=== PATIENT | female | born 1945 | race Caucasian/White ===

== ENCOUNTER → 2017-08-12 07:46 | Outpatient (CLI) | payer MEDICARE, OTHER, SELFPAY ==
--- NOTE | 2017-08-12 10:16 | NEURO_ITS ---
NCS and/or EMG Patient Report Ordering Doctor: Gilberto Bass DATE OF SERVICE: 08/12/17 Is a bilateral lower extremity nerve conduction study and a left lower extremity EMG performed on this 72-year-old female with a history of diabetes with her most recent hemoglobin A1c of 9.8. She experiences symptoms worse on the left described as pain in her feet bilaterally as well as back pain and numbness. Bilateral lower extremity sensory and motor nerve conduction study is performed. The sural sensory responses are not obtainable on either side. The common peroneal distal latencies are mildly prolonged with mild to moderate reduction of amplitudes and mild decrease in conduction velocity. The bilateral tibial motor distal latencies are mildly increased with reduced amplitudes and conduction velocities. The tibial and common peroneal F-wave latencies are bilaterally prolonged to a mild extent and the tibial H reflex responses are reduced. Left lower extremity needle electromyography was performed. Muscles evaluated included the extensor digitorum brevis, abductor hallucis, medial gastrocnemius , anterior tibialis, vastus lateralis and vastus medialis muscles. Distal muscles demonstrated large motor units with absence of pathologic spontaneous activity. Motor unit potential recruitment pattern and amplitude improved with more proximal muscles consistent with a length dependent pattern. Impression abnormal electrophysiologic study consistent with length dependent peripheral neuropathy.
== END ==
PROVIDERS: Family Provider Family Medicine; PCP Family Medicine; Visit Provider Psychiatry & Neurology Neurology
DX: M79.661 Pain in right lower leg (principal); M79.662 Pain in left lower leg; M79.671 Pain in right foot; M79.672 Pain in left foot; E11.65 Type 2 diabetes mellitus with hyperglycemia
CPT/HCPCS: 95886; 95910

== ENCOUNTER 2020-05-30 14:27 | Emergency (ER) | payer MEDICARE, OTHER, SELFPAY ==
[2019-03-13 20:25] VITALS: BMI 36.8
[2020-05-30 14:28] VITALS: PULSE 91; RESP 18; TEMP 35.8; O2SAT 97; BMI 34.0
[2020-05-30 14:40] VITALS: BP 178/81
--- NOTE | 2020-05-30 14:56 | ED.VISSUMM ---
- ER Visit Summary Date of Service: 05/30/20 Chief Complaint: Back pain History of Present Illness: The patient is a 75 F who presents with back pain that has been getting worse over the past 2 weeks. Patient states the pain is been constant. Patient states the pain is sharp and shooting. Patient states the pain radiates across her lumbar spine. Patient states her pain is worse with movement. Patient denies any radiation of the pain to her lower extremities. Patient denies any paresthesias or weakness. Patient denies any abdominal pain. Patient denies any bowel or bladder changes. Patient denies any saddle anesthesia. Physical Examination: Vital signs are stable except for an elevated blood pressure of 183/82. Patient is afebrile. Patient is in no acute distress. Musculoskeletal exam reveals tenderness and spasm of the lumbar paraspinal muscles. There is some mild midline tenderness. There is no bony crepitance or step-off. There is no edema or ecchymosis. Range of motion was limited in all motions of the lumbar spine secondary to pain. Strength is 5/5 bilaterally in the lower extremities. Deep tendon reflexes are 2/4 bilaterally in the lower extremities. There are no sensory deficits noted. There is no calf tenderness or edema. Test Results: X-rays of the lumbar spine were obtained. There are 3 views. On my interpretation, there are some degenerative changes noted. There is no acute fracture. There is no spondylolisthesis or spondylolysis. Radiologist also interpreted the x-rays in degrees. Emergency Department Course and Treatment: Patient was given a dose of morphine here. Patient is feeling better on reevaluation. Patient was given a walker. Patient was given a prescription for a short course of [place]. Patient was instructed to use ice to the area. Patient was instructed to follow-up with her primary care physician in 5 to 7 days. Patient understood and was agreeable with the plan. All questions were answered. Disposition: Discharge home Impression: Acute low back pain This note was generated with [employer] dictation software. It may contain incorrect words, spelling, and punctuation that were not noted in review of the chart prior to signing ED Disposition - Plan for ED Patient: Disposition: Home or Assisted Living Diagnosis: Acute low back pain Instructions: ED Back Pain (Acute or Chronic) Prescriptions: Hydrocodone Bitart/Apap 5-325 [Amenia 5MG-325MG] 1 tab PO Q6H PRN PRN 3 Days #10 tab PRN Reason: Pain Prescription Printed Referrals: Carmelina Wesley PA [Primary Care Provider] - 3-5 Days
[2020-05-30] MEDS: Morphine 4 MG/ML Syringe IM (14:59)
--- NOTE | 2020-05-30 15:07 | RAD_ITS ---
STUDY: X-RAY - LUMBAR SPINE REASON FOR EXAM: Female, 75 years old. PAIN IN LOWER BACK INTO LEFT LEG FOR ABOUT 2 WEEKS, BUT HAS BEEN OFF AND ON FOR YEARS PER PATIENT. SHE ALSO STATES HER LEFT LEG WILL GIVE OUT ON HER. NO KNOWN INJURY. TECHNIQUE: 3 view(s) of the lumbar spine were obtained. COMPARISON: None FINDINGS: Normal lumbar lordosis. There is a mild levoscoliosis of the lumbar spine. There is a normal alignment of the vertebrae. There is multilevel endplate spondylosis of the lumbar vertebrae. There is multi-level degenerative disc disease with multi-level disc space narrowing. Facet joint osteoarthritis. There is atherosclerotic calcification of the abdominal aorta without a demonstrated aneurysm. Surgical clips are seen in the right upper quadrant most likely secondary to prior cholecystectomy. RAD/Lumbar Spine 2 or 3 Views IMPRESSION: Degenerative changes of the spine, as detailed above. Mild levoscoliosis. Electronically Signed: Renaldo Agudelo MD at 15:30 EST , Service support ,
[2020-05-30 16:35] VITALS: BP 168/74
== END 2020-05-30 16:46 | disposition home or self-care (01) ==
PROVIDERS: Emergency Provider Emergency Medicine; PCP Physician Assistant Medical
DX: M54.5 Low back pain (principal)
CPT/HCPCS: 72100; 96372; 99282

== ENCOUNTER → 2020-08-08 08:27 | Outpatient (CLI) | payer MEDICARE, OTHER, SELFPAY ==
[2020-08-02 12:55] VITALS: BMI 37.0
[2020-08-08 12:09] LABS: Absolute Lymphocyte Count 2.01 X10^3/uL (0.83-4.51); Absolute Neutrophil Count 2.3 X10^3/uL (2.0-7.7); Basophil# 0.02 X10^3/uL; Basophil% 0.4 % (0-1); Eosinophil# 0.13 X10^3/uL; Eosinophils% 2.7 % (0-5); Hematocrit 33.5 % (37-47); Hemoglobin 10.3 g/dL (12.0-15.0); Lymphocyte # 2.01 X10^3/ul (4.0); Lymphocyte % 41.4 % (19-41); Mean Corp Hgb Conc 30.7 g/dL (32-36); Mean Corpuscular Hgb 28.9 pg (27.0-32.0); Mean Corpuscular Volume 93.8 fL (81-99); Mean Platelet Vol. 10.3 fl (6.2-12.0); Monocyte# 0.38 X10^3/uL; Monocyte% 7.8 % (0-10); NRBC Flagged by Analyzer 0 % (0-5); Neutrophil # 2.29 X10^3/uL (2.7-7.7); Neutrophil % 47.3 % (47-70); Platelet Count 251 K/mm3 (150-450); RBC Distribution Width CV 13.3 % (11.6-14.6); RBC Distribution Width SD 45.7 fl (35.1-43.9); Red Blood Count 3.57 M/mm3 (4.2-5.4); White Blood Count 4.9 K/mm3 (4.4-11.0)
[2020-08-08 12:27] LABS: Vitamin D,25 Hydroxy 29.9 ng/mL
[2020-08-08 12:32] LABS: Hemoglobin A1c 8.7 % (3.8-5.6)
[2020-08-08 12:40] LABS: ALB/GLOB Ratio 1.1 RATIO (0.9-2.4); AST(SGOT) 16 U/L (15-37); Alanine Aminotransfer ALT/SGPT 27 U/L (13-56); Albumin, Serum 3.9 g/dL (3.2-5.0); Alkaline Phosphatase 83 U/L (45-117); Anion Gap 13 (5-15); BUN 41 mg/dL (7-18); Calcium,Total 9.4 mg/dL (8.5-10.1); Chloride 108 mmol/L (98-107); Cholesterol 180 mg/dL (200); Creatinine, Serum 1.28 mg/dL (0.55-1.02); EST Glomerular Filtration Rate 43 mL/min (>60); Est Glom Filt Rate - Afr Amer 52 mL/min (>60); Free T3 2.4 pg/mL (2.18-3.98); Globulin 3.6 g/dL (2.2-4.2); Glucose 184 mg/dL (74-106); High Density Lipoprotein 53 mg/dL; Potassium 4.9 mmol/L (3.5-5.1); Protein, Total 7.5 g/dL (6.4-8.2); Sodium Level 142 mmol/L (136-145); T4 Free Direct 1.45 ng/dL (0.76-1.46); Thyroid Stim Hormone (TSH) 0.71 uIU/mL (0.358-3.74); Triglycerides 224 mg/dL; Very Low Density Lipoprotein 45 mg/dL (5-40)
== END ==
PROVIDERS: PCP Internal Medicine; Visit Provider Internal Medicine
DX: E55.9 Vitamin D deficiency, unspecified (principal); G62.9 Polyneuropathy, unspecified; E03.9 Hypothyroidism, unspecified; E66.9 Obesity, unspecified; I10 Essential (primary) hypertension; E11.9 Type 2 diabetes mellitus without complications; E78.5 Hyperlipidemia, unspecified
CPT/HCPCS: 36415; 80053; 80061; 82306; 83036; 84439; 84443; 84481; 85025

== ENCOUNTER → 2020-08-10 12:54 | Outpatient (CLI) | payer MEDICARE, OTHER, SELFPAY ==
[2020-08-02 12:55] VITALS: BMI 37.0
--- NOTE | 2020-08-10 12:56 | ECHOD_ITS ---
Reason For Study: DYSPNEA Procedure This was a 2D Doppler, Color Flow transthoracic echocardiogram. The study was technically difficult. Due to body habitus and PT unable to lie down in left lateral decubitus position due to severe back pain. Exam performed in department. Left Ventricle Normal LV size. Left ventricular systolic function is normal. The estimated ejection fraction is 65 %. There is evidence of diastolic dysfunction. No regional wall motion abnormalities noted. Right Ventricle Normal RV size. Normal systolic function. Atria The left atrium is moderately enlarged. Normal right atrium. Small secundum atrial septal defect vs. patent foramen ovale. Mitral Valve There is moderate to severe mitral annular calcification. Extension of the mitral annular calcification onto the posterior mitral valve leaflets. Trivial mitral valve insufficiency. Tricuspid Valve Normal tricuspid valve. Trivial tricuspid valve insufficiency. Right ventricular systolic pressure estimated to be 33 mmHg. Aortic Valve Trisinus/trileaflet aortic valve. Mild focal aortic valve thickening. Pulmonic Valve The pulmonic valve is not well visualized. Great Vessels Normal sized aortic root. Pericardium/Pleural No pericardial effusion. MMode/2D Measurements & Calculations LVIDd: 4.9 cm IVSd: 1.1 cm Ao root diam: 3.0 cm LVIDs: 3.3 cm LVPWd: 1.3 cm RVDd: 3.2 cm FS: 32.6 % LAV(MOD-bp): 80.7 ml LA A4 area: 24.4 cm2 LA dimension(2D): 5.4 cm LAV(MOD-bp) Indexed: 40.9 ml/m2 LAV(MOD-sp2): 77.6 ml LAV(MOD-sp4): 79.8 ml Time Measurements MV dec time: 0.28 sec Doppler Measurements & Calculations MV E max yoni: 128.7 cm/sec Lat Peak E' Yoni: 5.5 cm/sec Med Peak E' Yoni: 6.3 cm/sec MV A max yoni: 175.1 cm/sec E/E' lat: 23.5 E/E' med: 20.6 MV E/A: 0.73 Ao V2 max: 160.8 cm/sec LV V1 max: 121.5 cm/sec PA V2 max: 94.0 cm/sec Ao max P.3 mmHg LV V1 max P.9 mmHg TR max yoni: 275.9 cm/sec TR max P.4 mmHg ECHO/Echo Complete Interpretation Summary The study was technically difficult. Left ventricular systolic function is normal. The estimated ejection fraction is 65 %. The left atrium is moderately enlarged. There is moderate to severe mitral annular calcification. Extension of the mitral annular calcification onto the posterior mitral valve l eaflets. Trivial mitral valve insufficiency. Trivial tricuspid valve insufficiency. Mild focal aortic valve thickening. Right ventricular systolic pressure estimated to be 33 mmHg. There is evidence of diastolic dysfunction. Ordering Physician: Regi Liu Referring Physician: Regi Liu Performed By: Radha Hutchison, PATIENCE, RVT
== END ==
PROVIDERS: PCP Internal Medicine; Referring Provider Internal Medicine; Visit Provider Internal Medicine
DX: R06.00 Dyspnea, unspecified (principal)
CPT/HCPCS: 93306

== ENCOUNTER 2021-05-22 15:26 | Outpatient (CLI) | payer MEDICARE, OTHER, SELFPAY ==
--- NOTE | 2021-05-22 15:30 | RAD_ITS ---
STUDY: X-RAY - RIGHT WRIST REASON FOR EXAM: Female, 76 years old. fall, right wrist pain TECHNIQUE: 4 view(s) of the wrist were obtained. COMPARISON: None. FINDINGS: Normal visualized distal radius and ulna. Normal radiocarpal articulation. Normal distal radioulnar articulation. There is a healed fracture deformity on the dorsal surface of the triquetrum. Small loose bodies are present in the volar aspect of the joint space related to degenerative disease. Mild cortical spurring is also present in the distal radial metaphysis where it articulates with the ulna. No visualized acute fractures. Normal carpal articulations. Normal carpometacarpal articulation of the thumb. Normal second through fifth carpometacarpal articulations. Normal visualized metacarpal bones. The soft tissue structures are unremarkable. RAD/Wrist min 3 Views IMPRESSION: 1. Healed fracture deformity of the dorsal surface of the triquetrum and degenerative changes Electronically Signed: Nolan Joshua MD at 16:26 EST , Service support ,
[2021-05-22 15:35] LABS: Bacteria 0 SEEN /hpf (None Seen); Mucous, Urine 0 SEEN /hpf (<or=2+); Red Blood Cells-Urine 0 SEEN /hpf (0-5); Squamous Epithelial Cells - UA 0 SEEN /hpf (5-10)
[2021-05-22 18:06] LABS: Absolute Lymphocyte Count 2.51 X10^3/uL (0.83-4.51); Basophil# 0.03 X10^3/uL; Basophil% 0.5 % (0-1); Eosinophil# 0.11 X10^3/uL; Eosinophils% 1.8 % (0-5); Hematocrit 31.7 % (37-47); Hemoglobin 9.9 g/dL (12.0-15.0); Lymphocyte # 2.51 X10^3/ul (0.83-4.51); Lymphocyte % 40.5 % (19-41); Mean Corp Hgb Conc 31.2 g/dL (32-36); Mean Platelet Vol. 10.7 fl (6.2-12.0); Monocyte% 8.1 % (0-10); NRBC Flagged by Analyzer 0 % (0-5); Neutrophil # 3.02 X10^3/uL (2.7-7.7); Neutrophil % 48.6 % (47-70); Platelet Count 259 K/mm3 (150-450); RBC Distribution Width CV 14.8 % (11.6-14.6); RBC Distribution Width SD 49.6 fl (35.1-43.9); Red Blood Count 3.41 M/mm3 (4.2-5.4); White Blood Count 6.2 K/mm3 (4.4-11.0)
[2021-05-22 18:08] LABS: Color, Urine Yellow (Yellow); Glucose, Dipstick Normal (Normal); Ketone-Dipstick 5 mg/dl (Negative); Leukocyte Esterase-Dipstick 25 /ul (Negative); Nitrite-Dipstick Negative (Negative); Occult Blood-Urine Negative /ul (Negative); Protein-Dipstick 100 mg/dl (Negative); Specific Gravity, Urine 1.025 (1.002-1.030); Urine Bilirubin Dipstick Negative (Negative); Urine Clarity Clear (Clear); Urine Urobilinogen Normal (Normal)
[2021-05-22 18:30] LABS: White Blood Cells 0-5 SEEN /hpf (0-5)
[2021-05-22 18:38] LABS: ALB/GLOB Ratio 0.9 RATIO (0.9-2.4); AST(SGOT) 17 U/L (15-37); Alanine Aminotransfer ALT/SGPT 32 U/L (13-56); Albumin, Serum 3.7 g/dL (3.2-5.0); Alkaline Phosphatase 103 U/L (45-117); Anion Gap 11 (5-15); BUN 40 mg/dL (7-18); BUN/Creat Ratio 22.6 RATIO (10-20); Calcium,Total 9.5 mg/dL (8.5-10.1); Chloride 104 mmol/L (98-107); Creatinine, Serum 1.77 mg/dL (0.55-1.02); EST Glomerular Filtration Rate 30 mL/min (>60); Est Glom Filt Rate - Afr Amer 36 mL/min (>60); Globulin 3.9 g/dL (2.2-4.2); Glucose 257 mg/dL (74-106); Potassium 5.1 mmol/L (3.5-5.1); Protein, Total 7.6 g/dL (6.4-8.2); Sodium Level 139 mmol/L (136-145)
== END 2021-05-22 23:59 | disposition short-term general hospital (02) ==
LOC: MTLAB 15:30
PROVIDERS: PCP Internal Medicine; Referring Provider Internal Medicine; Visit Provider Internal Medicine
DX: M25.531 Pain in right wrist (principal); E11.9 Type 2 diabetes mellitus without complications; I10 Essential (primary) hypertension; E66.9 Obesity, unspecified; E03.9 Hypothyroidism, unspecified; G62.9 Polyneuropathy, unspecified
CPT/HCPCS: 73110; 80053; 81001; 85025

== ENCOUNTER 2021-08-23 09:02 | Outpatient (CLI) | payer MEDICARE, OTHER, SELFPAY ==
[2021-08-23 12:40] LABS: Absolute Lymphocyte Count 2.04 X10^3/uL (0.83-4.51); Absolute Neutrophil Count 2.8 X10^3/uL (2.0-7.7); Basophil# 0.02 X10^3/uL; Basophil% 0.4 % (0-1); Eosinophils% 1.8 % (0-5); Hematocrit 34.1 % (37-47); Hemoglobin 10.8 g/dL (12.0-15.0); Lymphocyte # 2.04 X10^3/ul (0.83-4.51); Lymphocyte % 37.7 % (19-41); Mean Corp Hgb Conc 31.7 g/dL (32-36); Mean Corpuscular Volume 91.4 fL (81-99); Mean Platelet Vol. 10.8 fl (6.2-12.0); Monocyte# 0.41 X10^3/uL; Monocyte% 7.6 % (0-10); NRBC Flagged by Analyzer 0 % (0-5); Neutrophil # 2.81 X10^3/uL (2.7-7.7); Neutrophil % 51.9 % (47-70); Platelet Count 214 K/mm3 (150-450); RBC Distribution Width CV 14.7 % (11.6-14.6); RBC Distribution Width SD 49.1 fl (35.1-43.9); Red Blood Count 3.73 M/mm3 (4.2-5.4); White Blood Count 5.4 K/mm3 (4.4-11.0)
[2021-08-23 12:58] LABS: Vitamin D,25 Hydroxy 50.6 ng/mL
[2021-08-23 13:07] LABS: ALB/GLOB Ratio 0.9 RATIO (0.9-2.4); AST(SGOT) 19 U/L (15-37); Alanine Aminotransfer ALT/SGPT 31 U/L (13-56); Albumin, Serum 3.6 g/dL (3.2-5.0); Alkaline Phosphatase 93 U/L (45-117); Anion Gap 8 (5-15); BUN 30 mg/dL (7-18); BUN/Creat Ratio 25.4 RATIO (10-20); Calcium,Total 9.1 mg/dL (8.5-10.1); Chloride 107 mmol/L (98-107); Cholesterol 179 mg/dL (200); Creatinine, Serum 1.18 mg/dL (0.55-1.02); EST Glomerular Filtration Rate 47 mL/min (>60); Est Glom Filt Rate - Afr Amer 57 mL/min (>60); Free T3 2.7 pg/mL (2.18-3.98); Globulin 3.8 g/dL (2.2-4.2); Glucose 238 mg/dL (74-106); Hemoglobin A1c 10.4 % (3.8-5.6); High Density Lipoprotein 47 mg/dL; Potassium 4.8 mmol/L (3.5-5.1); Protein, Total 7.4 g/dL (6.4-8.2); Sodium Level 138 mmol/L (136-145); T4 Free Direct 1.48 ng/dL (0.76-1.46); Triglycerides 307 mg/dL; Very Low Density Lipoprotein 61 mg/dL (5-40)
== END 2021-08-23 23:59 | disposition home or self-care (01) ==
PROVIDERS: PCP Internal Medicine; Visit Provider Internal Medicine
DX: E55.9 Vitamin D deficiency, unspecified (principal); E11.9 Type 2 diabetes mellitus without complications; E03.9 Hypothyroidism, unspecified; E66.9 Obesity, unspecified; I10 Essential (primary) hypertension
CPT/HCPCS: 36415; 80053; 80061; 82306; 83036; 84439; 84443; 84481; 85025

== ENCOUNTER → 2022-08-01 | Outpatient (CLI) | payer MEDICARE, OTHER, SELFPAY ==
[2022-08-01 08:51] VITALS: BP 174/67; PULSE 85; RESP 20; TEMP 36.6; O2SAT 98; BMI 32.8
== END | disposition home or self-care (01) ==
PROVIDERS: PCP Internal Medicine; Visit Provider Internal Medicine Hematology & Oncology
DX: D50.9 Iron deficiency anemia, unspecified (principal); C50.411 Malignant neoplasm of upper-outer quadrant of right female breast
CPT/HCPCS: 36569

== ENCOUNTER → 2023-01-02 | Outpatient (CLI) | payer MEDICARE, OTHER, SELFPAY ==
[2023-01-02 11:09] VITALS: BP 161/48; PULSE 82; RESP 18; TEMP 36.9; O2SAT 96; BMI 32.8
== END | disposition home or self-care (01) ==
LOC: RAD 10:52
PROVIDERS: PCP Internal Medicine; Referring Provider Nurse Practitioner; Visit Provider Nurse Practitioner
DX: D50.8 Other iron deficiency anemias (principal); Z45.2 Encounter for adjustment and management of vascular access device
CPT/HCPCS: 36569

== ENCOUNTER 2023-02-13 12:11 | Emergency (ER) | payer MEDICARE, OTHER, SELFPAY ==
[2023-02-13 12:12] VITALS: BP 191/63; PULSE 85; RESP 18; TEMP 36.1; O2SAT 98; BMI 35.2
--- NOTE | 2023-02-13 14:21 | VDUE_ITS ---
Reason For Study: Left arm pain Left Proximal Left jugular vein is spontaneous, widely patent, phasic, with no intraluminal echogenicity noted. Left subclavian vein is spontaneous, widely patent, phasic, with no intraluminal echogenicity noted. Left Arm Left axillary vein is spontaneous, patent, phasic, competent, compressible and demonstrates augmentation. Left brachial vein is compressible. Left cephalic vein is compressible. Left basilic vein is compressible. Left Lower Arm Left radial vein is compressible. Left ulnar vein is compressible. Patient Safety Preliminary report given to Dr. Kramer. VL/Venous Duplex US, Unilateral Interpretation Summary No evidence for acute deep venous thrombosis[left] upper extremity with patent and compressible cephalic and basilic veins. Ordering Physician: Brianna Kramer Referring Physician: Regi Liu M.D. Performed By: Batool Sood RVT ???
--- NOTE | 2023-02-13 14:22 | EDS_ITS ---
HPI History of Present Illness Chief Complaint: Upper Extremity Injury Detail of Chief Complaint: Left arm pain Informant: patient Narrative Narrative: Patient presents to the emergency department complaint of pain in her left arm. Patient states that she had a PICC line placed and then was removed about a month ago to the left arm. They were using the arm for iron infusions. Patient states after removal she had discomfort to the arm and when she would sleep wrong on it it was painful and she has had some numbness to the posterior upper arm as well. Patient also intermittently notices some numbness in her left back. Also has noticed some discomfort intermittently in the left side of her neck. She denies any chest pain or shortness of breath out of the ordinary. Patient called the nurses line at [facility] and was advised to come to the ER to be evaluated. [facility] Medical History (Updated 02/13/23 @ 15:[address] 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 cataract, both eyes GERD with esophagitis Hyperlipidemia, mixed Hyperopia Hypertension, essential, benign Hypothyroidism (acquired) Iron deficiency anemia Iron malabsorption Lymphedema Malignant neoplasm of upper-outer quadrant of right female breast Obesity, Class II, BMI 35-39.9 Peripheral neuropathy Presbyopia Ptosis of left eyelid Regular astigmatism Rosacea Type 2 diabetes mellitus with both eyes affected by mild nonproliferative retinopathy without macular edema, with long-term current use of insulin Uncontrolled type 2 diabetes mellitus without complication, without long-term current use of insulin Home Medications biotin 2,500 mcg capsule 5,000 mcg PO DAILY 01/09/16 [History Last Taken Unknown] cholecalciferol (vitamin D3) 25 mcg (1,000 unit) tablet 2,000 unit PO DAILY 01/09/16 [History Last Taken Unknown] multivitamin 1 ea PO DAILY 01/09/16 [History Last Taken Unknown] blood-glucose meter (FreeStyle Lite Meter kit) #1 ea 03/11/19 [History Last Taken Unknown] esomeprazole magnesium 40 mg capsule,delayed release (Nexium) 40 mg PO DAILY 03/11/19 [History Last Taken Unknown] gabapentin 300 mg capsule 300 mg PO QHS 08/02/20 [History Last Taken Unknown] pen needle, diabetic 31 gauge x 5/16 (Lite Touch Insulin Pen [place]) #30 ea 08/06/20 [Rx Last Taken Unknown] flash glucose scanning reader (FreeStyle [place]um 14 Day [place]) #1 ea 08/20/20 [Rx Last Taken Unknown] flash glucose sensor (FreeStyle [place] 14 Day Sensor kit) #1 ea 08/20/20 [Rx Last Taken Unknown] blood sugar diagnostic (FreeStyle Lite Strips) #100 ea 10/08/21 [Rx Last Taken Unknown] lancets 28 gauge (FreeStyle Lancets) #100 ea 10/18/21 [Rx Last Taken Unknown] atorvastatin 10 mg tablet 10 mg PO QHS #90 tabs 07/28/22 [Rx Last Taken Unknown] levothyroxine 112 mcg tablet 112 mcg PO DAILY #90 tabs 07/28/22 [Rx Last Taken Unknown] valsartan 160 mg tablet 160 mg PO DAILY #90 tabs 07/28/22 [Rx Last Taken Unknown] semaglutide 0.25 mg or 0.5 mg (2 mg/3 mL) subcutaneous pen injector (Ozempic) 0.5 mg (0.736 mL) subcut QWEEK #3 mL 11/05/22 [Rx Last Taken Unknown] glipizide 5 mg tablet 5 mg PO BIDAC #180 tabs 02/04/23 [Rx Last Taken Unknown] hydrochlorothiazide 25 mg tablet 25 mg PO DAILY #90 tabs 02/04/23 [Rx Last Taken Unknown] metformin 1,000 mg tablet 1,000 mg PO BID #180 tabs 02/04/23 [Rx Last Taken Unknown] Allergy/AdvReac Type Severity Reaction Status Date / Time No Known Allergies Allergy Verified 02/13/23 12:14 Family History Aunt Breast cancer Sister Diabetes Surgical History History of cholecystectomy History of lumpectomy Social History Smoking Status: Former smoker quit date: 05/11/90 Tobacco: How many years used: 15 alcohol intake: never substance use type: does not use what type of physical activity do you participate in: walking and bicycling ROS ROS ED Review of Systems ROS Unobtainable: other Constitutional Constitutional ED: Reports lethargy; Denies chills, fever(s), sweats or weight loss Eyes Eyes: Denies blurry vision, change in vision or diplopia ENT ENT ED: Denies rhinorrhea or sore throat Cardiovascular Cardiovascular: Denies chest pain, orthopnea or racing heartbeat Respiratory/Chest Respiratory/Chest: Denies cough, dyspnea, dyspnea on exertion, orthopnea or sputum Gastrointestinal Gastrointestinal: Denies abdominal pain, diarrhea, nausea or vomiting Genitourinary Genitourinary ED: Denies dysuria, hematuria or urinary frequency Musculoskeletal Musculoskeletal: Reports other Details: Left arm pain ; Denies arthralgias, back pain, myalgias or neck pain Integumentary Denies abscess, Abrasions or rash Neurologic Neurologic: Reports paresthesias; Denies headache(s) or weakness Psychiatric Psychiatric: Denies anxiety, depression or suicidal thoughts Endocrine Endocrinology: Denies polydipsia, polyphagia or polyuria Hematologic/Lymphatic Hematologic/Lymphatic: Denies easy bleeding, easy bruising or lymphadenopathy Allergic/Immunologic Allergic/Immunologic ED: Denies mouth swelling, tongue swelling or urticaria EXAM Physical Exam Const Vital Signs: 02/13/23 12:12 Temperature 97 F L Temperature Source Temporal Pulse Rate 85 Respiratory Rate 18 Blood Pressure 191/63 H Blood Pressure Mean 105 Pulse Ox 98 Oxygen Delivery Method Room Air Positive well nourished and well developed General Appearance ED: well developed and NAD HEENT Reports TM's clear and moist mucous membranes normocephalic and atraumatic; Negative for trauma or tenderness Tympanic Membrane ED: Yes TM's clear Eyes PERRL and EOMs intact bilaterally General Eye ED: Negative for pale conjunctiva or scleral icterus Neck no lymphadenopathy, supple and no JVD General: Negative for tenderness Chest Wall inspection of chest normal and palpation of chest normal Chest: Negative for tenderness Resp normal respiratory effort and clear to auscultation bilaterally Effort and Inspection: Negative for respiratory distress or pain with movement Auscultation: Negative for rhonchi, wheezes or diminished lung sounds Cardio regular rate, regular rhythm, S1 normal heart sound, S2 normal heart sound and no murmurs Peripheral Pulses: pulses 2+ throughout GI normal to inspection, nondistended, normoactive bowel sounds, soft to palpation, non-tender, non-distended and no masses Back/Spine no CVA tenderness and no thoracic nor lumbar tenderness Extremity normal to inspection General Extremety ED: Negative for edema General Extremity: Negative for edema Neuro oriented x3, CN's II-XII intact bilaterally, no sensory deficits noted and gait normal Sensorium / Orientation: awake, alert, oriented to person, oriented to place and oriented to time Motor Exam: strength 5/5 throughout and strength abnormal Psych mental status grossly normal Skin no rashes or lesions noted and no wounds MDM MDM MDM Narrative Medical decision making narrative: Presents with discomfort in her left arm after PICC line was removed 1 month ago. She denies any chest pain or dyspnea. Concern was for possibility of DVT. Venous Doppler obtained was negative for DVT. She has intermittent paresthesias to her left back as well as intermittent paresthesias to her left arm and neck. In the differential again would be potential cervical radiculopathy. I do not feel any further imaging is indicated as she has had no trauma. Patient advised to follow-up with her primary care physician within next 5 to 7 days. Patient is comfortable taking ibuprofen or Tylenol for discomfort. She is advised that if her symptoms persist or worsen may need further imaging such as possibly MRI of her cervical spine to evaluate further. Discharge Plan Triage Chief Complaint: Upper Extremity Injury Other Complaint: Numb/Ting ED Provider: Brianna Kramer Dx/Rx/DC Orders Clinical Impression: Arm pain, Arm paresthesia, left Instructions: ED Pain, Acute, Uncertain Cause, ED Paraesthesias Prescriptions: No Action esomeprazole magnesium [Nexium] 40 mg capsule,delayed release(DR/EC) 40 mg PO DAILY (DME) blood-glucose meter [FreeStyle Lite Meter] Kit See Rx Instructions .ROUTE .MEDSUPPLY Qty: 1 Rx Instructions: As directed gabapentin 300 mg capsule 300 mg PO QHS multivitamin 1 EACH tablet 1 ea PO DAILY Patient Comments: supplement cholecalciferol (vitamin D3) 1,000 UNIT tablet 2,000 unit PO DAILY Patient Comments: supplement biotin 2,500 MCG capsule 5,000 mcg PO DAILY Patient Comments: for dry mouth (DME) pen needle, diabetic [Lite Touch Insulin Pen [place]] 31 gauge x 5/16 needle See Rx Instructions .ROUTE .MEDSUPPLY Qty: 30 5RF Rx Instructions: use with victoza qd (DME) FreeStyle [place] 14 Day [place] [facility] See Rx Instructions .ROUTE .MEDSUPPLY Qty: 1 0RF Rx Instructions: As directed (DME) FreeStyle [place] 14 Day Sensor Kit See Rx Instructions .ROUTE .MEDSUPPLY Qty: 1 0RF Rx Instructions: As directed (DME) FreeStyle Lite Strips Strip See Rx Instructions .ROUTE .MEDSUPPLY Qty: 100 3RF Rx Instructions: As directed (DME) lancets [FreeStyle Lancets] 28 gauge misc See Rx Instructions .ROUTE .MEDSUPPLY Qty: 100 3RF Rx Instructions: check glucose 2 x a day atorvastatin 10 mg tablet 10 mg PO QHS Qty: 90 3RF levothyroxine 112 mcg tablet 112 mcg PO DAILY Qty: 90 3RF valsartan 160 mg tablet 160 mg PO DAILY Qty: 90 3RF Ozempic 0.25 mg or 0.5 mg (2 mg/3 mL) pen injector 0.5 mg subcut QWEEK Qty: 3 3RF Rx Instructions: for 4 weeks glipizide 5 mg tablet 5 mg PO BIDAC Qty: 180 3RF metformin 1,000 mg tablet 1,000 mg PO BID Qty: 180 3RF hydrochlorothiazide 25 mg tablet 25 mg PO DAILY Qty: 90 3RF Primary Care Provider: Regi Liu Referrals: Regi Liu MD [Primary Care Provider] - 5-7 Days Disposition Disposition: Home, Self Care Discharge Date/Time: 02/13/23 15:18
--- NOTE | 2023-02-13 14:51 | CM.ED ---
Social Work SW performed chart review, LW and HCPOA documents not on file. SW met with patient and patient's and introduced self and role as [facility] SW. Patient agreeable to speak to SW with patient's present. SW inquired about completion of ADs. Patient reports LW and HCPOA documents are complete and name patient's , Hunter, as HCPOA. SW encouraged patient to provide a copy to [facility] to add to patient's chart; patient agreeable. Tiffani CHRISTIE, MONI
== END 2023-02-13 15:18 | disposition home or self-care (01) ==
PROVIDERS: Emergency Provider Emergency Medicine; PCP Internal Medicine; Visit Provider Emergency Medicine
DX: M79.602 Pain in left arm (principal); N18.30 Chronic kidney disease, stage 3 unspecified; R20.2 Paresthesia of skin; Z87.891 Personal history of nicotine dependence
CPT/HCPCS: 93971; 99283

== ENCOUNTER 2023-04-07 08:07 | Outpatient (CLI) | payer MEDICARE, OTHER, SELFPAY ==
[2023-04-07 08:41] VITALS: BP 173/60; PULSE 75; RESP 16; TEMP 36.3; O2SAT 100; BMI 32.8
[2023-04-07 09:26] VITALS: BP 156/51; PULSE 78; RESP 16; TEMP 36.5; O2SAT 99
[2023-04-07 10:21] VITALS: BP 151/54; PULSE 74; RESP 16; TEMP 36.8; O2SAT 99
[2023-04-07 11:37] VITALS: BP 173/64; PULSE 77; RESP 16; TEMP 36.8; O2SAT 99
[2023-04-07 12:37] VITALS: BP 168/65; PULSE 75; RESP 16; TEMP 36.6; O2SAT 99
[2023-04-07 13:16] VITALS: BP 172/58; PULSE 78; RESP 16; TEMP 36.6
== END 2023-04-07 08:08 | disposition home or self-care (01) ==
LOC: MEDOUTP 08:08
PROVIDERS: PCP Internal Medicine; Referring Provider Internal Medicine Hematology & Oncology; Visit Provider Internal Medicine Hematology & Oncology
DX: D50.9 Iron deficiency anemia, unspecified (principal)
CPT/HCPCS: 36430; 86850; 86900; 86901; 86920; 86922; P9016; A4216

== ENCOUNTER 2023-04-21 14:31 | Outpatient (CLI) | payer MEDICARE, OTHER, SELFPAY ==
[2023-04-21 14:41] VITALS: BP 169/46; PULSE 81; RESP 16; TEMP 36; O2SAT 99; BMI 32.8
[2023-04-21] MEDS: 0.9% NaCl IVPB Med Flush (250 mL) 15 ML IV (14:50)
[2023-04-21] MEDS: 0.9% NaCl PICC Flush IV ×2 (14:50→15:46)
[2023-04-21] MEDS: Iron Sucrose Complex 200 MG in 0.9% Normal Saline (100mL Bag) 100 ML 220 MG IV (14:51)
[2023-04-21 15:49] VITALS: BP 158/55; PULSE 91; RESP 16; TEMP 36.2; O2SAT 99
== END 2023-04-21 14:32 | disposition home or self-care (01) ==
LOC: MEDOUTP 14:31
PROVIDERS: PCP Internal Medicine; Referring Provider Internal Medicine Hematology & Oncology; Visit Provider Internal Medicine Hematology & Oncology
DX: D50.9 Iron deficiency anemia, unspecified (principal)
CPT/HCPCS: 96365; 36569; J1756; J7050; A4216

== ENCOUNTER → 2023-04-21 | Outpatient (CLI) | payer MEDICARE, OTHER, SELFPAY ==
[2023-04-21 10:13] VITALS: BP 222/63; PULSE 86; RESP 18; TEMP 36.5; O2SAT 100; BMI 32.9
--- NOTE | 2023-04-21 12:43 | PRO.PCM_ITS ---
Procedure Report Date of Procedure: 04/21/23 Assessment & Plan Assessment/Plan (1) Iron deficiency anemia: QUALIFIERS: Iron deficiency anemia type: unspecified iron deficiency Qualified Code(s): D50.9 - Iron deficiency anemia, unspecified Procedure Time Out Time Out Informed consent given: Yes Consent signed: Yes Time out checklist: patient, procedure, site marked/identified, positioning of patient, supplies available, allergies confirmed and team agrees on procedure Time out staff in room: Yes Time out verified: Yes Time out date: 04/21/23 Time out time: 10:31 PICC Line Consent Screening tool completed:: Yes Consent obtained:: Yes Consent given by (patient or responsible democrat):: patient Line successful (if no, document why in comments):: No Insertion Reason for Insertion: Alf Medication Date of Insertion: 04/21/23 Ok to use: Yes Type of PICC inserted: Dual Power PICC Patient Tolerated Procedure: Fair Threading Difficulties: Yes Comments Comment: Patient identity was verified with two patient identifiers. Informed consent was obtained and time-out was completed. Hands were sanitized. The patient was positioned supine with the arm at 90 degrees. The patient's upper arm vasculature was assessed using ultrasound, and the left cephalic vein was externally marked. An external measurement was obtained of 47 cm. External leads were applied to the patient's right upper chest and laterally and inferior of the umbilicus on the mid axillary line. Cap, mask, and prep gloves were donned. The underdrape was placed under the patient's arm. The site was prepped with chlorhexidine, and tourniquet was loosely applied. Prep gloves were discarded, and hands were sanitized. The sterile kit was opened with additional supplies dropped in. Sterile gown and gloves were donned, and the patient was draped. The sterile kit was assembled with all needle, introducer, connector, and catheter flushed with sterile normal saline. The marked site of insertion was anesthetized with 1% lidocaine. Patient tolerated well. The left cephalic vein was then accessed using ultrasound guidance and guidewire was inserted to safety klarissa. The tourniquet was released. The access needle was removed while securing the guidewire in place. The site was again anesthetized with 1% lidocaine, prior to insertion of introducer sheath and dilator. Patient tolerated well. The catheter was trimmed to a length of 47 cm. Using 3C guidance, the catheter was then inserted through the introducer sheath, slowly. There was resistance on insertion. Despite flushing and adjustments of patient positioning, including head turning and increased arm abduction, the catheter would not advance past the shoulder. This catheter and introducer were removed. Within the sterile field, I was able to access the left basilic vein using ultrasound guidance and a new 4.5 Uzbek micro introducer kit, again with providing 1% lidocaine as local anesthetic prior. The patient tolerated this well and guidewire was inserted to the safety klarissa. The access needle was then removed, while securing the guidewire in place. The site was again anesthetized with 1% lidocaine, prior to the insertion of the introducer sheath and dilator. Patient again tolerated this well. The catheter was attempted to be inserted at this site, but was again met with resistance at the shoulder. Maximal p-wave, without deflection, was obtained at an insertion length of [ ] cm, leaving [ ] cm external. The introducer sheath was retracted and peeled away, incrementally, while keeping the catheter secured. The stylet was removed. A flushed needleless connector was attached [ ]. Blood return was verified and [ ] was flushed with sterile normal saline in a pulsatile fashion. Total sterile flushes used for the insertion was [ ] 10 ml syringes. Finally, the insertion site was cleaned with chlorhexidine, and the catheter was secured using a StatLock. The site was covered with a Tegaderm CHG Dressing. Baseline arm circumference was obtained at the insertion site and measured [ ] cm. The patient was provided with homegoing instructions on PICC line care.
== END | disposition home or self-care (01) ==
LOC: RAD 10:00
PROVIDERS: PCP Internal Medicine; Referring Provider Internal Medicine Hematology & Oncology; Visit Provider Internal Medicine Hematology & Oncology
DX: D50.9 Iron deficiency anemia, unspecified (principal)
CPT/HCPCS: 36569

== ENCOUNTER 2023-04-24 09:09 | Outpatient (CLI) | payer MEDICARE, OTHER, SELFPAY ==
[2023-04-24] MEDS: Iron Sucrose Complex 200 MG in 0.9% Normal Saline (100mL Bag) 100 ML 220 MG IV (09:45)
[2023-04-24] MEDS: 0.9% NaCl IVPB Med Flush (250 mL) 15 ML IV (09:46)
[2023-04-24] MEDS: 0.9% NaCl PICC Flush IV ×2 (09:46→10:44)
[2023-04-24 09:51] VITALS: BP 119/96; PULSE 76; RESP 16; TEMP 36.8; O2SAT 100; BMI 32.8
[2023-04-24 10:45] VITALS: BP 149/54; PULSE 84; RESP 16; TEMP 36.6; O2SAT 100
== END 2023-04-24 09:10 | disposition home or self-care (01) ==
LOC: MEDOUTP 09:09
PROVIDERS: PCP Internal Medicine; Referring Provider Internal Medicine Hematology & Oncology; Visit Provider Internal Medicine Hematology & Oncology
DX: D50.9 Iron deficiency anemia, unspecified (principal)
CPT/HCPCS: 96365; J1756; J7050; A4216

== ENCOUNTER 2023-04-27 12:16 | Outpatient (CLI) | payer MEDICARE, OTHER, SELFPAY ==
[2023-04-27 12:39] VITALS: BP 151/59; PULSE 78; RESP 16; TEMP 36.6; O2SAT 98; BMI 32.8
[2023-04-27] MEDS: 0.9% NaCl IVPB Med Flush (250 mL) 15 ML IV (12:46)
[2023-04-27] MEDS: 0.9% NaCl Peripheral Flush Adult/Peds IV ×2 (12:46→13:38)
[2023-04-27] MEDS: Iron Sucrose Complex 200 MG in 0.9% Normal Saline (100mL Bag) 100 ML 220 MG IV (12:46)
[2023-04-27 13:40] VITALS: BP 150/57; PULSE 83; RESP 16; TEMP 36.9
== END 2023-04-27 12:17 | disposition home or self-care (01) ==
LOC: MEDOUTP 12:16
PROVIDERS: PCP Internal Medicine; Referring Provider Internal Medicine Hematology & Oncology; Visit Provider Internal Medicine Hematology & Oncology
DX: D50.9 Iron deficiency anemia, unspecified (principal)
CPT/HCPCS: 96365; J1756; J7050; A4216

== ENCOUNTER 2023-04-29 08:51 | Outpatient (CLI) | payer MEDICARE, OTHER, SELFPAY ==
[2023-04-29 09:01] VITALS: BP 135/50; PULSE 88; RESP 16; TEMP 36.4; O2SAT 97; BMI 31.8
[2023-04-29] MEDS: 0.9% NaCl IVPB Med Flush (250 mL) 15 ML IV (09:14)
[2023-04-29] MEDS: 0.9% NaCl Peripheral Flush Adult/Peds IV ×2 (09:14→10:06)
[2023-04-29] MEDS: Iron Sucrose Complex (Venofer) 200 MG in 0.9% NaCl 100 ML 220 MG IV (09:18)
[2023-04-29 10:10] VITALS: BP 156/45; PULSE 80; RESP 14; TEMP 36.4; O2SAT 96
== END 2023-04-29 08:52 | disposition home or self-care (01) ==
LOC: MEDOUTP 08:51
PROVIDERS: PCP Internal Medicine; Referring Provider Internal Medicine Hematology & Oncology; Visit Provider Internal Medicine Hematology & Oncology
DX: D50.9 Iron deficiency anemia, unspecified (principal)
CPT/HCPCS: 96365; J1756; J7050; A4216

== ENCOUNTER 2023-05-01 11:30 | Outpatient (CLI) | payer MEDICARE, OTHER, SELFPAY ==
[2023-05-01] MEDS: Iron Sucrose Complex 200 MG in 0.9% Normal Saline (100mL Bag) 100 ML 220 MG IV (12:15)
[2023-05-01] MEDS: 0.9% NaCl IVPB Med Flush (250 mL) 15 ML IV (12:15)
[2023-05-01] MEDS: 0.9% NaCl Peripheral Flush Adult/Peds IV (12:16)
[2023-05-01 12:26] VITALS: BP 132/53; PULSE 82; RESP 16; TEMP 36.3; O2SAT 100; BMI 32.4
== END 2023-05-01 11:31 | disposition home or self-care (01) ==
LOC: MEDOUTP 11:30
PROVIDERS: PCP Internal Medicine; Referring Provider Internal Medicine Hematology & Oncology; Visit Provider Internal Medicine Hematology & Oncology
DX: D50.9 Iron deficiency anemia, unspecified (principal)
CPT/HCPCS: 96365; J1756; J7050; A4216

== ENCOUNTER 2023-05-01 13:35 | Emergency (ER) | payer MEDICARE, OTHER, SELFPAY ==
[2023-05-01 13:36] VITALS: BP 136/45; PULSE 83; RESP 16; TEMP 36.4; O2SAT 97; BMI 32.4
--- NOTE | 2023-05-01 14:55 | VDUE_ITS ---
Reason For Study: LUE PAIN Left Proximal Left jugular vein is spontaneous, widely patent, phasic, with no intraluminal echogenicity noted. Left subclavian vein is spontaneous, widely patent, phasic, with no intraluminal echogenicity noted. Left Arm Left axillary vein is spontaneous, patent, phasic, competent, compressible and demonstrates augmentation. Left brachial vein is compressible. Left cephalic vein is compressible. Left basilic vein is compressible. Left Lower Arm Left radial vein is compressible. Left ulnar vein is compressible. Patient Safety Preliminary report to Dr. Marlyn Lion @ 3:40 pm. VL/Venous Duplex US, Unilateral Interpretation Summary Deep veins of the left upper extremity are patent and compressible segmentally. There is no evidence of deep vein thrombosis. The superficial veins of the left upper extremity, the basilic and cephalic veins, are patent and compressible. There is no evidence of left upper extremit y superficial thrombophlebitis involving the veins imaged. Ordering Physician: Jennifer Lion Referring Physician: Regi Liu Performed By: Radha Hutchison, PATIENCE, RVT ???
--- NOTE | 2023-05-01 14:55 | CT_ITS ---
STUDY: CT CHEST WITHOUT CONTRAST REASON FOR EXAM: Female, 78 years old. Left upper chest pain at midline site RADIATION DOSAGE (If Supplied By Facility): CTDIvol = ( 16.07 ) mGy, DLP = ( 594.19 ) mGycm TECHNIQUE: Transaxial imaging was performed without the administration of intravenous contrast material. Multiplanar coronal and sagittal images were reformatted. Individualized dose optimization techniques were used for this CT. COMPARISON: No relevant priors. FINDINGS: CHEST The lungs are normal. There is no demonstrated pleural abnormality. There are calcifications of the coronary arteries. Calcification of the mitral valve annulus. Normal mediastinum. Normal hilar regions. Normal unenhanced pulmonary arteries. There is atherosclerotic calcification of the aortic arch with tortuosity and elongation of the aortic arch and descending thoracic aorta. There are multi-level degenerative changes of the thoracic spine. Degenerative changes of the left sternal clavicular joint. Small hiatal hernia. CT/Chest without Contrast IMPRESSION: No acute abnormality is seen. Degenerative changes of the left sternoclavicular joint. Electronically Signed: Renaldo Agudelo MD at 15:26 EST ,
--- NOTE | 2023-05-01 14:56 | EX.ED.DYSGE1 ---
HPI History of Present Illness Chief Complaint: Other, Pain/Inj Detail of Chief Complaint: Left arm and left upper chest pain Narrative Narrative: Patient has a midline in her left arm for iron infusions that she receives 3 times a week. This particular line was placed on the of this month. She previously had a left upper extremity PICC line. Patient states that on Thursday when she got her iron infusion she got pain in the left upper chest when they were flushing the line. Today she had significant pain in the left upper chest with flushing as well as with infusion. After they slow the infusion rate down she states the pain did improve. She also has some pain along the backside of the left upper arm. 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-related cataract, both eyes GERD with esophagitis Hyperlipidemia, mixed Hyperopia Hypertension, essential, benign Hypothyroidism (acquired) Iron deficiency anemia Iron malabsorption Lymphedema Malignant neoplasm of upper-outer quadrant of right female breast Obesity, Class II, BMI 35-39.9 Peripheral neuropathy Presbyopia Ptosis of left eyelid Regular astigmatism Rosacea Type 2 diabetes mellitus with both eyes affected by mild nonproliferative retinopathy without macular edema, with long-term current use of insulin Uncontrolled type 2 diabetes mellitus without complication, without long-term current use of insulin Home Medications biotin 2,500 mcg capsule 5,000 mcg PO DAILY 01/09/16 [History Last Taken Unknown] cholecalciferol (vitamin D3) 25 mcg (1,000 unit) tablet 2,000 unit PO DAILY 01/09/16 [History Last Taken Unknown] multivitamin 1 ea PO DAILY 01/09/16 [History Last Taken Unknown] blood-glucose meter (FreeStyle Lite Meter kit) #1 ea 03/11/19 [History Last Taken Unknown] esomeprazole magnesium 40 mg capsule,delayed release (Nexium) 40 mg PO DAILY 03/11/19 [History Last Taken Unknown] gabapentin 300 mg capsule 300 mg PO QHS 08/02/20 [History Last Taken Unknown] pen needle, diabetic 31 gauge x 5/16 (Lite Touch Insulin Pen Combined Locks) #30 ea 08/06/20 [Rx Last Taken Unknown] flash glucose scanning reader (FreeStyle N[place]um 14 Day [place]) #1 ea 08/20/20 [Rx Last Taken Unknown] flash glucose sensor (FreeStyle N[place]um 14 Day Sensor kit) #1 ea 08/20/20 [Rx Last Taken Unknown] blood sugar diagnostic (FreeStyle Lite Strips) #100 ea 10/08/21 [Rx Last Taken Unknown] lancets 28 gauge (FreeStyle Lancets) #100 ea 10/18/21 [Rx Last Taken Unknown] atorvastatin 10 mg tablet 10 mg PO QHS #90 tabs 07/28/22 [Rx Last Taken Unknown] levothyroxine 112 mcg tablet 112 mcg PO DAILY #90 tabs 07/28/22 [Rx Last Taken Unknown] valsartan 160 mg tablet 160 mg PO DAILY #90 tabs 07/28/22 [Rx Last Taken Unknown] glipizide 5 mg tablet 5 mg PO BIDAC #180 tabs 02/04/23 [Rx Last Taken Unknown] hydrochlorothiazide 25 mg tablet 25 mg PO DAILY #90 tabs 02/04/23 [Rx Last Taken Unknown] metformin 1,000 mg tablet 1,000 mg PO BID #180 tabs 02/04/23 [Rx Last Taken Unknown] semaglutide 1 mg/dose (4 mg/3 mL) subcutaneous pen injector 1 mg (0.75 mL) subcut QWEEK #3 mL 02/16/23 [Rx Last Taken Unknown] vit C 226 mg-vit E 90 mg-copper 0.8 mg-zinc oxide-lutein 5 mg capsule (PreserVision Lutein) 1 cap PO BID 04/21/23 [History Last Taken Unknown] Allergy/AdvReac Type Severity Reaction Status Date / Time No Known Allergies Allergy Verified 04/27/23 12:35 Family History Aunt Breast cancer Sister Diabetes Surgical History History of cholecystectomy History of lumpectomy Social History Smoking Status: Former smoker quit date: 05/11/90 Tobacco: How many years used: 15 alcohol intake: never substance use type: does not use what type of physical activity do you participate in: walking and bicycling ROS ROS ED Constitutional Constitutional ED: Denies chills or fever(s) Eyes Eyes: Denies discharge from eye(s) ENT ENT ED: Denies discharge from eye(s), rhinorrhea or sore throat Cardiovascular Cardiovascular: Reports chest pain; Denies palpitations Respiratory/Chest Respiratory/Chest: Denies cough or dyspnea Gastrointestinal Gastrointestinal: Denies abdominal pain, nausea or vomiting Musculoskeletal Musculoskeletal: Reports extremity pain; Denies back pain Integumentary Denies Abrasions or rash Neurologic Neurologic: Denies headache(s) or weakness Psychiatric Psychiatric: Denies anxiety or depression Allergic/Immunologic Allergic/Immunologic ED: Denies lip swelling or urticaria EXAM Physical Exam Const Vital Signs: 05/01/23 13:36 Temperature 97.6 F L Temperature Source Temporal Pulse Rate 83 Respiratory Rate 16 Blood Pressure 136/45 H Blood Pressure Mean 75 Pulse Ox 97 Oxygen Delivery Method Room Air Positive well nourished and well developed General Appearance ED: well developed HEENT Reports moist mucous membranes Eyes EOMs intact bilaterally Chest Wall inspection of chest normal and palpation of chest normal Chest Narrative: No reproducible chest wall tenderness. No erythema. Resp normal respiratory effort and clear to auscultation bilaterally Cardio regular rate and regular rhythm GI non-tender Palpation: soft Extremity Extremity Narrative: Midline in place to left upper extremity. No surrounding erythema or significant edema. Strong distal pulses. Good range of motion. Neuro oriented x3 Psych Mood & Affect: anxious MDM MDM MDM Narrative Medical decision making narrative: Venous ultrasound of the left upper extremity will be obtained to rule out DVT. CT of the chest will be obtained to evaluate integrity of the midline as patient does have pain in the left upper chest with infusion. Radiography Diagnostic Testing: Clinical Impression(s) from Imaging Studies Chest CT 05/01/23 14:55 IMPRESSION: No acute abnormality is seen. Degenerative changes of the left sternoclavicular joint. Electronically Signed: Renaldo Agudelo MD at 15:26 EST , Treatment and Re-Evaluation :: CT scan of the chest is read as unremarkable. I am able to see the distal aspect of the midline in the left lateral upper chest/over the upper arm. This is near the site where she is experiencing pain. I do not see a fluid collection in this area. Venous ultrasound of the left upper extremity reveals no evidence of DVT. I did speak with Dr. Rodriguez, on-call Dr. Nathan. Patient will follow-up in the office next week. Discharge Plan Triage Chief Complaint: Other, Pain/Inj ED Provider: Jennifer Lion Dx/Rx/DC Orders Clinical Impression: Arm pain, left Instructions: ED Pain, Acute, Uncertain Cause Prescriptions: No Action esomeprazole magnesium [Nexium] 40 mg capsule,delayed release(DR/EC) 40 mg PO DAILY (DME) blood-glucose meter [FreeStyle Lite Meter] Kit See Rx Instructions .ROUTE .MEDSUPPLY Qty: 1 Rx Instructions: As directed gabapentin 300 mg capsule 300 mg PO QHS multivitamin 1 EACH tablet 1 ea PO DAILY Patient Comments: supplement cholecalciferol (vitamin D3) 1,000 UNIT tablet 2,000 unit PO DAILY Patient Comments: supplement biotin 2,500 MCG capsule 5,000 mcg PO DAILY Patient Comments: for dry mouth PreserVision Lutein 226-90-0.8-5 mg capsule 1 cap PO BID (DME) pen needle, diabetic [Lite Touch Insulin Pen Combined Locks] 31 gauge x 5/16 needle See Rx Instructions .ROUTE .MEDSUPPLY Qty: 30 5RF Rx Instructions: use with victoza qd (DME) FreeStyle Nahum 14 Day [place] Misc See Rx Instructions .ROUTE .MEDSUPPLY Qty: 1 0RF Rx Instructions: As directed (DME) FreeStyle Nahum 14 Day Sensor Kit See Rx Instructions .ROUTE .MEDSUPPLY Qty: 1 0RF Rx Instructions: As directed (DME) FreeStyle Lite Strips Strip See Rx Instructions .ROUTE .MEDSUPPLY Qty: 100 3RF Rx Instructions: As directed (DME) lancets [FreeStyle Lancets] 28 gauge misc See Rx Instructions .ROUTE .MEDSUPPLY Qty: 100 3RF Rx Instructions: check glucose 2 x a day atorvastatin 10 mg tablet 10 mg PO QHS Qty: 90 3RF levothyroxine 112 mcg tablet 112 mcg PO DAILY Qty: 90 3RF valsartan 160 mg tablet 160 mg PO DAILY Qty: 90 3RF glipizide 5 mg tablet 5 mg PO BIDAC Qty: 180 3RF metformin 1,000 mg tablet 1,000 mg PO BID Qty: 180 3RF hydrochlorothiazide 25 mg tablet 25 mg PO DAILY Qty: 90 3RF Ozempic 1 mg/dose (4 mg/3 mL) pen injector 1 mg subcut QWEEK Qty: 3 3RF Rx Instructions: for 4 weeks Primary Care Provider: Regi Liu Referrals: Regi Liu MD [Primary Care Provider] - Eric Nathan DO [Med Staff - Active Staff] - 5-7 Days Disposition Disposition: Home, Self Care
[2023-05-01 16:03] VITALS: BP 146/40; PULSE 88; RESP 16; TEMP 36.6
== END 2023-05-01 16:06 | disposition home or self-care (01) ==
PROVIDERS: Emergency Provider Emergency Medicine; PCP Internal Medicine; Visit Provider Emergency Medicine
DX: M79.602 Pain in left arm (principal); E11.22 Type 2 diabetes mellitus with diabetic chronic kidney disease; N18.30 Chronic kidney disease, stage 3 unspecified; R07.9 Chest pain, unspecified; Z87.891 Personal history of nicotine dependence
CPT/HCPCS: 71250; 93971; 99282

== ENCOUNTER 2023-05-05 14:57 | Outpatient (CLI) | payer MEDICARE, OTHER, SELFPAY | END 2023-05-05 14:58 | disposition home or self-care (01) | LOC: MEDOUTP 14:57 | PROVIDERS: PCP Internal Medicine; Referring Provider Internal Medicine Hematology & Oncology; Visit Provider Internal Medicine Hematology & Oncology | DX: D50.9 Iron deficiency anemia, unspecified (principal) ==

== ENCOUNTER 2023-05-25 14:15 | Emergency (ER) | payer MEDICARE, OTHER, SELFPAY ==
[2023-05-25 14:16] VITALS: BP 171/68; PULSE 88; RESP 18; TEMP 35.2; O2SAT 97; BMI 33.3
--- NOTE | 2023-05-25 15:59 | EX.ED.DYSGE1 ---
HPI History of Present Illness Chief Complaint: Abn Labs [facility] Medical History Acute maxillary sinusitis, unspecified Albuminuria Barretts esophagus CKD (chronic kidney disease) stage 3, GFR 30-59 ml/min Claudication Combined form of age-related cataract, both eyes GERD with esophagitis Hyperlipidemia, mixed Hyperopia Hypertension, essential, benign Hypothyroidism (acquired) Iron deficiency anemia Iron malabsorption Lymphedema Malignant neoplasm of upper-outer quadrant of right female breast Obesity, Class II, BMI 35-39.9 Peripheral neuropathy Presbyopia Ptosis of left eyelid Regular astigmatism Rosacea Type 2 diabetes mellitus with both eyes affected by mild nonproliferative retinopathy without macular edema, with long-term current use of insulin Uncontrolled type 2 diabetes mellitus without complication, without long-term current use of insulin Home Medications biotin 2,500 mcg capsule 5,000 mcg PO DAILY 01/09/16 [History Last Taken Unknown] cholecalciferol (vitamin D3) 25 mcg (1,000 unit) tablet 2,000 unit PO DAILY 01/09/16 [History Last Taken Unknown] multivitamin 1 ea PO DAILY 01/09/16 [History Last Taken Unknown] blood-glucose meter (FreeStyle Lite Meter kit) #1 ea 03/11/19 [History Last Taken Unknown] esomeprazole magnesium 40 mg capsule,delayed release (Nexium) 40 mg PO DAILY 03/11/19 [History Last Taken Unknown] gabapentin 300 mg capsule 300 mg PO QHS 08/02/20 [History Last Taken Unknown] pen needle, diabetic 31 gauge x 5/16 (Lite Touch Insulin Pen [place]) #30 ea 08/06/20 [Rx Last Taken Unknown] flash glucose scanning reader (FreeStyle [place] 14 Day [place]) #1 ea 08/20/20 [Rx Last Taken Unknown] flash glucose sensor (FreeStyle [place] 14 Day Sensor kit) #1 ea 08/20/20 [Rx Last Taken Unknown] blood sugar diagnostic (FreeStyle Lite Strips) #100 ea 10/08/21 [Rx Last Taken Unknown] lancets 28 gauge (FreeStyle Lancets) #100 ea 10/18/21 [Rx Last Taken Unknown] atorvastatin 10 mg tablet 10 mg PO QHS #90 tabs 07/28/22 [Rx Last Taken Unknown] levothyroxine 112 mcg tablet 112 mcg PO DAILY #90 tabs 07/28/22 [Rx Last Taken Unknown] valsartan 160 mg tablet 160 mg PO DAILY #90 tabs 07/28/22 [Rx Last Taken Unknown] semaglutide 1 mg/dose (4 mg/3 mL) subcutaneous pen injector 1 mg (0.75 mL) subcut QWEEK #3 mL 02/16/23 [Rx Last Taken Unknown] vit C 226 mg-vit E 90 mg-copper 0.8 mg-zinc oxide-lutein 5 mg capsule (PreserVision Lutein) 1 cap PO BID 04/21/23 [History Last Taken Unknown] glipizide 5 mg tablet 5 mg PO DAILY #180 tabs 05/25/23 [Rx Last Taken Unknown] hydrochlorothiazide 25 mg tablet 12.5 mg (1/2 x 25 mg) PO DAILY #90 tabs 05/25/23 [Rx Last Taken Unknown] metformin 1,000 mg tablet 500 mg (1/2 x 1,000 mg) PO BID #180 tabs 05/25/23 [Rx Last Taken Unknown] Allergy/AdvReac Type Severity Reaction Status Date / Time No Known Allergies Allergy Verified 05/25/23 09:06 Family History Aunt Breast cancer Sister Diabetes Surgical History History of cholecystectomy History of lumpectomy Social History Smoking Status: Former smoker quit date: 05/11/90 Tobacco: How many years used: 15 alcohol intake: never substance use type: does not use what type of physical activity do you participate in: walking and bicycling EXAM Physical Exam Const Vital Signs: 05/25/23 14:16 05/25/23 16:07 05/25/23 18:00 Temperature 95.3 F L Temperature Source Temporal Pulse Rate 88 84 Respiratory Rate 18 20 H Respiratory Effort Normal Respiratory Pattern Normal Blood Pressure 171/68 H 175/74 H Blood Pressure Mean 102 107 Pulse Ox 97 99 Oxygen Delivery Method Room Air Room Air 05/25/23 20:00 05/25/23 20:46 Temperature Temperature Source Pulse Rate 79 87 Respiratory Rate 18 16 Respiratory Effort Respiratory Pattern Blood Pressure 167/70 H 183/60 H Blood Pressure Mean 102 101 Pulse Ox 98 98 Oxygen Delivery Method Room Air MDM MDM MDM Narrative Medical decision making narrative: HISTORY OF PRESENT ILLNESS: 78-year-old female presents with concern for abnormal labs. She states she feels fine but received a call stating her kidney function was abnormal to to get into the emergency department immediately. She notes he is urinating normally. Denies any chest pain or shortness of breath. She does note she feels diffusely weak. No focal weakness. REVIEW OF SYSTEMS: Pertinent positives: None Pertinent negatives: Headache, chest pain, shortness of breath, abdominal pain, focal weakness PHYSICAL EXAM: Nursing triage notes reviewed, Vital signs reviewed Constitutional: please see mdm HENT: MMM Eyes: Pupils equal round and reactive to light, Extraocular muscles intact Neck: No stridor, no JVD, full neck ROM Lungs: Clear to auscultation, No wheezing or rales. No increased work of breathing, no conversational dyspnea, no accessory muscle use, no nasal flaring. No respiratory distress noted Heart: Regular rate and rhythm, No murmurs, No rubs and No gallops, 2+ distal pulses (radial, femoral, posterior tibial) in all extremities Abdomen: Soft, there is no tenderness, rigidity, rebound or guarding, no obvious peritoneal signs, no palpable pulsatile abdominal masses, no auscultated abdominal bruit : No CVAT Extremities: No edema Neuro: Alert and oriented x3, neuro exam at baseline, cranial nerves II through XII are intact. No pain with extraocular muscle movement. There is negative test of skew. 5 of 5 strength in upper and lower extremities in flexion extension. Intact sensation to light touch in upper and lower extremity dermatomes. No truncal or extremity ataxia. No dysdiadochokinesia. Normal gait. 2+ reflexes in upper and lower extremities. No meningeal signs. Negative Babinski. NIH of 0. Skin: No rash or lesions noted MEDICAL DECISION MAKING: Chief Complaint: Abnormal labs External records reviewed: Last creatinine from 08/23/2021 shows creatinine of 1.18, GFR 47 BUN of 30 Factors affecting care: Iron deficiency anemia, hypothyroidism, hypertension, type 2 diabetes Social determinants of health: none History obtained from others: Patient's Consults: none [facility] Narrative: [Patient was hemodynamically stable, afebrile, nontoxic-appearing. No focal neurologic deficits. I considered the following differential diagnosis: Abnormal labs, ALL IMAGES (IF OBTAINED) HAVE BEEN PERSONALLY REVIEWED AND INTERPRETED BY MYSELF. EKG with normal sinus rhythm, left axis deviation, normal intervals, no STEMI CBC without cytosis, baseline anemia, noted thrombocytopenia BMP with normal electrolytes, noted mild CLAUDIA Magnesium slightly low LFTs show no evidence of hepatobiliary pathology. TSH within the limits, free T3 and free T4 I have personally reviewed the patient's chest x-ray. Chest x-ray is unremarkable for pulmonary edema, pneumothorax, pneumonia or focal cardiopulmonary abnormality. The synthesis of the patient's history, physical exam, labs images suggest no acute life-threatening etiology. Patient did have a mild acute kidney injury however she was rehydrated fluids. He is not vomiting and only complaining of 1-2 episodes of diarrhea yesterday only. Suspect her CLAUDIA may be due to dehydration. I encouraged her to drink more p.o. fluids including body armor, Pedialyte or Gatorade. Patient agreed the plan she did receive 1 L normal saline here to start her rehydration process. She was told to follow with her primary care physician for outpatient lab reevaluation. Discussed risk and benefits of hospitalization including risk of iatrogenic infection versus risk of ongoing and worsening kidney function. Patient understood risk was amenable to trying oral hydration at home and repeat labs as an outpatient rather than being admitted for observation and repeat labs as an inpatient. The signs and reasonable plan given her normal vitals, well appearance, lack of symptomatology and mild CLAUDIA The patient and/or family, caregivers express understanding. The patient and/or family, caregivers agrees with the plan. Shared decision making: I will have a discussion with the patient and or visitors regarding risk/benefits of further testing or admission. They will be made aware of of the risk/benefits inherent in this decision they will be given the opportunity to voice understanding. Total critical care time today provided was at least 0 minutes. This excludes separately billable procedures. Critical care time (if documented) is secondary to the patient having high probability of clinically significant/life threatening deterioration in the patient's condition which required my urgent intervention. Impression: 1. CLAUDIA 2. Encounter for abnormal laboratory values 3. History of iron deficient anemia Dispo: Discharge Lab Data Labs: Laboratory Results - last 24 hr 05/25/23 05/25/23 05/25/23 17:35 17:35 18:10 WBC Cancelled 6.1 Corrected WBC Cancelled RBC Cancelled 3.48 L Hgb Cancelled 9.3 L Hct Cancelled 31.0 L MCV Cancelled 89.1 MCH Cancelled 26.7 L MCHC Cancelled 30.0 L RDW Std Deviation Cancelled 61.5 H RDW Coeff of Celia Cancelled 19.5 H Plt Count Cancelled 139 L MPV Cancelled 10.4 Immature Gran % (Auto) Cancelled 0.200 Neut % (Auto) Cancelled 47.9 Lymph % (Auto) Cancelled 39.2 Wood % (Auto) Cancelled 10.3 H Eos % (Auto) Cancelled 2.1 Baso % (Auto) Cancelled 0.3 Absolute Neuts (auto) Cancelled 2.9 Absolute Lymphs (auto) Cancelled 2.40 Total Counted Cancelled Neutrophils % (Manual) Cancelled Band Neutrophils % Cancelled Lymphocytes % (Manual) Cancelled Monocytes % (Manual) Cancelled Eosinophils % (Manual) Cancelled Basophils % (Manual) Cancelled Metamyelocytes % Cancelled Myelocytes % Cancelled Promyelocytes % Cancelled Blast Cells % Cancelled Plasma Cell % (Manual) Cancelled Other Cells % Cancelled Nucleated RBC % Cancelled 0 Nucleated RBCs/100 WBC Cancelled Differential Comment Cancelled Diff Path Review Cancelled Hypersegmented Neuts Cancelled Atypical Lymphocytes Cancelled Reactive Lymphocytes Cancelled Smudge Cells Cancelled Toxic Granulation Cancelled Toxic Vacuolation Cancelled Dohle Bodies Cancelled Maritza Rods Cancelled Platelet Estimate Cancelled Plt Morphology Comment Cancelled RBC Morphology Cancelled Cancelled Polychromasia Cancelled Hypochromasia Cancelled Poikilocytosis Cancelled Basophilic Stippling Cancelled Anisocytosis Cancelled Microcytosis Cancelled Macrocytosis Cancelled Spherocytes Cancelled Sickle Cells Cancelled Target Cells Cancelled Tear Drop Cells Cancelled Ovalocytes Cancelled Stomatocytes Cancelled [place] Bodies Cancelled Axel Cells Cancelled Bite Cells Cancelled Crenated Cell Cancelled Acanthocytes (Spur) Cancelled Rouleaux Cancelled Schistocytes Cancelled Sodium 142 Potassium 4.9 Chloride 113 H Carbon Dioxide 20.0 L Anion Gap 9 BUN 51 H Creatinine 1.66 H Estim Creat Clear Calc 27.97 Est GFR (MDRD) Af Amer 38 L Est GFR (MDRD) Non-Af 32 L BUN/Creatinine Ratio 30.7 H Glucose 147 H Calcium 9.2 Magnesium 1.5 L Total Bilirubin 0.20 AST 18 ALT 27 Alkaline Phosphatase 77 Total Protein 7.2 Albumin 3.7 Globulin 3.5 Albumin/Globulin Ratio 1.1 TSH 0.40 Free T4 1.37 Free T3 pg/dL 2.3 Radiography Diagnostic Testing: Clinical Impression(s) from Imaging Studies Chest X-Ray 05/25/23 16:17 IMPRESSION: No acute cardiopulmonary disease. Electronically Signed: Carolynn Moses MD at 16:53 EST , Discharge Plan Triage Chief Complaint: Abn Labs ED Provider: Waldo Sprague Dx/Rx/DC Orders Instructions: ED Renal Insufficiency Prescriptions: No Action esomeprazole magnesium [Nexium] 40 mg capsule,delayed release(DR/EC) 40 mg PO DAILY (DME) blood-glucose meter [FreeStyle Lite Meter] Kit See Rx Instructions .ROUTE .MEDSUPPLY Qty: 1 Rx Instructions: As directed gabapentin 300 mg capsule 300 mg PO QHS metformin 1,000 mg tablet 500 mg PO BID Qty: 180 3RF glipizide 5 mg tablet 5 mg PO DAILY Qty: 180 3RF hydrochlorothiazide 25 mg tablet 12.5 mg PO DAILY Qty: 90 3RF multivitamin 1 EACH tablet 1 ea PO DAILY Patient Comments: supplement cholecalciferol (vitamin D3) 1,000 UNIT tablet 2,000 unit PO DAILY Patient Comments: supplement biotin 2,500 MCG capsule 5,000 mcg PO DAILY Patient Comments: for dry mouth PreserVision Lutein 226-90-0.8-5 mg capsule 1 cap PO BID (DME) pen needle, diabetic [Lite Touch Insulin Pen [place]] 31 gauge x 5/16 needle See Rx Instructions .ROUTE .MEDSUPPLY Qty: 30 5RF Rx Instructions: use with victoza qd (DME) FreeStyle [place]um 14 Day [place] Misc See Rx Instructions .ROUTE .MEDSUPPLY Qty: 1 0RF Rx Instructions: As directed (DME) FreeStyle [place] 14 Day Sensor Kit See Rx Instructions .ROUTE .MEDSUPPLY Qty: 1 0RF Rx Instructions: As directed (DME) FreeStyle Lite Strips Strip See Rx Instructions .ROUTE .MEDSUPPLY Qty: 100 3RF Rx Instructions: As directed (DME) lancets [FreeStyle Lancets] 28 gauge misc See Rx Instructions .ROUTE .MEDSUPPLY Qty: 100 3RF Rx Instructions: check glucose 2 x a day atorvastatin 10 mg tablet 10 mg PO QHS Qty: 90 3RF levothyroxine 112 mcg tablet 112 mcg PO DAILY Qty: 90 3RF valsartan 160 mg tablet 160 mg PO DAILY Qty: 90 3RF Ozempic 1 mg/dose (4 mg/3 mL) pen injector 1 mg subcut QWEEK Qty: 3 3RF Rx Instructions: for 4 weeks Primary Care Provider: Regi Liu Referrals: Regi Liu MD [Primary Care Provider] - Activity Restrictions/Additional Instructions: Thank you for trusting us with your care today! Please increase your fluid intake by mouth. I recommend body armor, Pedialyte or Gatorade. Please increase your total fluid intake by approximately 25%. Please return to the emergency department if your symptoms change or worsen. Specifically develop vomiting or worsening diarrhea. Specifically notice decreased urination. Please follow with your primary care physician for further outpatient evaluation and management. Disposition Disposition: Home, Self Care Discharge Date/Time: 05/25/23 21:03 Capacity Legal [employer] Reflex Medical hold order details:: IF a medical hold is selected below, a suggested order for a MEDICAL HOLD will reflex upon signing the document. Next of kin: [place] law dictates a PRIORITY LIST for identifying legal decision-maker/legal next of kin in the following order (LNOK): 1st: The patient?s legal guardian, if any 2nd: The patient's spouse (if status is questionable, consult Risk Management) 3rd: The patient?s adult child(adela) (majority, if multiple children) 4th: The patient?s parents 5th: The patient?s adult siblings (majority, if multiple children siblings)
--- NOTE | 2023-05-25 16:17 | RAD_ITS ---
STUDY: X-RAY CHEST REASON FOR EXAM: Female, 78 years old. weakness TECHNIQUE: Single AP portable view of the chest. COMPARISON: None. FINDINGS: The lungs are clear and expanded. There is no demonstrated pleural abnormality. Normal size heart. Normal mediastinum and bruno. Normal visualized pulmonary arteries. There is atherosclerotic calcification of the aortic arch with tortuosity. There are diffuse degenerative changes of the visualized thoracic spine. There is degenerative osteoarthritis of the bilateral shoulders. There is no demonstrated abnormality of the visualized soft tissue structures of the upper abdomen. RAD/Chest 1 View (Portable) IMPRESSION: No acute cardiopulmonary disease. Electronically Signed: Carolynn Moses MD at 16:53 EST ,
--- NOTE | 2023-05-25 16:17 | EKG12_ITS ---
Test Reason : ABN LABS Blood Pressure : / mmHG Vent. Rate : 076 BPM Atrial Rate : 076 BPM P-R Int : 130 ms QRS Dur : 086 ms QT Int : 390 ms P-R-T Axes : 030 -64 075 degrees QTc Int : 438 ms Sinus rhythm with marked sinus arrhythmia Left axis deviation Abnormal ECG Confirmed by ALCIDES FLOYD, VANESSA ([id number]), associate editor AIDAN CAPELLAN ([id number]) on 05/27/2023 9:17:01 AM Referred By: Confirmed By:VANESSA MCGRATH MD
--- NOTE | 2023-05-25 16:20 | NURSING ---
NO OLD EKGS
[2023-05-25 18:00] VITALS: BP 175/74; PULSE 84; RESP 20; O2SAT 99
[2023-05-25 18:17] LABS: Absolute Neutrophil Count 2.9 X10^3/uL (2.0-7.7); Basophil# 0.02 X10^3/uL; Basophil% 0.3 % (0-1); Eosinophil# 0.13 X10^3/uL; Eosinophils% 2.1 % (0-5); Hemoglobin 9.3 g/dL (12.0-15.0); Lymphocyte % 39.2 % (19-41); Mean Corpuscular Hgb 26.7 pg (27.0-32.0); Mean Corpuscular Volume 89.1 fL (81-99); Mean Platelet Vol. 10.4 fl (6.2-12.0); Monocyte# 0.63 X10^3/uL; Monocyte% 10.3 % (0-10); NRBC Flagged by Analyzer 0 % (0-5); Neutrophil # 2.93 X10^3/uL (2.7-7.7); Neutrophil % 47.9 % (47-70); Platelet Count 139 K/mm3 (150-450); RBC Distribution Width CV 19.5 % (11.6-14.6); RBC Distribution Width SD 61.5 fl (35.1-43.9); Red Blood Count 3.48 M/mm3 (4.2-5.4); White Blood Count 6.1 K/mm3 (4.4-11.0)
[2023-05-25 18:30] LABS: ALB/GLOB Ratio 1.1 RATIO (0.9-2.4); AST(SGOT) 18 U/L (15-37); Alanine Aminotransfer ALT/SGPT 27 U/L (13-56); Albumin, Serum 3.7 g/dL (3.2-5.0); Alkaline Phosphatase 77 U/L (45-117); Anion Gap 9 (5-15); BUN 51 mg/dL (7-18); BUN/Creat Ratio 30.7 RATIO (10-20); Calcium,Total 9.2 mg/dL (8.5-10.1); Chloride 113 mmol/L (98-107); Creatinine, Serum 1.66 mg/dL (0.55-1.02); EST Glomerular Filtration Rate 32 mL/min (>60); Est Glom Filt Rate - Afr Amer 38 mL/min (>60); Estimated Creatinine Clearance 27.97 ml/min; Free T3 2.3 pg/mL (2.18-3.98); Globulin 3.5 g/dL (2.2-4.2); Glucose 147 mg/dL (74-106); Magnesium 1.5 mg/dL (1.6-2.6); Potassium 4.9 mmol/L (3.5-5.1); Protein, Total 7.2 g/dL (6.4-8.2); Sodium Level 142 mmol/L (136-145); T4 Free Direct 1.37 ng/dL (0.76-1.46)
[2023-05-25] MEDS: 0.9% Normal Saline (1000mL) 1,000 ML 999 ML IV (19:25)
[2023-05-25 20:00] VITALS: BP 167/70; PULSE 79; RESP 18; O2SAT 98
[2023-05-25 20:46] VITALS: BP 183/60; PULSE 87; RESP 16; O2SAT 98
== END 2023-05-25 21:03 | disposition home or self-care (01) ==
PROVIDERS: Emergency Provider Emergency Medicine; PCP Internal Medicine; Visit Provider Emergency Medicine
DX: N17.9 Acute kidney failure, unspecified (principal); E11.22 Type 2 diabetes mellitus with diabetic chronic kidney disease; N18.30 Chronic kidney disease, stage 3 unspecified; D50.9 Iron deficiency anemia, unspecified; Z87.891 Personal history of nicotine dependence
CPT/HCPCS: 71045; 80053; 83735; 84439; 84443; 84481; 85025; 93005; 99284; J7030; A4216

== ENCOUNTER 2023-08-11 13:00 | Outpatient (CLI) | payer MEDICARE, OTHER, SELFPAY | END 2023-08-11 23:59 | disposition home or self-care (01) | LOC: MEDOUTP 07-28 14:22 | PROVIDERS: PCP Internal Medicine; Referring Provider Internal Medicine Hematology & Oncology; Visit Provider Internal Medicine Hematology & Oncology | DX: D50.9 Iron deficiency anemia, unspecified (principal) | CPT/HCPCS: 86850; 86900; 86901; 86920; 86922 ==

== ENCOUNTER → 2023-08-26 | Outpatient (CLI) | payer MEDICARE, OTHER, SELFPAY ==
[2023-08-26 10:04] VITALS: BP 164/53; PULSE 74; RESP 16; O2SAT 96; BMI 31.6
[2023-08-26 11:52] VITALS: BP 167/89; PULSE 75; RESP 16; TEMP 36.6; O2SAT 95; BMI 33.5
[2023-08-26] MEDS: 0.9% NaCl IVPB Med Flush (250 mL) 15 ML IV (12:02)
[2023-08-26] MEDS: 0.9% NaCl Peripheral Flush Adult/Peds IV ×2 (12:02→13:21)
[2023-08-26] MEDS: Iron Sucrose Complex 200 MG in 0.9% Normal Saline (100mL Bag) 100 ML 220 MG IV (12:27)
--- NOTE | 2023-08-26 13:01 | PCM.OP.PRO ---
Procedure Report Date of Procedure: 08/26/23 Assessment & Plan Assessment/Plan (1) Iron deficiency anemia: QUALIFIERS: Iron deficiency anemia type: unspecified iron deficiency Qualified Code(s): D50.9 - Iron deficiency anemia, unspecified PLAN: Midline insertion in left basilic: Patient identity was verified with two patient identifiers. Hands were sanitized. The patient was positioned supine with left arm at 90 degrees. The patient's upper arm vasculature was assessed using ultrasound, and the left basilic vein was externally marked. An external measurement was obtained of 11 cm. Cap, mask, and prep gloves were donned. The underdrape was placed under the patient's arm. The site was prepped with chlorhexidine, and tourniquet was loosely applied. Prep gloves were discarded, and hands were sanitized. The sterile kit was opened with additional supplies dropped in. Sterile gown and gloves were donned, and the patient was draped. The sterile kit was assembled with all needle, introducer, connector, and catheter flushed with sterile normal saline. The marked site of insertion was anesthetized with 1% lidocaine. Patient tolerated well. The left basilic vein was then accessed using ultrasound guidance and guidewire was inserted to safety klarissa. The tourniquet was released. The access needle was removed while securing the guidewire in place. The site was again anesthetized with 1% lidocaine, prior to insertion of introducer sheath and dilator. Patient tolerated well. The catheter was trimmed to a length of 11 cm, and again flushed with sterile normal saline. The catheter was then inserted through the introducer sheath, slowly. There was no resistance on insertion. The introducer sheath was retracted and peeled away, incrementally, while keeping the catheter secured. The catheter was fully inserted leaving 0 cm external. Blood return was verified and flushed needless connector was attached. The midline was flushed with sterile normal saline in a pulsatile fashion and clamped. Total sterile flushes used for the insertion was to 10 ml syringes, one from the kit. Finally, the insertion site was cleaned with chlorhexidine, and the catheter was secured using a StatLock. The site was covered with a Tegaderm CHG Dressing. Baseline arm circumference was obtained at the insertion site and measured 41 cm. The patient is aware that the midline is ready for use. REF: [id number] LOT: [id number] Procedures Radiology Radiology US Procedures: Other Procedure See Report (OUTPT MIDLINE: [id number])
[2023-08-26 13:24] VITALS: BP 163/60; PULSE 75; RESP 16; TEMP 36.2
== END | disposition home or self-care (01) ==
LOC: RAD 09:11
PROVIDERS: PCP Internal Medicine; Referring Provider Internal Medicine Hematology & Oncology; Visit Provider Internal Medicine Hematology & Oncology
DX: N18.31 Chronic kidney disease, stage 3a (principal); D63.1 Anemia in chronic kidney disease; K90.9 Intestinal malabsorption, unspecified
CPT/HCPCS: 96365; J1756; J7050

== ENCOUNTER 2023-08-28 09:19 | Outpatient (CLI) | payer MEDICARE, OTHER, SELFPAY ==
[2023-08-28] MEDS: 0.9% NaCl Peripheral Flush Adult/Peds IV ×2 (09:29→10:54)
[2023-08-28] MEDS: 0.9% NaCl IVPB Med Flush (250 mL) 15 ML IV (09:33)
[2023-08-28 09:34] VITALS: BP 155/63; PULSE 78; RESP 16; TEMP 35.9; O2SAT 100; BMI 33.5
[2023-08-28] MEDS: Iron Sucrose Complex 200 MG in 0.9% Normal Saline (100mL Bag) 100 ML 220 MG IV (10:04)
[2023-08-28 10:59] VITALS: BP 178/61; PULSE 78; RESP 16; TEMP 36.1; O2SAT 97
== END 2023-08-28 09:20 | disposition home or self-care (01) ==
LOC: MEDOUTP 09:21
PROVIDERS: PCP Internal Medicine; Referring Provider Internal Medicine Hematology & Oncology; Visit Provider Internal Medicine Hematology & Oncology
DX: N18.31 Chronic kidney disease, stage 3a (principal); D63.1 Anemia in chronic kidney disease; K90.9 Intestinal malabsorption, unspecified
CPT/HCPCS: 96365; J1756; J7050; A4216

== ENCOUNTER 2023-08-31 07:45 | Outpatient (CLI) | payer MEDICARE, OTHER, SELFPAY ==
[2023-08-31] MEDS: 0.9% NaCl Peripheral Flush Adult/Peds IV ×2 (08:15→09:05)
[2023-08-31] MEDS: 0.9% NaCl IVPB Med Flush (250 mL) 15 ML IV (08:15)
[2023-08-31] MEDS: Iron Sucrose Complex 200 MG in 0.9% Normal Saline (100mL Bag) 100 ML 220 MG IV (08:17)
[2023-08-31 08:18] VITALS: BP 184/60; PULSE 74; RESP 16; TEMP 36.7
[2023-08-31 09:05] VITALS: BP 172/69; PULSE 76; RESP 16; TEMP 36.7; O2SAT 98
== END 2023-08-31 07:46 | disposition home or self-care (01) ==
LOC: MEDOUTP 07:46
PROVIDERS: PCP Internal Medicine; Referring Provider Internal Medicine Hematology & Oncology; Visit Provider Internal Medicine Hematology & Oncology
DX: N18.31 Chronic kidney disease, stage 3a (principal); D63.1 Anemia in chronic kidney disease; K90.9 Intestinal malabsorption, unspecified
CPT/HCPCS: 96365; J1756; J7050; A4216

== ENCOUNTER 2023-09-02 07:55 | Outpatient (CLI) | payer MEDICARE, OTHER, SELFPAY ==
[2023-09-02] MEDS: 0.9% NaCl IVPB Med Flush (250 mL) 15 ML IV (08:08)
[2023-09-02] MEDS: 0.9% NaCl Peripheral Flush Adult/Peds IV ×2 (08:08→09:30)
[2023-09-02 08:10] VITALS: BP 194/58; PULSE 78; RESP 20; TEMP 36.5; O2SAT 97
[2023-09-02] MEDS: Iron Sucrose Complex 200 MG in 0.9% Normal Saline (100mL Bag) 100 ML 220 MG IV (08:47)
[2023-09-02 09:33] VITALS: BP 184/59; PULSE 78; RESP 16; TEMP 36.4; O2SAT 98
== END 2023-09-02 07:56 | disposition home or self-care (01) ==
LOC: MEDOUTP 07:55
PROVIDERS: PCP Internal Medicine; Referring Provider Internal Medicine Hematology & Oncology; Visit Provider Internal Medicine Hematology & Oncology
DX: N18.31 Chronic kidney disease, stage 3a (principal); D63.1 Anemia in chronic kidney disease; K90.9 Intestinal malabsorption, unspecified
CPT/HCPCS: 96365; J1756; J7050; A4216

== ENCOUNTER 2023-09-04 07:50 | Outpatient (CLI) | payer MEDICARE, OTHER, SELFPAY ==
[2023-09-04 07:58] VITALS: BP 169/56; PULSE 86; RESP 18; TEMP 35.9; O2SAT 94
[2023-09-04] MEDS: 0.9% NaCl Peripheral Flush Adult/Peds IV (08:06)
[2023-09-04] MEDS: Iron Sucrose Complex 200 MG in 0.9% Normal Saline (100mL Bag) 100 ML 220 MG IV (08:25)
[2023-09-04 09:21] VITALS: BP 174/67; PULSE 79; RESP 16; TEMP 35.6; O2SAT 96
== END 2023-09-04 07:51 | disposition home or self-care (01) ==
LOC: MEDOUTP 07:50
PROVIDERS: PCP Internal Medicine; Referring Provider Internal Medicine Hematology & Oncology; Visit Provider Internal Medicine Hematology & Oncology
DX: N18.31 Chronic kidney disease, stage 3a (principal); D63.1 Anemia in chronic kidney disease; K90.9 Intestinal malabsorption, unspecified
CPT/HCPCS: 96365; J1756; J7050; A4216

== ENCOUNTER 2024-05-11 13:36 | Inpatient (IN) | payer MEDICARE, OTHER, SELFPAY ==
[2024-05-11] VITALS (17 sets, daily range): BP systolic 177–223; BP diastolic 56–94; PULSE 85–109; RESP 19–37; TEMP 36.1–37.1; O2SAT 95–100; BMI 36.7; BMI 34.6
--- NOTE | 2024-05-11 14:54 | RAD_ITS ---
EXAM: XR CHEST, 1 VIEW CLINICAL INDICATION: sob TECHNIQUE: Frontal view of the chest. COMPARISON: 05/25/2023 FINDINGS: LUNGS AND PLEURAL SPACES: There is blunting of the costophrenic angles likely due to small effusions. No pneumothorax. HEART: Unremarkable. Cardiac silhouette not enlarged. MEDIASTINUM: Central airways and mediastinal contour are unremarkable. BONES/JOINTS: Unremarkable. No acute fracture. SOFT TISSUES: Unremarkable. RAD/Chest 1 View (Portable) IMPRESSION: Small bilateral effusions. There is no focal consolidation. Electronically Signed: Quentin Medellin MD at 16:16 EST ,
--- NOTE | 2024-05-11 14:54 | EKG12_ITS ---
Test Reason : CP/SOB Blood Pressure : */* mmHG Vent. Rate : 92 BPM Atrial Rate : 97 BPM P-R Int : 126 ms QRS Dur : 88 ms QT Int : 368 ms P-R-T Axes : 37 8 39 degrees QTcB Int : 455 ms Normal sinus rhythm Low voltage QRS Borderline ECG Confirmed by VANESSA MCGRATH MD ([id number]), development editor MANNY CARTER ([id number]) on 05/13/2024 6:25:05 AM Referred By: Confirmed By: VANESSA MCGRATH MD
--- NOTE | 2024-05-11 14:55 | ED.VIS.DYS ---
HPI History of Present Illness Chief Complaint: Chest Pain Informant: patient and spouse/S.O. Narrative Narrative: 79-year-old female has been discharged from [facility] for about 1 week and has had gradually worsening dyspnea and orthopnea since along with bilateral lower leg edema. She states she was admitted a week before that with chest tightness and similar dyspnea with diagnosed with an acute NH, she had a heart cath and states the arteries were open and she did not need a stent, was put on aspirin, Plavix, carvedilol, discontinue her HCTZ and losartan, and discharged to follow-up. She saw the ED at [facility] 2 days ago and was told she had persistent CLAUDIA that was presumably caused by the dye from the heart cath according to [facility]'s discharge papers, and she was anemic with a hemoglobin down to 6 she received a blood transfusion and was discharged home she states she is getting worse. She has not been bleeding from anywhere, no melena. [facility] Medical History Acute maxillary sinusitis, unspecified Type 2 diabetes mellitus with both eyes affected by mild nonproliferative retinopathy without macular edema, with long-term current use of insulin Combined form of age-related cataract, both eyes Ptosis of left eyelid Hyperopia Regular astigmatism Presbyopia CKD (chronic kidney disease) stage 3, GFR 30-59 ml/min Peripheral neuropathy Obesity, Class II, BMI 35-39.9 Iron malabsorption Claudication Rosacea Iron deficiency anemia Lymphedema Malignant neoplasm of upper-outer quadrant of right female breast Albuminuria Hypertension, essential, benign Hypothyroidism (acquired) Hyperlipidemia, mixed Barretts esophagus GERD with esophagitis Uncontrolled type 2 diabetes mellitus without complication, without long-term current use of insulin Home Medications ?Medication ?Instructions ?Recorded ?Last Taken ?Type biotin 2,500 mcg capsule 5,000 mcg PO DAILY 01/09/16 Unknown History cholecalciferol (vitamin D3) 25 2,000 unit PO DAILY 01/09/16 Unknown History mcg (1,000 unit) tablet multivitamin 1 ea PO DAILY 01/09/16 Unknown History blood-glucose meter (FreeStyle #1 ea 03/11/19 Unknown History Lite Meter kit) esomeprazole magnesium 40 mg 40 mg PO DAILY 03/11/19 Unknown History capsule,delayed release (Nexium) pen needle, diabetic 31 gauge x #30 ea 08/06/20 Unknown Rx 5/16 (Lite Touch Insulin Pen Simms) flash glucose scanning reader #1 ea 08/20/20 Unknown Rx (FreeStyle [place] 14 Day [facility]) flash glucose sensor (FreeStyle #1 ea 08/20/20 Unknown Rx Nahum 14 Day Sensor kit) blood sugar diagnostic (FreeStyle #100 ea 10/08/21 Unknown Rx Lite Strips) lancets 28 gauge (FreeStyle #100 ea 10/18/21 Unknown Rx Lancets) vit C 226 mg-vit E 90 mg-copper 1 cap PO BID 04/21/23 Unknown History 0.8 mg-zinc oxide-lutein 5 mg capsule (PreserVision Lutein) Handicap Placard #1 ea 06/08/23 Unknown Rx atorvastatin 10 mg tablet 10 mg PO QHS #90 tabs 06/24/23 Unknown Rx glipizide 5 mg tablet 5 mg PO DAILY #180 tabs 06/24/23 Unknown Rx metformin 1,000 mg tablet 500 mg (1/2 x 1,000 mg) PO BID 06/24/23 Unknown Rx #180 tabs valsartan 160 mg tablet 160 mg PO DAILY #90 tabs 06/24/23 Unknown Rx levothyroxine 112 mcg tablet 112 mcg PO DAILY #90 tabs 07/27/23 Unknown Rx semaglutide 1 mg/dose (4 mg/3 mL) 1 mg subcut QWEEK 08/26/23 Unknown History subcutaneous pen injector hydrochlorothiazide 25 mg tablet 12.5 mg (1/2 x 25 mg) PO DAILY #90 11/30/23 Unknown Rx tabs carvedilol 3.125 mg tablet 3.125 mg PO BID 05/11/24 Unknown History clopidogrel 75 mg tablet 75 mg PO DAILY 05/11/24 Unknown History Allergy/AdvReac Type Severity Reaction Status Date / Time No Known Allergies Allergy Verified 05/11/24 13:39 Family History Aunt Breast cancer Sister Diabetes Surgical History History of cholecystectomy History of lumpectomy Social History Smoking Status: Former smoker quit date: 05/11/90 Tobacco: How many years used: 15 alcohol intake: never substance use type: does not use what type of physical activity do you participate in: walking and bicycling ROS ROS ED Constitutional Constitutional ED: Reports weakness; Denies chills or fever(s) Eyes Eyes: Denies change in vision or diplopia ENT ENT ED: Denies rhinorrhea or sore throat Cardiovascular Cardiovascular: Reports easily tiring during activity, leg edema and orthopnea; Denies chest pain, palpitations, radiating jaw, neck or arm pain or syncope Respiratory/Chest Respiratory/Chest: Reports dyspnea, dyspnea on exertion and orthopnea; Denies cough Gastrointestinal Gastrointestinal: Denies abdominal pain, diarrhea, nausea or vomiting Genitourinary Genitourinary ED: Denies dysuria or hematuria Musculoskeletal Musculoskeletal: Denies back pain or neck pain Integumentary Denies abscess or rash Neurologic Neurologic: Denies headache(s), paresthesias or weakness EXAM Physical Exam Const Vital Signs: 05/11/24 13:36 05/11/24 14:25 05/11/24 14:27 Temperature 97.4 F L 98.1 F Temperature Source Temporal Temporal Pulse Rate 85 98 Respiratory Rate 19 H 28 H Respiratory Effort Short of Breath Labored Respiratory Pattern Blood Pressure 212/94 H 223/94 H Blood Pressure Mean 133 137 Pulse Ox 95 97 Oxygen Delivery Method Room Air Nasal Cannula Oxygen Flow Rate (L/min) 2 05/11/24 14:53 05/11/24 15:00 05/11/24 15:07 Temperature Temperature Source Pulse Rate 93 89 96 Respiratory Rate 20 H 29 H 20 H Respiratory Effort Respiratory Pattern Normal Blood Pressure 207/84 H Blood Pressure Mean 120 Pulse Ox 98 98 Oxygen Delivery Method Oxygen Flow Rate (L/min) 05/11/24 15:07 05/11/24 15:15 05/11/24 15:20 Temperature Temperature Source Pulse Rate 95 Respiratory Rate 27 H Respiratory Effort Respiratory Pattern Blood Pressure 205/94 H Blood Pressure Mean 122 Pulse Ox 99 100 Oxygen Delivery Method Nasal Cannula Room Air Oxygen Flow Rate (L/min) 2 2 05/11/24 15:20 05/11/24 15:27 05/11/24 15:30 Temperature 98.4 F Temperature Source Temporal Pulse Rate 95 97 98 Respiratory Rate 28 H 25 H 32 H Respiratory Effort Respiratory Pattern Blood Pressure 205/94 H 212/70 H 212/70 H Blood Pressure Mean 131 117 109 Pulse Ox 100 100 99 Oxygen Delivery Method Nasal Cannula Oxygen Flow Rate (L/min) 2 05/11/24 15:45 05/11/24 16:00 05/11/24 16:04 Temperature 98.7 F Temperature Source Temporal Pulse Rate 97 101 H Respiratory Rate 25 H 35 H Respiratory Effort Respiratory Pattern Blood Pressure 208/67 H 207/62 H 207/92 H Blood Pressure Mean 106 97 130 Pulse Ox 100 99 Oxygen Delivery Method Nasal Cannula Oxygen Flow Rate (L/min) 05/11/24 16:15 05/11/24 16:30 Temperature Temperature Source Pulse Rate 104 H 105 H Respiratory Rate 36 H 36 H Respiratory Effort Respiratory Pattern Blood Pressure 189/56 H 197/57 H Blood Pressure Mean 87 94 Pulse Ox 99 96 Oxygen Delivery Method Oxygen Flow Rate (L/min) Positive well nourished and well developed General Appearance ED: well developed and NAD HEENT Reports moist mucous membranes normocephalic and atraumatic Eyes PERRL and EOMs intact bilaterally Neck full ROM and supple Neck Narrative: mild JVD Resp Resp Narrative: Tachypneic, mild distress while sitting upright. Able to speak in 5-10 word sentences. Bibasilar wheezes and mild rhonchi. Cardio regular rate, regular rhythm and no murmurs GI non-tender and non-distended Auscultation: normoactive bowel sounds Palpation: soft Back/Spine no CVA tenderness General Back: other FROM Extremity normal to inspection General Extremety ED: Yes edema; Negative for pulses abnormal or tenderness General Extremity: edema bilateral lower extremity Details: moderate (Pitting to the knees symmetrically bilaterally); Negative for pulses abnormal Neuro oriented x3, CN's II-XII intact bilaterally and no sensory deficits noted Sensorium / Orientation: awake and alert Motor Exam: strength 5/5 throughout Psych mental status grossly normal Skin no rashes or lesions noted and no wounds MDM MDM MDM Narrative Medical decision making narrative: I am concerned this patient is in acute congestive heart failure. She indicates that when she went and she had very high troponins which led to her heart cath, understandably. She has some ecchymosis and swelling in the right forearm, she indicates that she had some infiltration of the IV dye, that is doing very well, all compartments are soft and nondistended there is no evidence of compartment syndrome and she can move the right upper extremity very well. The discharge papers that she carries from [facility] indicate that she was also diagnosed with myopericarditis. They have a medication list there that includes aspirin and clopidogrel no anticoagulants. Our last echocardiogram was from 2020 she had no evidence of aortic stenosis. Her pressure is very high to 20s. Therefore am starting her with some hydralazine since her pulse is in the 80s, as well as Lasix, albuterol. At rest she is on a nasal cannula 2 L, 95-97%, she was not hypoxic on room air at rest in triage. The initial dose of hydralazine did not get her blood pressure out of the 200s, so I gave her more to get her down to the 185 range. She is breathing a little better. I think she needs to be admitted. I reached out to [facility] and got some old records on her namely the last cardiology progress note, she had a gated cardiac MRI, heart cath showing good vessels, and an echocardiogram which was fairly unremarkable with an ejection fraction 50-55% and unable to assess diastolic function. She did have mitral regurgitation but there was no aortic stenosis. Unknown if this is blood pressure mediated which is why I was trying to get her pressure down to a more reasonable level. Her troponin here of 182 is abnormal but not as high as she had in the hospital. Her creatinine had been as high as 5 when she was at [facility], it is down to 1.5 now which is obviously much better, nephrology had consulted and thought this was contrast-induced nephropathy. She had improved prior to discharge. Discussed with hospitalist here. I agree with PCU admission. History & Record Review Additional record(s) reviewed:: Prior inpatient record and Other (Discharge papers from [facility]) Lab Data Attestation: I reviewed the patient's lab results. Labs: Laboratory Results - last 24 hr 05/11/24 14:15 WBC 7.5 RBC 2.56 L Hgb 7.4 L Hct 24.1 L MCV 94.1 MCH 28.9 MCHC 30.7 L RDW Std Deviation 52.0 H RDW Coeff of Celia 17.0 H Plt Count 276 MPV 10.5 Immature Gran % (Auto) 1.900 H Neut % (Auto) 77.8 H Lymph % (Auto) 12.3 L Emmet % (Auto) 7.2 Eos % (Auto) 0.5 Baso % (Auto) 0.3 Absolute Neuts (auto) 5.8 Absolute Lymphs (auto) 0.92 Nucleated RBC % 0.9 Sodium 138 Potassium 4.6 Chloride 107 Carbon Dioxide 26.0 Anion Gap 5 BUN 25 H Creatinine 1.50 H Estim Creat Clear Calc 32.08 Est GFR (MDRD) Af Amer 43 L Est GFR (MDRD) Non-Af 35 L BUN/Creatinine Ratio 16.7 Glucose 277 H Calcium 9.1 Troponin I High Sens 182 H* B-Natriuretic Peptide 990.8 H Radiography Diagnostic Testing: Clinical Impression(s) from Imaging Studies Chest X-Ray 05/11/24 14:54 IMPRESSION: Small bilateral effusions. There is no focal consolidation. Electronically Signed: Quentin Medellin MD at 16:16 EST Reading Location ID and State: [address] [place] [address] Tel , Service support , Rhythm Strip Rhythm Strip: Sinus Rhythm Rate: 90 Ectopy: None EKG Initial EKG: Attestation: I personally reviewed and interpreted this EKG as follows: Interpretation: Sinus Rhythm and No Acute Injury Pattern Comments: Nonspecific ST-T wave abnormalities suspect due to artifact from dyspnea Management Discussion w/another healthcare provider: Hospitalist Discharge Plan Triage Chief Complaint: Chest Pain ED Provider: Chance Giang Dx/Rx/DC Orders Clinical Impression: Acute CHF, CKD (chronic kidney disease) stage 3, GFR 30-59 ml/min, Hypertensive urgency, Acute respiratory insufficiency Prescriptions: No Action esomeprazole magnesium [Nexium] 40 mg capsule,delayed release(DR/EC) 40 mg PO DAILY (DME) blood-glucose meter [FreeStyle Lite Meter] Kit See Rx Instructions .ROUTE .MEDSUPPLY Qty: 1 Rx Instructions: As directed multivitamin 1 EACH tablet 1 ea PO DAILY Patient Comments: supplement cholecalciferol (vitamin D3) 1,000 UNIT tablet 2,000 unit PO DAILY Patient Comments: supplement biotin 2,500 MCG capsule 5,000 mcg PO DAILY Patient Comments: for dry mouth PreserVision Lutein 226-90-0.8-5 mg capsule 1 cap PO BID clopidogrel 75 mg tablet 75 mg PO DAILY carvedilol 3.125 mg tablet 3.125 mg PO BID Ozempic 1 mg/dose (4 mg/3 mL) pen injector 1 mg subcut QWEEK (DME) pen needle, diabetic [Lite Touch Insulin Pen Simms] 31 gauge x 5/16 needle See Rx Instructions .ROUTE .MEDSUPPLY Qty: 30 5RF Rx Instructions: use with victoza qd (DME) FreeStyle Nahum 14 Day [facility] Misc See Rx Instructions .ROUTE .MEDSUPPLY Qty: 1 0RF Rx Instructions: As directed (DME) FreeStyle Nahum 14 Day Sensor Kit See Rx Instructions .ROUTE .MEDSUPPLY Qty: 1 0RF Rx Instructions: As directed (DME) FreeStyle Lite Strips Strip See Rx Instructions .ROUTE .MEDSUPPLY Qty: 100 3RF Rx Instructions: As directed (DME) lancets [FreeStyle Lancets] 28 gauge misc See Rx Instructions .ROUTE .MEDSUPPLY Qty: 100 3RF Rx Instructions: check glucose 2 x a day (DME) Handicap Placard See Rx Instructions .Route .MEDSUPPLY Qty: 1 0RF Rx Instructions: 5 year RX 06/08/23-06/08/28 DX.. R06.09 and G62.9 atorvastatin 10 mg tablet 10 mg PO QHS Qty: 90 3RF glipizide 5 mg tablet 5 mg PO DAILY Qty: 180 3RF metformin 1,000 mg tablet 500 mg PO BID Qty: 180 3RF valsartan 160 mg tablet 160 mg PO DAILY Qty: 90 3RF levothyroxine 112 mcg tablet 112 mcg PO DAILY Qty: 90 3RF hydrochlorothiazide 25 mg tablet 12.5 mg PO DAILY Qty: 90 3RF Primary Care Provider: Regi Liu Referrals: Regi Liu MD [Primary Care Provider] - Print Language: Icelandic Disposition Disposition: Acute Care Hospital [facility]
[2024-05-11] MEDS: hydrALAZINE 20 MG/ML Vial 10 MG IV (14:59)
[2024-05-11] MEDS: Furosemide 40 MG/4 ML Vial IV (15:00)
[2024-05-11] MEDS: Albuterol 2.5 MG/3 ML VIAL.NEB. INHALATION (15:06)
[2024-05-11 15:07] LABS: Absolute Lymphocyte Count 0.92 X10^3/uL (0.83-4.51); Absolute Neutrophil Count 5.8 X10^3/uL (2.0-7.7); Basophil# 0.02 X10^3/uL; Basophil% 0.3 % (0-1); Eosinophil# 0.04 X10^3/uL; Eosinophils% 0.5 % (0-5); Hematocrit 24.1 % (37-47); Hemoglobin 7.4 g/dL (12.0-15.0); Lymphocyte # 0.92 X10^3/ul (0.83-4.51); Lymphocyte % 12.3 % (19-41); Mean Corp Hgb Conc 30.7 g/dL (32-36); Mean Corpuscular Hgb 28.9 pg (27.0-32.0); Mean Corpuscular Volume 94.1 fL (81-99); Mean Platelet Vol. 10.5 fl (6.2-12.0); Monocyte# 0.54 X10^3/uL; Monocyte% 7.2 % (0-10); NRBC Flagged by Analyzer 0.9 % (0-5); Neutrophil # 5.83 X10^3/uL (2.7-7.7); Neutrophil % 77.8 % (47-70); Platelet Count 276 K/mm3 (150-450); Red Blood Count 2.56 M/mm3 (4.2-5.4); White Blood Count 7.5 K/mm3 (4.4-11.0)
[2024-05-11 15:28] LABS: BNP,B-Type NATRIURETIC PEPTIDE 990.8 pg/mL (0-100)
[2024-05-11 15:31] LABS: Anion Gap 5 (5-15); BUN 25 mg/dL (7-18); BUN/Creat Ratio 16.7 RATIO (10-20); Calcium,Total 9.1 mg/dL (8.5-10.1); Chloride 107 mmol/L (98-107); EST Glomerular Filtration Rate 35 mL/min (>60); Est Glom Filt Rate - Afr Amer 43 mL/min (>60); Estimated Creatinine Clearance 32.08 ml/min; Glucose 277 mg/dL (74-106); Potassium 4.6 mmol/L (3.5-5.1); Sodium Level 138 mmol/L (136-145); Troponin-I HS 182 pg/mL (3.0-54.0)
[2024-05-11] MEDS: hydrALAZINE 20 MG/ML Vial IV (15:53)
--- NOTE | 2024-05-11 18:18 | PCM.HP.STD ---
[facility] - General General Date of Service: 05/11/24 Chief Complaint: Shortness of breath [facility] Narrative ANDRIY WEST, is a 79 F who presents with shortness of breath. Patient was discharged on after having a non-STEMI. Patient was seen until juanito Santosh and then transferred over to [place] where they did a cardiac catheterization that showed nonobstructive coronary disease. Patient also underwent a cardiac MRI that showed akinesis of the apical inferolateral wall. Most consistent with ischemic etiology, atypical myocarditis being less likely. Mitral stenosis. Patient was then seen until pulmonary on May 10 where she was noted to be anemic with hemoglobin around 6 and was transfused packed red blood cells and then discharged home. The patient has just not been faring well at home and presented to the emergency room at [facility]. Chest x-ray showed bilateral effusions that were small. No consolidation. Troponins were down to 182. Disposes are much higher at the outside hospital. Additionally her blood pressure has been in the 200s and did receive 2 doses of hydralazine for total of 30 mg. Also received 40 mg of IV furosemide. Patient denies chest pain, cough, fever or chills. Also the patient was at [place], she had CLAUDIA due to contrast-induced nephropathy. [facility] Medical History Acute maxillary sinusitis, unspecified Type 2 diabetes mellitus with both eyes affected by mild nonproliferative retinopathy without macular edema, with long-term current use of insulin Combined form of age-related cataract, both eyes Ptosis of left eyelid Hyperopia Regular astigmatism Presbyopia CKD (chronic kidney disease) stage 3, GFR 30-59 ml/min Peripheral neuropathy Obesity, Class II, BMI 35-39.9 Iron malabsorption Claudication Rosacea Iron deficiency anemia Lymphedema Malignant neoplasm of upper-outer quadrant of right female breast Albuminuria Hypertension, essential, benign Hypothyroidism (acquired) Hyperlipidemia, mixed Barretts esophagus GERD with esophagitis Uncontrolled type 2 diabetes mellitus without complication, without long-term current use of insulin Home Medications ?Medication ?Instructions ?Recorded ?Last Taken ?Type biotin 2,500 mcg capsule 5,000 mcg PO DAILY 01/09/16 Unknown History cholecalciferol (vitamin D3) 25 2,000 unit PO DAILY 01/09/16 Unknown History mcg (1,000 unit) tablet multivitamin 1 ea PO DAILY 01/09/16 Unknown History blood-glucose meter (FreeStyle #1 ea 03/11/19 Unknown History Lite Meter kit) esomeprazole magnesium 40 mg 40 mg PO DAILY 03/11/19 Unknown History capsule,delayed release (Nexium) pen needle, diabetic 31 gauge x #30 ea 08/06/20 Unknown Rx 16 (Lite Touch Insulin Pen Boring) flash glucose scanning reader #1 ea 08/20/20 Unknown Rx (FreeStyle [place] 14 Day [place]) flash glucose sensor (FreeStyle #1 ea 08/20/20 Unknown Rx N[place]um 14 Day Sensor kit) blood sugar diagnostic (FreeStyle #100 ea 10/08/21 Unknown Rx Lite Strips) lancets 28 gauge (FreeStyle #100 ea 10/18/21 Unknown Rx Lancets) vit C 226 mg-vit E 90 mg-copper 1 cap PO BID 04/21/23 Unknown History 0.8 mg-zinc oxide-lutein 5 mg capsule (PreserVision Lutein) Handicap Placard #1 ea 06/08/23 Unknown Rx atorvastatin 10 mg tablet 10 mg PO QHS #90 tabs 06/24/23 Unknown Rx glipizide 5 mg tablet 5 mg PO DAILY #180 tabs 06/24/23 Unknown Rx metformin 1,000 mg tablet 500 mg (1/2 x 1,000 mg) PO BID 06/24/23 Unknown Rx #180 tabs valsartan 160 mg tablet 160 mg PO DAILY #90 tabs 06/24/23 Unknown Rx levothyroxine 112 mcg tablet 112 mcg PO DAILY #90 tabs 07/27/23 Unknown Rx semaglutide 1 mg/dose (4 mg/3 mL) 1 mg subcut QWEEK 08/26/23 Unknown History subcutaneous pen injector hydrochlorothiazide 25 mg tablet 12.5 mg (1/2 x 25 mg) PO DAILY #90 11/30/23 Unknown Rx tabs carvedilol 3.125 mg tablet 3.125 mg PO BID 05/11/24 Unknown History clopidogrel 75 mg tablet 75 mg PO DAILY 05/11/24 Unknown History Allergy/AdvReac Type Severity Reaction Status Date / Time No Known Allergies Allergy Verified 05/11/24 13:39 Family History Aunt Breast cancer Sister Diabetes Surgical History History of cholecystectomy History of lumpectomy Social History Smoking Status: Former smoker quit date: 05/11/90 Tobacco: How many years used: 15 alcohol intake: never substance use type: does not use what type of physical activity do you participate in: walking and bicycling [employer] Has a chronic history of anemia which has been worked up in the past without definitive etiology. Sees Dr. Nathan for her anemia. Gets periodic transfusions. Lower extremity edema. All review of systems were negative except as mentioned above in the history of present illness and the other review of systems. Vital Signs Vital Signs Vital Signs: 05/11/24 13:36 05/11/24 14:25 05/11/24 14:27 Temperature 36.3 C L 36.7 C Temperature Source Temporal Temporal Pulse Rate 85 98 Respiratory Rate 19 H 28 H Respiratory Effort Short of Breath Labored Respiratory Pattern Blood Pressure 212/94 H 223/94 H Blood Pressure Mean 133 137 Pulse Ox 95 97 Oxygen Delivery Method Room Air Nasal Cannula Oxygen Flow Rate (L/min) 2 05/11/24 14:53 05/11/24 15:00 05/11/24 15:07 Temperature Temperature Source Pulse Rate 93 89 96 Respiratory Rate 20 H 29 H 20 H Respiratory Effort Respiratory Pattern Normal Blood Pressure 207/84 H Blood Pressure Mean 120 Pulse Ox 98 98 Oxygen Delivery Method Oxygen Flow Rate (L/min) 05/11/24 15:07 05/11/24 15:15 05/11/24 15:20 Temperature Temperature Source Pulse Rate 95 Respiratory Rate 27 H Respiratory Effort Respiratory Pattern Blood Pressure 205/94 H Blood Pressure Mean 122 Pulse Ox 99 100 Oxygen Delivery Method Nasal Cannula Room Air Oxygen Flow Rate (L/min) 2 2 05/11/24 15:20 05/11/24 15:27 05/11/24 15:30 Temperature 36.9 C Temperature Source Temporal Pulse Rate 95 97 98 Respiratory Rate 28 H 25 H 32 H Respiratory Effort Respiratory Pattern Blood Pressure 205/94 H 212/70 H 212/70 H Blood Pressure Mean 131 117 109 Pulse Ox 100 100 99 Oxygen Delivery Method Nasal Cannula Oxygen Flow Rate (L/min) 2 05/11/24 15:45 05/11/24 16:00 05/11/24 16:04 Temperature 37.1 C Temperature Source Temporal Pulse Rate 97 101 H Respiratory Rate 25 H 35 H Respiratory Effort Respiratory Pattern Blood Pressure 208/67 H 207/62 H 207/92 H Blood Pressure Mean 106 97 130 Pulse Ox 100 99 Oxygen Delivery Method Nasal Cannula Oxygen Flow Rate (L/min) 05/11/24 16:15 05/11/24 16:30 05/11/24 17:03 Temperature 37.1 C Temperature Source Temporal Pulse Rate 104 H 105 H 109 H Respiratory Rate 36 H 36 H 37 H Respiratory Effort Respiratory Pattern Blood Pressure 189/56 H 197/57 H 199/64 H Blood Pressure Mean 87 94 109 Pulse Ox 99 96 99 Oxygen Delivery Method Nasal Cannula Oxygen Flow Rate (L/min) 2 05/11/24 18:00 Temperature 36.8 C Temperature Source Temporal Pulse Rate 102 H Respiratory Rate 28 H Respiratory Effort Respiratory Pattern Blood Pressure 209/63 H Blood Pressure Mean 111 Pulse Ox 99 Oxygen Delivery Method Nasal Cannula Oxygen Flow Rate (L/min) 2 Weight Weight: 94.1 kg Body Mass Index (BMI) 36.7 Physical Exam Const alert and no apparent distress Constitutional Narrative: Hard of hearing. Pleasant. Nontoxic. On nasal cannula but no respiratory distress. No conversational dyspnea. HEENT normocephalic and head/scalp atraumatic Neck no lymphadenopathy Neck Narrative: No thyromegaly. Unable to appreciate JVD given thickened neck tissue. Resp normal respiratory effort and no retractions Resp Narrative: Bibasilar crackles Cardio regular rate, regular rhythm, S1 normal heart sound and S2 normal heart sound GI normal to inspection, nondistended, normoactive bowel sounds, soft to palpation, non-tender and non-distended Extremity Extremity Narrative: Bilateral tight lower extremity edema. Ecchymosis noted in the right upper extremity but would not any appreciable hematoma. Neuro moves all extremities Sensorium / Orientation: awake and alert Psych affect normal Results Lab / Micro Data Attestation: I reviewed the patient's lab results. 05/11/24 14:15 05/11/24 14:15 Labs: Laboratory Results - last 24 hr 05/11/24 14:15: WBC 7.5, RBC 2.56 L, Hgb 7.4 L, Hct 24.1 L, MCV 94.1, MCH 28.9, MCHC 30.7 L, RDW Std Deviation 52.0 H, RDW Coeff of Celia 17.0 H, Plt Count 276, MPV 10.5, Immature Gran % (Auto) 1.900 H, Neut % (Auto) 77.8 H, Lymph % (Auto) 12.3 L, [place] % (Auto) 7.2, Eos % (Auto) 0.5, Baso % (Auto) 0.3, Absolute Neuts (auto) 5.8, Absolute Lymphs (auto) 0.92, Nucleated RBC % 0.9, Sodium 138, Potassium 4.6, Chloride 107, Carbon Dioxide 26.0, Anion Gap 5, BUN 25 H, Creatinine 1.50 H, Estim Creat Clear Calc 32.08, Est GFR (MDRD) Af Amer 43 L, Est GFR (MDRD) Non-Af 35 L, BUN/Creatinine Ratio 16.7, Glucose 277 H, Calcium 9.1, Troponin I High Sens 182 H*, B-Natriuretic Peptide 990.8 H Rhythm Strip Rhythm Strip: Sinus Rhythm Rate: 90 Ectopy: None EKG Initial EKG: Attestation: I personally reviewed and interpreted this EKG as follows: Prior EKG tracings: available for review EKG Rhythm Intrepretation: Sinus Rhythm Imaging Radiology Impression Chest X-Ray 05/11/24 14:54 IMPRESSION: Small bilateral effusions. There is no focal consolidation. Electronically Signed: Quentin Medellin MD at 16:16 EST , Assessment & Plan Assessment/Plan (1) Acute CHF: PLAN: Heart failure with preserved ejection fraction. Patient an echocardiogram over at [place] on May 01 that showed an EF of 50 to 55%. Wall motion normal with no regional wall motion abnormalities. Severely calcified mitral valve moderate to severe mitral stenosis. Cardiac MRI on May 02 showed akinesis of the apical inferolateral wall with transmural LGE Recheck echocardiogram save any additional changes have occurred in the interim. Continue diuresis with IV furosemide (2) Hypertensive urgency: PLAN: Unclear how much is contributing to her heart failure or if it is reactive to her dyspnea. Continue with her antihypertensives but will increase her carvedilol from 3.125-6.25 twice daily and valsartan 160 daily. As needed hydralazine If remains refractory, patient may need to be put on a nicardipine drip. (3) Anemia: PLAN: Has been a chronic problem and has been following up with Dr. Nathan as outpatient. This is more likely chronic process rather than acute issue. Patient does have some ecchymosis in her right upper extremity related with her heart catheterization but I do not think that would be enough to explain this acute anemia at this time. Was transfused at outside hospital May 10. Will request records from Dr. Nathan's office. Patient states that she has had no workup that is been negative. Currently hemoglobin is 7.4. Will hold off on any additional transfusion at this time but will continue to monitor. PLAN: Plan Recent non-STEMI: Patient on a cardiac catheterization that showed nonobstructive coronary artery disease. Patient's cardiac MRI on the was concerning for ischemic cardiomyopathy but is mention patient did not have any evidence of any obstructive coronary disease. Currently she is on Plavix. Will request records from [facility] to further characterize what was all done here in the hospital. We do have some of those records and the provider notes but not all those. I was unable to access [employer] as a servers were not working at this time. Chronic conditions Diabetes mellitus type 2: Continue with metformin and glipizide. Sliding scale insulin. Check an A1c. Resume semaglutide as outpatient. VTE prophylaxis with SCDs CODE STATUS: Addressed with the patient. Patient wishes to be full code. Charges/Coding Visit Charges Inpatient E&M: 29068 Init Hosp L3
--- NOTE | 2024-05-11 19:06 | ECHOCS_ITS ---
Reason For Study: CHF Procedure This was a 2D Doppler, Color Flow transthoracic echocardiogram. Technically difficult study, contrast injection was used. Patient unable to lay in left lateral position due to condition. Exam performed portable in patient room. Left Ventricle Normal LV size. Left ventricular systolic function is normal. The left ventricular ejection fraction is 55 %. No regional wall motion abnormalities noted. Right Ventricle Normal RV size. Normal systolic function. Atria Normal left atrium. Normal right atrium. Mitral Valve There is moderate mitral annular calcification. Tricuspid Valve Normal tricuspid valve. Aortic Valve Trisinus/trileaflet aortic valve. Great Vessels Normal aortic root. Pericardium/Pleural No pericardial effusion. Medication Diluted definity 2ml given slow IV push to enhance endocardial definition. MMode/2D Measurements & Calculations LVIDd: 4.5 cm IVSd: 1.1 cm LAV(MOD-sp4): 92.0 ml LVIDs: 3.4 cm LVPWd: 0.97 cm FS: 22.7 % LVAd ap4: 23.8 cm2 SV(MOD-sp4): 35.0 ml SV(sp4-el): 35.0 ml LVLd ap4: 6.2 cm SI(MOD-sp4): 18.3 ml/m2 EDV(MOD-sp4): 75.6 ml EDV(sp4-el): 77.3 ml LVAs ap4: 16.9 cm2 LVLs ap4: 5.8 cm ESV(MOD-sp4): 40.6 ml ESV(sp4-el): 42.3 ml EF(MOD-sp4): 46.3 % EF(sp4-el): 45.3 % LA A4 area: 27.4 cm2 Time Measurements MV dec time: 0.35 sec Doppler Measurements & Calculations MV E max yoni: 151.6 cm/sec Lat Peak E' Yoni: 5.4 cm/sec Med Peak E' Yoni: 6.1 cm/sec MV A max yoni: 154.5 cm/sec E/E' lat: 28.0 E/E' med: 24.8 MV E/A: 0.98 MV V2 max: 213.2 cm/sec MV P1/2t max yoni: 212.9 cm/sec Ao V2 max: 175.0 cm/sec MV max P.2 mmHg MV P1/2t: 121.0 msec Ao max P.3 mmHg MV V2 mean: 114.0 cm/sec Ao V2 mean: 99.4 cm/sec MV mean P.3 mmHg MV dec slope: 515.3 cm/sec2 Ao mean P.9 mmHg MV V2 VTI: 66.3 cm MVA(P1/2t): 1.8 cm2 Ao V2 VTI: 30.3 cm AV (velocity ratio): 0.97 LV V1 max: 141.0 cm/sec PA V2 max: 116.5 cm/sec LV V1 max P.0 mmHg LV V1 mean P.0 mmHg LV V1 mean: 107.0 cm/sec LV V1 VTI: 29.3 cm ECHO/Echo Complete W/ Contrast Interpretation Summary Normal LV size. Left ventricular systolic function is normal. The left ventricular ejection fraction is 55 %. Contrast injection was performed. Ordering Physician: Aly Carter Performed By: Reece Bhagat RCS
[2024-05-11] MEDS: Insulin Lispro 100 UNIT/ML INSULN.PEN SC (21:04)
[2024-05-12] VITALS (15 sets, daily range): BP systolic 146–171; BP diastolic 51–85; PULSE 67–97; RESP 16–28; TEMP 36.3–37.3; O2SAT 93–97; BMI 34.6
[2024-05-12] MEDS: Albuterol 2.5 MG/3 ML VIAL.NEB. INHALATION (00:49)
[2024-05-12] MEDS: Levothyroxine 112 MCG Tablet PO (06:30)
[2024-05-12] MEDS: Insulin Lispro 100 UNIT/ML INSULN.PEN SC ×4 (06:33→22:38)
[2024-05-12 06:55] LABS: Bedside Glucose 234 mg/dL (74-106)
[2024-05-12 07:58] LABS: Absolute Lymphocyte Count 0.77 X10^3/uL (0.83-4.51); Absolute Neutrophil Count 4.3 X10^3/uL (2.0-7.7); Basophil# 0.01 X10^3/uL; Basophil% 0.2 % (0-1); Hematocrit 19.4 % (37-47); Lymphocyte # 0.77 X10^3/ul (0.83-4.51); Lymphocyte % 13.1 % (19-41); Mean Corp Hgb Conc 30.9 g/dL (32-36); Mean Corpuscular Hgb 28.2 pg (27.0-32.0); Mean Corpuscular Volume 91.1 fL (81-99); Mean Platelet Vol. 10.5 fl (6.2-12.0); Monocyte# 0.67 X10^3/uL; Monocyte% 11.4 % (0-10); NRBC Flagged by Analyzer 0.9 % (0-5); Neutrophil # 4.32 X10^3/uL (2.7-7.7); Neutrophil % 73.6 % (47-70); Platelet Count 246 K/mm3 (150-450); RBC Distribution Width CV 16.9 % (11.6-14.6); RBC Distribution Width SD 51.8 fl (35.1-43.9); Red Blood Count 2.13 M/mm3 (4.2-5.4); White Blood Count 5.9 K/mm3 (4.4-11.0)
[2024-05-12 08:14] LABS: Anion Gap 8 (5-15); BUN 29 mg/dL (7-18); Calcium,Total 8.9 mg/dL (8.5-10.1); Chloride 103 mmol/L (98-107); Creatinine, Serum 1.45 mg/dL (0.55-1.02); EST Glomerular Filtration Rate 37 mL/min (>60); Est Glom Filt Rate - Afr Amer 45 mL/min (>60); Estimated Creatinine Clearance 32.15 ml/min; Glucose 250 mg/dL (74-106); Potassium 3.9 mmol/L (3.5-5.1); Sodium Level 137 mmol/L (136-145)
[2024-05-12 08:24] LABS: Differential Indicated SCAN CRITERIA MET
[2024-05-12] MEDS: metFORMIN HCl 500 MG Tablet PO ×2 (09:13→16:46)
[2024-05-12] MEDS: Clopidogrel Bisulfate 75 MG Tablet PO (09:13)
[2024-05-12] MEDS: Carvedilol 6.25 MG Tablet PO ×2 (09:13→16:42)
[2024-05-12] MEDS: Losartan Potassium 50 MG Tablet PO (09:14)
[2024-05-12] MEDS: glipiZIDE 5 MG Tablet PO (09:14)
[2024-05-12] MEDS: Pantoprazole Sodium 40 MG Tablet PO (09:14)
[2024-05-12 09:54] LABS: Ovalocyte 1+; Polychromasia 1+
[2024-05-12 09:56] LABS: Anisocytosis 1+
--- NOTE | 2024-05-12 11:46 | CASEMGMT ---
Addendum entered by Ada Garrido 05/12/24 12:08: Ceci from [facility] states that they cannot accept the pt as they are out of the service range. PLACEMENT ASSISTANT CM notified. Care Management to provide pt with a list of local in-network [facility] agencies. Original Note: FREYA RINCON Assessment Face to Face with patient for initial transition planning/care coordination assessment. FREYA RINCON introduced self and role at [facility], pt voices understanding. Pt is A&Ox4 and is resting comfortably in bed and is calm. Care providers, pharmacy, and demographics verified. Admitting dx: CHF LACE Strata: 2 PCP: Regi Liu Specialists: Venita (Onc), KARIME Preferred Pharmacy: [facility] Insurance: MCR A/B, AETNA Supplement Prescription Benefit: Yes LNOK: [place] () Living Arrangements: Pt lives with her in a 1.5 story home with 2 large steps to enter ADLs/IADLs: Pt states that her has to help me with everything, including getting up stairs and getting me dressed. Transportation: Pt DME: Functioning [employer] with sufficient supplies. FWW, BP Machine, Grab bars. Pt is currently requiring additional oxygen and may qualify for home oxygen use. A verbal list of local in-network DME companies were provided to the pt at this time. Pt prefers [facility].? HHC/SNF: Denies history or needs Pt?s goal: Home Plan: Anticipate home with HHC. Follow for oxygen needs. Therapy is pending. Pt states that her works a few days during the week and that she would like additional therapy and SN at home. Pt denies wanting to review a list of local in-network [facility] agencies and states that she prefers [facility]. Pt educated that HH most likely won't be able to start until early next week d/t staffing. Pt states that she prefers this anyway. TC to [facility] and referral made to Ceci for SN, PT, and OT. CM to follow. Report given to PLACEMENT ASSISTANT CM. Domo Garrido RN, CM
[2024-05-12] MEDS: Furosemide 40 MG/4 ML Vial IV ×2 (12:21→17:24)
--- NOTE | 2024-05-12 12:23 | PCM.OPRPT ---
Problems Associated Problem List Diagnoses (1) Anemia: (2) Poor venous access: Procedures Radiology Radiology Access Procedures: MIDL Operative Report (Standard) Operative Information Date of Procedure: 05/12/24 Pre-Operative Diagnosis: anemia Post-Operative Diagnosis: anemia Surgery/Procedure Performed: midline placement online user experience strategist: No Type of Anesthesia: Local Procedure Start Time: 11:35 Procedure Stop Time: 12:05 Select all DRAINS/GRAFTS/IMPLANTS that apply: None Estimated Blood Loss: minimal Specimen collected: Yes Description of specimen(s) removed: anemia studies and type and screen Description of surgery: Midline insertion in left basilic: Patient identity was verified with two patient identifiers. Hands were sanitized. The patient was positioned supine with left arm at 90 degrees. The patient's upper arm vasculature was assessed using ultrasound, and the left basilic vein was externally marked. An external measurement was obtained of 12 cm. Cap, mask, and prep gloves were donned. The underdrape was placed under the patient's arm. The site was prepped with chlorhexidine, and tourniquet was loosely applied. Prep gloves were discarded, and hands were sanitized. The sterile kit was opened with additional supplies dropped in. Sterile gown and gloves were donned, and the patient was draped. The sterile kit was assembled with all needle, introducer, connector, and catheter flushed with sterile normal saline. The marked site of insertion was anesthetized with 1% lidocaine. Patient tolerated well. The left basilic vein was then accessed using ultrasound guidance and guidewire was inserted to safety klarissa. The tourniquet was released. The access needle was removed while securing the guidewire in place. The site was again anesthetized with 1% lidocaine, prior to insertion of introducer sheath and dilator. Patient tolerated well. The catheter was trimmed to a length of 12 cm, and again flushed with sterile normal saline. The catheter was then inserted through the introducer sheath, slowly. There was no resistance on insertion. The introducer sheath was retracted and peeled away, incrementally, while keeping the catheter secured. The catheter was fully inserted leaving 0 cm external. Blood return was verified and flushed needless connector was attached. Laboratory studies were also collected as requested by the primary nurse. The midline was flushed with sterile normal saline in a pulsatile fashion and clamped. Total sterile flushes used for the insertion was to 10 ml syringes, one from the kit. Finally, the insertion site was cleaned with chlorhexidine, and the catheter was secured using a StatLock. The site was covered with a Tegaderm CHG Dressing. Baseline arm circumference was obtained at the insertion site and measured 43 cm. The primary nurse is aware that the midline is ready for use. REF: [id number] LOT: [id number] Surgical Findings: midline placement Complications Complications: No
--- NOTE | 2024-05-12 12:28 | CASEMGMT ---
Discharge Planning A list of?HH providers including quality and resource use data and consistent with the patient's preferred geographic region, medical needs, and insurance network was created in [employer] Guide.? This list was provided to the RN SERGEY. Nilsa Alexander, Discharge Planning Asst.
[2024-05-12 12:49] LABS: Bedside Glucose 197 mg/dL (74-106)
[2024-05-12 12:55] LABS: Ferritin 143 ng/mL (8-252); Iron 21 ug/dL (50-170); Iron Binding Capacity,Total 281 ug/dL (250-450); PERCENT IRON SATURATION 7.5 % (15.0-55.0)
--- NOTE | 2024-05-12 13:40 | CASEMGMT ---
FREYA RINCON received update that [facility] FREYA RINCON in to discuss HHC with patient and provided HHC list to patient. Patient reviewed list and prefers [facility]. Patient had no further questions or concerns. FREYA RINCON updated discharge financial planning analyst.
--- NOTE | 2024-05-12 14:01 | CASEMGMT ---
Addendum entered by Nilsa Alexander 05/12/24 14:40: [facility] declined d/t staffing shortage. Nilsa Alexander DC Planning Asst. Original Note: Discharge Planning HH referral sent to [facility]. Nilsa Alexander DC Planning Asst.
--- NOTE | 2024-05-12 14:35 | CHAPLAIN ---
Type of Pastoral Visit _x__ Initial Visit ___ Follow-up Visit ___ On-call Visit ___ General Patient Visit ___ Spiritual Assessment ___ Family Conference ___ Bereavement ___ Rapid Response ___ Code Blue ___ Other (describe below) Pastoral Care Referral From _x__ Patient _x__ Family ___ Nurse ___ Physician ___ Boiler Shop Supervisor ___ Counterintelligence Specialist ___ Other (describe below) Sacrament/Intervention _x__ Active listening ___ Anointing ___ Sabianist ___ Bereavement ___ Communion ___ Emily exploration ___ ___ Life review _x__ Prayer ___ Reconciliation ___ Sacrament of Sick _x__ Supportive presence ___ Wedding ___ Other (describe below) Pastoral Comments patient speaks of many things that are not good at the moment but how thankful she is of the great care she receives at this hospital; spouse is with her in the room and both express appreciation for the support; pt says that she just needs prayer right now because she is so tired and weak
--- NOTE | 2024-05-12 14:40 | CASEMGMT ---
Addendum entered by Nilsa Alexander 05/12/24 16:01: [facility] declined d/t staffing. Pt requested referrals be sent to all agencies servicing Janes Forrest RN CM updated. Nilsa Alexander DC Planning Asst. Original Note: Discharge Planning HH referral sent to [facility]. Nilsa Alexander DC Planning Asst.
--- NOTE | 2024-05-12 15:18 | PN_ITS ---
Subjective Subjective Patient seen and examined. She had no active complaints today. Her breathing was improving. She denied any fever or chills. Review of systems otherwise negative. Her hemoglobin today is down to 6. She informs me that she has had multiple transfusions for recurrent anemia. She did have an EGD a few months back but says she refused a colonoscopy at that point. She does not want to have a colonoscopy. She is however willing to see GI here. Review of systems otherwise negative. Objective Data Objective Data Vital Signs: Vital Signs Temp Pulse Resp BP Pulse Ox O2 Del Method O2 Flow Rate 99.0 F 76 16 165/51 H 93 Room Air 1 05/12/24 14:36 05/12/24 14:36 05/12/24 14:36 05/12/24 14:36 05/12/24 14:36 05/12/24 14:36 05/12/24 08:00 Oxygen Flow Rate (L/min) 1 Oxygen Delivery Method Room Air Weight: 195 lb 8.8 oz Body Mass Index (BMI) 34.6 Intake & Output: Intake and Output for Last 24 Hours 05/10/24 05/11/24 05/12/24 23:59 23:59 23:59 Intake Total 250 / 250 500 / 500 Output Total 1150 / 1150 553 / 553 Balance -900 / -900 -53 / -53 Lab / Micro Data 05/12/24 06:25 05/12/24 06:25 Labs: Laboratory Results - last 24 hr 05/11/24 14:15: Sodium 138, Potassium 4.6, Chloride 107, Carbon Dioxide 26.0, Anion Gap 5, BUN 25 H, Creatinine 1.50 H, Estim Creat Clear Calc 32.08, Est GFR (MDRD) Af Amer 43 L, Est GFR (MDRD) Non-Af 35 L, BUN/Creatinine Ratio 16.7, G lucose 277 H, Calcium 9.1, Troponin I High Sens 182 H*, B-Natriuretic Peptide 990.8 H 05/12/24 06:25: WBC 5.9, RBC 2.13 L, Hgb 6.0 L*, Hct 19.4 L, MCV 91.1, MCH 28.2, MCHC 30.9 L, RDW Std Deviation 51.8 H, RDW Coeff of Celia 16.9 H, Plt Count 246, MPV 10.5, Immature Gran % (Auto) 1.700 H, Neut % (Auto) 73.6 H, Lymph % (Auto) 13.1 L, [place] % (Auto) 11.4 H, Eos % (Auto) 0.0, Baso % (Auto) 0.2, Absolute Neuts (auto) 4.3, Absolute Lymphs (auto) 0.77 L, Nucleated RBC % 0.9, Diff Path Review May foll, Polychromasia 1+, Anisocytosis 1+, Ovalocytes 1+, Sodium 137, Potassium 3.9, Chloride 103, Carbon Dioxide 26.0, Anion Gap 8, BUN 29 H, C reatinine 1.45 H, Estim Creat Clear Calc 32.15, Est GFR (MDRD) Af Amer 45 L, Est GFR (MDRD) Non-Af 37 L, BUN/Creatinine Ratio 20.0, Glucose 250 H, Calcium 8.9, TSH 1.250 05/12/24 06:32: POC Glucose 234 H 05/12/24 12:00: Iron 21 L, TIBC 281, Iron Saturation 7.5 L, Ferritin 143, Blood Type A POSITIVE, Antibody Screen NEGATIVE, Crossmatch See Detail 05/12/24 12:18: POC Glucose 197 H Micro: Microbiology 05/12/24 10:44 Stool Stool Occult Blood (JUAN R) - Final Occult Blood Positive Radiography Diagnostic Testing: Radiology Impression Chest X-Ray 05/11/24 14:54 IMPRESSION: Small bilateral effusions. There is no focal consolidation. Electronically Signed: Quentin Medellin MD at 16:16 EST , Echocardiogram 05/11/24 19:06 Interpretation Summary Normal LV size. Left ventricular systolic function is normal. The left ventricular ejection fraction is 55 %. Contrast injection was performed. Ordering Physician: Aly Carter Performed By: Reece Bhagat RCS Rhythm Strip Rhythm Strip: Sinus Rhythm Rate: 90 Ectopy: None Physical Exam Const alert, oriented x3, no apparent distress and well nourished General Appearance: cooperative and well developed HEENT normocephalic, head/scalp atraumatic, moist oral mucous membranes and oropharynx normal Eyes PERRL and EOMs intact bilaterally Neck no lymphadenopathy and supple Lymph Lymphatic: no lymphadenopathy noted and no lymphedema noted Resp normal respiratory effort, normal air movement and clear to auscultation bilaterally Resp Narrative: on room air. Cardio regular rate, regular rhythm, S1 normal heart sound, S2 normal heart sound and no murmurs GI normal to inspection, nondistended, normoactive bowel sounds, soft to palpation, non-tender and non-distended Extremity General Extremity: no tenderness to palpation of joints or extremities Skin General Skin Exam: no breakdown Neuro CN's II-XII intact bilaterally, no focal motor deficits and no sensory deficits noted Motor Exam: strength 5/5 throughout and general weakness Psych thought process normal and cooperative Appearance: appropriate Assessment & Plan Assessment/Plan (1) Acute respiratory insufficiency: (2) Acute CHF: (3) Iron deficiency anemia: QUALIFIERS: Iron deficiency anemia type: unspecified iron deficiency Qualified Code(s): D50.9 - Iron deficiency anemia, unspecified PLAN: Plan #Acute exacerbation of HFpEF * Currently being diuresed with IV Lasix. Has known EF of 50 to 55% with evidence of moderate to severe mitral stenosis. Cardiac MRI on May 02 showed akinesis of the apical inferolateral wall * Repeat 2D echo pending. He diuresed with IV Lasix. * Monitor intake and output. #Acute on chronic iron deficiency anemia * Hemoglobin today is 6. It was 7.6 yesterday. Patient says she does have a history of anemia requiring transfusions. She follows with Dr. Cosme. She had an EGD a few months back with Dr. Granados at [facility]. She says she declined colonoscopy at that time and is still not interested in a colonoscopy but is interested in any other modalities for investigation such as capsule endoscopy. * Will therefore consult gastroenterology. * Transfused with 2 units of packed red blood cells today. On IV pantoprazole #Hypertensive urgency: * Resolved. * Carvedilol increased from 3.125 twice daily to 6.25 twice daily. * Also on losartan * IV hydralazine as needed. * #CAD * Patient had a recent non-STEMI and cardiac cath showed nonobstructive CAD * Currently on Plavix. Resume Plavix once hemoglobin is stable. * #Type 2 diabetes mellitus: * On metformin and glipizide. Insulin sliding scale. * Accu-Cheks ACHS. * Also on semaglutide and this was held on admission and to resume on outpatient basis. DVT prophylaxis: SCDs. Charges/Coding Visit Charges Inpatient E&M: 79875 Subs Hosp L2
--- NOTE | 2024-05-12 16:03 | CASEMGMT ---
Addendum entered by Nilsa Alexander 05/12/24 16:20: [facility] declined. Nilsa Alexander DC Planning Asst. Original Note: Discharge Planning referral sent to [facility]. Nilsa Alexander DC Planning Asst.
--- NOTE | 2024-05-12 16:09 | CASEMGMT ---
Addendum entered by Nilsa Alexander 05/19/24 15:39: [facility] updated that pt will be going to a snf. Nilsa Alexander DC Planning Asst. Addendum entered by Nilsa Alexander 05/12/24 16:21: [facility] has accepted. FREYA RINCON updated. Nilsa Alexander DC Planning Asst. Original Note: Discharge Planning HH referral sent to [facility]. Nilsa Alexander DC Planning Asst.
[2024-05-12 17:16] LABS: Bedside Glucose 172 mg/dL (74-106)
--- NOTE | 2024-05-12 17:49 | EX.PCM.CON.G ---
HPI Consult Data Date of Consult: 05/12/24 HPI Narrative Reason for Consultation: Anemia HPI Narrative: ANDRIY WEST, is a who presented with shortness of breath. Patient was discharged on after having a non-STEMI. She was transferred over to [facility] where they did a cardiac catheterization that showed nonobstructive coronary disease. Patient also underwent a cardiac MRI that showed akinesis of the apical inferolateral wall. Most consistent with ischemic etiology, atypical myocarditis being less likely. Patient was then seen until pulmonary on May 10 where she was noted to be anemic with hemoglobin around 6 and was transfused packed red blood cells and then discharged home. She was discharged from [facility] for about 1 week and has had gradually worsening dyspnea and orthopnea since along with bilateral lower leg edema. She states she was admitted a week before that with chest tightness and similar dyspnea with diagnosed with an acute MN, she had a heart cath and states the arteries were open and she did not need a stent, was put on aspirin, Plavix, carvedilol, discontinue her HCTZ and losartan, and discharged to follow-up She saw the ED at [facility] 3 days ago and was told she had persistent CLAUDIA that was presumably caused by the dye from the heart cath according to [facility]'s discharge papers, and she was anemic with a hemoglobin down to 6 she received a blood transfusion and was discharged home she states she is getting worse. Currently she is being transfused 2 units of hyper blood cells. I was consulted due to worsening anemia. 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, with long-term current use of insulin Combined form of age-related cataract, both eyes Ptosis of left eyelid Hyperopia Regular astigmatism Presbyopia CKD (chronic kidney disease) stage 3, GFR 30-59 ml/min Peripheral neuropathy Obesity, Class II, BMI 35-39.9 Iron malabsorption Claudication Rosacea Iron deficiency anemia Lymphedema Malignant neoplasm of upper-outer quadrant of right female breast Albuminuria Hypertension, essential, benign Hypothyroidism (acquired) Hyperlipidemia, mixed Barretts esophagus GERD with esophagitis Uncontrolled type 2 diabetes mellitus without complication, without long-term current use of insulin Home Medications ?Medication ?Instructions ?Recorded ?Last Taken ?Type biotin 2,500 mcg capsule 5,000 mcg PO DAILY 01/09/16 Unknown History cholecalciferol (vitamin D3) 25 2,000 unit PO DAILY 01/09/16 Unknown History mcg (1,000 unit) tablet multivitamin 1 ea PO DAILY 01/09/16 Unknown History blood-glucose meter (FreeStyle #1 ea 03/11/19 Unknown History Lite Meter kit) esomeprazole magnesium 40 mg 40 mg PO DAILY 03/11/19 Unknown History capsule,delayed release (Nexium) pen needle, diabetic 31 gauge x #30 ea 08/06/20 Unknown Rx 09/23 (Lite Touch Insulin Pen [place]) flash glucose scanning reader #1 ea 08/20/20 Unknown Rx (FreeStyle [place] 14 Day [place]) flash glucose sensor (FreeStyle #1 ea 08/20/20 Unknown Rx [place]um 14 Day Sensor kit) blood sugar diagnostic (FreeStyle #100 ea 10/08/21 Unknown Rx Lite Strips) lancets 28 gauge (FreeStyle #100 ea 10/18/21 Unknown Rx Lancets) vit C 226 mg-vit E 90 mg-copper 1 cap PO BID 04/21/23 Unknown History 0.8 mg-zinc oxide-lutein 5 mg capsule (PreserVision Lutein) Handicap Placard #1 ea 06/08/23 Unknown Rx atorvastatin 10 mg tablet 10 mg PO QHS #90 tabs 06/24/23 Unknown Rx glipizide 5 mg tablet 5 mg PO DAILY #180 tabs 06/24/23 Unknown Rx metformin 1,000 mg tablet 500 mg (1/2 x 1,000 mg) PO BID 06/24/23 Unknown Rx #180 tabs valsartan 160 mg tablet 160 mg PO DAILY #90 tabs 06/24/23 Unknown Rx levothyroxine 112 mcg tablet 112 mcg PO DAILY #90 tabs 07/27/23 Unknown Rx semaglutide 1 mg/dose (4 mg/3 mL) 1 mg subcut QWEEK 08/26/23 Unknown History subcutaneous pen injector hydrochlorothiazide 25 mg tablet 12.5 mg (1/2 x 25 mg) PO DAILY #90 11/30/23 Unknown Rx tabs carvedilol 3.125 mg tablet 3.125 mg PO BID 05/11/24 Unknown History clopidogrel 75 mg tablet 75 mg PO DAILY 05/11/24 Unknown History Allergy/AdvReac Type Severity Reaction Status Date / Time No Known Allergies Allergy Verified 05/11/24 13:39 Family History Aunt Breast cancer Sister Diabetes Surgical History History of cholecystectomy History of lumpectomy Social History Smoking Status: Former smoker quit date: 05/11/90 Tobacco: How many years used: 15 alcohol intake: never substance use type: does not use what type of physical activity do you participate in: walking and bicycling [employer] Has a chronic history of anemia which has been worked up in the past without definitive etiology. Sees Dr. Nathan for her anemia. Gets periodic transfusions. Lower extremity edema. All review of systems were negative except as mentioned above in the history of present illness and the other review of systems. Physical Exam Const alert, oriented x3, no apparent distress and well nourished General Appearance: cooperative and well developed HEENT normocephalic, head/scalp atraumatic, moist oral mucous membranes and oropharynx normal Eyes PERRL and EOMs intact bilaterally Neck no lymphadenopathy and supple Lymph Lymphatic: no lymphadenopathy noted and no lymphedema noted Resp normal respiratory effort, normal air movement and clear to auscultation bilaterally Resp Narrative: on room air. Cardio regular rate, regular rhythm, S1 normal heart sound, S2 normal heart sound and no murmurs GI normal to inspection, nondistended, normoactive bowel sounds, soft to palpation, non-tender and non-distended Extremity General Extremity: no tenderness to palpation of joints or extremities Skin General Skin Exam: no breakdown Neuro CN's II-XII intact bilaterally, no focal motor deficits and no sensory deficits noted Motor Exam: strength 5/5 throughout and general weakness Psych thought process normal and cooperative Appearance: appropriate Lab / Micro Data 05/12/24 06:25 05/12/24 06:25 Labs: Laboratory Results - last 24 hr 05/12/24 06:25: WBC 5.9, RBC 2.13 L, Hgb 6.0 L*, Hct 19.4 L, MCV 91.1, MCH 28.2, MCHC 30.9 L, RDW Std Deviation 51.8 H, RDW Coeff of Celia 16.9 H, Plt Count 246, MPV 10.5, Immature Gran % (Auto) 1.700 H, Neut % (Auto) 73.6 H, Lymph % (Auto) 13.1 L, [place] % (Auto) 11.4 H, Eos % (Auto) 0.0, Baso % (Auto) 0.2, Absolute Neuts (auto) 4.3, Absolute Lymphs (auto) 0.77 L, Nucleated RBC % 0.9, Diff Path Review May foll, Polychromasia 1+, Anisocytosis 1+, Ovalocytes 1+, Sodium 137, Potassium 3.9, Chloride 103, Carbon Dioxide 26.0, Anion Gap 8, BUN 29 H, Creatinine 1.45 H, Estim Creat Clear Calc 32.15, Est GFR (MDRD) Af Amer 45 L, Est GFR (MDRD) Non-Af 37 L, BUN/Creatinine Ratio 20.0, Glucose 250 H, Calcium 8.9, TSH 1.250 05/12/24 06:32: POC Glucose 234 H 05/12/24 12:00: Iron 21 L, TIBC 281, Iron Saturation 7.5 L, Ferritin 143, Blood Type A POSITIVE, Antibody Screen NEGATIVE, Crossmatch See Detail 05/12/24 12:18: POC Glucose 197 H 05/12/24 16:40: POC Glucose 172 H Micro: Microbiology 05/12/24 10:44 Stool Stool Occult Blood (JUAN R) - Final Occult Blood Positive Rhythm Strip Rhythm Strip: Sinus Rhythm Rate: 90 Ectopy: None Imaging Radiology Impression Echocardiogram 05/11/24 19:06 Interpretation Summary Normal LV size. Left ventricular systolic function is normal. The left ventricular ejection fraction is 55 %. Contrast injection was performed. Ordering Physician: Aly Carter Performed By: Reece Bhagat RCS Assessment & Plan Assessment/Plan (1) Acute CHF: PLAN: 79-year-old with multiple medical problems including recent non-ST segment elevation MN, uncontrolled high blood pressure, acute on chronic kidney disease after contrast dye from her recent cardiac cath received diagnosis of heart failure with preserved ejection fraction. Patient an echocardiogram over at [facility] on May 01 that showed an EF of 50 to 55%. Wall motion normal with no regional wall motion abnormalities. Severely calcified mitral valve moderate to severe mitral stenosis. Cardiac MRI on May 02 showed akinesis of the apical inferolateral wall with transmural LGE (2) Hypertensive urgency: (3) Anemia: PLAN: Differential diagnosis for her worsening anemia is acute on chronic blood loss anemia secondary to recent ministration of aspirin and Plavix. She does have increased BUN/creatinine ratio possibly secondary to upper GI bleed. Also different diagnosis is small bowel bleed secondary to angiodysplasia and less likely malignancy. Also differential diagnosis will be gastric antral vascular ectasia, Kody's erosions. She should undergo upper and lower endoscopy to evaluate upper lower GI tract. She was explained alternatives, risk and benefits include not withstanding bleeding, infection, sepsis, perforation, need for charge and . She will have an ASA of 3. Charges/Coding Visit Charges Inpatient E&M: 31140 Init Hosp L3
[2024-05-12] MEDS: Metoclopramide 10 MG/2 ML Vial 5 MG IV ×2 (18:30→22:44)
--- NOTE | 2024-05-12 20:25 | PCM.HOSP.N ---
Hospitalist Note Called secondary to patient developing diarrhea. She had 4 bowel movements and had a low-grade temperature elevation from baseline at 99.2. C. difficile and enteric panel sent.
[2024-05-12] MEDS: Atorvastatin Calcium 10 MG Tablet PO (22:38)
[2024-05-12 23:53] LABS: Bedside Glucose 171 mg/dL (74-106)
[2024-05-13] VITALS (14 sets, daily range): BP systolic 97–172; BP diastolic 42–63; PULSE 63–79; RESP 16–28; TEMP 36.6–37; O2SAT 90–99; BMI 34.0
[2024-05-13] MEDS: Metoclopramide 10 MG/2 ML Vial 5 MG IV ×2 (06:29→18:16)
[2024-05-13] MEDS: Albuterol 2.5 MG/3 ML VIAL.NEB. INHALATION (06:57)
[2024-05-13 07:10] LABS: Bedside Glucose 149 mg/dL (74-106)
[2024-05-13 07:13] LABS: Anion Gap 8 (5-15); BUN 31 mg/dL (7-18); Calcium,Total 8.7 mg/dL (8.5-10.1); Chloride 102 mmol/L (98-107); Creatinine, Serum 1.55 mg/dL (0.55-1.02); EST Glomerular Filtration Rate 34 mL/min (>60); Est Glom Filt Rate - Afr Amer 41 mL/min (>60); Estimated Creatinine Clearance 29.77 ml/min; Glucose 154 mg/dL (74-106); Potassium 3.5 mmol/L (3.5-5.1); Sodium Level 137 mmol/L (136-145)
[2024-05-13 07:24] LABS: Absolute Lymphocyte Count 0.91 X10^3/uL (0.83-4.51); Absolute Neutrophil Count 2.9 X10^3/uL (2.0-7.7); Basophil# 0.01 X10^3/uL; Basophil% 0.2 % (0-1); Hematocrit 28.3 % (37-47); Hemoglobin 9.3 g/dL (12.0-15.0); Lymphocyte # 0.91 X10^3/ul (0.83-4.51); Lymphocyte % 20.6 % (19-41); Mean Corp Hgb Conc 32.9 g/dL (32-36); Mean Corpuscular Hgb 29.7 pg (27.0-32.0); Mean Corpuscular Volume 90.4 fL (81-99); Mean Platelet Vol. 10.3 fl (6.2-12.0); Monocyte# 0.61 X10^3/uL; Monocyte% 13.8 % (0-10); NRBC Flagged by Analyzer 0.5 % (0-5); Neutrophil # 2.85 X10^3/uL (2.7-7.7); Neutrophil % 64.5 % (47-70); Platelet Count 206 K/mm3 (150-450); RBC Distribution Width CV 15.2 % (11.6-14.6); RBC Distribution Width SD 48.4 fl (35.1-43.9); Red Blood Count 3.13 M/mm3 (4.2-5.4); White Blood Count 4.4 K/mm3 (4.4-11.0)
[2024-05-13 08:39] LABS: Hemoglobin A1c 7.6 % (3.8-5.6)
[2024-05-13] MEDS: Carvedilol 6.25 MG Tablet PO ×2 (09:25→18:16)
[2024-05-13] MEDS: Losartan Potassium 50 MG Tablet PO (09:26)
[2024-05-13] MEDS: Furosemide 40 MG/4 ML Vial IV ×2 (09:26→18:16)
--- NOTE | 2024-05-13 10:52 | PRE.ANES_ITS ---
ASA Classification* ASA Classification ASA Classification: 3 Assessment & Plan Anesthesia* Anesthesia Assessment Anesthesia Assessment: Discussed sedation and/or anesthesia options, risks, benefits, and alternatives with patient/parents/legal guardian/POA. Questions invited. The patient/parents/legal guardian/POA seems to understand and agrees to proceed with anesthesia plan. Reviewed the physical assessment, medical history, allergy history and patient home medications list prior to surgery/procedure/anesthetic and documented any changes. Performed airway and anesthesia risk assessments. Anesthesia Type Anesthesia Type: MAC History Source History Obtained from:: Patient and Chart Anesthesia Focused Assessment* Temperature: 98.3 F Pulse Rate: 76 Blood Pressure: 158/59 Respiratory Rate: 24 Pulse Ox: 92 Oxygen Delivery Method: Room Air Oxygen Flow Rate (L/min): 1 Airway Assessment Mouth opens: >3 cm Mallampati Score: IV Teeth Condition: Intact Neck Range of motion (ROM): Limited ROM (Somewhat decreased extension) Focused Labs Anesthesia Preop lab: CBC WBC 4.4 K/mm3 (4.4-11.0) 05/13/24 06:50 RBC 3.13 M/mm3 (4.2-5.4) L 05/13/24 06:50 Hgb 9.3 g/dL (12.0-15.0) L 05/13/24 06:50 Hct 28.3 % (37-47) L 05/13/24 06:50 Plt Count 206 K/mm3 (150-450) 05/13/24 06:50 CHEMISTRY Potassium 3.5 mmol/L (3.5-5.1) 05/13/24 06:50 Sodium 137 mmol/L (136-145) 05/13/24 06:50 Magnesium 1.5 mg/dL (1.6-2.6) L 05/25/23 17:35 BUN 31 mg/dL (7-18) H 05/13/24 06:50 Creatinine 1.55 mg/dL (0.55-1.02) H 05/13/24 06:50 Glucose 154 mg/dL (74-106) H 05/13/24 06:50 POC Glucose 149 mg/dL (74-106) H 05/13/24 06:25 TSH 1.250 uIU/mL (0.358-3.740) 05/12/24 06:25 COAG Pre-Assessment Diagnosis/Proposed Procedure Planned Operative Procedure(s): Esophagogastroduodenoscopy Anesthesia History Anesthesia History - medical authorization specialist: Anesthesia History - medical authorization specialist Hx Hospitalization No 10/13/22 13:33 Any Problems With Anesthesia No 05/13/24 03:00 Cholinesterase deficiency No 05/13/24 03:00 You/Your Family Experience No 05/13/24 03:00 fever (hyperthermia) with Relationship Recent Exposure to Contagious No 05/13/24 03:00 Disease Does patient have nerve No 05/13/24 03:00 stimulator Patient instructed to have device shut off --Does patient have Pacemaker or ICD? When Was Last Pacemaker Check QUESTION #4 FULL TEXT: You/Your Family Experience fever (hyperthermia) with Anesthesia Last Oral Intake Last Oral intake: Last Oral Intake NPO since Meds taken in AM with sips of water? Meds patient instructed to take am of surgery Any additional information?: Yes NPO since: 00:00 Meds taken in AM with sips of water?: Yes PONV PONV - medical authorization specialist: PONV - medical authorization specialist Female HX of Motion Sickness HX of N/V After Surgery Non-Smoker Duration of Surgery greater than 60 minutes Number of Risk Factors PONV Score Height & Weight Height & Weight: Anesthesia: Height & Weight Height 5 ft 3 in 05/12/24 13:18 Weight: 87 kg 05/13/24 03:47 Body Mass Index (BMI) 34.0 05/13/24 03:47 Respiratory Assessment Respiratory Assessment - medical authorization specialist: Respiratory Tract Infection Hx - medical authorization specialist Hx Respiratory Tract Infection No: DOES HAVE OCC DRY COUGH 05/13/24 03:00 STOP Sleep Apnea STOP Sleep Apnea - medical authorization specialist: STOP Sleep Apnea - medical authorization specialist Hx Hypertension Yes: ON DIOVAN 05/12/24 17:15 Hx Sleep Apnea No 05/11/24 19:09 CPAP No 05/11/24 19:09 BIPAP Do you snore loudly (louder No 05/11/24 19:09 than talking or can be heard Do you often feel tired/ Yes 05/11/24 19:09 fatigued/ sleepy during daytime? Has anyone observed you stop No 05/11/24 19:09 breathing during sleep? STOP Results Positive 05/11/24 19:09 QUESTION #5 FULL TEXT : Do you snore loudly (louder than talking or can be heard through closed doors)? Tobacco Use History Tobacco Use History - medical authorization specialist: Tobacco Use History - medical authorization specialist Tobacco Use Smoking Status Former smoker 05/11/24 19:09 Hx Tobacco Use No 05/11/24 19:09 Years Smoking Packs Smoked per Day Smoking Cessation Date was No - quit smoking greater 05/11/24 19:09 within the last 15 years than 15 years ago Hx Smoking Cessation Date Hx Smoking Cessation Counseling Hematologic Medial History Hematologic Hx - medical authorization specialist: Hematologic Medical Hx - bartacker Hx of Blood Transfusion Yes 05/11/24 19:09 Hx of Transfusion in last 3 Yes 05/11/24 19:09 Months Date of Last Transfusion (if 05/08/24 05/11/24 19:09 within last 3 months) Ever experience any problems No 05/11/24 19:09 with transfusion(s)? Specify any problems Hx of Preganancy in last 3 Yes 05/11/24 19:09 Months Nurse Filling Out Transfusion [email or web address] 05/11/24 19:09 & Questions: Date: 05/11/24 05/11/24 19:09 Time: 19:14 05/11/24 19:09 Patient unable to answer at this time (ie. confused, unrespo /Reproduction History /Reproductive History - medical authorization specialist: /Reproductive Hx- medical authorization specialist Hx Now No 05/13/24 03:00 Gestational Age (in weeks): EDC: Hx Hx Para Hx Section SAB Active Medications Active Medications: Current Medications Generic Name Dose Route Start Last Admin Trade Name Freq PRN Reason Stop Dose Admin Acetaminophen 650 mg 05/11/24 19:06 Acetaminophen 325 Mg Tablet PO Q6H PRN PRN Pain 1-10 Or Fever>100.7 Albuterol Sulfate 2.5 mg 05/11/24 23:56 05/13/24 06:57 Albuterol 2.5 Mg/3 Ml Vial.Neb. INHALATION 2.5 mg Q4H PRN PRN Administration DYSPNEA/WHEEZING/SOB Atorvastatin Calcium 10 mg 05/11/24 22:00 05/12/24 22:38 Atorvastatin Calcium 10 Mg Tablet PO 10 mg QHS NINA Administration Carvedilol 6.25 mg 05/12/24 08:00 05/13/24 09:25 Carvedilol 6.25 Mg Tablet PO 6.25 mg BIDCM [facility] Administration Protocol Clopidogrel Bisulfate 75 mg 05/12/24 10:00 05/13/24 10:09 Clopidogrel Bisulfate 75 Mg Tablet PO Not Given DAILY [facility] Furosemide 40 mg 05/12/24 10:00 05/13/24 09:26 Furosemide 40 Mg/4 Ml Vial IV 40 mg BID@1000,1800 NINA Administration Glipizide 5 mg 05/12/24 08:00 05/13/24 09:26 [facility] 5 Mg [facility] Glucagon 1 mg 05/11/24 19:06 Glucagon 1 Mg/Ml Syringe IM X1 PRN HYPOGLYCEMIA Protocol Hydralazine HCl 10 mg 05/11/24 19:06 Hydralazine 20 Mg/Ml Vial IV Q4H PRN PRN SBP GREATER THAN 180 Protocol Dextrose 250 mls @ 0 mls/hr 05/11/24 19:06 Dextrose 10%-Water IV .Q0M PRN HYPOGLYCEMIA Protocol As Directed Sodium Chloride 100 mls @ 15 mls/hr 05/12/24 23:13 IV .Q6H40M PRN Saline Flush Sodium Chloride 100 mls @ 15 mls/hr 05/12/24 23:13 IV .Q6H40M PRN Additional IVPB Infusion Insulin Human Lispro 0 unit 05/11/24 22:00 05/13/24 10:46 Insulin Lispro 100 Unit/Ml Insuln.Pen SC Not Given ACHS [facility] Protocol Levothyroxine Sodium 112 mcg 05/12/24 06:00 05/13/24 06:29 Levothyroxine 112 Mcg Tablet PO Not Given 0600 [facility] Losartan Potassium 50 mg 05/12/24 10:00 05/13/24 09:26 Losartan Potassium 50 Mg Tablet PO 50 mg DAILY [facility] Administration Protocol Metformin HCl 500 mg 05/12/24 08:00 05/13/24 09:26 Metformin Hcl 500 Mg Tablet PO [facility] Metoclopramide HCl 5 mg 05/12/24 18:00 05/13/24 06:29 Metoclopramide 10 Mg/2 Ml Vial IV 5 mg Q6 NINA Administration Ondansetron HCl 4 mg 05/11/24 19:06 Ondansetron 4 Mg/2 Ml Vial IV Q8H PRN PRN NAUSEA/VOMITING Pantoprazole Sodium 40 mg 05/12/24 10:00 05/13/24 10:09 Pantoprazole Sodium 40 Mg Tablet PO Not Given DAILY NINA Sodium Chloride 10 - 40 ml 05/12/24 23:13 0.9% Saline Lock 10 Ml Syringe IV UD PRN SALINE FLUSH PFSH Medical History Acute maxillary sinusitis, unspecified Type 2 diabetes mellitus with both eyes affected by mild nonproliferative retinopathy without macular edema, with long-term current use of insulin Combined form of age-related cataract, both eyes Ptosis of left eyelid Hyperopia Regular astigmatism Presbyopia CKD (chronic kidney disease) stage 3, GFR 30-59 ml/min Peripheral neuropathy Obesity, Class II, BMI 35-39.9 Iron malabsorption Claudication Rosacea Iron deficiency anemia Lymphedema Malignant neoplasm of upper-outer quadrant of right female breast Albuminuria Hypertension, essential, benign Hypothyroidism (acquired) Hyperlipidemia, mixed Barretts esophagus GERD with esophagitis Uncontrolled type 2 diabetes mellitus without complication, without long-term current use of insulin Home Medications ?Medication ?Instructions ?Recorded ?Last Taken ?Type biotin 2,500 mcg capsule 5,000 mcg PO DAILY 01/09/16 Unknown History cholecalciferol (vitamin D3) 25 2,000 unit PO DAILY 01/09/16 Unknown History mcg (1,000 unit) tablet multivitamin 1 ea PO DAILY 01/09/16 Unknown History blood-glucose meter (FreeStyle #1 ea 03/11/19 Unknown History Lite Meter kit) esomeprazole magnesium 40 mg 40 mg PO DAILY 03/11/19 Unknown History capsule,delayed release (Nexium) pen needle, diabetic 31 gauge x #30 ea 08/06/20 Unknown Rx 09/23 (Lite Touch Insulin Pen [place]) flash glucose scanning reader #1 ea 08/20/20 Unknown Rx (FreeStyle [place] 14 Day [place]) flash glucose sensor (FreeStyle #1 ea 08/20/20 Unknown Rx [place] 14 Day Sensor kit) blood sugar diagnostic (FreeStyle #100 ea 10/08/21 Unknown Rx Lite Strips) lancets 28 gauge (FreeStyle #100 ea 10/18/21 Unknown Rx Lancets) vit C 226 mg-vit E 90 mg-copper 1 cap PO BID 04/21/23 Unknown History 0.8 mg-zinc oxide-lutein 5 mg capsule (PreserVision Lutein) Handicap Placard #1 ea 06/08/23 Unknown Rx atorvastatin 10 mg tablet 10 mg PO QHS #90 tabs 06/24/23 Unknown Rx glipizide 5 mg tablet 5 mg PO DAILY #180 tabs 06/24/23 Unknown Rx metformin 1,000 mg tablet 500 mg (1/2 x 1,000 mg) PO BID 06/24/23 Unknown Rx #180 tabs valsartan 160 mg tablet 160 mg PO DAILY #90 tabs 06/24/23 Unknown Rx levothyroxine 112 mcg tablet 112 mcg PO DAILY #90 tabs 07/27/23 Unknown Rx semaglutide 1 mg/dose (4 mg/3 mL) 1 mg subcut QWEEK 08/26/23 Unknown History subcutaneous pen injector hydrochlorothiazide 25 mg tablet 12.5 mg (1/2 x 25 mg) PO DAILY #90 11/30/23 Unknown Rx tabs carvedilol 3.125 mg tablet 3.125 mg PO BID 05/11/24 Unknown History clopidogrel 75 mg tablet 75 mg PO DAILY 05/11/24 Unknown History Allergy/AdvReac Type Severity Reaction Status Date / Time No Known Allergies Allergy Verified 05/11/24 13:39 Family History Aunt Breast cancer Sister Diabetes Surgical History History of cholecystectomy History of lumpectomy Social History Smoking Status: Former smoker quit date: 05/11/90 Tobacco: How many years used: 15 alcohol intake: never substance use type: does not use what type of physical activity do you participate in: walking and bicycling Review of Systems (Anesthesia) ROS Narrative System reviewed and no additional complaints, except as documented.
--- NOTE | 2024-05-13 10:57 | PN_ITS ---
Subjective Subjective Patient seen and examined. She was a bit more lethargic today. She had no active complaints today. Review of systems is otherwise negative. She is for EGD today by GI. She has remained hemodynamically stable. Objective Data Objective Data Vital Signs: Vital Signs Temp Pulse Resp BP Pulse Ox O2 Del Method O2 Flow Rate 98.3 F 76 24 H 158/59 H 92 Room Air 1 05/13/24 10:55 05/13/24 10:55 05/13/24 10:55 05/13/24 10:55 05/13/24 10:55 05/13/24 09:21 05/13/24 10:55 Oxygen Flow Rate (L/min) 1 Oxygen Delivery Method Room Air Weight: 191 lb 12.835 oz Body Mass Index (BMI) 34.0 Intake & Output: Intake and Output for Last 24 Hours 05/11/24 05/12/24 05/13/24 23:59 23:59 23:59 Intake Total 250 / 250 1500 / 1650 150 / 150 Output Total 1150 / 1150 553 / 1253 700 / 700 Balance -900 / -900 947 / 397 -550 / -550 Lab / Micro Data 05/13/24 06:50 05/13/24 06:50 Labs: Laboratory Results - last 24 hr 05/12/24 12:00: Iron 21 L, TIBC 281, Iron Saturation 7.5 L, Ferritin 143, Blood Type A POSITIVE, Antibody Screen NEGATIVE, Crossmatch See Detail 05/12/24 12:18: POC Glucose 197 H 05/12/24 16:40: POC Glucose 172 H 05/12/24 22:37: POC Glucose 171 H 05/13/24 06:25: POC Glucose 149 H 05/13/24 06:50: WBC 4.4, RBC 3.13 L, Hgb 9.3 L, Hct 28.3 L, MCV 90.4, MCH 29.7, MCHC 32.9 D, RDW Std Deviation 48.4 H, RDW Coeff of Celia 15.2 H, Plt Count 206, MPV 10.3, Immature Gran % (Auto) 0.900, Neut % (Auto) 64.5, Lymph % (Auto) 20.6, Shannon % (Auto) 13.8 H, Eos % (Auto) 0.0, Baso % (Auto) 0.2, Absolute Neuts (auto) 2.9, Absolute Lymphs (auto) 0.91, Nucleated RBC % 0.5, Sodium 137, Potassium 3.5, Chloride 102, Carbon Dioxide 27.0, Anion Gap 8, BUN 31 H, Creatinine 1.55 H , Estim Creat Clear Calc 29.77, Est GFR (MDRD) Af Amer 41 L, Est GFR (MDRD) Non- Af 34 L, BUN/Creatinine Ratio 20.0, Glucose 154 H, Hemoglobin A1c 7.6 H, Calcium 8.7 Micro: Microbiology 05/12/24 10:44 Stool Stool Occult Blood (JUAN R) - Final Occult Blood Positive Radiography Diagnostic Testing: Radiology Impression Echocardiogram 05/11/24 19:06 Interpretation Summary Normal LV size. Left ventricular systolic function is normal. The left ventricular ejection fraction is 55 %. Contrast injection was performed. Ordering Physician: Aly Carter Performed By: Reece Bhagat RCS Rhythm Strip Rhythm Strip: Sinus Rhythm Rate: 90 Ectopy: None Physical Exam Const alert, oriented x3, no apparent distress and well nourished General Appearance: cooperative and well developed HEENT normocephalic, head/scalp atraumatic, moist oral mucous membranes and oropharynx normal Eyes PERRL and EOMs intact bilaterally Neck no lymphadenopathy and supple Lymph Lymphatic: no lymphadenopathy noted and no lymphedema noted Resp normal respiratory effort, normal air movement, no retractions and clear to auscultation bilaterally Resp Narrative: on room air. Cardio regular rate, regular rhythm, S1 normal heart sound, S2 normal heart sound and no murmurs GI normal to inspection, nondistended, normoactive bowel sounds, soft to palpation, non-tender and non-distended Extremity General Extremity: no tenderness to palpation of joints or extremities Skin General Skin Exam: no breakdown Neuro CN's II-XII intact bilaterally, moves all extremities, no focal motor deficits and no sensory deficits noted Sensorium / Orientation: awake and alert Motor Exam: strength 5/5 throughout and general weakness Psych thought process normal, cooperative and affect normal Appearance: appropriate Assessment & Plan Assessment/Plan (1) Acute respiratory insufficiency: (2) Acute CHF: (3) Iron deficiency anemia: QUALIFIERS: Iron deficiency anemia type: unspecified iron deficiency Qualified Code(s): D50.9 - Iron deficiency anemia, unspecified PLAN: Plan #Acute exacerbation of HFpEF * Currently being diuresed with IV Lasix. Has known EF of 50 to 55% with evidence of moderate to severe mitral stenosis. Cardiac MRI on May 02 showed akinesis of the apical inferolateral wall * Repeat 2D echo done here on 05/11/2024 showed normal left ventricular size and systolic function with EF of 55% and no regional wall motion abnormalities noted * Monitor intake and output. #Acute on chronic iron deficiency anemia * Patient says she does have a history of anemia requiring transfusions. She follows with Dr. Nathan. She had an EGD a few months back with Dr. Granados at [facility]. She says she declined colonoscopy at that time and is still not interested in a colonoscopy but is interested in any other modalities for investigation such as capsule endoscopy. * Gastroenterology consulted. On IV pantoprazole. * for EGD today * s/p transfusion of 2 units of PRBC. Hb today is 9.6 * Will therefore consult gastroenterology. * Transfused with 2 units of packed red blood cells today. On IV pantoprazole #Hypertensive urgency: * Resolved. * Carvedilol increased from 3.125 twice daily to 6.25 twice daily. * Also on losartan * IV hydralazine as needed. * #CAD * Patient had a recent non-STEMI and cardiac cath showed nonobstructive CAD * Currently on Plavix. Resume Plavix once hemoglobin is stable. * #Type 2 diabetes mellitus: * On metformin and glipizide. Insulin sliding scale. * Accu-Cheks ACHS. * Also on semaglutide and this was held on admission and to resume on outpatient basis. DVT prophylaxis: SCDs. Charges/Coding Visit Charges Inpatient E&M: 79499 Subs Hosp L2
--- NOTE | 2024-05-13 12:19 | OP.EGD_ITS ---
Patient Name: Yamile Wells Procedure Date: 05/13/2024 10:59 AM Date of : 1945 Age: 79 Procedure: Upper GI endoscopy Indications: Iron deficiency anemia Providers: Roosevelt Drake DO Medicines: Monitored Anesthesia Care Patient Profile: This is an 79 year old female. Refer to note in patient chart for documentation of history and physical. Patient has symptoms. Complications: No immediate complications. Procedure: Pre-Anesthesia Assessment: - Prior to the procedure, a History and Physical was performed, and patient medications and allergies were reviewed. The patient is competent. The risks and benefits of the procedure and the sedation options and risks were discussed with the patient. All questions were answered and informed consent was obtained. Patient identification and proposed procedure were verified [Verifying Personnel] [Verification]. [Mental Status Exam]. [Airway Exam]. [Respiratory Exam]. [CV Exam]. The patient [Abx Prophylaxis Requirement] prophylactic antibiotics [High Risk History Reason] and [High Risk Procedure Reason]. [Anticoagulant Agents] [Days Prior to Procedure]. [ASA Grade]. After reviewing the risks and benefits, the patient was deemed in satisfactory condition to undergo the procedure. [Anesthesia Plan]. Immediately prior to administration of medications, the patient was re-assessed for adequacy to receive sedatives. The heart rate, respiratory rate, oxygen saturations, blood pressure, adequacy of pulmonary ventilation, and response to care were monitored throughout the procedure. The physical status of the patient was re-assessed after the procedure. After obtaining informed consent, the endoscope was passed under direct vision. Throughout the procedure, the patient's blood pressure, pulse, and oxygen saturations were monitored continuously. The Colonoscope was introduced through the mouth, and advanced to the jejunum. Small bowel enteroscopy was deemed necessary. The gastroscope was introduced through the mouth, and advanced to the jejunum. Small bowel enteroscopy was deemed necessary. The upper GI endoscopy was accomplished without difficulty. The patient tolerated the procedure well. Scope In: 11:58:23 AM Scope Out: 12:11:25 PM Total Procedure Duration Time 0 hours 13 minutes 2 seconds Findings: LA Grade B (one or more mucosal breaks greater than 5 mm, not extending between the tops of two mucosal folds) esophagitis with no bleeding was found 37 to 39 cm from the incisors. A medium-sized hiatal hernia was present. Multiple 9 mm sessile polyps with no bleeding and no stigmata of recent bleeding were found in the gastric fundus and in the gastric body. One non-bleeding linear gastric ulcer with no stigmata of bleeding was found on the lesser curvature of the stomach. The lesion was 5 mm in largest dimension. Coagulation for bleeding prevention using heater probe was successful. Estimated blood loss was minimal. Two 5 mm angiodysplastic lesions with bleeding were found in the fourth portion of the duodenum. Coagulation for hemostasis using heater probe was successful. Impression: - LA Grade B erosive esophagitis with no bleeding. - Medium-sized hiatal hernia. - Multiple gastric polyps. - Non-bleeding gastric ulcer with no stigmata of bleeding. Treated with a heater probe. - Two bleeding angiodysplastic lesions in the duodenum. Treated with a heater probe. - No specimens collected. Recommendation: - Return patient to [facility] for [facility] care. - Clear liquid diet. - Continue present medications. Procedure Code(s): --- Professional --- 04919, Small intestinal endoscopy, enteroscopy beyond second portion of duodenum, not including ileum; with control of bleeding (eg, injection, bipolar cautery, unipolar cautery, laser, heater probe, stapler, plasma paste up worker) CPT copyright 202 [employer]. All rights reserved. The codes documented in this report are preliminary and upon battery container finishing hand review may be revised to meet current compliance requirements. Roosevelt Drake DO 05/13/2024 12:18:55 PM This report has been signed electronically. Number of Addenda: 0 Note Initiated On: 05/13/2024 10:59 AM
--- NOTE | 2024-05-13 12:25 | PCM.POST.ANE ---
Anesthesia: Postop Eval I Current Vital Signs Temperature: 97.8 F Pulse Rate: 64 Blood Pressure: 102/42 Respiratory Rate: 16 Pulse Ox: 95 Oxygen Delivery Method: Room Air Assessment Airway patent: Yes Spontaneous unlabored respirations: Yes Mental status: Asleep nausea: No Vomiting: No Anesthesia Complication: No Fluid Hydration Crystalloid volume administer (ml): 60 Total IV fluid infused: 60 Progress Note Anesthesia document: Postop Eval 1 completed: Yes
[2024-05-13 13:14] LABS: Pathologist Review Reviewed
[2024-05-13 17:01] LABS: Bedside Glucose 179 mg/dL (74-106)
[2024-05-13] MEDS: metFORMIN HCl 500 MG Tablet PO (18:17)
[2024-05-13] MEDS: Atorvastatin Calcium 10 MG Tablet PO (21:01)
[2024-05-13] MEDS: Insulin Lispro 100 UNIT/ML INSULN.PEN SC (21:01)
[2024-05-13] MEDS: 0.9% Saline Lock 10 ML Syringe IV (21:01)
[2024-05-13 21:14] LABS: Bedside Glucose 289 mg/dL (74-106)
[2024-05-14] VITALS (10 sets, daily range): BP systolic 130–155; BP diastolic 46–62; PULSE 69–88; RESP 18–24; TEMP 37.1–38.9; O2SAT 94–96; BMI 34.2
[2024-05-14] MEDS: 0.9% Saline Lock 10 ML Syringe IV ×5 (00:10→20:03)
[2024-05-14] MEDS: Metoclopramide 10 MG/2 ML Vial 5 MG IV ×4 (00:10→17:27)
[2024-05-14] MEDS: Levothyroxine 112 MCG Tablet PO (06:10)
[2024-05-14 06:40] LABS: Bedside Glucose 140 mg/dL (74-106)
[2024-05-14 07:02] LABS: Absolute Lymphocyte Count 1.32 X10^3/uL (0.83-4.51); Absolute Neutrophil Count 5.1 X10^3/uL (2.0-7.7); Basophil# 0.01 X10^3/uL; Basophil% 0.1 % (0-1); Hematocrit 31.7 % (37-47); Hemoglobin 10.2 g/dL (12.0-15.0); Lymphocyte # 1.32 X10^3/ul (0.83-4.51); Lymphocyte % 18.3 % (19-41); Mean Corp Hgb Conc 32.2 g/dL (32-36); Mean Corpuscular Hgb 29.1 pg (27.0-32.0); Mean Corpuscular Volume 90.3 fL (81-99); Mean Platelet Vol. 10.6 fl (6.2-12.0); Monocyte# 0.74 X10^3/uL; Monocyte% 10.3 % (0-10); NRBC Flagged by Analyzer 0 % (0-5); Neutrophil % 70.7 % (47-70); Platelet Count 199 K/mm3 (150-450); RBC Distribution Width CV 15.4 % (11.6-14.6); RBC Distribution Width SD 49.8 fl (35.1-43.9); Red Blood Count 3.51 M/mm3 (4.2-5.4); White Blood Count 7.2 K/mm3 (4.4-11.0)
[2024-05-14 07:28] LABS: Anion Gap 10 (5-15); BUN 42 mg/dL (7-18); BUN/Creat Ratio 21.1 RATIO (10-20); Calcium,Total 8.5 mg/dL (8.5-10.1); Chloride 98 mmol/L (98-107); Creatinine, Serum 1.99 mg/dL (0.55-1.02); EST Glomerular Filtration Rate 26 mL/min (>60); Est Glom Filt Rate - Afr Amer 31 mL/min (>60); Glucose 141 mg/dL (74-106); Potassium 3.8 mmol/L (3.5-5.1); Sodium Level 135 mmol/L (136-145)
[2024-05-14 08:17] LABS: Magnesium 1.6 mg/dL (1.6-2.6)
[2024-05-14] MEDS: Losartan Potassium 50 MG Tablet PO (09:03)
[2024-05-14] MEDS: metFORMIN HCl 500 MG Tablet PO ×2 (09:03→17:27)
[2024-05-14] MEDS: Carvedilol 6.25 MG Tablet PO ×2 (09:03→17:26)
[2024-05-14] MEDS: Furosemide 40 MG/4 ML Vial IV (09:03)
[2024-05-14] MEDS: Pantoprazole Sodium 40 MG Tablet PO (09:04)
[2024-05-14] MEDS: Clopidogrel Bisulfate 75 MG Tablet PO (09:04)
[2024-05-14] MEDS: glipiZIDE 5 MG Tablet PO (09:04)
--- NOTE | 2024-05-14 10:09 | CASEMGMT ---
SW informed FREYA RINCON Pt wanting to know if she is accepted for HHC. FREYA RINCON noted acceptance in [facility] with [facility]. FREYA RINCON into pt room, Pt sitting in chair in no distress. Informed Pt [facility] accepted for HHC services and will call Pt when DC'd to schedule her SOC. Pt grateful and thanked FREYA RINCON. Denies further questions at this time.
--- NOTE | 2024-05-14 10:48 | PCM.POSTANE2 ---
Anesthesia Postop Eval I Sum Postop Eval Completion status Anesthesia document: Postop Eval 1 completed: Yes Anesthesia Postop Eval I Summary Anesthesia Postop Eval I Summary: Anesthesia Postop Eval I: Assessment Summary Airway patent Yes 05/13/24 12:26 [email or web address] Spontaneous unlabored Yes 05/13/24 12:26 [email or web address] respirations Mental status Asleep 05/13/24 12:26 [email or web address] nausea No 05/13/24 12:26 [email or web address] Vomiting No 05/13/24 12:26 [email or web address] Anesthesia Postop Eval I: Fluid Summary Crystalloid volume administer 60 05/13/24 12:26 [email or web address] (ml) Colloids volume administered ( ml) Blood Product volume administered (ml) Total IV fluid infused 60 05/13/24 12:26 [email or web address] Anesthesia Postop Eval I: Summary Notes Anesthesia Complication No 05/13/24 12:26 [email or web address] Anesthesia Complication Comment: Post-operative progress note Anesthesia: Postop Eval II Evaluation Mental status: Awake and Calm Pain Level: 0 nausea: No Vomiting: No Complications Anesthesia Complication: No
[2024-05-14] MEDS: Insulin Lispro 100 UNIT/ML INSULN.PEN SC ×3 (11:11→22:17)
[2024-05-14 12:20] LABS: Bedside Glucose 200 mg/dL (74-106)
--- NOTE | 2024-05-14 15:02 | PN_ITS ---
Subjective Subjective Patient seen and examined. I had been hoping to discharge her today but patient looks very frail and weak. He mucosal also very dry. She had no active complaints and denied any shortness of breath though she is on 2 L of oxygen. Review of symptoms otherwise negative. Objective Data Objective Data Vital Signs: Vital Signs Temp Pulse Resp BP Pulse Ox O2 Del Method O2 Flow Rate 99.5 F H 72 24 H 143/59 H 96 Nasal Cannula 2 05/14/24 09:01 05/14/24 09:01 05/14/24 09:01 05/14/24 09:01 05/14/24 09:01 05/14/24 14:00 05/14/24 14:00 Oxygen Flow Rate (L/min) 2 Oxygen Delivery Method Nasal Cannula Weight: 193 lb 9.054 oz Body Mass Index (BMI) 34.2 Intake & Output: Intake and Output for Last 24 Hours 05/12/24 05/13/24 05/14/24 23:59 23:59 23:59 Intake Total 1500 / 1650 550 / 550 490 / 490 Output Total 553 / 1253 1100 / 1100 300 / 300 Balance 947 / 397 -550 / -550 190 / 190 Lab / Micro Data 05/14/24 05:48 05/14/24 05:48 Labs: Laboratory Results - last 24 hr 05/13/24 16:21: POC Glucose 179 H 05/13/24 20:54: POC Glucose 289 H 05/14/24 05:48: WBC 7.2, RBC 3.51 L, Hgb 10.2 L, Hct 31.7 L, MCV 90.3, MCH 29.1, MCHC 32.2, RDW Std Deviation 49.8 H, RDW Coeff of Celia 15.4 H, Plt Count 199, MPV 10.6, Immature Gran % (Auto) 0.600, Neut % (Auto) 70.7 H, Lymph % (Auto) 18.3 L, [place] % (Auto) 10.3 H, Eos % (Auto) 0.0, Baso % (Auto) 0.1, Absolute Neuts (auto) 5.1, Absolute Lymphs (auto) 1.32, Nucleated RBC % 0, Sodium 135 L, Potassium 3.8, Chloride 98, Carbon Dioxide 27.0, Anion Gap 10, BUN 42 H, Creatinine 1.99 H , Estim Creat Clear Calc 23.30, Est GFR (MDRD) Af Amer 31 L, Est GFR (MDRD) Non- Af 26 L, BUN/Creatinine Ratio 21.1 H, Glucose 141 H, Calcium 8.5 05/14/24 06:20: POC Glucose 140 H 05/14/24 06:26: Magnesium 1.6 05/14/24 11:09: POC Glucose 200 H Micro: Microbiology 05/14/24 02:14 Stool Enteric Bacteriology - Final 05/14/24 02:14 Stool Clostridioides difficile (PCR) - Final 05/12/24 10:44 Stool Stool Occult Blood (JUAN R) - Final Occult Blood Positive Rhythm Strip Rhythm Strip: Sinus Rhythm Rate: 90 Ectopy: None Physical Exam Const alert, oriented x3, no apparent distress and well nourished Constitutional Narrative: Hard of hearing. Pleasant. Nontoxic. On nasal cannula but no respiratory distress. No conversational dyspnea. General Appearance: cooperative and well developed HEENT normocephalic, head/scalp atraumatic, moist oral mucous membranes and oropharynx normal Eyes PERRL and EOMs intact bilaterally Neck no lymphadenopathy and supple Lymph Lymphatic: no lymphadenopathy noted and no lymphedema noted Resp Resp Narrative: mildly diminished breath sounds bibasally, no wheezes or crackles. On 2L of oxygen by nasal canula Cardio regular rate, regular rhythm, S1 normal heart sound, S2 normal heart sound and no murmurs GI normal to inspection, nondistended, normoactive bowel sounds, soft to palpation, non-tender and non-distended Extremity Extremity Narrative: Bilateral tight lower extremity edema. Ecchymosis noted in the right upper extremity but would not any appreciable hematoma. General Extremity: no tenderness to palpation of joints or extremities Skin General Skin Exam: no breakdown Neuro CN's II-XII intact bilaterally, moves all extremities, no focal motor deficits and no sensory deficits noted Sensorium / Orientation: awake and alert Motor Exam: strength 5/5 throughout and general weakness Psych thought process normal, cooperative and affect normal Appearance: appropriate Assessment & Plan Assessment/Plan (1) Acute respiratory insufficiency: (2) Acute CHF: (3) Iron deficiency anemia: QUALIFIERS: Iron deficiency anemia type: unspecified iron deficiency Qualified Code(s): D50.9 - Iron deficiency anemia, unspecified PLAN: Plan #Acute exacerbation of HFpEF * Currently being diuresed with IV Lasix. Has known EF of 50 to 55% with evidence of moderate to severe mitral stenosis. Cardiac MRI on May 02 showed akinesis of the apical inferolateral wall * Repeat 2D echo done here on 05/11/2024 showed normal left ventricular size and systolic function with EF of 55% and no regional wall motion abnormalities noted * Monitor intake and output. #Debility and weakness * Patient was very weak and frail today and is on 2 L of oxygen. Oral mucosa looks very dry too. * Will hydrate with IV fluids and trend * PT/OT on board. Fall precautions * #Acute on chronic iron deficiency anemia * Patient says she does have a history of anemia requiring transfusions. She follows with Dr. Nathan. She had an EGD a few months back with Dr. Grnaados at [facility]. She says she declined colonoscopy at that time and is still not interested in a colonoscopy but is interested in any other modalities for investigation such as capsule endoscopy. * Gastroenterology consulted. On IV pantoprazole. * She had EGD which showed grade B erosive esophagitis with no bleeding and medium size hiatal hernia as well as multiple gastric polyps and nonbleeding gastric ulcer with no stigmata of bleeding. 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 * Hb today is 10.2. She has been transfused 2 units of blood during this admission * Continue IV pantoprazole #Hypertensive urgency: * Resolved. * Carvedilol increased from 3.125 twice daily to 6.25 twice daily. * Also on losartan * IV hydralazine as needed. * #CAD * Patient had a recent non-STEMI and cardiac cath showed nonobstructive CAD * Currently on Plavix. Resume Plavix once hemoglobin is stable. * Resume Plavix today * #Type 2 diabetes mellitus: * On metformin and glipizide. Insulin sliding scale. * Accu-Cheks ACHS. * Also on semaglutide and this was held on admission and to resume on outpatient basis. #CKD stage III, * baseline creatinine is around 1.18. * Creatinine is up to 1.55 today. * Was 1.66 on admission. * Hydrate gently with IV fluids for today and trend. * DVT prophylaxis: SCDs. Charges/Coding Visit Charges Inpatient E&M: 40794 Subs Hosp L2
[2024-05-14] MEDS: 0.9% Normal Saline (1000mL) 1,000 ML 75 ML IV (15:55)
[2024-05-14 16:53] LABS: Bedside Glucose 168 mg/dL (74-106)
[2024-05-14] MEDS: Albuterol 2.5 MG/3 ML VIAL.NEB. INHALATION ×2 (19:02→22:24)
--- NOTE | 2024-05-14 19:53 | RAD_ITS ---
EXAM: XR CHEST, 1 VIEW CLINICAL INDICATION: increased rhonchi and wheezing TECHNIQUE: Frontal view of the chest. COMPARISON: May 11, 2024. FINDINGS: LUNGS AND PLEURAL SPACES: Low lung volumes. Mild hazy left retrocardiac opacity appears similar and there is new mild medial right base as well as retrocardiac opacity. Similar slight blunting of the left lateral costophrenic angle and presumed small effusion. The right lateral costophrenic angle appears slightly sharper. The perihilar pulmonary vessels appear smaller and better defined. No pneumothorax. HEART: Stable heart size considering patient rotation. MEDIASTINUM: Central airways and mediastinal contour are unremarkable. BONES/JOINTS: Unremarkable. No acute fracture. SOFT TISSUES: Unremarkable. RAD/Chest 1 View (Portable) IMPRESSION: Improved perihilar vessels. Similar mild hazy medial left retrocardiac opacity, and small new or increased medial right basilar opacity. Slight persistent left effusion. Electronically Signed: Elizabeth Deutsch MD at 2:07 EST ,
[2024-05-14] MEDS: Ondansetron 4 MG/2 ML Vial IV (20:03)
[2024-05-14 21:04] LABS: BNP,B-Type NATRIURETIC PEPTIDE 510.5 pg/mL (0-100)
[2024-05-14] MEDS: Atorvastatin Calcium 10 MG Tablet PO (22:17)
[2024-05-14] MEDS: Acetaminophen 325 MG Tablet 650 MG PO (22:29)
--- NOTE | 2024-05-14 23:26 | PCM.HOSP.N ---
Hospitalist Note Called earlier in the evening because the patient coughed up several very vague yellow-green sputum specimens after breathing treatment and patient was still rhonchorous and wheezy following. Stat chest x-ray and BNP was ordered. BNP is down from admission and chest x-ray looks pretty good. She then spiked a fever of 102.1 axillary. She was given Tylenol. Added COVID PCR and respiratory viral panel stat as well as sputum culture. Patient does have a monocytosis. No significant leukocytosis so we will hold off on empiric antibiotics at this point.
[2024-05-15] VITALS (14 sets, daily range): BP systolic 112–159; BP diastolic 34–56; PULSE 66–72; RESP 18–20; TEMP 36.5–38.7; O2SAT 94–98; BMI 34.7
[2024-05-15 00:45] LABS: Bedside Glucose 152 mg/dL (74-106)
[2024-05-15] MEDS: OSELTAMIVIR PHOSPHATE 6 MG/ML BOTTLE 30 MG PO ×2 (06:02→21:37)
[2024-05-15] MEDS: Levothyroxine 112 MCG Tablet PO (06:02)
[2024-05-15] MEDS: Metoclopramide 10 MG/2 ML Vial 5 MG IV ×5 (06:02→23:13)
[2024-05-15 06:39] LABS: Absolute Lymphocyte Count 1.01 X10^3/uL (0.83-4.51); Absolute Neutrophil Count 4.2 X10^3/uL (2.0-7.7); Basophil# 0.01 X10^3/uL; Basophil% 0.2 % (0-1); Hematocrit 34.9 % (37-47); Hemoglobin 11.2 g/dL (12.0-15.0); Lymphocyte # 1.01 X10^3/ul (0.83-4.51); Lymphocyte % 17.8 % (19-41); Mean Corp Hgb Conc 32.1 g/dL (32-36); Mean Corpuscular Hgb 29.3 pg (27.0-32.0); Mean Corpuscular Volume 91.4 fL (81-99); Mean Platelet Vol. 9.6 fl (6.2-12.0); Monocyte# 0.37 X10^3/uL; Monocyte% 6.5 % (0-10); NRBC Flagged by Analyzer 0 % (0-5); Neutrophil # 4.24 X10^3/uL (2.7-7.7); Platelet Count 111 K/mm3 (150-450); RBC Distribution Width CV 14.9 % (11.6-14.6); RBC Distribution Width SD 49.6 fl (35.1-43.9); Red Blood Count 3.82 M/mm3 (4.2-5.4); White Blood Count 5.7 K/mm3 (4.4-11.0)
[2024-05-15] MEDS: Albuterol 2.5 MG/3 ML VIAL.NEB. INHALATION ×2 (06:45→20:17)
[2024-05-15 07:31] LABS: Anion Gap 8 (5-15); BUN 53 mg/dL (7-18); BUN/Creat Ratio 21.9 RATIO (10-20); Calcium,Total 7.6 mg/dL (8.5-10.1); Chloride 101 mmol/L (98-107); Creatinine, Serum 2.42 mg/dL (0.55-1.02); EST Glomerular Filtration Rate 20 mL/min (>60); Est Glom Filt Rate - Afr Amer 25 mL/min (>60); Estimated Creatinine Clearance 19.31 ml/min; Glucose 119 mg/dL (74-106); Potassium 3.3 mmol/L (3.5-5.1); Sodium Level 136 mmol/L (136-145)
[2024-05-15] MEDS: Potassium Chloride Oral Tablet 20 MEQ 40 MEQ PO (09:36)
[2024-05-15] MEDS: Losartan Potassium 50 MG Tablet PO (09:37)
[2024-05-15] MEDS: Clopidogrel Bisulfate 75 MG Tablet PO (09:37)
[2024-05-15] MEDS: Carvedilol 6.25 MG Tablet PO ×2 (09:37→17:35)
[2024-05-15] MEDS: glipiZIDE 5 MG Tablet PO (09:37)
[2024-05-15] MEDS: metFORMIN HCl 500 MG Tablet PO (09:37)
[2024-05-15] MEDS: Pantoprazole Sodium 40 MG Tablet PO (09:38)
[2024-05-15] MEDS: 0.9% Saline Lock 10 ML Syringe IV ×4 (11:25→23:13)
--- NOTE | 2024-05-15 11:26 | PN_ITS ---
Subjective Subjective Patient seen and examined. Still remains weak and lethargic. She just mumbles in response to questions. She has remained hemodynamically stable and is on 2 L of oxygen by nasal cannula. She did spike a fever overnight and tested positive for flu. She was started on Tamiflu. Objective Data Objective Data Vital Signs: Vital Signs Temp Pulse Resp BP Pulse Ox O2 Del Method O2 Flow Rate 98.8 F 67 20 H 159/56 H 96 Nasal Cannula 2 05/15/24 09:36 05/15/24 09:36 05/15/24 09:36 05/15/24 09:36 05/15/24 09:36 05/15/24 09:36 05/15/24 09:36 Oxygen Flow Rate (L/min) 2 Oxygen Delivery Method Nasal Cannula Weight: 196 lb 6.91 oz Body Mass Index (BMI) 34.7 Intake & Output: Intake and Output for Last 24 Hours 05/13/24 05/14/24 05/15/24 23:59 23:59 23:59 Intake Total 550 / 550 730 / 730 1120 / 1120 Output Total 1100 / 1100 300 / 300 Balance -550 / -550 430 / 430 1120 / 1120 Lab / Micro Data 05/15/24 06:00 05/15/24 06:00 Labs: Laboratory Results - last 24 hr 05/14/24 11:09: POC Glucose 200 H 05/14/24 16:35: POC Glucose 168 H 05/14/24 20:30: B-Natriuretic Peptide 510.5 H 05/14/24 22:14: POC Glucose 152 H 05/15/24 06:00: WBC 5.7, RBC 3.82 L, Hgb 11.2 L, Hct 34.9 L, MCV 91.4, MCH 29.3, MCHC 32.1, RDW Std Deviation 49.6 H, RDW Coeff of Celia 14.9 H, Plt Count 111 L, MPV 9.6, Immature Gran % (Auto) 0.500, Neut % (Auto) 75.0 H, Lymph % (Auto) 17.8 L, [place] % (Auto) 6.5, Eos % (Auto) 0.0, Baso % (Auto) 0.2, Absolute Neuts (auto) 4.2, Absolute Lymphs (auto) 1.01, Nucleated RBC % 0, Sodium 136, Potassium 3.3 L , Chloride 101, Carbon Dioxide 27.0, Anion Gap 8, BUN 53 H, Creatinine 2.42 H, Estim Creat Clear Calc 19.31, Est GFR (MDRD) Af Amer 25 L, Est GFR (MDRD) Non-Af 20 L, BUN/Creatinine Ratio 21.9 H, Glucose 119 H, Calcium 7.6 L Micro: Microbiology 05/14/24 22:30 Mucosa - Nasopharyngeal Coronavirus COVID-19 PCR - Final 05/14/24 22:30 Mucosa - Nasopharyngeal Respiratory Panel (PCR) - Final Influenza A (Subtype H1) 05/14/24 02:14 Stool Enteric Bacteriology - Final 05/14/24 02:14 Stool Clostridioides difficile (PCR) - Final 05/12/24 10:44 Stool Stool Occult Blood (JUAN R) - Final Occult Blood Positive Radiography Diagnostic Testing: Radiology Impression Chest X-Ray 05/14/24 19:53 IMPRESSION: Improved perihilar vessels. Similar mild hazy medial left retrocardiac opacity, and small new or increased medial right basilar opacity. Slight persistent left effusion. Electronically Signed: Elizabeth Deutsch MD at 2:07 EST Reading Location ID and State: [facility] Tel , Service support , Rhythm Strip Rhythm Strip: Sinus Rhythm Rate: 90 Ectopy: None Physical Exam Const alert, oriented x3, no apparent distress and well nourished Constitutional Narrative: patient lethargic, frail. confused. General Appearance: cooperative and well developed HEENT normocephalic, head/scalp atraumatic, moist oral mucous membranes and oropharynx normal Eyes PERRL and EOMs intact bilaterally Neck no lymphadenopathy and supple Neck Narrative: No thyromegaly. Lymph Lymphatic: no lymphadenopathy noted and no lymphedema noted Resp normal respiratory effort, normal air movement, no retractions and clear to auscultation bilaterally Resp Narrative: mildly diminished breath sounds bibasally, no wheezes or crackles. On 2L of oxygen by nasal canula Cardio regular rate, regular rhythm, S1 normal heart sound, S2 normal heart sound and no murmurs GI normal to inspection, nondistended, normoactive bowel sounds, soft to palpation, non-tender and non-distended Extremity Extremity Narrative: lower extremity edema has improved. General Extremity: no tenderness to palpation of joints or extremities Skin General Skin Exam: no breakdown Neuro CN's II-XII intact bilaterally, moves all extremities, no focal motor deficits and no sensory deficits noted Neuro Narrative: lethargic, frail Motor Exam: general weakness Psych Psych Narrative: lethargic, weak Mood & Affect: flat affect Assessment & Plan Assessment/Plan (1) Acute respiratory insufficiency: (2) Acute CHF: (3) Iron deficiency anemia: QUALIFIERS: Iron deficiency anemia type: unspecified iron deficiency Qualified Code(s): D50.9 - Iron deficiency anemia, unspecified PLAN: Plan #Acute exacerbation of HFpEF * Currently being diuresed with IV Lasix. Has known EF of 50 to 55% with evidence of moderate to severe mitral stenosis. Cardiac MRI on May 02 showed akinesis of the apical inferolateral wall * Repeat 2D echo done here on 05/11/2024 showed normal left ventricular size and systolic function with EF of 55% and no regional wall motion abnormalities noted * DC Lasix as it looks like patient may have been over diuresed with a positive trend in her creatinine. #Debility and weakness * Patient was very weak and frail today and is on 2 L of oxygen. Oral mucosa looks very dry too. * Will hydrate with IV fluids and trend * PT/OT on board. Fall precautions * she spiked a fever overnight and flu test done was positive * she is now on tamiflu * #Hypoxia due to influenza infection * As above. She spiked a fever overnight and tested positive for flu. On Tamiflu. * # Hypokalemia: Potassium is 3.3. Will replace and trend. #Acute on chronic iron deficiency anemia * Patient says she does have a history of anemia requiring transfusions. She follows with Dr. Nathan. She had an EGD a few months back with Dr. Granados at [facility]. She says she declined colonoscopy at that time and is still not interested in a colonoscopy but is interested in any other modalities for investigation such as capsule endoscopy. * Gastroenterology consulted. On IV pantoprazole. * She had EGD which showed grade B erosive esophagitis with no bleeding and medium size hiatal hernia as well as multiple gastric polyps and nonbleeding gastric ulcer with no stigmata of bleeding. 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 * Hb today is 11.2. She has been transfused 2 units of blood during this admission * Continue IV pantoprazole #Hypertensive urgency: * Resolved. * on carvedilol 6.25mg bid and losartan * IV hydralazine as needed. * #CAD * Patient had a recent non-STEMI and cardiac cath showed nonobstructive CAD * Currently on Plavix.plavis resumed * #Type 2 diabetes mellitus: * On metformin and glipizide. Insulin sliding scale. * Accu-Cheks ACHS. * Also on semaglutide and this was held on admission and to resume on outpatient basis. #CKD stage III, * baseline creatinine is around 1.18. * Creatinine has trended up further to 2.42 today. Will DC Lasix for now * being very gently hydrated with IVF. * DVT prophylaxis: SCDs. Charges/Coding Visit Charges Inpatient E&M: 15687 [facility] Hosp L3
[2024-05-15 11:46] LABS: Bedside Glucose 124 mg/dL (74-106)
[2024-05-15 15:24] LABS: Bedside Glucose 110 mg/dL (74-106)
[2024-05-15 16:54] LABS: Bedside Glucose 150 mg/dL (74-106)
[2024-05-15] MEDS: Acetaminophen 325 MG Tablet 650 MG PO (19:41)
[2024-05-15] MEDS: Atorvastatin Calcium 10 MG Tablet PO (19:42)
[2024-05-15 22:31] LABS: Bedside Glucose 77 mg/dL (74-106)
[2024-05-16] VITALS (12 sets, daily range): BP systolic 108–166; BP diastolic 36–54; PULSE 64–73; RESP 14–20; TEMP 36.8–38; O2SAT 96–98; BMI 35.5
[2024-05-16] MEDS: Acetaminophen 325 MG Tablet 650 MG PO ×2 (01:45→15:18)
[2024-05-16] MEDS: Levothyroxine 112 MCG Tablet PO (06:30)
[2024-05-16] MEDS: Metoclopramide 10 MG/2 ML Vial 5 MG IV ×3 (06:31→17:23)
[2024-05-16 06:48] LABS: Absolute Lymphocyte Count 1.67 X10^3/uL (0.83-4.51); Absolute Neutrophil Count 4.7 X10^3/uL (2.0-7.7); Hematocrit 27.4 % (37-47); Hemoglobin 8.7 g/dL (12.0-15.0); Lymphocyte # 1.67 X10^3/ul (0.83-4.51); Lymphocyte % 24.2 % (19-41); Mean Corp Hgb Conc 31.8 g/dL (32-36); Mean Corpuscular Hgb 29.2 pg (27.0-32.0); Mean Corpuscular Volume 91.9 fL (81-99); Mean Platelet Vol. 10.5 fl (6.2-12.0); Monocyte# 0.48 X10^3/uL; NRBC Flagged by Analyzer 0 % (0-5); Neutrophil % 68.2 % (47-70); Platelet Count 128 K/mm3 (150-450); RBC Distribution Width CV 14.8 % (11.6-14.6); RBC Distribution Width SD 49.8 fl (35.1-43.9); Red Blood Count 2.98 M/mm3 (4.2-5.4); White Blood Count 6.9 K/mm3 (4.4-11.0)
[2024-05-16] MEDS: Albuterol 2.5 MG/3 ML VIAL.NEB. INHALATION ×3 (07:06→20:11)
[2024-05-16 07:08] LABS: Anion Gap 6 (5-15); BUN 60 mg/dL (7-18); BUN/Creat Ratio 24.3 RATIO (10-20); Calcium,Total 7.8 mg/dL (8.5-10.1); Chloride 104 mmol/L (98-107); Creatinine, Serum 2.47 mg/dL (0.55-1.02); EST Glomerular Filtration Rate 20 mL/min (>60); Est Glom Filt Rate - Afr Amer 24 mL/min (>60); Estimated Creatinine Clearance 19.13 ml/min; Glucose 90 mg/dL (74-106); Potassium 3.6 mmol/L (3.5-5.1); Sodium Level 136 mmol/L (136-145)
[2024-05-16 07:39] LABS: Bedside Glucose 81 mg/dL (74-106)
--- NOTE | 2024-05-16 08:07 | US_ITS ---
HISTORY: CLAUDIA on CKD. TECHNIQUE: Winkler scale and color doppler images were obtained of the kidneys. 54 images. COMPARISON: None. FINDINGS: RIGHT KIDNEY: 10.7 cm in length. Cortical thickness 1.2 cm. Echogenicity unremarkable. No hydronephrosis. 1.4 cm simple cyst in the upper pole. LEFT KIDNEY: 11.1 cm in length. Cortical thickness 1 cm. Echogenicity unremarkable. No hydronephrosis. No gross renal mass demonstrated. URINARY BLADDER: Unremarkable at 168 cc with a wall thickness of 5 mm. US/Kidney and Bladder IMPRESSION: Unremarkable examination of the kidneys. Electronically Signed: Devora Odell MD at 9:35 EST ,
[2024-05-16] MEDS: Carvedilol 6.25 MG Tablet PO ×2 (09:46→17:23)
[2024-05-16] MEDS: Pantoprazole Sodium 40 MG Tablet PO (09:47)
[2024-05-16] MEDS: Clopidogrel Bisulfate 75 MG Tablet PO (09:47)
[2024-05-16] MEDS: glipiZIDE 5 MG Tablet PO (09:47)
[2024-05-16] MEDS: 0.9% Saline Lock 10 ML Syringe IV ×4 (11:12→23:22)
[2024-05-16 11:57] LABS: Bedside Glucose 146 mg/dL (74-106)
--- NOTE | 2024-05-16 13:15 | PN_ITS ---
Subjective Subjective Patient seen and examined. She was more alert today. She had no active complaints today. Review of system is otherwise negative. She is on 1L of oxygen. Objective Data Objective Data Vital Signs: Vital Signs Temp Pulse Resp BP Pulse Ox O2 Del Method O2 Flow Rate 98.2 F 72 16 151/45 H 96 Nasal Cannula 1 05/16/24 09:44 05/16/24 12:28 05/16/24 12:28 05/16/24 09:44 05/16/24 09:44 05/16/24 09:44 05/16/24 10:11 Oxygen Flow Rate (L/min) 1 Oxygen Delivery Method Nasal Cannula Weight: 200 lb 9.93 oz Body Mass Index (BMI) 35.5 Intake & Output: Intake and Output for Last 24 Hours 05/14/24 05/15/24 05/16/24 23:59 23:59 23:59 Intake Total 730 / 730 1360 / 1600 360 / 360 Output Total 300 / 300 200 / 200 250 / 250 Balance 430 / 430 1160 / 1400 110 / 110 Lab / Micro Data 05/16/24 06:15 05/16/24 06:15 Labs: Laboratory Results - last 24 hr 05/15/24 06:10: POC Glucose 110 H 05/15/24 16:36: POC Glucose 150 H 05/15/24 21:36: POC Glucose 77 05/16/24 06:15: WBC 6.9, RBC 2.98 L, Hgb 8.7 L, Hct 27.4 L, MCV 91.9, MCH 29.2, MCHC 31.8 L, RDW Std Deviation 49.8 H, RDW Coeff of Celia 14.8 H, Plt Count 128 L, MPV 10.5, Immature Gran % (Auto) 0.600, Neut % (Auto) 68.2, Lymph % (Auto) 24.2, [place] % (Auto) 7.0, Eos % (Auto) 0.0, Baso % (Auto) 0.0, Absolute Neuts (auto) 4.7, Absolute Lymphs (auto) 1.67, Nucleated RBC % 0, Sodium 136, Potassium 3.6, Chloride 104, Carbon Dioxide 27.0, Anion Gap 6, BUN 60 H, Creatinine 2.47 H, Estim Creat Clear Calc 19.13, Est GFR (MDRD) Af Amer 24 L, Est GFR (MDRD) Non-Af 20 L, BUN/Creatinine Ratio 24.3 H, Glucose 90, Calcium 7.8 L 05/16/24 06:23: POC Glucose 81 05/16/24 10:00: Urine Creatinine 214.00 05/16/24 11:10: POC Glucose 146 H Micro: Microbiology 05/14/24 22:00 Sputum, Expectorated/Coughed Gram Stain - Final 05/14/24 22:00 Sputum, Expectorated/Coughed Respiratory Culture - Preliminary Appears to be normal respiratory mike. Further studies to follow. 05/14/24 22:30 Mucosa - Nasopharyngeal Coronavirus COVID-19 PCR - Final 05/14/24 22:30 Mucosa - Nasopharyngeal Respiratory Panel (PCR) - Final Influenza A (Subtype H1) 05/14/24 02:14 Stool Enteric Bacteriology - Final 05/14/24 02:14 Stool Clostridioides difficile (PCR) - Final 05/12/24 10:44 Stool Stool Occult Blood (JUAN R) - Final Occult Blood Positive Radiography Diagnostic Testing: Radiology Impression Renal Ultrasound 05/16/24 08:07 IMPRESSION: Unremarkable examination of the kidneys. Electronically Signed: Devora Odell MD at 9:35 EST Reading Location ID and State: [facility] / [place] Tel , Service support , Rhythm Strip Rhythm Strip: Sinus Rhythm Rate: 90 Ectopy: None Physical Exam Const alert, oriented x3 and no apparent distress Constitutional Narrative: patient more alert and communicative today General Appearance: cooperative HEENT normocephalic, head/scalp atraumatic, moist oral mucous membranes and oropharynx normal Eyes PERRL and EOMs intact bilaterally Neck no lymphadenopathy and supple Neck Narrative: No thyromegaly. Lymph Lymphatic: no lymphadenopathy noted and no lymphedema noted Resp normal respiratory effort, normal air movement, no retractions and clear to auscultation bilaterally Resp Narrative: mildly diminished breath sounds bibasally, no wheezes or crackles. On 1 L of oxygen by nasal canula Cardio regular rate, regular rhythm, S1 normal heart sound, S2 normal heart sound and no murmurs GI normal to inspection, nondistended, normoactive bowel sounds, soft to palpation, non-tender and non-distended Extremity Extremity Narrative: lower extremity edema has improved. General Extremity: no tenderness to palpation of joints or extremities Skin General Skin Exam: no breakdown Neuro CN's II-XII intact bilaterally, moves all extremities, no focal motor deficits and no sensory deficits noted Neuro Narrative: frail Sensorium / Orientation: awake and alert Motor Exam: strength 5/5 throughout and general weakness Psych thought process normal, cooperative and affect normal Psych Narrative: lethargic, weak Appearance: appropriate Assessment & Plan Assessment/Plan (1) Acute respiratory insufficiency: (2) Acute CHF: (3) Iron deficiency anemia: QUALIFIERS: Iron deficiency anemia type: unspecified iron deficiency Qualified Code(s): D50.9 - Iron deficiency anemia, unspecified PLAN: Plan #Acute exacerbation of HFpEF * Currently being diuresed with IV Lasix. Has known EF of 50 to 55% with evidence of moderate to severe mitral stenosis. Cardiac MRI on May 02 showed akinesis of the apical inferolateral wall * Repeat 2D echo done here on 05/11/2024 showed normal left ventricular size and systolic function with EF of 55% and no regional wall motion abnormalities noted * DC Lasix as it looks like patient may have been over diuresed with a positive trend in her creatinine. #Debility and weakness * patient feels better today. On 1L of oxygen. * Patient was very weak and frail today and is on 2 L of oxygen. Oral mucosa looks very dry too. * Will hydrate with IV fluids and trend * PT/OT on board. Fall precautions * * #Hypoxia due to influenza infection * As above. She spiked a fever and tested positive for flu. On Tamiflu. * now on 1L of oxygen. * # Hypokalemia: resolved. #Acute on chronic iron deficiency anemia * Patient says she does have a history of anemia requiring transfusions. She follows with Dr. Nathan. She had an EGD a few months back with Dr. Granados at [facility]. She says she declined colonoscopy at that time and is still not interested in a colonoscopy but is interested in any other modalities for investigation such as capsule endoscopy. * Gastroenterology on board. * She had EGD which showed grade B erosive esophagitis with no bleeding and medium size hiatal hernia as well as multiple gastric polyps and nonbleeding gastric ulcer with no stigmata of bleeding. 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 * Hb today is 11.2. She has been transfused 2 units of blood during this admission * switch to PO pantoprazole. #Hypertensive urgency: * Resolved. * on carvedilol 6.25mg bid and losartan * IV hydralazine as needed. * Losartan held due to creatinine trending upwards. * #CAD * Patient had a recent non-STEMI and cardiac cath showed nonobstructive CAD * Currently on Plavix * #Type 2 diabetes mellitus: * On metformin and glipizide. Insulin sliding scale. * Accu-Cheks ACHS. * Also on semaglutide and this was held on admission and to resume on outpatient basis. * Metformin on hold due to upward trending creatinine #CKD stage III, * baseline creatinine is around 1.18. * Creatinine is 2.47 today. Was 2.42 yesterday. * being very gently hydrated with IVF. * DVT prophylaxis: SCDs. Charges/Coding Visit Charges Inpatient E&M: 00821 Subs Hosp L2
[2024-05-16] MEDS: hydrALAZINE 20 MG/ML Vial 10 MG IV (15:19)
[2024-05-16 15:20] LABS: Urea Nitrogen, Urine 561 mg/dL (NO RANGE EST.)
[2024-05-16 17:13] LABS: Bedside Glucose 114 mg/dL (74-106)
[2024-05-16] MEDS: OSELTAMIVIR PHOSPHATE 6 MG/ML BOTTLE 30 MG PO (23:02)
[2024-05-16] MEDS: Atorvastatin Calcium 10 MG Tablet PO ×2 (23:02→23:03)
[2024-05-16 23:57] LABS: Bedside Glucose 72 mg/dL (74-106)
[2024-05-17] MEDS: Metoclopramide 10 MG/2 ML Vial 5 MG IV ×4 (01:34→18:03)
[2024-05-17 03:00] VITALS: BP 159/48; PULSE 72; RESP 20; TEMP 36.6; O2SAT 99
[2024-05-17 04:22] VITALS: BMI 35.5
[2024-05-17] MEDS: Levothyroxine 112 MCG Tablet PO (05:51)
[2024-05-17] MEDS: 0.9% Saline Lock 10 ML Syringe IV ×4 (05:57→20:02)
[2024-05-17] MEDS: Insulin Lispro 100 UNIT/ML INSULN.PEN SC ×4 (05:59→20:18)
[2024-05-17 06:17] LABS: Absolute Lymphocyte Count 1.34 X10^3/uL (0.83-4.51); Absolute Neutrophil Count 4.5 X10^3/uL (2.0-7.7); Basophil# 0.01 X10^3/uL; Basophil% 0.2 % (0-1); Eosinophil# 0.01 X10^3/uL; Eosinophils% 0.2 % (0-5); Hemoglobin 8.3 g/dL (12.0-15.0); Lymphocyte # 1.34 X10^3/ul (0.83-4.51); Lymphocyte % 21.1 % (19-41); Mean Corp Hgb Conc 31.9 g/dL (32-36); Mean Corpuscular Hgb 29.1 pg (27.0-32.0); Mean Corpuscular Volume 91.2 fL (81-99); Mean Platelet Vol. 10.3 fl (6.2-12.0); Monocyte# 0.43 X10^3/uL; Monocyte% 6.8 % (0-10); NRBC Flagged by Analyzer 0 % (0-5); Neutrophil # 4.52 X10^3/uL (2.7-7.7); Neutrophil % 71.1 % (47-70); Platelet Count 145 K/mm3 (150-450); RBC Distribution Width CV 14.6 % (11.6-14.6); RBC Distribution Width SD 48.4 fl (35.1-43.9); Red Blood Count 2.85 M/mm3 (4.2-5.4); White Blood Count 6.4 K/mm3 (4.4-11.0)
[2024-05-17 06:31] LABS: Anion Gap 7 (5-15); BUN 56 mg/dL (7-18); BUN/Creat Ratio 30.1 RATIO (10-20); Calcium,Total 8.3 mg/dL (8.5-10.1); Chloride 102 mmol/L (98-107); Creatinine, Serum 1.86 mg/dL (0.55-1.02); EST Glomerular Filtration Rate 28 mL/min (>60); Est Glom Filt Rate - Afr Amer 33 mL/min (>60); Glucose 171 mg/dL (74-106); Potassium 3.9 mmol/L (3.5-5.1); Sodium Level 135 mmol/L (136-145)
[2024-05-17 06:47] LABS: Bedside Glucose 162 mg/dL (74-106)
[2024-05-17 07:07] VITALS: PULSE 61; RESP 17; O2SAT 97
[2024-05-17] MEDS: Albuterol 2.5 MG/3 ML VIAL.NEB. INHALATION ×3 (07:07→20:10)
[2024-05-17 09:42] VITALS: BP 153/45; PULSE 78; RESP 18; TEMP 36.4; O2SAT 93
[2024-05-17] MEDS: glipiZIDE 5 MG Tablet PO (09:44)
[2024-05-17] MEDS: Carvedilol 6.25 MG Tablet PO ×2 (09:44→16:45)
[2024-05-17] MEDS: Pantoprazole Sodium 40 MG Tablet PO (09:44)
[2024-05-17] MEDS: Clopidogrel Bisulfate 75 MG Tablet PO (09:44)
[2024-05-17 12:26] LABS: Bedside Glucose 173 mg/dL (74-106)
[2024-05-17 12:52] VITALS: PULSE 60; RESP 17
--- NOTE | 2024-05-17 13:34 | PN_ITS ---
Subjective Subjective Patient seen and examined. She feels better today though she still says she feels quite tired. Review of systems otherwise negative. She has remained hemodynamically stable. She is amenable to short term placement for rehab. Review of systems is otherwise negative. SHe is on room air. Objective Data Objective Data Vital Signs: Vital Signs Temp Pulse Resp BP Pulse Ox O2 Del Method O2 Flow Rate 97.6 F L 60 17 153/45 H 93 Room Air 2 05/17/24 09:42 05/17/24 12:52 05/17/24 12:52 05/17/24 09:42 05/17/24 09:42 05/17/24 09:42 05/17/24 04:27 Oxygen Flow Rate (L/min) 2 Oxygen Delivery Method Room Air Weight: 200 lb 9.93 oz Body Mass Index (BMI) 35.5 Intake & Output: Intake and Output for Last 24 Hours 05/15/24 05/16/24 05/17/24 23:59 23:59 23:59 Intake Total 1360 / 1600 360 / 540 840 / 840 Output Total 200 / 200 650 / 1050 1200 / 1200 Balance 1160 / 1400 -290 / -510 -360 / -360 Lab / Micro Data 05/17/24 06:00 05/17/24 06:00 Labs: Laboratory Results - last 24 hr 05/16/24 10:00: Urine Urea Nitrogen 561 05/16/24 16:34: POC Glucose 114 H 05/16/24 23:09: POC Glucose 72 L 05/17/24 05:57: POC Glucose 162 H 05/17/24 06:00: WBC 6.4, RBC 2.85 L, Hgb 8.3 L, Hct 26.0 L, MCV 91.2, MCH 29.1, MCHC 31.9 L, RDW Std Deviation 48.4 H, RDW Coeff of Celia 14.6, Plt Count 145 L, MPV 10.3, Immature Gran % (Auto) 0.600, Neut % (Auto) 71.1 H, Lymph % (Auto) 21.1, Leon % (Auto) 6.8, Eos % (Auto) 0.2, Baso % (Auto) 0.2, Absolute Neuts (auto) 4.5, Absolute Lymphs (auto) 1.34, Nucleated RBC % 0, Sodium 135 L, Potassium 3.9, Chloride 102, Carbon Dioxide 26.0, Anion Gap 7, BUN 56 H, C reatinine 1.86 H, Estim Creat Clear Calc 25.40, Est GFR (MDRD) Af Amer 33 L, Est GFR (MDRD) Non-Af 28 L, BUN/Creatinine Ratio 30.1 H, Glucose 171 H, Calcium 8.3 L 05/17/24 11:35: POC Glucose 173 H Micro: Microbiology 05/14/24 22:00 Sputum, Expectorated/Coughed Gram Stain - Final 05/14/24 22:00 Sputum, Expectorated/Coughed Respiratory Culture - Final 05/14/24 22:30 Mucosa - Nasopharyngeal Coronavirus COVID-19 PCR - Final 05/14/24 22:30 Mucosa - Nasopharyngeal Respiratory Panel (PCR) - Final Influenza A (Subtype H1) 05/14/24 02:14 Stool Enteric Bacteriology - Final 05/14/24 02:14 Stool Clostridioides difficile (PCR) - Final 05/12/24 10:44 Stool Stool Occult Blood (JUAN R) - Final Occult Blood Positive Rhythm Strip Rhythm Strip: Sinus Rhythm Rate: 90 Ectopy: None Physical Exam Const alert and oriented x3 Constitutional Narrative: communicative General Appearance: cooperative and well developed HEENT normocephalic, head/scalp atraumatic and oropharynx normal Mouth: dry mucous membranes Eyes PERRL and EOMs intact bilaterally Neck no lymphadenopathy and supple Lymph Lymphatic: no lymphadenopathy noted and no lymphedema noted Resp normal respiratory effort, normal air movement, no retractions and clear to auscultation bilaterally Resp Narrative: mildly diminished breath sounds bibasally, no wheezes or crackles.on room air. Cardio regular rate, regular rhythm, S1 normal heart sound, S2 normal heart sound and no murmurs GI normal to inspection, nondistended, normoactive bowel sounds, soft to palpation, non-tender and non-distended Extremity Extremity Narrative: lower extremity edema has improved. General Extremity: no tenderness to palpation of joints or extremities Skin General Skin Exam: no breakdown Neuro CN's II-XII intact bilaterally, moves all extremities, no focal motor deficits and no sensory deficits noted Neuro Narrative: frail Sensorium / Orientation: awake and alert Motor Exam: strength 5/5 throughout and general weakness Psych thought process normal, cooperative and affect normal Appearance: appropriate Mood & Affect: flat affect Assessment & Plan Assessment/Plan (1) Acute respiratory insufficiency: (2) Acute CHF: (3) Iron deficiency anemia: QUALIFIERS: Iron deficiency anemia type: unspecified iron deficiency Qualified Code(s): D50.9 - Iron deficiency anemia, unspecified PLAN: Plan #Acute exacerbation of HFpEF * Currently being diuresed with IV Lasix. Has known EF of 50 to 55% with evidence of moderate to severe mitral stenosis. Cardiac MRI on May 02 showed akinesis of the apical inferolateral wall * Repeat 2D echo done here on 05/11/2024 showed normal left ventricular size and systolic function with EF of 55% and no regional wall motion abnormalities noted * DC Lasix as it looks like patient may have been over diuresed with a positive trend in her creatinine. #Debility and weakness * patient feels better today. On 1L of oxygen. * Patient was very weak and frail today and is on 2 L of oxygen. Oral mucosa looks very dry too. * Will hydrate with IV fluids and trend * PT/OT on board. Fall precautions * * #Hypoxia due to influenza infection * As above. She spiked a fever and tested positive for flu. On Tamiflu. * now on 1L of oxygen. * # Hypokalemia: resolved. #Acute on chronic iron deficiency anemia * Patient says she does have a history of anemia requiring transfusions. She follows with Dr. Nathan. She had an EGD a few months back with Dr. Granados at [facility]. She says she declined colonoscopy at that time and is still not interested in a colonoscopy but is interested in any other modalities for investigation such as capsule endoscopy. * Gastroenterology on board. * She had EGD which showed grade B erosive esophagitis with no bleeding and medium size hiatal hernia as well as multiple gastric polyps and nonbleeding gastric ulcer with no stigmata of bleeding. 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 * Hb today is 11.2. She has been transfused 2 units of blood during this admission * switch to PO pantoprazole. #Hypertensive urgency: * Resolved. * on carvedilol 6.25mg bid and losartan * IV hydralazine as needed. * Losartan held due to creatinine trending upwards. * #CAD * Patient had a recent non-STEMI and cardiac cath showed nonobstructive CAD * Currently on Plavix * #Type 2 diabetes mellitus: * On metformin and glipizide. Insulin sliding scale. * Accu-Cheks ACHS. * Also on semaglutide and this was held on admission and to resume on outpatient basis. * Metformin on hold due to upward trending creatinine #CKD stage III, * baseline creatinine is around 1.18. * Creatinine is 2.47 today. Was 2.42 yesterday. * being very gently hydrated with IVF. * DVT prophylaxis: SCDs.
[2024-05-17 15:57] VITALS: BP 143/64; PULSE 69; RESP 16; TEMP 36; O2SAT 95
--- NOTE | 2024-05-17 16:03 | CASEMGMT ---
Therapy notified SW that patient and her feel patient is too weak to return home. SW met with patient and her . Introduced self and role at [facility]. SW provided patient with a list of long-term facility providers including quality and resource use data and consistent with patient?s preferred geographic region, medical needs, and insurance network were provided from the [employer]. Patient said she wants to stay here and go to TCU. SW let patient know SW can make a referral and let her know tomorrow. SW made a referral to TCU. Itzel will review tomorrow. Plan: SNF pending accepting facility. Patient does not require a pre-cert. Macie Fontaine INTERFACE ANALYSTEve MONTENEGRO
--- NOTE | 2024-05-17 17:05 | PN.GI_ITS ---
Subjective Subjective Patient has not had any more signs of bleeding and her hemoglobin seems to be stable. Objective Data Objective Data Vital Signs: Vital Signs Temp Pulse Resp BP Pulse Ox O2 Del Method O2 Flow Rate 96.8 F L 69 16 143/64 H 95 Room Air 2 05/17/24 15:57 05/17/24 15:57 05/17/24 15:57 05/17/24 15:57 05/17/24 15:57 05/17/24 15:57 05/17/24 04:27 Oxygen Flow Rate (L/min) 2 Oxygen Delivery Method Room Air Weight: 200 lb 9.93 oz Body Mass Index (BMI) 35.5 Intake & Output: Intake and Output for Last 24 Hours 05/15/24 05/16/24 05/17/24 23:59 23:59 23:59 Intake Total 1360 / 1600 360 / 540 840 / 840 Output Total 200 / 200 650 / 1050 1200 / 1200 Balance 1160 / 1400 -290 / -510 -360 / -360 Lab / Micro Data 05/17/24 06:00 05/17/24 06:00 Labs: Laboratory Results - last 24 hr 05/16/24 16:34: POC Glucose 114 H 05/16/24 23:09: POC Glucose 72 L 05/17/24 05:57: POC Glucose 162 H 05/17/24 06:00: WBC 6.4, RBC 2.85 L, Hgb 8.3 L, Hct 26.0 L, MCV 91.2, MCH 29.1, MCHC 31.9 L, RDW Std Deviation 48.4 H, RDW Coeff of Celia 14.6, Plt Count 145 L, MPV 10.3, Immature Gran % (Auto) 0.600, Neut % (Auto) 71.1 H, Lymph % (Auto) 21.1, [place] % (Auto) 6.8, Eos % (Auto) 0.2, Baso % (Auto) 0.2, Absolute Neuts (auto) 4.5, Absolute Lymphs (auto) 1.34, Nucleated RBC % 0, Sodium 135 L, Potassium 3.9, Chloride 102, Carbon Dioxide 26.0, Anion Gap 7, BUN 56 H, C reatinine 1.86 H, Estim Creat Clear Calc 25.40, Est GFR (MDRD) Af Amer 33 L, Est GFR (MDRD) Non-Af 28 L, BUN/Creatinine Ratio 30.1 H, Glucose 171 H, Calcium 8.3 L 05/17/24 11:35: POC Glucose 173 H Micro: Microbiology 05/14/24 22:00 Sputum, Expectorated/Coughed Gram Stain - Final 05/14/24 22:00 Sputum, Expectorated/Coughed Respiratory Culture - Final 05/14/24 22:30 Mucosa - Nasopharyngeal Coronavirus COVID-19 PCR - Final 05/14/24 22:30 Mucosa - Nasopharyngeal Respiratory Panel (PCR) - Final Influenza A (Subtype H1) 05/14/24 02:14 Stool Enteric Bacteriology - Final 05/14/24 02:14 Stool Clostridioides difficile (PCR) - Final 05/12/24 10:44 Stool Stool Occult Blood (JUAN R) - Final Occult Blood Positive Rhythm Strip Rhythm Strip: Sinus Rhythm Rate: 90 Ectopy: None Physical Exam Const alert and oriented x3 Constitutional Narrative: communicative General Appearance: cooperative and well developed HEENT normocephalic, head/scalp atraumatic and oropharynx normal Mouth: dry mucous membranes Eyes PERRL and EOMs intact bilaterally Neck no lymphadenopathy and supple Lymph Lymphatic: no lymphadenopathy noted and no lymphedema noted Resp normal respiratory effort, normal air movement, no retractions and clear to auscultation bilaterally Resp Narrative: mildly diminished breath sounds bibasally, no wheezes or crackles.on room air. Cardio regular rate, regular rhythm, S1 normal heart sound, S2 normal heart sound and no murmurs GI normal to inspection, nondistended, normoactive bowel sounds, soft to palpation, non-tender and non-distended Extremity Extremity Narrative: lower extremity edema has improved. General Extremity: no tenderness to palpation of joints or extremities Skin General Skin Exam: no breakdown Neuro CN's II-XII intact bilaterally, moves all extremities, no focal motor deficits and no sensory deficits noted Neuro Narrative: frail Sensorium / Orientation: awake and alert Motor Exam: strength 5/5 throughout and general weakness Psych thought process normal, cooperative and affect normal Appearance: appropriate Mood & Affect: flat affect Assessment & Plan Assessment/Plan (1) Acute respiratory insufficiency: (2) Acute CHF: (3) Iron deficiency anemia: QUALIFIERS: Iron deficiency anemia type: unspecified iron deficiency Qualified Code(s): D50.9 - Iron deficiency anemia, unspecified PLAN: Plan Acute on chronic iron deficiency anemia secondary to GI blood loss * Patient says she does have a history of anemia requiring transfusions. She follows with Dr. Nathan. She had an EGD a few months back with Dr. Granados at [facility]. She says she declined colonoscopy at that time and is still not interested in a colonoscopy but is interested in any other modalities for investigation such as capsule endoscopy. She underwent upper endoscopy : * She had EGD which showed grade B erosive esophagitis with no bleeding and medium size hiatal hernia as well as multiple gastric polyps and nonbleeding gastric ulcer with no stigmata of bleeding. 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 * Hb today is down to 8.3. She has been transfused 2 units of blood during this admission * switch to PO pantoprazole. * If she continues to drop then she will need colonoscopy. Patient is currently refusing colonoscopy at this time.
[2024-05-17 17:23] LABS: Bedside Glucose 197 mg/dL (74-106)
[2024-05-17] MEDS: guaiFENesin 1,200 MG Tablet 1200 MG PO (20:00)
[2024-05-17] MEDS: OSELTAMIVIR PHOSPHATE 6 MG/ML BOTTLE 30 MG PO (20:00)
[2024-05-17 20:10] VITALS: PULSE 79; RESP 20
[2024-05-17 21:37] LABS: Bedside Glucose 284 mg/dL (74-106)
[2024-05-18] VITALS (8 sets, daily range): BP systolic 151–178; BP diastolic 49–87; PULSE 68–76; RESP 18–20; TEMP 36.4–37.7; O2SAT 92–97; BMI 35.7
[2024-05-18] MEDS: Metoclopramide 10 MG/2 ML Vial 5 MG IV ×5 (00:39→23:16)
[2024-05-18] MEDS: 0.9% Saline Lock 10 ML Syringe IV ×4 (00:39→16:27)
[2024-05-18] MEDS: Levothyroxine 112 MCG Tablet PO (05:59)
[2024-05-18 06:20] LABS: Absolute Lymphocyte Count 1.32 X10^3/uL (0.83-4.51); Absolute Neutrophil Count 4.9 X10^3/uL (2.0-7.7); Eosinophil# 0.03 X10^3/uL; Eosinophils% 0.4 % (0-5); Hematocrit 26.4 % (37-47); Hemoglobin 8.4 g/dL (12.0-15.0); Lymphocyte # 1.32 X10^3/ul (0.83-4.51); Lymphocyte % 19.7 % (19-41); Mean Corp Hgb Conc 31.8 g/dL (32-36); Mean Corpuscular Hgb 28.8 pg (27.0-32.0); Mean Corpuscular Volume 90.4 fL (81-99); Mean Platelet Vol. 10.4 fl (6.2-12.0); Monocyte# 0.47 X10^3/uL; NRBC Flagged by Analyzer 0 % (0-5); Neutrophil # 4.86 X10^3/uL (2.7-7.7); Neutrophil % 72.5 % (47-70); Platelet Count 164 K/mm3 (150-450); RBC Distribution Width CV 14.1 % (11.6-14.6); RBC Distribution Width SD 45.9 fl (35.1-43.9); Red Blood Count 2.92 M/mm3 (4.2-5.4); White Blood Count 6.7 K/mm3 (4.4-11.0)
[2024-05-18 06:36] LABS: Anion Gap 4 (5-15); BUN 48 mg/dL (7-18); Calcium,Total 8.5 mg/dL (8.5-10.1); Chloride 103 mmol/L (98-107); EST Glomerular Filtration Rate 33 mL/min (>60); Est Glom Filt Rate - Afr Amer 40 mL/min (>60); Estimated Creatinine Clearance 29.62 ml/min; Glucose 163 mg/dL (74-106); Potassium 3.8 mmol/L (3.5-5.1); Sodium Level 135 mmol/L (136-145)
[2024-05-18 06:49] LABS: Bedside Glucose 144 mg/dL (74-106)
[2024-05-18] MEDS: Albuterol 2.5 MG/3 ML VIAL.NEB. INHALATION (06:54)
--- NOTE | 2024-05-18 09:36 | CASEMGMT ---
[facility] TCU can take patient as long as patient understands she cannot get her Semiglutide medication that she gets weekly. SW met with patient. She was on speaker phone with her . SW introduced self again. SW let patient know [facility]CU can take her, but she will not be able to get her Semiglutide injections while on TCU. Patient asked if she could bring in her own medication. SW told her she could not as this is not allowed when a patient has straight Medicare. SW told patient SW could check with other facilities. Patient immediately said, No, I want to stay here. SW let patient know they will have a bed for her tomorrow. Plan: d/c to [facility] TCU under skilled level of care . Macie MONTENEGRO
[2024-05-18] MEDS: Carvedilol 6.25 MG Tablet PO ×2 (10:20→16:27)
[2024-05-18] MEDS: Clopidogrel Bisulfate 75 MG Tablet PO (10:20)
[2024-05-18] MEDS: glipiZIDE 5 MG Tablet PO (10:20)
[2024-05-18] MEDS: Pantoprazole Sodium 40 MG Tablet PO (10:20)
[2024-05-18] MEDS: Insulin Lispro 100 UNIT/ML INSULN.PEN SC ×2 (11:18→16:31)
[2024-05-18 12:06] LABS: Bedside Glucose 165 mg/dL (74-106)
--- NOTE | 2024-05-18 12:06 | PN_ITS ---
Subjective Subjective Patient seen and examined. She felt much better today though she still felt weak and tired. Review of systems is otherwise negative. Objective Data Objective Data Vital Signs: Vital Signs Temp Pulse Resp BP Pulse Ox O2 Del Method O2 Flow Rate 98.1 F 71 18 162/52 H 92 Room Air 1 05/18/24 11:25 05/18/24 11:25 05/18/24 11:05/18/24 11:25 05/18/24 11:05/18/24 11:05/18/24 10:09 Oxygen Flow Rate (L/min) 1 Oxygen Delivery Method Room Air Weight: 201 lb 11.567 oz Body Mass Index (BMI) 35.7 Intake & Output: Intake and Output for Last 24 Hours 05/16/24 05/17/24 05/18/24 23:59 23:59 23:59 Intake Total 360 / 540 840 / 1060 540 / 540 Output Total 650 / 1050 1200 / 1500 550 / 550 Balance -290 / -510 -360 / -440 -10 / -10 Lab / Micro Data 05/18/24 06:00 05/18/24 06:00 Labs: Laboratory Results - last 24 hr 05/17/24 11:35: POC Glucose 173 H 05/17/24 16:44: POC Glucose 197 H 05/17/24 20:11: POC Glucose 284 H 05/18/24 06:00: WBC 6.7, RBC 2.92 L, Hgb 8.4 L, Hct 26.4 L, MCV 90.4, MCH 28.8, MCHC 31.8 L, RDW Std Deviation 45.9 H, RDW Coeff of Celia 14.1, Plt Count 164, MPV 10.4, Immature Gran % (Auto) 0.400, Neut % (Auto) 72.5 H, Lymph % (Auto) 19.7, [place] % (Auto) 7.0, Eos % (Auto) 0.4, Baso % (Auto) 0.0, Absolute Neuts (auto) 4.9, Absolute Lymphs (auto) 1.32, Nucleated RBC % 0, Sodium 135 L, Potassium 3.8, Chloride 103, Carbon Dioxide 28.0, Anion Gap 4 L, BUN 48 H, Creatinine 1.60 H, Estim Creat Clear Calc 29.62, Est GFR (MDRD) Af Amer 40 L, Est GFR (MDRD) Non-Af 33 L, BUN/Creatinine Ratio 30.0 H, Glucose 163 H, Calcium 8.5 05/18/24 06:02: POC Glucose 144 H 05/18/24 11:16: POC Glucose 165 H Micro: Microbiology 05/14/24 22:00 Sputum, Expectorated/Coughed Gram Stain - Final 05/14/24 22:00 Sputum, Expectorated/Coughed Respiratory Culture - Final 05/14/24 22:30 Mucosa - Nasopharyngeal Coronavirus COVID-19 PCR - Final 05/14/24 22:30 Mucosa - Nasopharyngeal Respiratory Panel (PCR) - Final Influenza A (Subtype H1) 05/14/24 02:14 Stool Enteric Bacteriology - Final 05/14/24 02:14 Stool Clostridioides difficile (PCR) - Final 05/12/24 10:44 Stool Stool Occult Blood (JUAN R) - Final Occult Blood Positive Rhythm Strip Rhythm Strip: Sinus Rhythm Rate: 90 Ectopy: None Physical Exam Const alert, oriented x3 and no apparent distress Constitutional Narrative: communicative General Appearance: cooperative HEENT normocephalic, head/scalp atraumatic, moist oral mucous membranes and oropharynx normal Eyes PERRL and EOMs intact bilaterally Neck no lymphadenopathy and supple Neck Narrative: No thyromegaly. Lymph Lymphatic: no lymphadenopathy noted and no lymphedema noted Resp normal respiratory effort Resp Narrative: mildly diminished breath sounds bibasally, no wheezes or crackles.on room air. Cardio regular rate, regular rhythm, S1 normal heart sound, S2 normal heart sound and no murmurs GI normal to inspection, nondistended, normoactive bowel sounds, soft to palpation, non-tender and non-distended Extremity normal capillary refill and no clubbing, cyanosis or edema General Extremity: no tenderness to palpation of joints or extremities Skin General Skin Exam: no breakdown Neuro CN's II-XII intact bilaterally, moves all extremities, no focal motor deficits and no sensory deficits noted Neuro Narrative: frail Sensorium / Orientation: awake and alert Motor Exam: strength 5/5 throughout and general weakness Psych thought process normal and cooperative Psych Narrative: weak Appearance: appropriate Mood & Affect: flat affect Assessment & Plan Assessment/Plan (1) Acute respiratory insufficiency: (2) Acute CHF: (3) Iron deficiency anemia: QUALIFIERS: Iron deficiency anemia type: unspecified iron deficiency Qualified Code(s): D50.9 - Iron deficiency anemia, unspecified PLAN: Plan #Acute exacerbation of HFpEF * Has known EF of 50 to 55% with evidence of moderate to severe mitral stenosis. Cardiac MRI on May 02 showed akinesis of the apical inferolateral wall * Repeat 2D echo done here on 05/11/2024 showed normal left ventricular size and systolic function with EF of 55% and no regional wall motion abnormalities noted * now off IV lasix due to concerns about over diuresis. * #Debility and weakness * patient feels better today. On room air now. * PT/OT on board. Fall precautions * Amenable to placement. * #Hypoxia due to influenza infection * As above. She spiked a fever and tested positive for flu. On Tamiflu. * on room air. * # Hypokalemia: resolved. #Acute on chronic iron deficiency anemia * Patient says she does have a history of anemia requiring transfusions. She follows with Dr. Nathan. She had an EGD a few months back with Dr. Granados at [facility]. She says she declined colonoscopy at that time and is still not interested in a colonoscopy but is interested in any other modalities for investigation such as capsule endoscopy. * Gastroenterology on board. * She had EGD which showed grade B erosive esophagitis with no bleeding and medium size hiatal hernia as well as multiple gastric polyps and nonbleeding gastric ulcer with no stigmata of bleeding. 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 * Hb is now 8.4. * She has been transfused 2 units of blood during this admission * switch to PO pantoprazole. #Hypertension * Resolved. * on carvedilol 6.25mg bid and losartan * IV hydralazine as needed. * Losartan held due to creatinine trending upwards. * #CAD * Patient had a recent non-STEMI and cardiac cath showed nonobstructive CAD * Currently on Plavix * #Type 2 diabetes mellitus: * On metformin and glipizide. Insulin sliding scale. * Accu-Cheks ACHS. * Also on semaglutide and this was held on admission and to resume on outpatient basis. * Metformin on hold due to upward trending creatinine #CLAUDIA on CKD stage III, * baseline creatinine is around 1.18. * Cr has trended down to 1.6 today. Was 1.86 yesterday. * Continue to monitor. * DVT prophylaxis: SCDs. Disposition:awaiting placement. Charges/Coding Visit Charges Inpatient E&M: 95109 Subs Hosp L2
--- NOTE | 2024-05-18 17:25 | EX.PCM.PN.GI ---
Subjective Subjective Patient says that she is still weak. Appetite is poor. She is currently getting treatment for congestive heart failure. She is in in good spirits. Objective Data Objective Data Vital Signs: Vital Signs Temp Pulse Resp BP Pulse Ox O2 Del Method O2 Flow Rate 97.5 F L 76 18 178/57 H 95 Room Air 1 05/18/24 16:35 05/18/24 16:35 05/18/24 16:35 05/18/24 16:35 05/18/24 16:35 05/18/24 16:35 05/18/24 10:09 Oxygen Flow Rate (L/min) 1 Oxygen Delivery Method Room Air Weight: 201 lb 11.567 oz Body Mass Index (BMI) 35.7 Intake & Output: Intake and Output for Last 24 Hours 05/16/24 05/17/24 05/18/24 23:59 23:59 23:59 Intake Total 360 / 540 840 / 1060 780 / 780 Output Total 650 / 1050 1200 / 1500 550 / 550 Balance -290 / -510 -360 / -440 230 / 230 Lab / Micro Data 05/18/24 06:00 05/18/24 06:00 Labs: Laboratory Results - last 24 hr 05/17/24 20:11: POC Glucose 284 H 05/18/24 06:00: WBC 6.7, RBC 2.92 L, Hgb 8.4 L, Hct 26.4 L, MCV 90.4, MCH 28.8, MCHC 31.8 L, RDW Std Deviation 45.9 H, RDW Coeff of Celia 14.1, Plt Count 164, MPV 10.4, Immature Gran % (Auto) 0.400, Neut % (Auto) 72.5 H, Lymph % (Auto) 19.7, [place] % (Auto) 7.0, Eos % (Auto) 0.4, Baso % (Auto) 0.0, Absolute Neuts (auto) 4.9, Absolute Lymphs (auto) 1.32, Nucleated RBC % 0, Sodium 135 L, Potassium 3.8, Chloride 103, Carbon Dioxide 28.0, Anion Gap 4 L, BUN 48 H, Creatinine 1.60 H, Estim Creat Clear Calc 29.62, Est GFR (MDRD) Af Amer 40 L, Est GFR (MDRD) Non-Af 33 L, BUN/Creatinine Ratio 30.0 H, Glucose 163 H, Calcium 8.5 05/18/24 06:02: POC Glucose 144 H 05/18/24 11:16: POC Glucose 165 H Micro: Microbiology 05/14/24 22:00 Sputum, Expectorated/Coughed Gram Stain - Final 05/14/24 22:00 Sputum, Expectorated/Coughed Respiratory Culture - Final 05/14/24 22:30 Mucosa - Nasopharyngeal Coronavirus COVID-19 PCR - Final 05/14/24 22:30 Mucosa - Nasopharyngeal Respiratory Panel (PCR) - Final Influenza A (Subtype H1) 05/14/24 02:14 Stool Enteric Bacteriology - Final 05/14/24 02:14 Stool Clostridioides difficile (PCR) - Final 05/12/24 10:44 Stool Stool Occult Blood (JUAN R) - Final Occult Blood Positive Rhythm Strip Rhythm Strip: Sinus Rhythm Rate: 90 Ectopy: None Physical Exam Const alert, oriented x3 and no apparent distress Constitutional Narrative: communicative General Appearance: cooperative HEENT normocephalic, head/scalp atraumatic, moist oral mucous membranes and oropharynx normal Eyes PERRL and EOMs intact bilaterally Neck no lymphadenopathy and supple Neck Narrative: No thyromegaly. Lymph Lymphatic: no lymphadenopathy noted and no lymphedema noted Resp normal respiratory effort Resp Narrative: mildly diminished breath sounds bibasally, no wheezes or crackles.on room air. Cardio regular rate, regular rhythm, S1 normal heart sound, S2 normal heart sound and no murmurs GI normal to inspection, nondistended, normoactive bowel sounds, soft to palpation, non-tender and non-distended Extremity normal capillary refill and no clubbing, cyanosis or edema General Extremity: no tenderness to palpation of joints or extremities Skin General Skin Exam: no breakdown Neuro CN's II-XII intact bilaterally, moves all extremities, no focal motor deficits and no sensory deficits noted Neuro Narrative: frail Sensorium / Orientation: awake and alert Motor Exam: strength 5/5 throughout and general weakness Psych thought process normal and cooperative Psych Narrative: weak Appearance: appropriate Mood & Affect: flat affect Assessment & Plan Assessment/Plan (1) Acute respiratory insufficiency: (2) Acute CHF: (3) Iron deficiency anemia: QUALIFIERS: Iron deficiency anemia type: unspecified iron deficiency Qualified Code(s): D50.9 - Iron deficiency anemia, unspecified PLAN: Plan Acute on chronic iron deficiency anemia secondary to GI blood loss Patient says she does have a history of anemia requiring transfusions. She follows with Dr. Nathan. She had an EGD a few months back with Dr. Granados at [facility]. She says she declined colonoscopy at that time and is still not interested in a colonoscopy but is interested in any other modalities for investigation such as capsule endoscopy. She underwent upper endoscopy : She had EGD which showed grade B erosive esophagitis with no bleeding and medium size hiatal hernia as well as multiple gastric polyps and nonbleeding gastric ulcer with no stigmata of bleeding. 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 Hb today is down to 8.3. She has been transfused 2 units of blood during this admission switch to PO pantoprazole. If she continues to drop then she will need colonoscopy. Patient is currently refusing colonoscopy at this time. I had another talk with the patient and the patient's . She is still refusing colonoscopy. She is amenable to a capsule endoscopy. However I told her that she would still have to take a prep for the capsule endoscopy so we can see everything in her small bowel during the study. Her hemoglobin trended down from 11.4-9 0.2-8.3 and is currently at 8.4. Continue to monitor hemoglobin. Charges/Coding Visit Charges Inpatient E&M: 08038 [facility] Hosp L3
[2024-05-18 17:29] LABS: Bedside Glucose 153 mg/dL (74-106)
[2024-05-18] MEDS: MELATONIN 3 MG TABLET PO (23:13)
[2024-05-18] MEDS: Acetaminophen 325 MG Tablet 650 MG PO (23:13)
[2024-05-18] MEDS: OSELTAMIVIR PHOSPHATE 6 MG/ML BOTTLE 30 MG PO (23:14)
[2024-05-18] MEDS: guaiFENesin 1,200 MG Tablet 1200 MG PO (23:14)
[2024-05-18] MEDS: Atorvastatin Calcium 10 MG Tablet PO (23:14)
[2024-05-19 00:09] LABS: Bedside Glucose 108 mg/dL (74-106)
[2024-05-19 02:50] VITALS: BMI 34.0
[2024-05-19 03:15] VITALS: BP 156/49; PULSE 74; RESP 18; TEMP 36.7; O2SAT 94
[2024-05-19] MEDS: guaiFENesin 10 ML UDC (200MG/10ML) PO ×2 (04:00→09:08)
[2024-05-19] MEDS: Metoclopramide 10 MG/2 ML Vial 5 MG IV ×2 (06:34→11:15)
[2024-05-19] MEDS: Levothyroxine 112 MCG Tablet PO (06:35)
[2024-05-19 07:02] VITALS: PULSE 77; RESP 20; O2SAT 95
[2024-05-19] MEDS: Albuterol 2.5 MG/3 ML VIAL.NEB. INHALATION (07:02)
[2024-05-19 07:25] LABS: Absolute Lymphocyte Count 1.12 X10^3/uL (0.83-4.51); Absolute Neutrophil Count 4.9 X10^3/uL (2.0-7.7); Basophil# 0.02 X10^3/uL; Basophil% 0.3 % (0-1); Eosinophil# 0.04 X10^3/uL; Eosinophils% 0.6 % (0-5); Hematocrit 27.5 % (37-47); Hemoglobin 8.7 g/dL (12.0-15.0); Lymphocyte # 1.12 X10^3/ul (0.83-4.51); Mean Corp Hgb Conc 31.6 g/dL (32-36); Mean Corpuscular Hgb 28.6 pg (27.0-32.0); Mean Corpuscular Volume 90.5 fL (81-99); Mean Platelet Vol. 10.4 fl (6.2-12.0); Monocyte# 0.48 X10^3/uL; Monocyte% 7.3 % (0-10); NRBC Flagged by Analyzer 0 % (0-5); Neutrophil % 74.2 % (47-70); Platelet Count 191 K/mm3 (150-450); RBC Distribution Width CV 14.3 % (11.6-14.6); RBC Distribution Width SD 46.5 fl (35.1-43.9); Red Blood Count 3.04 M/mm3 (4.2-5.4); White Blood Count 6.6 K/mm3 (4.4-11.0)
[2024-05-19 07:26] LABS: Bedside Glucose 122 mg/dL (74-106)
[2024-05-19 07:52] LABS: Anion Gap 7 (5-15); BUN 34 mg/dL (7-18); Calcium,Total 8.8 mg/dL (8.5-10.1); Chloride 106 mmol/L (98-107); Creatinine, Serum 1.31 mg/dL (0.55-1.02); EST Glomerular Filtration Rate 41 mL/min (>60); Est Glom Filt Rate - Afr Amer 50 mL/min (>60); Estimated Creatinine Clearance 35.24 ml/min; Glucose 141 mg/dL (74-106); Sodium Level 137 mmol/L (136-145)
[2024-05-19] MEDS: Clopidogrel Bisulfate 75 MG Tablet PO (09:08)
[2024-05-19] MEDS: Pantoprazole Sodium 40 MG Tablet PO (09:08)
[2024-05-19] MEDS: glipiZIDE 5 MG Tablet PO (09:08)
[2024-05-19] MEDS: Carvedilol 6.25 MG Tablet PO (09:08)
[2024-05-19 09:10] VITALS: BP 174/55; PULSE 77; RESP 18; TEMP 36.2; O2SAT 94
[2024-05-19] MEDS: 0.9% Saline Lock 10 ML Syringe IV ×2 (11:15→14:07)
[2024-05-19] MEDS: Insulin Lispro 100 UNIT/ML INSULN.PEN SC (11:15)
[2024-05-19 11:39] LABS: Bedside Glucose 159 mg/dL (74-106)
--- NOTE | 2024-05-19 13:34 | PCM.TXEXTCAR ---
Diet Diet Order/Speech Therapy: 05/18/24 13:41 Diet: Cardiac: Calorie-Controlled Fluid restriction:: 1500 mL How many daily calories?: 1800 calorie Routine Orders/Code Status Routine Lab Work: CBC (IN ONE WEEK), BMP (IN ONE WEEK) and - (Fingerstick blood sugars AC nightly, coverage with Humalog subcu per sliding scale: 200-250: 5 units, 251-300: 8 units, 301-350: 12 units) Code Status: Full Code DC O2, CPAP, BIPAP needs Home O2 Discharge instructions: No Therapies Weight Bearing: Full weight bearing Physical Therapy: Eval and Treat Occupational Therapy: Eval and Treat Problem/Diagnosis (1) Acute respiratory insufficiency: Status: Acute Code(s): R06.89 - Other abnormalities of breathing (2) Acute CHF: Status: Acute Code(s): I50.9 - Heart failure, unspecified (3) Iron deficiency anemia: Status: Acute Code(s): D50.9 - Iron deficiency anemia, unspecified (4) Anemia: Status: Acute Code(s): D64.9 - Anemia, unspecified (5) CKD (chronic kidney disease) stage 3, GFR 30-59 ml/min: Status: Chronic Code(s): N18.3 - Chronic kidney disease, stage 3 (moderate) (6) Erosive esophagitis: Status: Acute Code(s): K22.10 - Ulcer of esophagus without bleeding (7) Gastric ulcer: Status: Acute Code(s): K25.9 - Gastric ulcer, unspecified as acute or chronic, without hemorrhage or perforation (8) Angiodysplasia of duodenum: Status: Acute Code(s): K31.819 - Angiodysplasia of stomach and duodenum without bleeding Allergies/Procedures Done in Hospital Allergies No Known Allergies Allergy (Verified 05/11/24 13:39) Procedures: 2-D Echocardiogram, Blood transfusion and EGD Type of Care/Length of Stay Estimated LOS: Convalescent Care Less Than 30 days Type of Care Needed: Skilled Rehab Potential: Good Prognosis: Good Additional Orders/Day of Discharge H&P will serve as current which was dated: 05/11/24 Day of Discharge: 05/19/24 Dietary and Speech Recommendations Dietitian Recommendations/Changes: RD will adjust diet to 1800CCD/cardiac with 1500mL fluid restriction per MD to manage medical conditions. Reviewed and approved by Fang Llanes RDN, LD. Discharge Plan Admission Admit Date/Time: 05/11/24 17:59 Primary Reason for Your Visit: Acute diastolic congestive heart failure, hypertensive urgency, anemia Attending Provider: Roldan Young Primary Care Provider: Regi Liu Consulting Providers: Aly Carter; Savanna Brush Discharge Orders/Prescriptions Prescriptions: New acetaminophen 325 mg Tablet 650 mg PO Q6H PRN PRN (Reason: Pain 1-10 Or Fever>100.7) Qty: 0 0RF losartan 50 mg Tablet 50 mg PO DAILY Qty: 0 0RF carvedilol 6.25 mg Tablet 6.25 mg PO BIDCM Qty: 0 0RF furosemide [Lasix] 40 mg tablet 40 mg PO DAILY Qty: 1 0RF potassium chloride 10 mEq tablet extended release 20 meq PO DAILY Qty: 1 0RF Continued esomeprazole magnesium [Nexium] 40 mg capsule,delayed release(DR/EC) 40 mg PO DAILY (DME) blood-glucose meter [FreeStyle Lite Meter] Kit See Rx Instructions .ROUTE .MEDSUPPLY Qty: 1 Rx Instructions: As directed multivitamin 1 EACH tablet 1 ea PO DAILY Patient Comments: supplement cholecalciferol (vitamin D3) 1,000 UNIT tablet 2,000 unit PO DAILY Patient Comments: supplement PreserVision Lutein 226-90-0.8-5 mg capsule 1 cap PO BID clopidogrel 75 mg tablet 75 mg PO DAILY (DME) pen needle, diabetic [Lite Touch Insulin Pen [place]] 31 gauge x 5/16 needle See Rx Instructions .ROUTE .MEDSUPPLY Qty: 30 5RF Rx Instructions: use with victoza qd (DME) FreeStyle [place] 14 Day [place] Misc See Rx Instructions .ROUTE .MEDSUPPLY Qty: 1 0RF Rx Instructions: As directed (DME) FreeStyle [place] 14 Day Sensor Kit See Rx Instructions .ROUTE .MEDSUPPLY Qty: 1 0RF Rx Instructions: As directed (DME) FreeStyle Lite Strips Strip See Rx Instructions .ROUTE .MEDSUPPLY Qty: 100 3RF Rx Instructions: As directed (DME) lancets [FreeStyle Lancets] 28 gauge misc See Rx Instructions .ROUTE .MEDSUPPLY Qty: 100 3RF Rx Instructions: check glucose 2 x a day (DME) Handicap Placard See Rx Instructions .Route .MEDSUPPLY Qty: 1 0RF Rx Instructions: 5 year RX 06/08/23-06/08/28 DX.. R06.09 and G62.9 atorvastatin 10 mg tablet 10 mg PO QHS Qty: 90 3RF glipizide 5 mg tablet 5 mg PO DAILY Qty: 180 3RF metformin 1,000 mg tablet 500 mg PO BID Qty: 180 3RF levothyroxine 112 mcg tablet 112 mcg PO DAILY Qty: 90 3RF Discontinued biotin 2,500 MCG capsule 5,000 mcg PO DAILY Patient Comments: for dry mouth carvedilol 3.125 mg tablet 3.125 mg PO BID Ozempic 1 mg/dose (4 mg/3 mL) pen injector 1 mg subcut QWEEK No Action valsartan 160 mg tablet 160 mg PO DAILY Qty: 90 3RF Referrals / Follow Up: Regi Liu MD [Primary Care Provider] - Disposition Disposition (needs filled in before D/C Order can be placed): [facility] (3) Iron deficiency anemia Qualifiers: Iron deficiency anemia type: unspecified iron deficiency Qualified Code(s): D50.9 - Iron deficiency anemia, unspecified
--- NOTE | 2024-05-19 13:53 | DS.PCM_ITS ---
Providers Date of Admission: 05/11/24 Date of Discharge: 05/19/24 Primary Care Physician: Dr. Regi Liu MD Consultations 05/12/24 14:28 Consult: Gastroenterology Routine Consulting Provider: [facility] Reason for Consult: acute on chronic anemia EMERGENT Consult: No MD Notified: Yes Date Notified: 05/12/24 Time Notified: 14:29 Method of Notification: Text Reason For Visit: CHF Diagnosis Discharge Diagnosis (1) Acute respiratory insufficiency: Status: Acute Code(s): R06.89 - Other abnormalities of breathing (2) Acute CHF: Status: Acute Code(s): I50.9 - Heart failure, unspecified (3) Iron deficiency anemia: Status: Acute Code(s): D50.9 - Iron deficiency anemia, unspecified Qualifiers: Iron deficiency anemia type: unspecified iron deficiency Qualified Code(s): D50.9 - Iron deficiency anemia, unspecified (4) Anemia: Status: Acute Code(s): D64.9 - Anemia, unspecified (5) CKD (chronic kidney disease) stage 3, GFR 30-59 ml/min: Status: Chronic Code(s): N18.3 - Chronic kidney disease, stage 3 (moderate) (6) Erosive esophagitis: Status: Acute Code(s): K22.10 - Ulcer of esophagus without bleeding (7) Gastric ulcer: Status: Acute Code(s): K25.9 - Gastric ulcer, unspecified as acute or chronic, without hemorrhage or perforation (8) Angiodysplasia of duodenum: Status: Acute Code(s): K31.819 - Angiodysplasia of stomach and duodenum without bleeding Plan 1. Acute diastolic congestive heart failure #2 blood loss anemia secondary to angiodysplastic lesions of the duodenum #3 nonbleeding gastric ulcer #4 erosive esophagitis nonbleeding #5 type 2 diabetes #6 chronic kidney disease stage IIIb #7 atherosclerotic heart disease #8 hypoxia secondary to #1 #9 hypothyroidism #10 essential hypertension #11 hyperlipidemia Medications at Discharge Home Medications cholecalciferol (vitamin D3) 25 mcg (1,000 unit) tablet 2,000 unit PO DAILY supplement 01/09/16 multivitamin 1 ea PO DAILY supplement 01/09/16 blood-glucose meter (FreeStyle Lite Meter kit) #1 ea 03/11/19 esomeprazole magnesium 40 mg capsule,delayed release (Nexium) 40 mg PO DAILY GERD 03/11/19 pen needle, diabetic 31 gauge x 5/16 (Lite Touch Insulin Pen [place]) #30 ea 08/06/20 flash glucose scanning reader (FreeStyle [place] 14 Day [place]) #1 ea 08/20/20 flash glucose sensor (FreeStyle [place] 14 Day Sensor kit) #1 ea 08/20/20 blood sugar diagnostic (FreeStyle Lite Strips) #100 ea 10/08/21 lancets 28 gauge (FreeStyle Lancets) #100 ea 10/18/21 vit C 226 mg-vit E 90 mg-copper 0.8 mg-zinc oxide-lutein 5 mg capsule (PreserVision Lutein) 1 cap PO BID supplement 04/21/23 Handicap Placard #1 ea 06/08/23 atorvastatin 10 mg tablet 10 mg PO QHS cholesterol #90 tabs 06/24/23 glipizide 5 mg tablet 5 mg PO DAILY Diabetes #180 tabs 06/24/23 metformin 1,000 mg tablet 500 mg (1/2 x 1,000 mg) PO BID Diabetes #180 tabs 06/24/23 valsartan 160 mg tablet 160 mg PO DAILY BP #90 tabs 06/24/23 levothyroxine 112 mcg tablet 112 mcg PO DAILY Thyroid #90 tabs 07/27/23 clopidogrel 75 mg tablet 75 mg PO DAILY blood thinner 05/11/24 acetaminophen 325 mg tablet 650 mg (2 x 325 mg) PO Q6H PRN PRN Pain 1-10 Or Fever>100.7 #0 tabs 05/19/24 carvedilol 6.25 mg tablet 6.25 mg PO BIDCM Heart #0 tabs 05/19/24 furosemide 40 mg tablet (Lasix) 40 mg PO DAILY Water pill #1 TAB 05/19/24 losartan 50 mg tablet 50 mg PO DAILY BP #0 tabs 05/19/24 potassium chloride 10 mEq tablet,extended release 20 meq (2 x 10 mEq) PO DAILY supplement #1 TAB 05/19/24 Hospital Course Operations None Procedures Blood transfusion and EGD Summary of Care Provided Minutes Spent on Discharge: 31 Hospital Course: This 79-year-old white female presented to the emergency room at [facility] with a chief complaint of shortness of breath. Patient had been discharged from [facility] in [facility] on 05/04/2024 after having a non-STEMI and undergoing a cardiac catheterization that showed nonobstructive coronary disease. Patient also underwent a cardiac MRI that showed akinesis of the apical inferior lateral wall. Patient was discharged home and subsequently was seen in the emergency room at [facility] May 10, 2024 and was noted to be anemic with a hemoglobin of 6 and was transfused and discharged home. Patient had not been feeling well and came to the emergency room here for evaluation, workup included a chest x-ray which showed bilateral effusions that were small, hemoglobin was 7.4, troponin was 182 and her blood pressure was elevated. Patient received 2 doses of hydralazine and IV Lasix, she was felt to be in congestive heart failure was admitted to PCU and placed on IV Lasix. Echocardiogram was obtained which showed a normal ejection fraction of 55% without any significant valvular heart disease. Patient's subsequent hemoglobin the next day was 6, she was transfused 2 units of packed red blood cells and a midline catheter was placed and she was seen in consultation by gastroenterology. 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 These areas were coagulated. Patient was seen by PT and OT, it was recommended the patient consider admission to a skilled facility for inpatient rehab services and patient agreed. On 05/19/2024, patient was seen and examined: On examination she appeared in good health and spirits, she does not appear to be in any distress. Vital signs as documented. Skin warm and dry and without overt rashes. Neck without JVD, thyroid appears normal, trachea is midline, neck is supple. Lungs clear, normal air movement was noted. Heart exam notable for regular rhythm, normal sounds and absence of murmurs, rubs or gallops. Abdomen unremarkable and without evidence of organomegaly, masses, or abdominal aortic enlargement, bowel sounds are present in all 4 quadrants, no abdominal tenderness was noted. Extremities nonedematous, no cyanosis was noted, no clubbing was noted. Neuro: Cranial nerves II through XII are grossly intact, no focal motor deficits were noted, sensation to light touch and pinprick is intact, motor exam 5/5 throughout. Psych: Patient is alert and oriented x3, she does not appear anxious or depressed, she does not appear agitated. Patient was discharged to TCU for inpatient skilled services on 05/19/2024 in stable condition Weight / BMI Weight Weight: 87.1 kg Body Mass Index (BMI) 34.0 ABG / Lab / Microbiology Data 05/19/24 07:10 05/19/24 07:10 Laboratory: Laboratory Results - last 24 hr 05/18/24 16:26: POC Glucose 153 H 05/18/24 23:26: POC Glucose 108 H 05/19/24 06:51: POC Glucose 122 H 05/19/24 07:10: WBC 6.6, RBC 3.04 L, Hgb 8.7 L, Hct 27.5 L, MCV 90.5, MCH 28.6, MCHC 31.6 L, RDW Std Deviation 46.5 H, RDW Coeff of Celia 14.3, Plt Count 191, MPV 10.4, Immature Gran % (Auto) 0.600, Neut % (Auto) 74.2 H, Lymph % (Auto) 17.0 L, [place] % (Auto) 7.3, Eos % (Auto) 0.6, Baso % (Auto) 0.3, Absolute Neuts (auto) 4.9, Absolute Lymphs (auto) 1.12, Nucleated RBC % 0, Sodium 137, Potassium 4.0, Chloride 106, Carbon Dioxide 25.0, Anion Gap 7, BUN 34 H, Creatinine 1.31 H, Estim Creat Clear Calc 35.24, Est GFR (MDRD) Af Amer 50 L, Est GFR (MDRD) Non-Af 41 L, BUN/Creatinine Ratio 26.0 H, Glucose 141 H, Calcium 8.8 05/19/24 11:12: POC Glucose 159 H Microbiology: Microbiology 05/14/24 22:00 Sputum, Expectorated/Coughed Gram Stain - Final 05/14/24 22:00 Sputum, Expectorated/Coughed Respiratory Culture - Final 05/14/24 22:30 Mucosa - Nasopharyngeal Coronavirus COVID-19 PCR - Final 05/14/24 22:30 Mucosa - Nasopharyngeal Respiratory Panel (PCR) - Final Influenza A (Subtype H1) 05/14/24 02:14 Stool Enteric Bacteriology - Final 05/14/24 02:14 Stool Clostridioides difficile (PCR) - Final 05/12/24 10:44 Stool Stool Occult Blood (JUAN R) - Final Occult Blood Positive D/C Instructions DC O2, CPAP, BIPAP Needs Home O2 Discharge instructions: No Meaningful Use Info Meaningful Use Meaningful Use Diagnoses (Choose all that apply): None applicable Ischemic Stroke Statin Dosing Therapy Reference: STATIN DOSE THERAPY REFERENCE: * Patients > 75 years receive moderate or high dose statin therapy. * Patients 75 years or YOUNGER should receive HIGH intensity statin dose unless contraindicated. You will be required to document reason for non-treatment if statin daily dose does not meet guidelines. HIGH DOSE STATIN THERAPY DAILY Atorvastatin > than or = to 40 mg Rosuvastatin > than or = to 20 mg Amlodipine + Atorvastatin > than or = to 2.5/40 mg Ezetimibe + Simvastatin 10/80 mg Simvastatin 80mg Discharge Plan Admission Admit Date/Time: 05/11/24 17:59 Primary Reason for Your Visit: Acute diastolic congestive heart failure, hypertensive urgency, anemia Attending Provider: Roldan Young Primary Care Provider: Regi Liu Consulting Providers: Aly Carter; Savanna Brush Discharge Orders/Prescriptions Prescriptions: New acetaminophen 325 mg Tablet 650 mg PO Q6H PRN PRN (Reason: Pain 1-10 Or Fever>100.7) Qty: 0 0RF losartan 50 mg Tablet 50 mg PO DAILY Qty: 0 0RF carvedilol 6.25 mg Tablet 6.25 mg PO BIDCM Qty: 0 0RF furosemide [Lasix] 40 mg tablet 40 mg PO DAILY Qty: 1 0RF potassium chloride 10 mEq tablet extended release 20 meq PO DAILY Qty: 1 0RF Continued esomeprazole magnesium [Nexium] 40 mg capsule,delayed release(DR/EC) 40 mg PO DAILY (DME) blood-glucose meter [FreeStyle Lite Meter] Kit See Rx Instructions .ROUTE .MEDSUPPLY Qty: 1 Rx Instructions: As directed multivitamin 1 EACH tablet 1 ea PO DAILY Patient Comments: supplement cholecalciferol (vitamin D3) 1,000 UNIT tablet 2,000 unit PO DAILY Patient Comments: supplement PreserVision Lutein 226-90-0.8-5 mg capsule 1 cap PO BID clopidogrel 75 mg tablet 75 mg PO DAILY (DME) pen needle, diabetic [Lite Touch Insulin Pen [place]] 31 gauge x 5/16 needle See Rx Instructions .ROUTE .MEDSUPPLY Qty: 30 5RF Rx Instructions: use with victoza qd (DME) FreeStyle [place] 14 Day [place] Misc See Rx Instructions .ROUTE .MEDSUPPLY Qty: 1 0RF Rx Instructions: As directed (DME) FreeStyle [place] 14 Day Sensor Kit See Rx Instructions .ROUTE .MEDSUPPLY Qty: 1 0RF Rx Instructions: As directed (DME) FreeStyle Lite Strips Strip See Rx Instructions .ROUTE .MEDSUPPLY Qty: 100 3RF Rx Instructions: As directed (DME) lancets [FreeStyle Lancets] 28 gauge misc See Rx Instructions .ROUTE .MEDSUPPLY Qty: 100 3RF Rx Instructions: check glucose 2 x a day (DME) Handicap Placard See Rx Instructions .Route .MEDSUPPLY Qty: 1 0RF Rx Instructions: 5 year RX 06/08/23-06/08/28 DX.. R06.09 and G62.9 atorvastatin 10 mg tablet 10 mg PO QHS Qty: 90 3RF glipizide 5 mg tablet 5 mg PO DAILY Qty: 180 3RF metformin 1,000 mg tablet 500 mg PO BID Qty: 180 3RF levothyroxine 112 mcg tablet 112 mcg PO DAILY Qty: 90 3RF Discontinued biotin 2,500 MCG capsule 5,000 mcg PO DAILY Patient Comments: for dry mouth carvedilol 3.125 mg tablet 3.125 mg PO BID Ozempic 1 mg/dose (4 mg/3 mL) pen injector 1 mg subcut QWEEK No Action valsartan 160 mg tablet 160 mg PO DAILY Qty: 90 3RF Referrals / Follow Up: Regi Liu MD [Primary Care Provider] - Disposition Disposition (needs filled in before D/C Order can be placed): Long Term Facility Charges/Coding Visit Charges Inpatient E&M: 58043 Disch Hosp >30min
[2024-05-19 14:08] VITALS: BP 189/65; PULSE 78
[2024-05-19] MEDS: hydrALAZINE 20 MG/ML Vial 10 MG IV (14:08)
[2024-05-19 14:14] VITALS: BP 174/55; PULSE 77; RESP 18; TEMP 36.2; O2SAT 94
--- NOTE | 2024-05-19 14:27 | CASEMGMT ---
Patient is ready for discharge to [facility]. Plan: d/c to [facility] under skilled level of care. Macie MONTENEGRO
--- NOTE | 2024-05-19 14:29 | NURSING ---
Report called to nurse Fisher for pt to be d/c to TCU. Waiting on room to be cleaned.
== END 2024-05-19 16:26 | disposition skilled nursing facility (03) | DRG 291 ==
LOC: ED 18:16 → PCU 18:23
PROVIDERS: Anesthesiology; Internal Medicine; Internal Medicine Gastroenterology; Student in an Organized Health Care Education/Training Program; Emergency Provider Emergency Medicine; PCP Internal Medicine; Visit Provider Internal Medicine
PROC: 0DJ08ZZ Inspection of Upper Intestinal Tract, Via Natural or Artificial Opening Endoscopic (ICD-10-PCS; CPT 43235; principal; 2024-05-13 11:10)
DX: I13.0 Hypertensive heart and chronic kidney disease with heart failure and stage 1 through stage 4 chronic kidney disease, or unspecified chronic kidney disease (principal); I50.31 Acute diastolic (congestive) heart failure; K31.811 Angiodysplasia of stomach and duodenum with bleeding; D62 Acute posthemorrhagic anemia; K22.10 Ulcer of esophagus without bleeding; E11.22 Type 2 diabetes mellitus with diabetic chronic kidney disease; E03.9 Hypothyroidism, unspecified; I16.0 Hypertensive urgency; D50.9 Iron deficiency anemia, unspecified; Z79.01 Long term (current) use of anticoagulants; N18.32 Chronic kidney disease, stage 3b; K25.9 Gastric ulcer, unspecified as acute or chronic, without hemorrhage or perforation; E11.42 Type 2 diabetes mellitus with diabetic polyneuropathy; I25.10 Atherosclerotic heart disease of native coronary artery without angina pectoris; K21.00 Gastro-esophageal reflux disease with esophagitis, without bleeding; E11.51 Type 2 diabetes mellitus with diabetic peripheral angiopathy without gangrene; K44.9 Diaphragmatic hernia without obstruction or gangrene; E87.6 Hypokalemia; K31.7 Polyp of stomach and duodenum; I25.2 Old myocardial infarction; J10.1 Influenza due to other identified influenza virus with other respiratory manifestations; E78.2 Mixed hyperlipidemia; Z87.891 Personal history of nicotine dependence; Z79.84 Long term (current) use of oral hypoglycemic drugs; Z79.899 Other long term (current) drug therapy
CPT/HCPCS: 36415; 71045; 76770; 80048; 82274; 82570; 82728; 82962; 83036; 83540; 83550; 83735; 83880; 84443; 84484; 84540; 85025; 86850; 86900; 86901; 86920; 86922; 87070; 87205; 87493; 87506; 87633; 87635; 93005; 93306; 94640; 97110; 97116; 97162; 97166; 97530; 97535; 97803; 99284; P9016; Q9957; A4216; C8929; J1940; J2405

== ENCOUNTER 2024-05-19 16:32 | Inpatient (IN) | payer MEDICARE, OTHER, SELFPAY ==
[2024-05-19 16:48] VITALS: BMI 32.2
[2024-05-19 16:52] VITALS: BP 161/72; PULSE 87; RESP 22; TEMP 37.1; O2SAT 95
[2024-05-19] MEDS: Acetaminophen 325 MG Tablet 650 MG PO (18:20)
[2024-05-19] MEDS: Carvedilol 6.25 MG Tablet PO (18:21)
--- NOTE | 2024-05-19 19:47 | HP.PCM_ITS ---
HPI - General General Date of Admission: 05/19/24 Date of Service: 05/19/24 Chief Complaint: Here for rehabilitation. HPI Narrative 05/11/2024 ANDRIY WEST, is a 79 Female who presents to [facility] ED with chest pain. Discharged from [facility] 1 week ago with dyspnea, orthopnea, bilateral lower extremity edema. Diagnosed with acute FL, heart cath negative, no stents needed. Aspirin, Plavix, Carvedilol. Stopped Losartan, HCTZ. Acute kidney injury 2/2 heart cath eye, creatinine as high as 5 at [place]. Hemoglobin 6, transfused, sent home. [facility] diagnosed her with myopericardiitis. Blood pressure 200 systolic, Hydralazine, Lasix, Albuterol given. Troponin 182, but trending down. Creatinine 1.5. Concern with congestive heart failure. 05/11/[address] [facility]. Lasix IV for HFpEF. Coreg 6.25mg bid, Valsartan 160mg daily, Hydralazine as needed for high blood pressure. Hemoglobin 7.4, Monitor. 05/12/2024 Echo Normal LV size. Left ventricular systolic function normal. LVEF 55%. 05/12/2024 Left upper extremity midline placed for poor venous access. 05/12/2024 Breathing better, Hemoglobin 6. Lasix IV for acute HFpEF. Transfuse 2 units PRBC, Pantoprazole IV, Dr. Drake for Hemoglobin 6, refuses colonoscopy. Hypertensive urgency resolved. 05/13/2024 Lethargic. Hemoglobin 9.6. 05/13/2024 Dr. Drake EGD LA grade B erosive esophagitis. Medium hiatal hernia. Non-bleeding gastric ulcer treated with heater probe. Duodenal angiodysplasia x 2 treated with heater probe. 05/14/2024 Frail, weak. Short of breath, on oxygen 2 liters per nasal cannula. Lasix IV for acute HFpEF, too dry, give IV fluids.. PT/OT for debility. Hemoglobin 10.2, refuses colonoscopy. 05/15/2024 D/C Lasix, too dry, Creatinine up to 2.42. +influenza A, treat with Tamiflu. Replace potassium 3.3. Hemoglobin 11.2. 05/16/2024 Oxygen 1 liter per nasal cannula. IV fluids for dehydration/acute kidney injury. 05/17/2024 Feeling better, but tired, on room air. PT/OT for debility. Tamiflu for influenza A. 05/18/2024 Feels much better, but weak, tired. PT/OT SNF. Switch Pantoprazole IV to PO. 05/19/2024 Admit to TCU with debility, here for rehabilitation, strengthening, prior to discharge home with . [facility] Medical History Acute maxillary sinusitis, unspecified Type 2 diabetes mellitus with both eyes affected by mild nonproliferative retinopathy without macular edema, with long-term current use of insulin Combined form of age-related cataract, both eyes Ptosis of left eyelid Hyperopia Regular astigmatism Presbyopia CKD (chronic kidney disease) stage 3, GFR 30-59 ml/min Peripheral neuropathy Obesity, Class II, BMI 35-39.9 Iron malabsorption Claudication Rosacea Iron deficiency anemia Lymphedema Malignant neoplasm of upper-outer quadrant of right female breast Albuminuria Hypertension, essential, benign Hypothyroidism (acquired) Hyperlipidemia, mixed Barretts esophagus GERD with esophagitis Uncontrolled type 2 diabetes mellitus without complication, without long-term current use of insulin Home Medications ?Medication ?Instructions ?Recorded ?Last Taken ?Type cholecalciferol (vitamin D3) 25 2,000 unit PO DAILY supplement 01/09/16 Unknown History mcg (1,000 unit) tablet multivitamin 1 ea PO DAILY supplement 01/09/16 Unknown History blood-glucose meter (FreeStyle #1 ea 03/11/19 Unknown History Lite Meter kit) esomeprazole magnesium 40 mg 40 mg PO DAILY GERD 03/11/19 05/19/24 09:10 History capsule,delayed release (Nexium) pen needle, diabetic 31 gauge x #30 ea 08/06/20 Unknown Rx 09/23 (Lite Touch Insulin Pen [place]) flash glucose scanning reader #1 ea 08/20/20 Unknown Rx (FreeStyle [place] 14 Day [place]) flash glucose sensor (FreeStyle #1 ea 08/20/20 Unknown Rx [place]um 14 Day Sensor kit) blood sugar diagnostic (FreeStyle #100 ea 10/08/21 Unknown Rx Lite Strips) lancets 28 gauge (FreeStyle #100 ea 10/18/21 Unknown Rx Lancets) vit C 226 mg-vit E 90 mg-copper 1 cap PO BID supplement 04/21/23 Unknown History 0.8 mg-zinc oxide-lutein 5 mg capsule (PreserVision Lutein) Handicap Placard #1 ea 06/08/23 Unknown Rx atorvastatin 10 mg tablet 10 mg PO QHS cholesterol #90 tabs 06/24/23 05/18/24 23:15 Rx glipizide 5 mg tablet 5 mg PO DAILY Diabetes #180 tabs 06/24/23 05/19/24 09:10 Rx metformin 1,000 mg tablet 500 mg (1/2 x 1,000 mg) PO BID 06/24/23 05/15/24 Rx Diabetes #180 tabs valsartan 160 mg tablet 160 mg PO DAILY BP #90 tabs 06/24/23 Unknown Rx levothyroxine 112 mcg tablet 112 mcg PO DAILY Thyroid #90 tabs 07/27/23 05/19/24 06:35 Rx clopidogrel 75 mg tablet 75 mg PO DAILY blood thinner 05/11/24 05/19/24 09:10 History acetaminophen 325 mg tablet 650 mg (2 x 325 mg) PO Q6H PRN PRN 05/19/24 05/18/24 23:15 Rx Pain 1-10 Or Fever>100.7 #0 tabs carvedilol 6.25 mg tablet 6.25 mg PO BIDCM Heart #0 tabs 05/19/24 05/19/24 09:10 Rx furosemide 40 mg tablet (Lasix) 40 mg PO DAILY Water pill #1 TAB 05/19/24 Unknown Rx losartan 50 mg tablet 50 mg PO DAILY BP #0 tabs 05/19/24 05/15/24 09:10 Rx potassium chloride 10 mEq 20 meq (2 x 10 mEq) PO DAILY 05/19/24 Unknown Rx tablet,extended release supplement #1 TAB Allergy/AdvReac Type Severity Reaction Status Date / Time No Known Allergies Allergy Verified 05/11/24 13:39 Family History Aunt Breast cancer Sister Diabetes Surgical History History of cholecystectomy History of lumpectomy Social History (Updated 05/19/24 @ 19:[address] Christian Perez MD) household members: spouse Smoking Status: Former smoker quit date: 05/11/90 Tobacco: How many years used: 15 alcohol intake: never substance use type: does not use what type of physical activity do you participate in: walking and bicycling ROS Constitutional Constitutional: Reports fatigue and weakness; Denies chills, fever(s) or weight gain ENT HEENT: Denies headache(s), nasal congestion or nasal discharge Cardiovascular Cardiovascular: Denies chest pain or palpitations Respiratory/Chest Respiratory/Chest: Denies cough, excessive phlegm production or shortness of breath with exertion Gastrointestinal Gastrointestinal: Denies abdominal pain, nausea or vomiting Genitourinary Genitourinary: Denies dysuria Musculoskeletal Musculoskeletal: Denies joint pain or joint swelling Integumentary Integumentary: Denies rash or wounds Neurologic Neurologic: Denies focal weakness, numbness or tingling Psychiatric Psychiatric: Denies anxiety, auditory hallucinations, depression, homicidal ideation or suicidal ideation Vital Signs Vital Signs Vital Signs: 05/19/24 16:52 05/19/24 18:07 Temperature 98.8 F Temperature Source Temporal Pulse Rate 87 Pulse Rhythm Regular Pulse Strength Normal (2+) Respiratory Rate 22 H Respiratory Effort Short of Breath Respiratory Depth Normal Respiratory Pattern Normal Blood Pressure 161/72 H Blood Pressure Mean 101 Blood Pressure Source Monitor Blood Pressure Position Semi-Fowlers Blood Pressure Location Left Arm Pulse Ox 95 Oxygen Delivery Method Room Air Room Air Weight Weight: 82.554 kg Body Mass Index (BMI) 32.2 Physical Exam Const alert General Appearance: cooperative HEENT normocephalic Eyes PERRL and EOMs intact bilaterally Neck supple, no JVD and no carotid bruits Resp normal respiratory effort, normal air movement and clear to auscultation bilaterally Cardio regular rate and regular rhythm GI normal to inspection, nondistended, normoactive bowel sounds, non-tender and non-distended Extremity normal capillary refill General Extremity: Negative for edema Skin no rashes or lesions noted General Skin Exam: no breakdown Psych affect normal Appearance: appropriate Assessment & Plan Assessment/Plan (1) Debility: (2) Acute respiratory failure with hypoxia: (3) Acute heart failure with preserved ejection fraction (HFpEF): (4) Hypertensive urgency: (5) Acute blood loss anemia: (6) Upper gastrointestinal bleeding: (7) Esophagitis: (8) Gastric ulcer: (9) Angiodysplasia of duodenum: (10) Influenza A: (11) Acute kidney injury: (12) GERD (gastroesophageal reflux disease): (13) Diabetes mellitus: (14) Hyperlipidemia: (15) Hypothyroidism: PLAN: Plan 79 year old female with below past medical history hospitalized for acute respiratory failure with hypoxia 2/2 acute HFpEF, complicated by acute blood loss anemia, upper gastrointestinal bleeding 2/2 esophagitis, gastric ulcer, duodenal angiodysplasia; influenza A, acute kidney injury, admitted to TCU with debility, here for rehabilitation, strengthening, prior to discharge home with . * Debility - PT/OT. * Pain - Tylenol 1000mg q6 prn pain (1-10). * Bowel - senna/colace 1 tablet bid, Magnesium citrate 300mL daily prn. * Adult immunization - Administer pneumonia vaccine, covid vaccine, flu vaccine as appropriate. * DVT prophylaxis - Lovenox 30mg sc daily. * Hyperlipidemia - Atorvastatin 10mg qhs. * Chronic HFpEF - Coreg 6.25mg bidcm, Losartan 100mg daily, Furosemide 40mg daily. * Vitamin D deficiency - D3 50mcg daily. * Coronary artery disease - Coreg 6.25mg bidcm, Losartan 100mg daily, Plavix 75mg daily. * Diabetes Mellitus II - Metformin 500mg bidcm, Glipizide 5mg daily. * Hypothyroidism - Levothyroxine 112mcg daily. * Insomnia - Melatonin 3mg qhs. * Macular degeneration - Healthy Eyes 1 cap bid. * Nutrition - MVI 1 tablet daily. * Esophagitis/gastric ulcer/duodenal angiodysplasia - Pantoprazole 40mg daily. * Hypokalemia - KCL 20meq daily.
[2024-05-19] MEDS: Atorvastatin Calcium 10 MG Tablet PO (20:31)
[2024-05-19] MEDS: Multivitamin (Healthy Eyes) Capsule 1 CAP PO (20:31)
[2024-05-19] MEDS: MELATONIN 3 MG TABLET PO (20:31)
[2024-05-19] MEDS: Senna/Docusate Sodium 1 Tablet PO (20:31)
[2024-05-19 21:47] LABS: Bedside Glucose 219 mg/dL (74-106)
[2024-05-20] MEDS: Acetaminophen 500 MG Tablet 1000 MG PO (00:22)
[2024-05-20] MEDS: Enoxaparin 40 MG/0.4 ML Syringe SC (05:59)
[2024-05-20] MEDS: Levothyroxine 112 MCG Tablet PO (06:00)
[2024-05-20 06:09] VITALS: PULSE 71; O2SAT 99
[2024-05-20 06:21] LABS: Bedside Glucose 167 mg/dL (74-106)
--- NOTE | 2024-05-20 07:15 | NURSING ---
Pt. reports anxiety and difficulty sleeping, states I don't know why I get so anxious sometimes, but sometimes it's really hard for me to get my anxiety to come down. Pt. requesting med for anxiety and stronger med for sleep. Written communication left for Dr. Perez
[2024-05-20] MEDS: glipiZIDE 5 MG Tablet PO (08:24)
[2024-05-20] MEDS: Pantoprazole Sodium 40 MG Tablet PO (08:24)
[2024-05-20] MEDS: Furosemide 40 MG Tablet PO (08:24)
[2024-05-20] MEDS: metFORMIN HCl 500 MG Tablet PO ×2 (08:24→16:41)
[2024-05-20] MEDS: Cholecalciferol (VIT D3) 25 MCG TABLET (1,000 UNITS) 50 MCG PO (08:24)
[2024-05-20] MEDS: Multivitamin (Healthy Eyes) Capsule 1 CAP PO ×2 (08:24→21:21)
[2024-05-20] MEDS: LORazepam 0.5 MG Tablet PO (08:24)
[2024-05-20] MEDS: Losartan Potassium 100 MG Tablet PO (08:24)
[2024-05-20] MEDS: Clopidogrel Bisulfate 75 MG Tablet PO (08:24)
[2024-05-20] MEDS: Multivitamins,Therapeutic Tablet 1 TABLET PO (08:24)
[2024-05-20] MEDS: Carvedilol 6.25 MG Tablet PO (08:25)
[2024-05-20] MEDS: Senna/Docusate Sodium 1 Tablet PO (08:25)
[2024-05-20] MEDS: Potassium Chloride Oral Tablet 20 MEQ PO (08:27)
[2024-05-20 08:31] VITALS: BP 170/64; PULSE 82
[2024-05-20 09:09] LABS: Absolute Neutrophil Count 5.2 X10^3/uL (2.0-7.7); Basophil# 0.03 X10^3/uL; Basophil% 0.4 % (0-1); Eosinophil# 0.04 X10^3/uL; Eosinophils% 0.6 % (0-5); Hematocrit 28.3 % (37-47); Lymphocyte % 14.2 % (19-41); Mean Corp Hgb Conc 31.8 g/dL (32-36); Mean Corpuscular Hgb 28.8 pg (27.0-32.0); Mean Corpuscular Volume 90.4 fL (81-99); Mean Platelet Vol. 10.1 fl (6.2-12.0); Monocyte# 0.63 X10^3/uL; Monocyte% 8.9 % (0-10); NRBC Flagged by Analyzer 0 % (0-5); Neutrophil # 5.19 X10^3/uL (2.7-7.7); Neutrophil % 73.6 % (47-70); Platelet Count 245 K/mm3 (150-450); RBC Distribution Width CV 14.4 % (11.6-14.6); RBC Distribution Width SD 46.1 fl (35.1-43.9); Red Blood Count 3.13 M/mm3 (4.2-5.4); White Blood Count 7.1 K/mm3 (4.4-11.0)
[2024-05-20 09:20] LABS: Anion Gap 10 (5-15); BUN 31 mg/dL (7-18); BUN/Creat Ratio 19.6 RATIO (10-20); Chloride 104 mmol/L (98-107); Creatinine, Serum 1.58 mg/dL (0.55-1.02); EST Glomerular Filtration Rate 33 mL/min (>60); Est Glom Filt Rate - Afr Amer 40 mL/min (>60); Estimated Creatinine Clearance 28.42 ml/min; Glucose 287 mg/dL (74-106); Potassium 4.3 mmol/L (3.5-5.1); Sodium Level 136 mmol/L (136-145)
[2024-05-20] MEDS: Tuberculin,Purif.prot.deriv. 50 TU/ML Vial 0.1 ML ID (10:32)
[2024-05-20] MEDS: Menthol/Lanolin/Calamine/Znox 113 GM Tube 1 APPLIC TOPICAL ×2 (10:33→21:23)
[2024-05-20] MEDS: Nystatin Powder 15gm Bottle 1 APPLIC TOPICAL ×2 (10:40→21:23)
--- NOTE | 2024-05-20 11:16 | NURSING ---
Cardiopulmonary Supervisor Note; Activity Asset: Complete
--- NOTE | 2024-05-20 13:50 | RAD_ITS ---
INDICATION: Nausea and Diarrhea EXAMINATION/TECHNIQUE: X-RAY - XR Abdomen 2 frontal views COMPARISON: No relevant prior comparison study available FINDINGS: BOWEL GAS PATTERN: Non-obstructive. No bowel or stomach distention. FREE AIR: Not assessed on a single supine view. CALCIFICATIONS: No abnormal calcifications observed. LOWER CHEST: No acute pathology. BONES AND SOFT TISSUES: There are degenerative changes of the lumbar spine. There are surgical clips within the right upper quadrant consistent with prior cholecystectomy. RAD/Abdomen Single View IMPRESSION: Nonspecific bowel gas pattern. Electronically Signed: Kalyani Berman MD at 15:19 EST ,
--- NOTE | 2024-05-20 15:39 | PCM.PN.DRR ---
Documented by User: Farida Domínguez 05/20/24 15:56 TCU RX Drug Regimen Review Subjective/Objective Subjective/Objective Subjective: TCU Admission. 79 YOF presented to the ER with chest pain. Hospitalized for acute respiratory failure with hypoxia 2/2 acute HFpEF, complicated by acute blood loss anemia, upper gastrointestinal bleeding 2/2 esophagitis, gastric ulcer, duodenal angiodysplasia; influenza A, acute kidney injury. Admitted to TCU with debility for strengthening and rehabilitation. Objective: Allergies No Known Allergies Allergy (Verified 05/11/24 13:39) Current Medications Generic Name Dose Route Start Last Admin Trade Name Freq PRN Reason Stop Dose Admin Acetaminophen 1,000 mg 05/19/24 20:13 05/20/24 00:22 Acetaminophen 500 Mg Tablet PO 1,000 mg Q6H PRN PRN Administration Pain Score 1-10 Atorvastatin Calcium 10 mg 05/19/24 22:00 05/19/24 20:31 Atorvastatin Calcium 10 Mg Tablet PO 10 mg QHS NINA Administration Calamine/Phenol 1 applic 05/20/24 10:00 05/20/24 10:33 Menthol/Lanolin/Calamine/Znox 113 Gm Tube TOPICAL 1 applic BID NINA Administration Protocol Carvedilol 6.25 mg 05/19/24 17:54 05/20/24 08:25 Carvedilol 6.25 Mg Tablet PO 6.25 mg BIDCM NINA Administration Protocol Cholecalciferol 50 mcg 05/20/24 10:00 05/20/24 08:24 Cholecalciferol (Vit D3) 25 Mcg Tablet (1,000 Units) PO 50 mcg DAILY NINA Administration Clopidogrel Bisulfate 75 mg 05/20/24 10:00 05/20/24 08:24 Clopidogrel Bisulfate 75 Mg Tablet PO 75 mg DAILY NINA Administration Doxepin HCl 10 mg 05/20/24 22:00 Doxepin Hydrochloride 10 Mg Capsule PO QHS NINA Enoxaparin Sodium 30 mg 05/21/24 06:00 Enoxaparin 30 Mg/0.3 Ml Syringe SC DAILY@0600 NINA Furosemide 40 mg 05/20/24 10:00 05/20/24 08:24 Furosemide 40 Mg Tablet PO 40 mg DAILY NINA Administration Protocol Glipizide 5 mg 05/20/24 08:00 05/20/24 08:24 Glipizide 5 Mg Tablet PO 5 mg DAILYCM NINA Administration Levothyroxine Sodium 112 mcg 05/20/24 06:00 05/20/24 06:00 Levothyroxine 112 Mcg Tablet PO 112 mcg DAILY@0600 [facility] Administration Lorazepam 0.25 mg 05/20/24 14:00 Lorazepam 0.5 Mg Tablet PO Q4H PRN PRN ANXIETY/RESTLESSNESS/SLEEP Losartan Potassium 100 mg 05/20/24 10:00 05/20/24 08:24 Losartan Potassium 100 Mg Tablet PO 100 mg DAILY [facility] Administration Protocol Magnesium Citrate 300 ml 05/19/24 20:12 Magnesium Citrate 300 Ml PO DAILY PRN Constipation Metformin HCl 500 mg 05/20/24 08:00 05/20/24 08:24 Metformin Hcl 500 Mg Tablet PO 500 mg BIDCM [facility] Administration Multivitamins 1 tablet 05/20/24 08:00 05/20/24 08:24 Multivitamins,Therapeutic Tablet [facility] Administration Multivitamins/Minerals 1 cap 05/19/24 22:00 05/20/24 08:24 Multivitamin (Healthy Eyes) Capsule PO 1 cap BID [facility] Administration Nutritional Formula (Lactose Free) 120 ml 05/20/24 17:45 Glucerna Shake 120 Ml Liquid PO TIDCM [facility] Nystatin 1 applic 05/20/24 10:00 05/20/24 10:40 Nystatin Powder 15gm Bottle TOPICAL 1 applic BID [facility] Administration Protocol Pantoprazole Sodium 40 mg 05/20/24 10:00 05/20/24 08:24 Pantoprazole Sodium 40 Mg Tablet PO 40 mg DAILY [facility] Administration Potassium Chloride 20 meq 05/20/24 08:00 05/20/24 08:27 Potassium Chloride Oral Tablet 20 Meq [facility] Administration Senna/Docusate Sodium 1 tablet 05/19/24 22:00 05/20/24 08:25 Senna/Docusate Sodium 1 Tablet PO 1 tablet BID [facility] Administration Tuberculin PPD 0.1 ml 05/27/24 10:00 Tuberculin,Purif.Prot.Deriv. 50 Tu/Ml Vial ID 05/27/24 10:01 X1 ONE Problem List Hyperlipidemia (Acute) GERD (gastroesophageal reflux disease) (Acute) Acute kidney injury (Acute) Influenza A (Acute) Esophagitis (Acute) Upper gastrointestinal bleeding (Acute) Acute blood loss anemia (Acute) Acute heart failure with preserved ejection fraction (HFpEF) (Acute) Acute respiratory failure with hypoxia (Acute) Debility (Acute) Angiodysplasia of duodenum (Acute) Gastric ulcer (Acute) Hypertensive urgency (Acute) Hypothyroidism (Chronic) Diabetes mellitus (Chronic) Vital Signs Temp Pulse Resp BP Pulse Ox O2 Del Method 98.8 F 82 22 H 170/64 H 99 Room Air 05/19/24 16:52 05/20/24 08:31 05/19/24 16:52 05/20/24 08:31 05/20/24 06:09 05/20/24 06:09 Oxygen Delivery Method Room Air Weight: 82.554 kg Body Mass Index (BMI) 32.2 Sodium 136 mmol/L (136-145) 05/20/24 08:49 Potassium 4.3 mmol/L (3.5-5.1) 05/20/24 08:49 Chloride 104 mmol/L (98-107) 05/20/24 08:49 Carbon Dioxide 22.0 mmol/L (21.0-32.0) 05/20/24 08:49 Anion Gap 10 (5-15) 05/20/24 08:49 BUN 31 mg/dL (7-18) H 05/20/24 08:49 Creatinine 1.58 mg/dL (0.55-1.02) H 05/20/24 08:49 Est GFR (MDRD) Af Amer 40 mL/min (>60) L 05/20/24 08:49 Est GFR (MDRD) Non-Af 33 mL/min (>60) L 05/20/24 08:49 BUN/Creatinine Ratio 19.6 RATIO (10-20) 05/20/24 08:49 Glucose 287 mg/dL (74-106) H 05/20/24 08:49 Assessment/Plan: 1. Pain: acetaminophen 1000mg PO Q6H PRN pain 1-10. Resident has had 1 dose for generalized pain (pain score of 3). Please continue to monitor for increased pain and PRN usage. 2. Bowel: senna/docusate 1T PO BID and magnesium citrate 300mL PO daily PRN constipation. Please continue to monitor for constipation and PRN usage (no doses given). Last documented bowel movement was 05/18. 3. DVT prophylaxis: enoxaparin 30mg SC daily. Please continue to monitor for S/S of bleeding/DVT, hemoglobin (last 9g/dL), platelets (last 245,000) and renal function (CrCl 28.4 mL/min). 4. Esophagitis/gastric ulcer/duodenal angiodysplasia: pantoprazole 40mg PO daily. Please continue to monitor for bleeding and diarrhea (Katerine). 5. Chronic HFpFH/CAD: carvedilol 6.25mg PO BIDCM, losartan 100mg PO daily, furosemide 40mg PO daily, clopidogrel 75mg PO daily. Please continue to monitor BP (last 170/64), HR (last 82), renal function, potassium (last 4.3mmol/L), swelling, S/S of bleeding and hemoglobin. 6. Hyperlipidemia: atorvastatin 10mg PO QHS. Please consider ordering a lipid panel (last was in 2021) if clinically appropriate. Thanks. Please continue to monitor LFTs (last 05/25/23) and muscle pain. 7. Hypothyroidism: levothyroxine 112mcg PO daily. Please continue to monitor TSH (last 05/12/24 WNL) and S/S of hypo/hyperthyroidism. 8. Diabetes mellitus II: metformin 500mg PO BIDCM and glipizide 5mg PO daily. Please continue to monitor GFR (last 33mL/min), glucose (last 287mg/dL), diarrhea, S/S of hypoglycemia. 9. Hypokalemia: potassium chloride 20mEq PO daily. Please continue to monitor potassium. 10. Vitamin D deficiency: cholecalciferol 50mcg PO daily. Please consider ordering a vitamin D level as the last level is from 2021. Thanks. 11. Macular degeneration/nutrition: healthy eyes 1 capsule PO BID and multivitamin 1T PO daily. Please continue to monitor. Assessment/Plan for indications treated with psychotropic medications: 1. Anxiety/restlessness/sleep: doxepin 10mg PO QHS and lorazepam 0.5mg PO Q4H PRN anxiety/restlessness/sleep (failed melatonin). Resident has not had doses of either medication yet, GDR not appropriate. Please continue to monitor for PRN usage and insomnia. Medical chart and medication regimen reviewed. The following medication irregularities or issues were identified: 1. Atorvastatin 10mg PO QHS. Please consider ordering a lipid panel (last was in 2021) if clinically appropriate. Thanks. 2. Cholecalciferol 50mcg PO daily. Please consider ordering a vitamin D level as the last level is from 2021. Thanks. Date Date of Note: 05/20/24 Documented by User: Dr. Christian Perez MD 05/20/24 16:11 TCU RX Drug Regimen Review Provider Comments Provider responsibility Provider Comments to Recommendations by Pharmacy Agree
[2024-05-20 16:00] VITALS: BP 170/70; PULSE 76; RESP 20; TEMP 36.8; O2SAT 94
--- NOTE | 2024-05-20 16:12 | CASEMGMT ---
Social Work SW met with pt to complete initial assessment. Introduced self and role of SW. Pt contacts were verified. Pt confirmed code status as full code. Pt states she has completed advance directives and SW requested they be brought in for scanning into the medical record. SW educated to Medicare benefit and copay coverage. SW Encouraged to contact secondary insurance to ensure copay coverage. Pt's goal is to return home with spouse. Pt does state that her spouse works [employer] from 8-4 and pt will be home alone. Pt is inquiring about private duty aids to assist while is at work. SW will provide list of private duty aids. SW will continue to follow. AMADOR Berumen
--- NOTE | 2024-05-20 16:13 | CHAPLAIN ---
Type of Pastoral Visit _x__ Initial Visit ___ Follow-up Visit ___ On-call Visit ___ General Patient Visit ___ Spiritual Assessment ___ Family Conference ___ Bereavement ___ Rapid Response ___ Code Blue ___ Other (describe below) Pastoral Care Referral From _x__ Patient ___ Family ___ Nurse ___ Physician ___ Science Writer ___ Dairy Store Manager ___ Other (describe below) Sacrament/Intervention _x__ Active listening ___ Anointing ___ Sabianist ___ Bereavement ___ Communion ___ Emily exploration ___ ___ Life review _x__ Prayer ___ Reconciliation ___ Sacrament of Sick ___ Supportive presence ___ Wedding ___ Other (describe below) Pastoral Comments patient was seen a week ago in the PCU and has now been transferred to TCU; pt states that she has made improvements but is still so weak; pt declares that she is doing pretty well overall, is handling her situation fine, and has no concerns except for improving; pt states that a prayer would be appreciated and that she is grateful for the visits and prayers by this dam tender; spouse is with her in the room and he agrees with her statements and acknowledges the support given by this dam tender and all the staff
[2024-05-20 16:36] VITALS: BP 170/70; PULSE 76
[2024-05-20] MEDS: hydrALAZINE 25 MG Tablet PO ×2 (16:36→21:26)
[2024-05-20] MEDS: Glucerna Shake 120 ML LIQUID PO (16:36)
[2024-05-20] MEDS: Carvedilol 12.5 MG Tablet PO (16:36)
[2024-05-20 20:00] VITALS: PULSE 78; RESP 18; O2SAT 98
[2024-05-20] MEDS: Atorvastatin Calcium 10 MG Tablet PO (21:21)
[2024-05-20] MEDS: Doxepin Hydrochloride 10 MG Capsule PO (21:21)
[2024-05-20 21:26] VITALS: BP 172/66; PULSE 71
[2024-05-20 21:53] LABS: Bedside Glucose 176 mg/dL (74-106)
[2024-05-21] VITALS (7 sets, daily range): BP systolic 150–176; BP diastolic 58–74; PULSE 71–85; RESP 16–18; TEMP 36.6; O2SAT 95; BMI 32.1
--- NOTE | 2024-05-21 01:25 | NURSING ---
ALL CARE PROVIDED IN ROOM DUE TO DROPLET PRECAUTIONS/ISOLATION
[2024-05-21] MEDS: Levothyroxine 112 MCG Tablet PO (06:00)
[2024-05-21] MEDS: Enoxaparin 30 MG/0.3 ML Syringe SC (06:00)
[2024-05-21] MEDS: hydrALAZINE 25 MG Tablet PO ×3 (06:01→21:29)
[2024-05-21 06:17] LABS: Bedside Glucose 120 mg/dL (74-106)
--- NOTE | 2024-05-21 07:23 | NURSING ---
Addendum entered by Lisa Ruiz 05/21/24 16:01: chest xray negative. pt & updated. Addendum entered by Lisa Ruiz 05/21/24 13:18: dr perez updated, new order for chest xray & PRN robitussin per pt request for cough Original Note: Crackles auscultated bilat lower posterior lobes, Written communication left for Dr. Perez
[2024-05-21 07:53] LABS: Cholesterol 138 mg/dL (200); High Density Lipoprotein 48 mg/dL; Triglycerides 170 mg/dL; Very Low Density Lipoprotein 34 mg/dL (5-40)
[2024-05-21] MEDS: Glucerna Shake 120 ML LIQUID PO (09:32)
[2024-05-21] MEDS: Carvedilol 12.5 MG Tablet PO ×2 (09:36→16:48)
[2024-05-21] MEDS: Losartan Potassium 100 MG Tablet PO (09:36)
[2024-05-21] MEDS: Multivitamins,Therapeutic Tablet 1 TABLET PO (09:36)
[2024-05-21] MEDS: Clopidogrel Bisulfate 75 MG Tablet PO (09:36)
[2024-05-21] MEDS: glipiZIDE 5 MG Tablet PO (09:36)
[2024-05-21] MEDS: Multivitamin (Healthy Eyes) Capsule 1 CAP PO ×2 (09:36→21:29)
[2024-05-21] MEDS: Furosemide 40 MG Tablet PO (09:36)
[2024-05-21] MEDS: Pantoprazole Sodium 40 MG Tablet PO (09:36)
[2024-05-21] MEDS: Potassium Chloride Oral Tablet 20 MEQ PO (09:36)
[2024-05-21] MEDS: Cholecalciferol (VIT D3) 25 MCG TABLET (1,000 UNITS) 50 MCG PO (09:36)
[2024-05-21] MEDS: metFORMIN HCl 500 MG Tablet PO ×2 (09:36→16:48)
[2024-05-21] MEDS: Menthol/Lanolin/Calamine/Znox 113 GM Tube 1 APPLIC TOPICAL (09:39)
[2024-05-21] MEDS: Nystatin Powder 15gm Bottle 1 APPLIC TOPICAL (09:40)
--- NOTE | 2024-05-21 10:02 | NURSING ---
estela sung'bryon per pt request, pt states don't give that to me, it caused me diarrhea lastnight
--- NOTE | 2024-05-21 13:15 | RAD_ITS ---
STUDY: X-RAY CHEST REASON FOR EXAM: Female, 79 years old. Cough and crackles. TECHNIQUE: Frontal and lateral views of the chest. COMPARISON: May 14, 2024 FINDINGS: The lungs are clear and expanded. There is no demonstrated pleural abnormality. Normal size heart. Normal mediastinum and bruno. Normal visualized pulmonary arteries. Normal visualized aortic arch and descending thoracic aorta. Normal visualized thoracic spine. Normal visualized ribs, clavicles, and shoulders. No abnormality of the visualized soft tissue structures of the upper abdomen. RAD/Chest PA and Lateral IMPRESSION: No interval change and no acute or active cardiopulmonary disease. Electronically Signed: Killian Lopez MD at 15:17 EST ,
[2024-05-21] MEDS: guaiFENesin Dm 10 ML UDC PO (14:51)
[2024-05-21 21:09] LABS: Bedside Glucose 158 mg/dL (74-106)
--- NOTE | 2024-05-21 21:14 | NURSING ---
Hearing aids placed on nascar racer.
[2024-05-21] MEDS: LORazepam 0.5 MG Tablet 0.25 MG PO (21:28)
[2024-05-21] MEDS: Doxepin Hydrochloride 10 MG Capsule PO (21:29)
[2024-05-21] MEDS: Atorvastatin Calcium 10 MG Tablet PO (21:29)
[2024-05-22 05:55] VITALS: BMI 31.8
[2024-05-22 06:23] LABS: Bedside Glucose 141 mg/dL (74-106)
[2024-05-22 06:34] VITALS: BP 152/61; PULSE 76
[2024-05-22] MEDS: hydrALAZINE 25 MG Tablet PO ×3 (06:34→19:52)
[2024-05-22] MEDS: Levothyroxine 112 MCG Tablet PO (06:34)
[2024-05-22] MEDS: Enoxaparin 30 MG/0.3 ML Syringe SC (06:34)
[2024-05-22] MEDS: guaiFENesin Dm 10 ML UDC PO ×3 (07:56→20:03)
[2024-05-22 07:58] VITALS: BP 166/60; PULSE 77; RESP 20; TEMP 36.5; O2SAT 93
[2024-05-22] MEDS: Losartan Potassium 100 MG Tablet PO (08:00)
[2024-05-22] MEDS: Furosemide 40 MG Tablet PO (08:00)
[2024-05-22] MEDS: Pantoprazole Sodium 40 MG Tablet PO (08:00)
[2024-05-22] MEDS: glipiZIDE 5 MG Tablet PO (08:00)
[2024-05-22] MEDS: metFORMIN HCl 500 MG Tablet PO ×2 (08:00→17:44)
[2024-05-22] MEDS: Cholecalciferol (VIT D3) 25 MCG TABLET (1,000 UNITS) 50 MCG PO (08:00)
[2024-05-22] MEDS: Multivitamins,Therapeutic Tablet 1 TABLET PO (08:00)
[2024-05-22] MEDS: Multivitamin (Healthy Eyes) Capsule 1 CAP PO ×2 (08:00→19:53)
[2024-05-22] MEDS: Carvedilol 12.5 MG Tablet PO ×2 (08:00→17:45)
[2024-05-22] MEDS: Potassium Chloride Oral Tablet 20 MEQ PO (08:00)
[2024-05-22] MEDS: Clopidogrel Bisulfate 75 MG Tablet PO (08:00)
[2024-05-22] MEDS: Menthol/Lanolin/Calamine/Znox 113 GM Tube 1 APPLIC TOPICAL ×2 (08:02→19:51)
[2024-05-22] MEDS: Nystatin Powder 15gm Bottle 1 APPLIC TOPICAL ×2 (08:03→19:55)
--- NOTE | 2024-05-22 08:28 | NURSING ---
robitussin given per pt request, with moist productive cough. assisted pt to chair, encouraging pt to sit up as much as possible and ambulate to BR to get lungs working good. Incentive spirometer given, teach back done. pt needs much encouragement to get up and move. pt asked how long do I need to sit up Encouraged pt to sit up as long as she can a couple times a day. call light in reach.
[2024-05-22 13:36] VITALS: BP 158/65; PULSE 75
[2024-05-22] MEDS: Acetaminophen 500 MG Tablet 1000 MG PO (17:47)
[2024-05-22] MEDS: LORazepam 0.5 MG Tablet 0.25 MG PO (19:33)
[2024-05-22 19:34] VITALS: PULSE 70; RESP 20; O2SAT 94
[2024-05-22 19:44] VITALS: BP 135/49; PULSE 67; RESP 20; O2SAT 94
[2024-05-22 19:52] VITALS: BP 135/49; PULSE 67
[2024-05-22] MEDS: Atorvastatin Calcium 10 MG Tablet PO (19:55)
[2024-05-22] MEDS: Doxepin Hydrochloride 10 MG Capsule PO (19:56)
[2024-05-22 21:39] LABS: Bedside Glucose 176 mg/dL (74-106)
[2024-05-23] MEDS: Acetaminophen 500 MG Tablet 1000 MG PO (01:00)
--- NOTE | 2024-05-23 04:04 | NURSING ---
Pt assisted to bathroom. Pt had loose stool. When she stood up she c/o of feeling dizzy and like she was going to pass out. 2 assist and w/c back to bed. VS assessed see documented. No fever. BP stable. Pt placed in Special Contact Isolation and note left for Dr Perez.
[2024-05-23 04:11] VITALS: BP 132/52; PULSE 72; RESP 18; TEMP 36.2; O2SAT 95
[2024-05-23] MEDS: Enoxaparin 30 MG/0.3 ML Syringe SC (05:40)
[2024-05-23] MEDS: Levothyroxine 112 MCG Tablet PO (05:40)
[2024-05-23 05:41] VITALS: BP 135/52; PULSE 72; BMI 31.6
[2024-05-23] MEDS: hydrALAZINE 25 MG Tablet PO ×3 (05:41→20:18)
[2024-05-23 06:14] LABS: Bedside Glucose 139 mg/dL (74-106)
[2024-05-23 10:06] VITALS: BP 154/66; RESP 20; TEMP 36.5; O2SAT 96
[2024-05-23] MEDS: LORazepam 0.5 MG Tablet 0.25 MG PO ×2 (10:17→17:29)
[2024-05-23] MEDS: Carvedilol 12.5 MG Tablet PO ×2 (10:17→17:28)
[2024-05-23] MEDS: guaiFENesin Dm 10 ML UDC PO ×2 (10:17→17:29)
[2024-05-23] MEDS: Losartan Potassium 100 MG Tablet PO (10:18)
[2024-05-23] MEDS: glipiZIDE 5 MG Tablet PO (10:18)
[2024-05-23] MEDS: Menthol/Lanolin/Calamine/Znox 113 GM Tube 1 APPLIC TOPICAL ×2 (10:18→20:30)
[2024-05-23] MEDS: Potassium Chloride Oral Tablet 20 MEQ PO (10:18)
[2024-05-23] MEDS: metFORMIN HCl 500 MG Tablet PO ×2 (10:18→17:28)
[2024-05-23] MEDS: Multivitamins,Therapeutic Tablet 1 TABLET PO (10:18)
[2024-05-23] MEDS: Furosemide 40 MG Tablet PO (10:19)
[2024-05-23] MEDS: Nystatin Powder 15gm Bottle 1 APPLIC TOPICAL ×2 (10:19→20:21)
[2024-05-23] MEDS: Multivitamin (Healthy Eyes) Capsule 1 CAP PO ×2 (10:19→20:19)
[2024-05-23] MEDS: Clopidogrel Bisulfate 75 MG Tablet PO (10:19)
[2024-05-23] MEDS: Cholecalciferol (VIT D3) 25 MCG TABLET (1,000 UNITS) 50 MCG PO (10:19)
[2024-05-23] MEDS: Pantoprazole Sodium 40 MG Tablet PO (10:19)
--- NOTE | 2024-05-23 11:32 | NURSING ---
Offered covid vaccine, VIS provided. Resident refuses at this time.
--- NOTE | 2024-05-23 12:03 | NURSING ---
Order for fluid bolus. When resident updated she became upset, requesting not having to have an IV unless totally necessary. Says she's a very hard stick. Updated Dr. pastrana, order to DC bolus and encourage oral fluid intake.
[2024-05-23 14:46] VITALS: BP 163/67; PULSE 80
[2024-05-23 15:56] LABS: Vitamin D,25 Hydroxy 44.9 ng/mL
[2024-05-23 20:18] VITALS: BP 162/57; PULSE 78
[2024-05-23] MEDS: Atorvastatin Calcium 10 MG Tablet PO (20:19)
[2024-05-23] MEDS: Doxepin Hydrochloride 10 MG Capsule PO (20:19)
[2024-05-23 21:29] LABS: Bedside Glucose 173 mg/dL (74-106)
[2024-05-24] VITALS (7 sets, daily range): BP systolic 126–155; BP diastolic 45–63; PULSE 77–84; RESP 17; TEMP 37; O2SAT 93–95; BMI 31.2; BMI 31.1
[2024-05-24] MEDS: LORazepam 0.5 MG Tablet 0.25 MG PO ×2 (02:49→20:42)
[2024-05-24] MEDS: Levothyroxine 112 MCG Tablet PO (05:51)
[2024-05-24] MEDS: hydrALAZINE 25 MG Tablet PO ×3 (05:51→20:44)
[2024-05-24] MEDS: Enoxaparin 30 MG/0.3 ML Syringe SC (05:52)
[2024-05-24 06:13] LABS: Bedside Glucose 153 mg/dL (74-106)
[2024-05-24] MEDS: Losartan Potassium 100 MG Tablet PO (08:49)
[2024-05-24] MEDS: glipiZIDE 5 MG Tablet PO (08:50)
[2024-05-24] MEDS: Potassium Chloride Oral Tablet 20 MEQ PO (08:51)
[2024-05-24] MEDS: Cholecalciferol (VIT D3) 25 MCG TABLET (1,000 UNITS) 50 MCG PO (08:51)
[2024-05-24] MEDS: Furosemide 40 MG Tablet PO (08:51)
[2024-05-24] MEDS: metFORMIN HCl 500 MG Tablet PO ×2 (08:51→17:37)
[2024-05-24] MEDS: Multivitamin (Healthy Eyes) Capsule 1 CAP PO ×2 (08:51→20:47)
[2024-05-24] MEDS: Clopidogrel Bisulfate 75 MG Tablet PO (08:51)
[2024-05-24] MEDS: Pantoprazole Sodium 40 MG Tablet PO (08:51)
[2024-05-24] MEDS: Multivitamins,Therapeutic Tablet 1 TABLET PO (08:51)
[2024-05-24] MEDS: Carvedilol 25 MG Tablet PO ×2 (08:51→17:36)
[2024-05-24] MEDS: Menthol/Lanolin/Calamine/Znox 113 GM Tube 1 APPLIC TOPICAL ×2 (09:02→20:57)
[2024-05-24] MEDS: Nystatin Powder 15gm Bottle 1 APPLIC TOPICAL ×2 (09:02→20:53)
[2024-05-24] MEDS: Citalopram 10 MG Tablet PO (18:13)
[2024-05-24] MEDS: guaiFENesin Dm 10 ML UDC PO (20:42)
[2024-05-24] MEDS: Doxepin Hydrochloride 10 MG Capsule PO (20:43)
[2024-05-24] MEDS: Atorvastatin Calcium 10 MG Tablet PO (20:47)
[2024-05-25 06:26] LABS: Bedside Glucose 144 mg/dL (74-106)
[2024-05-25 06:48] VITALS: BP 132/51; PULSE 80
[2024-05-25] MEDS: Levothyroxine 112 MCG Tablet PO (06:48)
[2024-05-25] MEDS: Enoxaparin 30 MG/0.3 ML Syringe SC (06:48)
[2024-05-25] MEDS: hydrALAZINE 25 MG Tablet PO ×3 (06:48→20:11)
[2024-05-25] MEDS: Carvedilol 25 MG Tablet PO ×2 (08:05→17:26)
[2024-05-25] MEDS: Clopidogrel Bisulfate 75 MG Tablet PO (08:05)
[2024-05-25] MEDS: Losartan Potassium 100 MG Tablet PO (08:05)
[2024-05-25] MEDS: metFORMIN HCl 500 MG Tablet PO ×2 (08:05→17:27)
[2024-05-25] MEDS: glipiZIDE 5 MG Tablet PO (08:05)
[2024-05-25] MEDS: Citalopram 10 MG Tablet PO (08:05)
[2024-05-25] MEDS: Potassium Chloride Oral Tablet 20 MEQ PO (08:06)
[2024-05-25] MEDS: Pantoprazole Sodium 40 MG Tablet PO (08:06)
[2024-05-25] MEDS: Menthol/Lanolin/Calamine/Znox 113 GM Tube 1 APPLIC TOPICAL ×2 (08:06→20:19)
[2024-05-25] MEDS: Multivitamins,Therapeutic Tablet 1 TABLET PO (08:06)
[2024-05-25] MEDS: Multivitamin (Healthy Eyes) Capsule 1 CAP PO ×2 (08:06→20:12)
[2024-05-25] MEDS: Cholecalciferol (VIT D3) 25 MCG TABLET (1,000 UNITS) 50 MCG PO (08:06)
[2024-05-25] MEDS: Furosemide 40 MG Tablet PO (08:06)
[2024-05-25] MEDS: Nystatin Powder 15gm Bottle 1 APPLIC TOPICAL ×2 (08:07→20:18)
--- NOTE | 2024-05-25 08:15 | NURSING ---
Pt educated on importance of eating proper nutrition pt had a few bites of breakfast this AM and refused to eat anymore.
[2024-05-25] MEDS: guaiFENesin Dm 10 ML UDC PO ×2 (08:27→20:12)
[2024-05-25 08:30] VITALS: BMI 31.4
[2024-05-25] MEDS: Diphenoxylate/Atrop 1 Tablet PO (10:41)
--- NOTE | 2024-05-25 13:45 | CASEMGMT ---
Plan of Care meeting held today with pt and pt's spouse present. Therapy/biopharmaceutical rep/activities provided updates on pt progress with therapy. SW educated pt to Medicare benefit and provided written communication on insurance process and copay coverage during stay. Pt lives at home with her spouse. Spouse does work 3 days a week and pt is home alone and will need to be able to care for herself. Pt is interested in hiring help at home. SW provided pt with list of private duty home care agencies. Therapy is recommending home health care at time of discharge. No dc date set at this time. Will continue with treatment plan and SYLWIA will follow for dc planning. AMADOR Olivera
[2024-05-25 14:33] VITALS: BP 113/53; PULSE 69
[2024-05-25 14:41] VITALS: BP 113/53; PULSE 69; RESP 20; TEMP 36.8; O2SAT 95
[2024-05-25 17:30] VITALS: BP 120/56; PULSE 69
[2024-05-25] MEDS: Doxepin Hydrochloride 10 MG Capsule PO (20:10)
[2024-05-25] MEDS: Atorvastatin Calcium 10 MG Tablet PO (20:10)
[2024-05-25 20:11] VITALS: BP 114/40; PULSE 72
[2024-05-25] MEDS: LORazepam 0.5 MG Tablet 0.25 MG PO (20:12)
[2024-05-26 01:42] LABS: Bedside Glucose 152 mg/dL (74-106)
[2024-05-26] MEDS: guaiFENesin Dm 10 ML UDC PO (03:07)
[2024-05-26] MEDS: LORazepam 0.5 MG Tablet 0.25 MG PO ×2 (03:07→16:27)
[2024-05-26 04:49] VITALS: BMI 31.6
[2024-05-26] MEDS: Enoxaparin 30 MG/0.3 ML Syringe SC (05:34)
[2024-05-26] MEDS: Levothyroxine 112 MCG Tablet PO (05:34)
[2024-05-26 05:37] VITALS: BP 117/45; PULSE 75
[2024-05-26] MEDS: hydrALAZINE 25 MG Tablet PO ×2 (05:37→14:25)
[2024-05-26 06:23] LABS: Bedside Glucose 148 mg/dL (74-106)
[2024-05-26 08:59] VITALS: BP 123/51; PULSE 74; RESP 20; TEMP 37.1; O2SAT 94
[2024-05-26] MEDS: Multivitamins,Therapeutic Tablet 1 TABLET PO (09:02)
[2024-05-26] MEDS: glipiZIDE 5 MG Tablet PO (09:02)
[2024-05-26] MEDS: Cholecalciferol (VIT D3) 25 MCG TABLET (1,000 UNITS) 50 MCG PO (09:02)
[2024-05-26] MEDS: Pantoprazole Sodium 40 MG Tablet PO (09:02)
[2024-05-26] MEDS: Carvedilol 25 MG Tablet PO ×2 (09:02→17:48)
[2024-05-26] MEDS: Nystatin Powder 15gm Bottle 1 APPLIC TOPICAL ×2 (09:03→20:14)
[2024-05-26] MEDS: Citalopram 10 MG Tablet PO (09:03)
[2024-05-26] MEDS: Potassium Chloride Oral Tablet 20 MEQ PO (09:03)
[2024-05-26] MEDS: Furosemide 40 MG Tablet PO (09:03)
[2024-05-26] MEDS: Losartan Potassium 100 MG Tablet PO (09:03)
[2024-05-26] MEDS: Clopidogrel Bisulfate 75 MG Tablet PO (09:03)
[2024-05-26] MEDS: Multivitamin (Healthy Eyes) Capsule 1 CAP PO ×2 (09:03→20:17)
[2024-05-26] MEDS: metFORMIN HCl 500 MG Tablet PO ×2 (09:03→17:48)
[2024-05-26] MEDS: Menthol/Lanolin/Calamine/Znox 113 GM Tube 1 APPLIC TOPICAL ×2 (09:04→20:15)
--- NOTE | 2024-05-26 09:19 | CASEMGMT ---
BIMS () and PHQ9 (9) interviews completed on this date for MDS assessment. SW spoke with pt regarding score of 9 on PHQ9 indicating mild depression. Pt stating she did not feel depressed prior to illness and hospital admission, but that need for SNF and fact that she is not home is causing negative feelings. Pt stating she misses her home, her and her dog. Pt states that although her visits daily, she misses him when they are not together and it is affecting her mood. Pt also stating that she just can't eat and that feeling ill has also had a negative impact on her mood. SW provided emotional support and discussed need to work with therapy and set goals to return home. Pt is realistic that she is not functioning well enough to return home at this time but is motivated to improve. SW encouraged pt to come out of her room and encouraged activities and change of environment. Pt was started on anti depressant on 05/24. SW to continue to follow for support and discharge planning. AMADOR Berumen
[2024-05-26 10:00] VITALS: PULSE 67; RESP 20; O2SAT 93
[2024-05-26 12:24] LABS: Bedside Glucose 219 mg/dL (74-106)
[2024-05-26 14:25] VITALS: BP 122/48; PULSE 70
[2024-05-26] MEDS: Diphenoxylate/Atrop 1 Tablet PO (16:27)
[2024-05-26 16:51] LABS: Bedside Glucose 224 mg/dL (74-106)
[2024-05-26] MEDS: Doxepin Hydrochloride 10 MG Capsule PO (20:18)
[2024-05-26] MEDS: Atorvastatin Calcium 10 MG Tablet PO (20:18)
--- NOTE | 2024-05-26 20:20 | NURSING ---
Dr. Perez notified of hypotension via secure backline (see vitals), per Dr. Perez hold HS dose of hydralazine x1
[2024-05-26 20:21] VITALS: BP 113/40; PULSE 67
[2024-05-26 21:28] LABS: Bedside Glucose 155 mg/dL (74-106)
[2024-05-27] VITALS (13 sets, daily range): BP systolic 112–145; BP diastolic 39–58; PULSE 63–72; RESP 16–69; TEMP 35.8–36.9; O2SAT 92–96; BMI 31.4; BMI 30.9
[2024-05-27] MEDS: Levothyroxine 112 MCG Tablet PO (05:32)
[2024-05-27] MEDS: Enoxaparin 30 MG/0.3 ML Syringe SC (05:32)
[2024-05-27] MEDS: hydrALAZINE 10 MG Tablet PO ×3 (05:32→20:09)
[2024-05-27] MEDS: Acetaminophen 500 MG Tablet 1000 MG PO (05:32)
[2024-05-27 06:19] LABS: Bedside Glucose 128 mg/dL (74-106)
[2024-05-27 06:31] LABS: Absolute Lymphocyte Count 1.04 X10^3/uL (0.83-4.51); Absolute Neutrophil Count 9.2 X10^3/uL (2.0-7.7); Basophil# 0.01 X10^3/uL; Basophil% 0.1 % (0-1); Eosinophil# 0.06 X10^3/uL; Eosinophils% 0.5 % (0-5); Hematocrit 24.1 % (37-47); Hemoglobin 7.6 g/dL (12.0-15.0); Lymphocyte # 1.04 X10^3/ul (0.83-4.51); Lymphocyte % 9.3 % (19-41); Mean Corp Hgb Conc 31.5 g/dL (32-36); Mean Corpuscular Hgb 28.7 pg (27.0-32.0); Mean Corpuscular Volume 90.9 fL (81-99); Mean Platelet Vol. 10.1 fl (6.2-12.0); Monocyte# 0.76 X10^3/uL; Monocyte% 6.8 % (0-10); NRBC Flagged by Analyzer 0 % (0-5); Neutrophil # 9.17 X10^3/uL (2.7-7.7); Neutrophil % 82.4 % (47-70); Platelet Count 261 K/mm3 (150-450); RBC Distribution Width CV 14.4 % (11.6-14.6); RBC Distribution Width SD 47.3 fl (35.1-43.9); Red Blood Count 2.65 M/mm3 (4.2-5.4); White Blood Count 11.1 K/mm3 (4.4-11.0)
[2024-05-27 06:55] LABS: Anion Gap 10 (5-15); BUN 71 mg/dL (7-18); BUN/Creat Ratio 12.9 RATIO (10-20); Calcium,Total 8.8 mg/dL (8.5-10.1); Chloride 106 mmol/L (98-107); Creatinine, Serum 5.52 mg/dL (0.55-1.02); EST Glomerular Filtration Rate 8 mL/min (>60); Est Glom Filt Rate - Afr Amer 10 mL/min (>60); Estimated Creatinine Clearance 8.03 ml/min; Glucose 147 mg/dL (74-106); Potassium 5.1 mmol/L (3.5-5.1); Sodium Level 134 mmol/L (136-145)
--- NOTE | 2024-05-27 07:28 | NURSING ---
Poor appetite, poor motivation. Written communication left for Dr. Perez
--- NOTE | 2024-05-27 07:44 | US_ITS ---
INDICATION: Acute kidney injury EXAMINATION: Ultrasound US Kidney(s) complete (eg, kidneys and bladder) TECHNIQUE: Winkler scale and color doppler images were obtained of the kidneys. COMPARISON: FINDINGS: RIGHT KIDNEY: 10.3 x 5.7 x 4.8 cm. The cortex is 11 mm. Slightly increased echogenicity of the cortex. There is no hydronephrosis. No shadowing calculus or perinephric collection is demonstrated. Upper pole 1.8 cm cyst. LEFT KIDNEY: 10.6 x 4.6 x 6.5 cm. The cortex is 15 mm. Slightly echogenic cortex. There is no hydronephrosis. No shadowing calculus, focal lesion or perinephric collection is demonstrated. URINARY BLADDER: No acute abnormality. US/Kidney and Bladder IMPRESSION: Right renal cyst. Echogenic cortex of the kidneys may be due to medical renal disease. Electronically Signed: Chad Freitas DO at 16:53 EST ,
[2024-05-27 08:08] LABS: Iron 24 ug/dL (50-170); Iron Binding Capacity,Total 191 ug/dL (250-450); PERCENT IRON SATURATION 12.6 % (15.0-55.0)
--- NOTE | 2024-05-27 08:54 | CON.PCM.RE_ITS ---
Assessment & Plan Assessment/Plan (1) Acute kidney injury: (2) Chronic kidney disease, stage 3b: (3) Essential hypertension: (4) Anemia: (5) Heart failure with preserved ejection fraction: PLAN: Plan Assessment/Plan: The patient is a 79-year-old female with past history of CKD stage G3b, type 2 diabetes mellitus, hypertension, monoclonal gammopathy, iron deficiency anemia, hypothyroidism, peripheral neuropathy, and hyperlipidemia. The patient was recently admitted to [facility] between 05/11/2024 until 05/19/2024 with acute hypoxic respiratory failure attributed to decompensated heart failure with preserved ejection fraction. The patient was also treated for acute blood loss anemia which is due to angiodysplastic lesion of the duodenum, erosive esophagitis and nonbleeding gastric ulcer. Nephrology is asked to the patient because of CLAUDIA on CKD. Acute kidney injury on chronic kidney disease stage G3b. Baseline serum creatinine has been around 1.60 mg/dL. Serum creatinine has increased to 5.52 mg/dL today on 05/27/2024. There has been no prolonged hypotension. The patient also has a history of questionable monoclonal gammopathy. She has never had a kidney biopsy. There is no hypercalcemia, but she is anemic. Will check urinalysis, urine indices, and renal ultrasound. I will also check urine protein to creatinine ratio. If there is significant proteinuria, we will check SPEP, immunofixation and kappa/lambda light chains. Agree with stopping losartan, furosemide, and metformin for now. I would also recommend stopping potassium chloride as well. Keep MAP above 65 mmHg. Further recommendation will depend on the findings of preliminary studies which have been ordered. Hypertension. I agree with stopping losartan due to CLAUDIA. Will monitor BP off of losartan. The patient has not been hypotensive. Anemia. Hemoglobin is 7.6 g/dL today on 05/27/2024. The patient has history of monoclonal gammopathy on review of record. She shows not to undergo bone marrow biopsy in the past. Given history of monoclonal gammopathy, I am checking urine protein to creatinine ratio. If there is significant urine protein, we will send serologies for paraprotein disease. Heart failure with with preserved ejection fraction. Patient has been on furosemide which is currently on hold because of CLAUDIA. Interestingly, her weight has not changed significantly in the past 5 days. ARB is also on hold as discussed above. Aside from some lower extremity edema, patient does not appear to be overtly volume overloaded. Will monitor volume status off of diuretic. HPI Consult Data Date of Consult: 05/27/24 HPI Narrative HPI Narrative: The patient is a 79-year-old female with past history of CKD stage G3b, type 2 diabetes mellitus, hypertension, monoclonal gammopathy, iron deficiency anemia, hypothyroidism, peripheral neuropathy, and hyperlipidemia. The patient was recently admitted to [facility] between 05/11/2024 until 05/19/2024 with acute hypoxic respiratory failure attributed to decompensated heart failure with preserved ejection fraction. The patient was also treated for acute blood loss anemia which is due to angiodysplastic lesion of the duodenum, erosive esophagitis and nonbleeding gastric ulcer. Nephrology is asked to the patient because of CLAUDIA on CKD. Baseline serum creatinine has been around 1.60 mg/dL. Serum creatinine from today on 05/27/2024 is markedly elevated at 5.52 mg/dL. The patient denies current chest pain or pressure. She denies dyspnea. Patient still has some edema of the lower extremities but severity of edema has markedly improved in the past couple of weeks. The patient denies nausea or vomiting, but she has poor appetite. Patient has also had chronic diarrhea. There is no lower urinary tract symptoms. Patient had been on losartan and furosemide for treatment of heart failure. These medications have been stopped. She has not been taking any NSAIDs. [facility] Medical History Acute maxillary sinusitis, unspecified Type 2 diabetes mellitus with both eyes affected by mild nonproliferative retinopathy without macular edema, with long-term current use of insulin Combined form of age-related cataract, both eyes Ptosis of left eyelid Hyperopia Regular astigmatism Presbyopia CKD (chronic kidney disease) stage 3, GFR 30-59 ml/min Peripheral neuropathy Obesity, Class II, BMI 35-39.9 Iron malabsorption Claudication Rosacea Iron deficiency anemia Lymphedema Malignant neoplasm of upper-outer quadrant of right female breast Albuminuria Hypertension, essential, benign Hypothyroidism (acquired) Hyperlipidemia, mixed Barretts esophagus GERD with esophagitis Uncontrolled type 2 diabetes mellitus without complication, without long-term current use of insulin Home Medications ?Medication ?Instructions ?Recorded ?Last Taken ?Type cholecalciferol (vitamin D3) 25 2,000 unit PO DAILY supplement 01/09/16 Unknown History mcg (1,000 unit) tablet multivitamin 1 ea PO DAILY supplement 01/09/16 Unknown History blood-glucose meter (FreeStyle #1 ea 03/11/19 Unknown History Lite Meter kit) esomeprazole magnesium 40 mg 40 mg PO DAILY GERD 03/11/19 05/19/24 09:10 History capsule,delayed release (Nexium) pen needle, diabetic 31 gauge x #30 ea 08/06/20 Unknown Rx 09/23 (Lite Touch Insulin Pen [place]) flash glucose scanning reader #1 ea 08/20/20 Unknown Rx (FreeStyle [place] 14 Day [place]) flash glucose sensor (FreeStyle #1 ea 08/20/20 Unknown Rx [place] 14 Day Sensor kit) blood sugar diagnostic (FreeStyle #100 ea 10/08/21 Unknown Rx Lite Strips) lancets 28 gauge (FreeStyle #100 ea 10/18/21 Unknown Rx Lancets) vit C 226 mg-vit E 90 mg-copper 1 cap PO BID supplement 04/21/23 Unknown History 0.8 mg-zinc oxide-lutein 5 mg capsule (PreserVision Lutein) Handicap Placard #1 ea 06/08/23 Unknown Rx atorvastatin 10 mg tablet 10 mg PO QHS cholesterol #90 tabs 06/24/23 05/18/24 23:15 Rx glipizide 5 mg tablet 5 mg PO DAILY Diabetes #180 tabs 06/24/23 05/19/24 09:10 Rx metformin 1,000 mg tablet 500 mg (1/2 x 1,000 mg) PO BID 06/24/23 05/15/24 Rx Diabetes #180 tabs valsartan 160 mg tablet 160 mg PO DAILY BP #90 tabs 06/24/23 Unknown Rx levothyroxine 112 mcg tablet 112 mcg PO DAILY Thyroid #90 tabs 07/27/23 05/19/24 06:35 Rx clopidogrel 75 mg tablet 75 mg PO DAILY blood thinner 05/11/24 05/19/24 09:10 History acetaminophen 325 mg tablet 650 mg (2 x 325 mg) PO Q6H PRN PRN 05/19/24 05/18/24 23:15 Rx Pain 1-10 Or Fever>100.7 #0 tabs carvedilol 6.25 mg tablet 6.25 mg PO BIDCM Heart #0 tabs 05/19/24 05/19/24 09:10 Rx furosemide 40 mg tablet (Lasix) 40 mg PO DAILY Water pill #1 TAB 05/19/24 Unknown Rx losartan 50 mg tablet 50 mg PO DAILY BP #0 tabs 05/19/24 05/15/24 09:10 Rx potassium chloride 10 mEq 20 meq (2 x 10 mEq) PO DAILY 05/19/24 Unknown Rx tablet,extended release supplement #1 TAB Allergy/AdvReac Type Severity Reaction Status Date / Time No Known Allergies Allergy Verified 05/11/24 13:39 Family History Aunt Breast cancer Sister Diabetes Surgical History History of cholecystectomy History of lumpectomy Social History (Updated 05/19/24 @ 19:[address] Christian Perez MD) household members: spouse Smoking Status: Former smoker quit date: 05/11/90 Tobacco: How many years used: 15 alcohol intake: never substance use type: does not use what type of physical activity do you participate in: walking and bicycling ROS ROS Narrative As per HPI otherwise noncontributory. Physical Exam Narrative General: Alert and oriented x3, NAD. HEENT: Normocephalic, atraumatic. Mucous membrane moist without erythema. PERRLA, EOMI. Hearing is intact. Neck: Supple, no JVD. Trachea is midline. No thyromegaly or lymphadenopathy. Cardiovascular: Normal S1, S2. No rubs, murmurs, or gallops. Respiratory: Lungs are clear to auscultation bilaterally. No wheezing, rhonchi, or rales. Abdomen: Normal bowel sounds, soft, nontender, no guarding or rebound, no organomegaly. Extremities: There is 2+ edema of the lower extremities bilaterally. There is no clubbing or cyanosis. Musculoskeletal: Full passive range of motion, no joint swelling. Psychiatric: Flat affect. Skin: Warm and dry, no rash. Neurologic: Cranial nerve II to XII are grossly intact. No focal neurologic deficits. Medical Records Data Medical Nutrition Assessment Dietitian: Malnutrition Criteria Met Start: 05/25/24 14:55 Freq: Status: Active Protocol: Document 05/25/24 14:55 SLA (Rec: 05/25/24 14:55 SLA [email or web address]) Nutrition Malnutrition Evidence of Malnutrition Exists Yes Malnutrition (severe): Acute Illness/Injury Evidenced By Suboptimal Energy Intake ( Severe),Weight Loss (Severe) Intake Problem Inadequate Oral Intake Status Inactive Problem Clinical Problem Acute Disease or Injury Related Malnutrition Etiology related to issues w/ nausea, diarrhea and not wanting to eat Signs/Symptoms as evidenced by 3.5% unintended wt loss and po intake meeting <75% of est nutritional needs x 5 days Status Active Problem Altered Nutrient-Related Laboratory Values Etiology related to diabetes Signs/Symptoms as evidenced by gluc 144 Status Active Problem Recommendation Dietitian Recommendations/Changes Will liberalize diet to CHO Control, No Added Salt w/ fluid restriction per MD - rec liberalize or d/c fluid restriction when medically able Will provide 4 oz ensure clear tid w/ meals for increased nutrition if consumed Rec appetite stimulant if po intake fails once nausea and diarrhea improved. May need to consider more aggressive nutrition support if po intake fails/wt loss continues to help prevent further decline in res nutritional status if in accordance w/ res/family wishes. Lab / Micro Data 05/27/24 06:12 05/27/24 06:12 Labs: Laboratory Results - last 24 hr 05/26/24 11:44: POC Glucose 219 H 05/26/24 16:26: POC Glucose 224 H 05/26/24 21:05: POC Glucose 155 H 05/27/24 05:46: POC Glucose 128 H 05/27/24 06:12: WBC 11.1 H, RBC 2.65 L, Hgb 7.6 L, Hct 24.1 L, MCV 90.9, MCH 28.7, MCHC 31.5 L, RDW Std Deviation 47.3 H, RDW Coeff of Celia 14.4, Plt Count 261, MPV 10.1, Immature Gran % (Auto) 0.900, Neut % (Auto) 82.4 H, Lymph % (Auto) 9.3 L, Grand % (Auto) 6.8, Eos % (Auto) 0.5, Baso % (Auto) 0.1, Absolute Neuts (auto) 9.2 H, Absolute Lymphs (auto) 1.04, Nucleated RBC % 0, Sodium 134 L , Potassium 5.1, Chloride 106, Carbon Dioxide 18.0 L, Anion Gap 10, BUN 71 H, C reatinine 5.52 H, Estim Creat Clear Calc 8.03, Est GFR (MDRD) Af Amer 10 L, Est GFR (MDRD) Non-Af 8 L, BUN/Creatinine Ratio 12.9, Glucose 147 H, Calcium 8.8, I yoandy 24 L, TIBC 191 L, Iron Saturation 12.6 L 05/27/24 08:13: Crossmatch See Detail
--- NOTE | 2024-05-27 09:06 | NURSING ---
Refrigeration Engineer Note; MDS for 05/26/2024 Complete
[2024-05-27] MEDS: Carvedilol 25 MG Tablet PO ×2 (09:41→16:44)
[2024-05-27] MEDS: Pantoprazole Sodium 40 MG Tablet PO (09:42)
[2024-05-27] MEDS: Clopidogrel Bisulfate 75 MG Tablet PO (09:42)
[2024-05-27] MEDS: Potassium Chloride Oral Tablet 20 MEQ PO (09:42)
[2024-05-27] MEDS: Citalopram 10 MG Tablet PO (09:42)
[2024-05-27] MEDS: Multivitamins,Therapeutic Tablet 1 TABLET PO (09:42)
[2024-05-27] MEDS: Multivitamin (Healthy Eyes) Capsule 1 CAP PO (09:42)
[2024-05-27] MEDS: Cholecalciferol (VIT D3) 25 MCG TABLET (1,000 UNITS) 50 MCG PO (09:43)
[2024-05-27] MEDS: Nystatin Powder 15gm Bottle 1 APPLIC TOPICAL ×2 (09:53→20:10)
[2024-05-27] MEDS: Menthol/Lanolin/Calamine/Znox 113 GM Tube 1 APPLIC TOPICAL ×2 (09:53→20:10)
--- NOTE | 2024-05-27 10:34 | NURSING ---
Transferred resident down to infusion center at [address] Walls to TCU a few minutes after she left, updated him that she was getting transfusion. also notified of transfusion and new orders.
[2024-05-27] MEDS: Furosemide 20 MG/2 ML VIAL IV (14:54)
[2024-05-27] MEDS: 0.9% Normal Saline (1000mL) 1,000 ML 60 ML IV (15:38)
[2024-05-27 15:52] LABS: Color, Urine Yellow (Yellow); Glucose, Dipstick Normal (Normal); Ketone-Dipstick Negative (Negative); Leukocyte Esterase-Dipstick 500 /ul (Negative); Nitrite-Dipstick Negative (Negative); Occult Blood-Urine 10 /ul (Negative); Protein-Dipstick 100 mg/dl (Negative); Urine Bilirubin Dipstick Negative (Negative); Urine Clarity Sl. Cloudy (Clear); Urine Urobilinogen Normal (Normal)
[2024-05-27 16:01] LABS: Urine Sodium 46 mmol/L (Not Establ.)
[2024-05-27 16:15] LABS: Protein, Urine (Random) 373.7 mg/dL (<11.9)
[2024-05-27 16:37] LABS: Bacteria 1+ /hpf (None Seen); Fine Granular Cast- Urine 0-5 SEEN /lpf (0-5); Mucous, Urine 1+ /hpf (<or=2+); Red Blood Cells-Urine 0-5 SEEN /hpf (0-5); Squamous Epithelial Cells - UA 0-5 SEEN /hpf (5-10); Transitional Epithelial - Ur 0-5 SEEN /hpf (0-5); White Blood Cells 25-50 SEEN /hpf (0-5); White Cell Cast 0-5 SEEN /lpf (None Seen)
[2024-05-27] MEDS: Tuberculin,Purif.prot.deriv. 50 TU/ML Vial 0.1 ML ID (16:42)
[2024-05-27 16:53] LABS: Bedside Glucose 190 mg/dL (74-106)
[2024-05-27] MEDS: LORazepam 0.5 MG Tablet 0.25 MG PO (20:08)
[2024-05-27] MEDS: Doxepin Hydrochloride 10 MG Capsule PO (20:10)
[2024-05-27] MEDS: Atorvastatin Calcium 10 MG Tablet PO (20:10)
[2024-05-27] MEDS: guaiFENesin Dm 10 ML UDC PO (20:10)
[2024-05-28] VITALS (7 sets, daily range): BP systolic 151–173; BP diastolic 43–70; PULSE 75–79; RESP 20; TEMP 36.8; O2SAT 93; BMI 31.2
[2024-05-28] MEDS: hydrALAZINE 10 MG Tablet PO ×3 (04:48→20:47)
[2024-05-28] MEDS: Levothyroxine 112 MCG Tablet PO (04:48)
[2024-05-28] MEDS: guaiFENesin Dm 10 ML UDC PO ×2 (04:48→20:46)
[2024-05-28 05:50] LABS: Anion Gap 9 (5-15); BUN 66 mg/dL (7-18); BUN/Creat Ratio 17.1 RATIO (10-20); Calcium,Total 8.7 mg/dL (8.5-10.1); Chloride 110 mmol/L (98-107); Creatinine, Serum 3.85 mg/dL (0.55-1.02); EST Glomerular Filtration Rate 12 mL/min (>60); Est Glom Filt Rate - Afr Amer 14 mL/min (>60); Estimated Creatinine Clearance 11.48 ml/min; Glucose 159 mg/dL (74-106); Potassium 5.3 mmol/L (3.5-5.1); Sodium Level 135 mmol/L (136-145)
[2024-05-28 06:15] LABS: Bedside Glucose 166 mg/dL (74-106)
[2024-05-28] MEDS: Pantoprazole Sodium 40 MG Tablet PO (08:20)
[2024-05-28] MEDS: Citalopram 10 MG Tablet PO (08:21)
[2024-05-28] MEDS: Carvedilol 25 MG Tablet PO ×2 (08:21→16:43)
[2024-05-28] MEDS: Multivitamin (Healthy Eyes) Capsule 1 CAP PO ×2 (08:21→20:48)
[2024-05-28] MEDS: glipiZIDE 5 MG Tablet PO (08:21)
[2024-05-28] MEDS: Multivitamins,Therapeutic Tablet 1 TABLET PO (08:21)
[2024-05-28] MEDS: Clopidogrel Bisulfate 75 MG Tablet PO (08:22)
[2024-05-28] MEDS: Cholecalciferol (VIT D3) 25 MCG TABLET (1,000 UNITS) 50 MCG PO (08:23)
[2024-05-28] MEDS: 0.9% Normal Saline (1000mL) 1,000 ML 60 ML IV (08:36)
[2024-05-28] MEDS: Menthol/Lanolin/Calamine/Znox 113 GM Tube 1 APPLIC TOPICAL ×2 (08:38→20:49)
[2024-05-28] MEDS: Nystatin Powder 15gm Bottle 1 APPLIC TOPICAL ×2 (08:39→20:49)
--- NOTE | 2024-05-28 08:50 | PCM.PN.REN ---
Subjective Subjective Following for CLAUDIA on CKD. The patient denies chest pain or pressure. There is no nausea or vomiting. Bowel movement is loose, but the patient received Kayexalate earlier today. Appetite remains poor. Objective Data Objective Data Vital Signs: Vital Signs Temp Pulse Resp BP Pulse Ox O2 Del Method 98.4 F 75 20 H 151/43 H 94 Room Air 05/27/24 16:00 05/28/24 04:48 05/28/24 05:01 05/28/24 04:47 05/27/24 16:00 05/28/24 05:01 Oxygen Delivery Method Room Air Weight: 80 kg Body Mass Index (BMI) 31.2 Intake & Output: Intake and Output for Last 24 Hours 05/26/24 05/27/24 05/28/24 23:59 23:59 23:59 Intake Total 812 / 812 1340 / 1340 1000 / 1000 Balance 812 / 812 1340 / 1340 1000 / 1000 Medical Nutrition Assessment Dietitian: Malnutrition Criteria Met Start: 05/25/24 14:55 Freq: Status: Active Protocol: Document 05/25/24 14:55 SLA (Rec: 05/25/24 14:55 SLA [email or web address]) Nutrition Malnutrition Evidence of Malnutrition Exists Yes Malnutrition (severe): Acute Illness/Injury Evidenced By Suboptimal Energy Intake ( Severe),Weight Loss (Severe) Intake Problem Inadequate Oral Intake Status Inactive Problem Clinical Problem Acute Disease or Injury Related Malnutrition Etiology related to issues w/ nausea, diarrhea and not wanting to eat Signs/Symptoms as evidenced by 3.5% unintended wt loss and po intake meeting <75% of est nutritional needs x 5 days Status Active Problem Altered Nutrient-Related Laboratory Values Etiology related to diabetes Signs/Symptoms as evidenced by gluc 144 Status Active Problem Recommendation Dietitian Recommendations/Changes Will liberalize diet to CHO Control, No Added Salt w/ fluid restriction per MD - rec liberalize or d/c fluid restriction when medically able Will provide 4 oz ensure clear tid w/ meals for increased nutrition if consumed Rec appetite stimulant if po intake fails once nausea and diarrhea improved. May need to consider more aggressive nutrition support if po intake fails/wt loss continues to help prevent further decline in res nutritional status if in accordance w/ res/family wishes. Lab / Micro Data 05/27/24 06:12 05/28/24 04:18 Labs: Laboratory Results - last 24 hr 05/27/24 08:13: Blood Type A POSITIVE, Antibody Screen NEGATIVE, Crossmatch See Detail 05/27/24 15:30: Urine Color Yellow, Urine Clarity Sl. Cloudy, Urine pH 5.0, Ur Specific [place] 1.020, Urine Protein 100 H, Urine Glucose (UA) Normal, Urine Ketones Negative, Urine Occult Blood 10 H, Urine Nitrite Negative, Urine Bilirubin Negative, Urine Urobilinogen Normal, Ur Leukocyte Esterase 500 H, Urine RBC 0-5 SEEN, Urine WBC 25-50 SEEN, Ur Squamous Epith Cells 0-5 SEEN, Ur Transition Epith Cell 0-5 SEEN, Urine Bacteria 1+, Fine Granular Casts 0-5 SEEN, WBC Casts 0-5 SEEN, Urine Mucus 1+, U Random Total Protein 373.7 H, Ur Random Sodium 46, Urine Creatinine 178.00 05/27/24 16:28: POC Glucose 190 H 05/28/24 04:18: Sodium 135 L, Potassium 5.3 H, Chloride 110 H, Carbon Dioxide 17.0 L, Anion Gap 9, BUN 66 H, Creatinine 3.85 H, Estim Creat Clear Calc 11.48, Est GFR (MDRD) Af Amer 14 L, Est GFR (MDRD) Non-Af 12 L, BUN/Creatinine Ratio 17.1, Glucose 159 H, Calcium 8.7 05/28/24 05:49: POC Glucose 166 H Micro: Microbiology 05/23/24 10:35 Stool Enteric Bacteriology - Final 05/23/24 09:31 Mucosa - Nasopharyngeal Respiratory Panel (PCR) - Final 05/23/24 08:20 Nasal Secretion SARS-CoV-2 Antigen (Rapid) - Final Radiography Diagnostic Testing: Radiology Impression Renal Ultrasound 05/27/24 07:44 IMPRESSION: Right renal cyst. Echogenic cortex of the kidneys may be due to medical renal disease. Electronically Signed: hCad Freitas DO at 16:53 EST Reading Location ID and State: [facility] / [place] Tel [phone], Service support , Physical Exam Narrative General: Alert and oriented x3, NAD. HEENT: Normocephalic, atraumatic. Mucous membrane moist without erythema. PERRLA, EOMI. Hearing is intact. Neck: Supple, no JVD. Trachea is midline. No thyromegaly or lymphadenopathy. Cardiovascular: Normal S1, S2. No rubs, murmurs, or gallops. Respiratory: Lungs are clear to auscultation bilaterally. No wheezing, rhonchi, or rales. Abdomen: Normal bowel sounds, soft, nontender, no guarding or rebound, no organomegaly. Extremities: There is 1+ edema of the lower extremities bilaterally. There is no clubbing or cyanosis. Assessment & Plan Assessment/Plan (1) Acute kidney injury: (2) Chronic kidney disease, stage 3b: (3) Essential hypertension: (4) Anemia: (5) Heart failure with preserved ejection fraction: PLAN: Plan Assessment/Plan: The patient is a 79-year-old female with past history of CKD stage G3b, type 2 diabetes mellitus, hypertension, monoclonal gammopathy, iron deficiency anemia, hypothyroidism, peripheral neuropathy, and hyperlipidemia. The patient was recently admitted to [facility] between 05/11/2024 until 05/19/2024 with acute hypoxic respiratory failure attributed to decompensated heart failure with preserved ejection fraction. The patient was also treated for acute blood loss anemia which is due to angiodysplastic lesion of the duodenum, erosive esophagitis and nonbleeding gastric ulcer. Nephrology is asked to the patient because of CLAUDIA on CKD. Acute kidney injury on chronic kidney disease stage G3b. Baseline serum creatinine has been around 1.60 mg/dL. Serum creatinine has increased to 5.52 mg/dL on 05/27/2024. There has been no prolonged hypotension. The patient also has a history of questionable monoclonal gammopathy. She has never had a bone marrow or kidney biopsy. There is no hypercalcemia, but she is anemic. Renal ultrasound from 05/27/2024 is negative for obstruction. Urinalysis from 05/27/2024 showed high specific gravity with 3+ protein on dipstick. Urine protein to creatinine ratio is 2.1 g/g. Fractional secretion of sodium was less than 1%. Renal function has improved with volume expansion. Patient received blood transfusion on 05/27/2024. She is finishing up her second liter of IV saline. Serum creatinine is down to 3.85 mg/dL today. I suspect the most likely explanation for CLAUDIA is volume depletion perhaps from prior diuresis. However, since there is significant proteinuria, we will check SPEP, immunofixation and kappa/lambda light chains to make sure were not missing CLAUDIA from paraprotein disease. Agree with holding losartan, furosemide, potassium chloride, and metformin for now. Keep MAP above 65 mmHg. There is no need for kidney replacement therapy. Will continue to monitor renal function, volume status, electrolytes, and acid-base status. Hypertension. I agree with stopping losartan due to CLAUDIA. Will monitor BP off of losartan. The patient has not been hypotensive. Anemia. Hemoglobin was 7.6 g/dL on 05/27/2024. Patient was transfused with PRBC on 05/27/2024. The patient has history of monoclonal gammopathy on review of record. She shows not to undergo bone marrow biopsy in the past. Given history of monoclonal gammopathy along with significant proteinuria on UPCR, I will check serologies for paraprotein disease. Heart failure with with preserved ejection fraction. Patient has been on furosemide which is currently on hold because of CLAUDIA. Interestingly, her weight has not changed significantly in the past 5 days. ARB is also on hold as discussed above. Aside from some lower extremity edema, patient does not appear to be overtly volume overloaded. Will monitor volume status off of diuretic.
[2024-05-28] MEDS: Sodium Polystyrene Sulfonate 15 GM/60 ML UDC PO (11:40)
[2024-05-28 15:26] LABS: Hematocrit 32.5 % (37-47); Hemoglobin 10.4 g/dL (12.0-15.0)
[2024-05-28 16:34] LABS: Bedside Glucose 157 mg/dL (74-106)
[2024-05-28] MEDS: LORazepam 0.5 MG Tablet 0.25 MG PO (20:46)
[2024-05-28] MEDS: Atorvastatin Calcium 10 MG Tablet PO (20:48)
[2024-05-28] MEDS: Doxepin Hydrochloride 10 MG Capsule PO (20:48)
[2024-05-29] VITALS (9 sets, daily range): BP systolic 151–182; BP diastolic 45–72; PULSE 72–93; RESP 20–24; TEMP 36.8; O2SAT 92–93; BMI 31.2
[2024-05-29] MEDS: 0.9% Saline Lock 10 ML Syringe IV ×2 (01:13→10:00)
[2024-05-29] MEDS: guaiFENesin Dm 10 ML UDC PO ×2 (03:58→21:24)
[2024-05-29 05:16] LABS: Anion Gap 8 (5-15); BUN 47 mg/dL (7-18); BUN/Creat Ratio 22.1 RATIO (10-20); Calcium,Total 9.3 mg/dL (8.5-10.1); Chloride 113 mmol/L (98-107); Creatinine, Serum 2.13 mg/dL (0.55-1.02); EST Glomerular Filtration Rate 24 mL/min (>60); Est Glom Filt Rate - Afr Amer 29 mL/min (>60); Estimated Creatinine Clearance 20.75 ml/min; Glucose 185 mg/dL (74-106); Potassium 4.2 mmol/L (3.5-5.1); Sodium Level 138 mmol/L (136-145)
[2024-05-29] MEDS: Levothyroxine 112 MCG Tablet PO (05:20)
[2024-05-29] MEDS: hydrALAZINE 10 MG Tablet PO (05:20)
[2024-05-29 06:26] LABS: Bedside Glucose 164 mg/dL (74-106)
[2024-05-29] MEDS: Multivitamins,Therapeutic Tablet 1 TABLET PO (09:31)
[2024-05-29] MEDS: Carvedilol 25 MG Tablet PO ×2 (09:31→17:13)
[2024-05-29] MEDS: glipiZIDE 5 MG Tablet PO (09:31)
[2024-05-29] MEDS: Nystatin Powder 15gm Bottle 1 APPLIC TOPICAL ×2 (09:31→21:23)
[2024-05-29] MEDS: Pantoprazole Sodium 40 MG Tablet PO (09:31)
[2024-05-29] MEDS: Citalopram 10 MG Tablet PO (09:31)
[2024-05-29] MEDS: Clopidogrel Bisulfate 75 MG Tablet PO (09:31)
[2024-05-29] MEDS: Cholecalciferol (VIT D3) 25 MCG TABLET (1,000 UNITS) 50 MCG PO (09:31)
[2024-05-29] MEDS: Menthol/Lanolin/Calamine/Znox 113 GM Tube 1 APPLIC TOPICAL ×2 (09:38→21:23)
[2024-05-29] MEDS: amLODIPine 5 MG Tablet PO (10:36)
[2024-05-29] MEDS: hydrALAZINE 25 MG Tablet PO ×2 (13:11→21:22)
--- NOTE | 2024-05-29 16:27 | NURSING ---
Pt still having decreased appetite encouraged pt to eat pt takes a few bites and states I'm full I cannot eat anymore. Pt intake has been <25% for meals. Pt has been having dark loose stools this shift and also has moist cough. Dr. Perez updated N.O. received for Covid, Swab resp. Panel,Chest X-ray, Occult Stool, and KUB. Orders read back.
--- NOTE | 2024-05-29 16:30 | RAD_ITS ---
EXAM: XR ABDOMEN, 1 VIEW CLINICAL INDICATION: Diarrhea and Nausea TECHNIQUE: Frontal supine view of the abdomen/pelvis. COMPARISON: No relevant prior studies available. FINDINGS: LOWER THORAX: No acute pathology. GASTROINTESTINAL TRACT: Unremarkable. Non-obstructive. No bowel or stomach distention. ORGANS: There are surgical clips from a cholecystectomy. No organomegaly. No abnormal calcifications. BONES/JOINTS: There are degenerative changes in the lower lumbar spine with disc space narrowing. SOFT TISSUES: No acute pathology. RAD/Abdomen Single View IMPRESSION: No acute findings. Electronically Signed: Quentin Medellin MD at 17:27 EST ,
--- NOTE | 2024-05-29 16:30 | RAD_ITS ---
EXAM: XR CHEST, 2 VIEWS CLINICAL INDICATION: Moist Cough TECHNIQUE: Frontal and lateral views of the chest. COMPARISON: 1125 FINDINGS: LUNGS AND PLEURAL SPACES: Unremarkable. No consolidation or edema. No pneumothorax. No effusion. HEART: Unremarkable. Cardiac silhouette not enlarged. MEDIASTINUM: Central airways and mediastinal contour are unremarkable. BONES/JOINTS: Unremarkable. No acute fracture. SOFT TISSUES: Unremarkable. RAD/Chest PA and Lateral IMPRESSION: No radiographic evidence of acute cardiopulmonary disease. Electronically Signed: Quentin Medellin MD at 17:20 [facility] ,
[2024-05-29 16:58] LABS: Bedside Glucose 223 mg/dL (74-106)
[2024-05-29] MEDS: Atorvastatin Calcium 10 MG Tablet PO (21:22)
[2024-05-29] MEDS: Multivitamin (Healthy Eyes) Capsule 1 CAP PO (21:22)
[2024-05-29] MEDS: Doxepin Hydrochloride 10 MG Capsule PO (21:23)
[2024-05-29] MEDS: LORazepam 0.5 MG Tablet 0.25 MG PO (21:24)
[2024-05-30 05:11] VITALS: BMI 31.2
[2024-05-30 05:22] VITALS: BP 157/58; PULSE 79
[2024-05-30] MEDS: hydrALAZINE 25 MG Tablet PO ×3 (05:22→20:37)
[2024-05-30] MEDS: guaiFENesin Dm 10 ML UDC PO (05:23)
[2024-05-30] MEDS: Levothyroxine 112 MCG Tablet PO (05:23)
[2024-05-30] MEDS: 0.9% Saline Lock 10 ML Syringe IV (05:27)
[2024-05-30 05:59] LABS: Anion Gap 7 (5-15); BUN 43 mg/dL (7-18); BUN/Creat Ratio 27.4 RATIO (10-20); Chloride 113 mmol/L (98-107); Creatinine, Serum 1.57 mg/dL (0.55-1.02); EST Glomerular Filtration Rate 34 mL/min (>60); Est Glom Filt Rate - Afr Amer 41 mL/min (>60); Estimated Creatinine Clearance 28.15 ml/min; Glucose 214 mg/dL (74-106); Potassium 4.1 mmol/L (3.5-5.1); Sodium Level 139 mmol/L (136-145)
[2024-05-30 06:36] LABS: Bedside Glucose 203 mg/dL (74-106)
[2024-05-30] MEDS: Acetaminophen 500 MG Tablet 1000 MG PO (09:05)
[2024-05-30 10:10] VITALS: BP 170/66; PULSE 69; RESP 16; TEMP 37.2; O2SAT 94
[2024-05-30] MEDS: Carvedilol 25 MG Tablet PO ×2 (10:22→17:17)
[2024-05-30] MEDS: Clopidogrel Bisulfate 75 MG Tablet PO (10:22)
[2024-05-30] MEDS: Cholecalciferol (VIT D3) 25 MCG TABLET (1,000 UNITS) 50 MCG PO (10:22)
[2024-05-30] MEDS: Multivitamins,Therapeutic Tablet 1 TABLET PO (10:23)
[2024-05-30] MEDS: Multivitamin (Healthy Eyes) Capsule 1 CAP PO (10:23)
[2024-05-30] MEDS: Nystatin Powder 15gm Bottle 1 APPLIC TOPICAL ×2 (10:23→20:39)
[2024-05-30] MEDS: Pantoprazole Sodium 40 MG Tablet PO (10:23)
[2024-05-30] MEDS: amLODIPine 5 MG Tablet PO (10:23)
[2024-05-30] MEDS: glipiZIDE 5 MG Tablet PO (10:23)
[2024-05-30] MEDS: Citalopram 10 MG Tablet PO (10:23)
[2024-05-30] MEDS: Menthol/Lanolin/Calamine/Znox 113 GM Tube 1 APPLIC TOPICAL ×2 (10:24→20:42)
--- NOTE | 2024-05-30 11:27 | PCM.PN.REN ---
Subjective Subjective Patient resting in bed. Significant other with her. Patient reports her appetite has improved. Denies any nausea, vomiting or diarrhea. Objective Data Objective Data Vital Signs: Vital Signs Temp Pulse Resp BP Pulse Ox O2 Del Method 98.3 F 79 24 H 157/58 H 92 Room Air 05/29/24 13:00 05/30/24 05:22 05/29/24 13:00 05/30/24 05:22 05/29/24 13:00 05/29/24 13:00 Oxygen Delivery Method Room Air Weight: 80.014 kg Body Mass Index (BMI) 31.2 Intake & Output: Intake and Output for Last 24 Hours 05/28/24 05/29/24 05/30/24 23:59 23:59 23:59 Intake Total 1000 / 1000 1240 / 1240 Output Total 2 / 2 Balance 1000 / 1000 1238 / 1238 Medical Nutrition Assessment Dietitian: Malnutrition Criteria Met Start: 05/25/24 14:55 Freq: Status: Active Protocol: Document 05/25/24 14:55 SLA (Rec: 05/25/24 14:55 SLA [id number]) Nutrition Malnutrition Evidence of Malnutrition Exists Yes Malnutrition (severe): Acute Illness/Injury Evidenced By Suboptimal Energy Intake ( Severe),Weight Loss (Severe) Intake Problem Inadequate Oral Intake Status Inactive Problem Clinical Problem Acute Disease or Injury Related Malnutrition Etiology related to issues w/ nausea, diarrhea and not wanting to eat Signs/Symptoms as evidenced by 3.5% unintended wt loss and po intake meeting <75% of est nutritional needs x 5 days Status Active Problem Altered Nutrient-Related Laboratory Values Etiology related to diabetes Signs/Symptoms as evidenced by gluc 144 Status Active Problem Recommendation Dietitian Recommendations/Changes Will liberalize diet to CHO Control, No Added Salt w/ fluid restriction per MD - rec liberalize or d/c fluid restriction when medically able Will provide 4 oz ensure clear tid w/ meals for increased nutrition if consumed Rec appetite stimulant if po intake fails once nausea and diarrhea improved. May need to consider more aggressive nutrition support if po intake fails/wt loss continues to help prevent further decline in res nutritional status if in accordance w/ res/family wishes. Lab / Micro Data 05/28/24 15:21 05/30/24 05:26 Labs: Laboratory Results - last 24 hr 05/29/24 16:11: POC Glucose 223 H 05/30/24 05:26: Sodium 139, Potassium 4.1, Chloride 113 H, Carbon Dioxide 19.0 L, Anion Gap 7, BUN 43 H, Creatinine 1.57 H, Estim Creat Clear Calc 28.15, Est GFR (MDRD) Af Amer 41 L, Est GFR (MDRD) Non-Af 34 L, BUN/Creatinine Ratio 27.4 H, Glucose 214 H, Calcium 9.0 05/30/24 06:07: POC Glucose 203 H Micro: Microbiology 05/29/24 16:45 Mucosa - Nasopharyngeal Respiratory Panel (PCR) - Final 05/29/24 16:35 Nasal Secretion SARS-CoV-2 Antigen (Rapid) - Final 05/28/24 15:05 Stool Stool Occult Blood (JUANR ) - Final 05/23/24 10:35 Stool Enteric Bacteriology - Final 05/23/24 09:31 Mucosa - Nasopharyngeal Respiratory Panel (PCR) - Final 05/23/24 08:20 Nasal Secretion SARS-CoV-2 Antigen (Rapid) - Final Radiography Diagnostic Testing: Radiology Impression Chest X-Ray 05/29/24 16:30 IMPRESSION: No radiographic evidence of acute cardiopulmonary disease. Electronically Signed: Quentin Medellin MD at 17:20 EST , KUB X-Ray 05/29/24 16:30 IMPRESSION: No acute findings. Electronically Signed: Quentin Medellin MD at 17:27 EST , Physical Exam Narrative Alert and oriented x 3, no acute distress S1, S2, RRR Lung sounds clear Abdomen soft, nontender No pitting edema Assessment & Plan Assessment/Plan (1) Acute kidney injury: (2) Chronic kidney disease, stage 3b: (3) Essential hypertension: (4) Anemia: (5) Heart failure with preserved ejection fraction: PLAN: Plan Assessment/Plan: The patient is a 79-year-old female with past history of CKD stage G3b, type 2 diabetes mellitus, hypertension, monoclonal gammopathy, iron deficiency anemia, hypothyroidism, peripheral neuropathy, and hyperlipidemia. The patient was recently admitted to [facility] between 05/11/2024 until 05/19/2024 with acute hypoxic respiratory failure attributed to decompensated heart failure with preserved ejection fraction. The patient was also treated for acute blood loss anemia which is due to angiodysplastic lesion of the duodenum, erosive esophagitis and nonbleeding gastric ulcer. Nephrology is asked to the patient because of CLAUDIA on CKD. Acute kidney injury on chronic kidney disease stage G3b. Baseline serum creatinine has been around 1.60 mg/dL. 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 Patient lives in [place]. Serum creatinine increased to 5.52 mg/dL on 05/27/2024. There has been no prolonged hypotension. The patient has a history of questionable monoclonal gammopathy. She has never had a bone marrow or kidney biopsy. Renal ultrasound from 05/27/2024 is negative for obstruction. Urinalysis from 05/27/2024 showed high specific gravity with 3+ protein on dipstick. Urine protein to creatinine ratio is 2.1 g/g. Fractional secretion of sodium was less than 1%. Renal function improved with volume expansion, holding diuretic and ARB. Patient received blood transfusion on 05/27/2024. She also received IV fluids. Suspect the most likely explanation for CLAUDIA is volume depletion perhaps from prior diuresis. We will check SPEP, immunofixation and kappa/lambda light chains to make sure were not missing CLAUDIA from paraprotein disease. Agree with holding losartan, furosemide, potassium chloride, and metformin for now. Creatinine peaked to 5.52 on 05/27 and currently creatinine is at 1.57. Fortunately renal function has improved and patient did not need to receive any TRANSPORTATION ASSISTANT. Patient does not need daily labs, we will monitor patient periodically. Anemia. Hemoglobin was 7.6 g/dL on 05/27/2024. Patient was transfused with PRBC on 05/27/2024. Last hemoglobin 10.4 The patient has history of monoclonal gammopathy on review of record. She chose not to undergo bone marrow biopsy in the past. Given history of monoclonal gammopathy along with significant proteinuria on UPCR, I will check serologies for paraprotein disease. Heart failure with with preserved ejection fraction. Patient has been on furosemide which is currently on hold because of CLAUDIA. Patient does not appear to be overtly volume overloaded.
[2024-05-30 14:08] VITALS: BP 134/72; PULSE 67
[2024-05-30 14:10] VITALS: BP 134/72; PULSE 67
[2024-05-30 16:34] LABS: Bedside Glucose 229 mg/dL (74-106)
[2024-05-30 20:37] VITALS: BP 125/53; PULSE 67
[2024-05-30] MEDS: Atorvastatin Calcium 10 MG Tablet PO (20:37)
[2024-05-30] MEDS: Doxepin Hydrochloride 10 MG Capsule PO (20:38)
[2024-05-31] MEDS: LORazepam 0.5 MG Tablet 0.25 MG PO ×2 (01:17→21:00)
[2024-05-31] MEDS: guaiFENesin Dm 10 ML UDC PO ×2 (01:18→21:01)
[2024-05-31 06:00] VITALS: BMI 31.3
[2024-05-31] MEDS: Acetaminophen 500 MG Tablet 1000 MG PO ×2 (06:16→21:10)
[2024-05-31 06:17] VITALS: BP 167/77; PULSE 77
[2024-05-31] MEDS: Levothyroxine 112 MCG Tablet PO (06:17)
[2024-05-31] MEDS: hydrALAZINE 25 MG Tablet PO (06:17)
[2024-05-31 06:46] LABS: Bedside Glucose 191 mg/dL (74-106)
[2024-05-31] MEDS: Pantoprazole Sodium 40 MG Tablet PO (09:22)
[2024-05-31] MEDS: Clopidogrel Bisulfate 75 MG Tablet PO (09:22)
[2024-05-31] MEDS: Carvedilol 25 MG Tablet PO ×2 (09:22→17:01)
[2024-05-31] MEDS: glipiZIDE 5 MG Tablet PO (09:22)
[2024-05-31] MEDS: Cholecalciferol (VIT D3) 25 MCG TABLET (1,000 UNITS) 50 MCG PO (09:22)
[2024-05-31] MEDS: Citalopram 10 MG Tablet PO (09:22)
[2024-05-31] MEDS: Multivitamins,Therapeutic Tablet 1 TABLET PO (09:22)
[2024-05-31] MEDS: Nystatin Powder 15gm Bottle 1 APPLIC TOPICAL ×2 (09:23→21:22)
[2024-05-31] MEDS: Menthol/Lanolin/Calamine/Znox 113 GM Tube 1 APPLIC TOPICAL ×2 (09:23→21:21)
[2024-05-31] MEDS: amLODIPine 10 MG Tablet PO (09:25)
[2024-05-31 09:34] VITALS: BP 129/53; PULSE 69
--- NOTE | 2024-05-31 09:58 | MDS.RN ---
Information for the MDS was obtained from review of the clinical record, interview of resident, staff, and direct observation of resident?s care.
[2024-05-31 12:24] VITALS: BP 141/53; PULSE 66; RESP 17; TEMP 36.1; O2SAT 93
[2024-05-31 13:46] VITALS: BP 147/65; PULSE 71
[2024-05-31] MEDS: hydrALAZINE 50 MG Tablet PO ×2 (13:46→20:55)
--- NOTE | 2024-05-31 14:57 | CASEMGMT ---
Social Work SW attempted to speak with pt about homegoing questions, per OT, but pt asleep and unable to be awoken. SW left resources for [facility] on bedside table. Sagrario Butler, IN HOME BABY SITTER STAINED GLASS ARTIST
[2024-05-31 16:00] VITALS: BMI 31.1
[2024-05-31 16:46] LABS: Bedside Glucose 236 mg/dL (74-106)
--- NOTE | 2024-05-31 18:49 | EX.PCM.PN.GI ---
Subjective Subjective The plan is for EGD tomorrow morning. Please keep patient n.p.o. past midnight orders were placed. Objective Data Objective Data Vital Signs: Vital Signs Temp Pulse Resp BP Pulse Ox O2 Del Method 96.9 F L 71 17 147/65 H 93 Room Air 05/31/24 12:24 05/31/24 13:46 05/31/24 12:24 05/31/24 13:46 05/31/24 12:24 05/30/24 10:10 Oxygen Delivery Method Room Air Weight: 175 lb 6 oz Body Mass Index (BMI) 31.1 Intake & Output: Intake and Output for Last 24 Hours 05/29/24 05/30/24 05/31/24 23:59 23:59 23:59 Intake Total 1240 / 1240 564 / 564 342 / 342 Output Total 2 / 2 Balance 1238 / 1238 564 / 564 342 / 342 Medical Nutrition Assessment Dietitian: Malnutrition Criteria Met Start: 05/25/24 14:55 Freq: Status: Active Protocol: Document 05/25/24 14:55 SLA (Rec: 05/25/24 14:55 SLA [email or web address]) Nutrition Malnutrition Evidence of Malnutrition Exists Yes Malnutrition (severe): Acute Illness/Injury Evidenced By Suboptimal Energy Intake ( Severe),Weight Loss (Severe) Intake Problem Inadequate Oral Intake Status Inactive Problem Clinical Problem Acute Disease or Injury Related Malnutrition Etiology related to issues w/ nausea, diarrhea and not wanting to eat Signs/Symptoms as evidenced by 3.5% unintended wt loss and po intake meeting <75% of est nutritional needs x 5 days Status Active Problem Altered Nutrient-Related Laboratory Values Etiology related to diabetes Signs/Symptoms as evidenced by gluc 144 Status Active Problem Recommendation Dietitian Recommendations/Changes Will liberalize diet to CHO Control, No Added Salt w/ fluid restriction per MD - rec liberalize or d/c fluid restriction when medically able Will provide 4 oz ensure clear tid w/ meals for increased nutrition if consumed Rec appetite stimulant if po intake fails once nausea and diarrhea improved. May need to consider more aggressive nutrition support if po intake fails/wt loss continues to help prevent further decline in res nutritional status if in accordance w/ res/family wishes. Lab / Micro Data 05/28/24 15:21 05/30/24 05:26 Labs: Laboratory Results - last 24 hr 05/31/24 06:01: POC Glucose 191 H 05/31/24 16:20: POC Glucose 236 H Micro: Microbiology 05/30/24 13:00 Stool Stool Occult Blood (JUAN R) - Final Occult Blood Positive 05/29/24 16:45 Mucosa - Nasopharyngeal Respiratory Panel (PCR) - Final 05/29/24 16:35 Nasal Secretion SARS-CoV-2 Antigen (Rapid) - Final 05/28/24 15:05 Stool Stool Occult Blood (JUAN R) - Final 05/23/24 10:35 Stool Enteric Bacteriology - Final 05/23/24 09:31 Mucosa - Nasopharyngeal Respiratory Panel (PCR) - Final 05/23/24 08:20 Nasal Secretion SARS-CoV-2 Antigen (Rapid) - Final Charges/Coding Visit Charges Inpatient E&M: 09619 [facility] Subs L1
[2024-05-31 20:55] VITALS: BP 153/60; PULSE 72
[2024-05-31] MEDS: Atorvastatin Calcium 10 MG Tablet PO (20:56)
[2024-05-31] MEDS: Doxepin Hydrochloride 10 MG Capsule PO (20:57)
--- NOTE | 2024-05-31 22:09 | NURSING ---
Patient made aware she will be NPO after midnight and will receive EGD on 06/[address] Drake.
[2024-06-01 05:05] VITALS: BP 157/58; PULSE 68
[2024-06-01 05:06] VITALS: BP 157/58; PULSE 68
[2024-06-01] MEDS: Levothyroxine 112 MCG Tablet PO (05:06)
[2024-06-01] MEDS: hydrALAZINE 50 MG Tablet PO ×2 (05:06→20:39)
[2024-06-01 06:00] VITALS: BMI 31.1
[2024-06-01 06:19] LABS: Bedside Glucose 177 mg/dL (74-106)
--- NOTE | 2024-06-01 07:17 | NURSING ---
Spoke with AC per Nurse does not have a time for EGD today okay to give Amlodipine and Coreg this morning. Will call back with time as soon as they know.
[2024-06-01] MEDS: Carvedilol 25 MG Tablet PO ×2 (08:18→17:29)
[2024-06-01] MEDS: amLODIPine 10 MG Tablet PO (08:18)
[2024-06-01] MEDS: Nystatin Powder 15gm Bottle 1 APPLIC TOPICAL ×2 (08:20→20:41)
[2024-06-01] MEDS: Menthol/Lanolin/Calamine/Znox 113 GM Tube 1 APPLIC TOPICAL ×2 (08:20→20:42)
[2024-06-01 13:20] VITALS: BP 136/53; PULSE 71; RESP 20; TEMP 36.2; O2SAT 94; BMI 31.1
[2024-06-01 15:07] LABS: Albumin 2.3 g/dL (2.9-4.4); Alpha-1-Globulins 0.3 g/dL (0.0-0.4); Alpha-2-Globulins 2.1 g/dL (0.4-1.0); Free Kappa Light Chains 59.4 mg/L (3.3-19.4); Free Lambda Light Chains 6276.2 mg/L (5.7-26.3); Gamma Globulin 0.5 g/dL (0.4-1.8); Immunoglobulin A 65 mg/dL (64-422); Immunoglobulin G 455 mg/dL (586-1602); Immunoglobulin M 14 mg/dL (26-217); PROEL- TOTAL PROTEIN 5.9 g/dL (6.0-8.5)
--- NOTE | 2024-06-01 15:36 | NURSING ---
Pt off unit for EGD.
--- NOTE | 2024-06-01 15:48 | WOUNDNOTE ---
Pt off unit for a procedure.
[2024-06-01 16:00] VITALS: BP 137/54; PULSE 68
[2024-06-01 19:04] LABS: Bedside Glucose 198 mg/dL (74-106)
--- NOTE | 2024-06-01 19:32 | NURSING ---
Dr. Drake via [facility] hydroelectric operator at 19:32 to request if patient needs bowel prep order for capsule endoscopy planned for 06/01/24, no bowel prep ordered at this time. Awating return call.
--- NOTE | 2024-06-01 19:32 | NURSING ---
Dr. Drake paged via [facility] lapping machine operator at 19:32 to request if patient needs bowel prep order for capsule endoscopy planned for 06/01/24, no bowel prep ordered at this time. Awaiting return call.
--- NOTE | 2024-06-01 20:02 | NURSING ---
Received return page from , verbal order received for bowel prep protocol, Bisacodyl and Miralax per protocol order. Order repeated back and verified by Dr. Drake
[2024-06-01] MEDS: Bisacodyl 5 MG Tablet 20 MG PO (20:38)
[2024-06-01 20:39] VITALS: BP 126/53; PULSE 67
[2024-06-01] MEDS: Atorvastatin Calcium 10 MG Tablet PO (20:39)
[2024-06-01] MEDS: Polyethylene Glycol 3350 BOWEL PREP PO (22:34)
--- NOTE | 2024-06-01 23:22 | NURSING ---
A&Ox3, patient refusing to complete bowel prep, educated on importance of completing bowel prep as order for scheduled procedure 06/02/[address] Drake. Patient verbalizes understanding, states I don't care, I'm not drinking anymore, they can cancel my procedure for all I care. Patient accepts 360mL of miralax bowel prep, declines to drink any further. No distress observed or reported. Denies requests. Call light in reach.
[2024-06-02] MEDS: LORazepam 0.5 MG Tablet 0.25 MG PO (00:01)
[2024-06-02 02:44] VITALS: PULSE 71; RESP 16; O2SAT 98
[2024-06-02 06:00] VITALS: BMI 31.2
[2024-06-02 06:53] LABS: Bedside Glucose 215 mg/dL (74-106)
--- NOTE | 2024-06-02 06:53 | NURSING ---
Pt. requesting fluids, feels dehydrated educated on NPO status for procedure scheduled this date, verbalized understanding. Written communication left for Dr. Perez regarding pt. c/o feeling dehydrated and current NPO status. Patient states If they don't get me in early, I'm not doing the procedure. Denies further requests. Call light in reach.
--- NOTE | 2024-06-02 07:02 | NURSING ---
Addendum entered by Renzo Moore 06/02/24 07:41: Return secure backline text received from Dr. Drake, will continue with procedure as planned. Original Note: Confidential backline text message sent to regarding patient refusal of bowel prep as ordered. Awaiting response
--- NOTE | 2024-06-02 09:06 | NURSING ---
Capsule given this AM at 0800 for endoscopy. Patient allowed to drink after 2 hrs and can have light snack after 4 hours. Ok to have dinner tonight. Belt around waist will beep after 12hrs when done and needs returned to endo in bag at nurse's station. Patient refuses IV fluids since she will be able to drink at 1000.
[2024-06-02] MEDS: glipiZIDE 5 MG Tablet PO (10:36)
[2024-06-02] MEDS: Citalopram 10 MG Tablet PO (10:36)
[2024-06-02] MEDS: amLODIPine 10 MG Tablet PO (10:36)
[2024-06-02] MEDS: Clopidogrel Bisulfate 75 MG Tablet PO (10:36)
[2024-06-02] MEDS: Carvedilol 25 MG Tablet PO ×2 (10:37→17:35)
[2024-06-02] MEDS: Pantoprazole Sodium 40 MG Tablet PO (10:37)
--- NOTE | 2024-06-02 10:39 | PN.RENAL_ITS ---
Subjective Subjective Resting in bed, just returned back to her room from having capsule study. No complaints. Objective Data Objective Data Vital Signs: Vital Signs Temp Pulse Resp BP Pulse Ox O2 Del Method 97.2 F L 71 16 126/53 H 98 Room Air 06/01/24 13:20 06/02/24 02:44 06/02/24 02:44 06/01/24 20:39 06/02/24 02:44 06/02/24 02:44 Oxygen Delivery Method Room Air Weight: 80.104 kg Body Mass Index (BMI) 31.2 Intake & Output: Intake and Output for Last 24 Hours 05/31/24 06/01/24 06/02/24 23:59 23:59 23:59 Intake Total 462 / 462 480 / 480 Balance 462 / 462 480 / 480 Medical Nutrition Assessment Dietitian: Malnutrition Criteria Met Start: 05/25/24 14:55 Freq: Status: Active Protocol: Document 06/01/24 12:20 SLA (Rec: 06/01/24 12:20 SLA [id number]) Nutrition Malnutrition Evidence of Malnutrition Exists Yes Malnutrition (severe): Acute Illness/Injury Evidenced By Suboptimal Energy Intake ( Severe),Weight Loss (Severe) Intake Problem Increased Nutrient Needs (specify) Etiology protein related to skin status Signs/Symptoms as evidenced by worsening L buttock and francesca cleft areas Status Active Problem Inadequate Oral Intake Status Inactive Problem Clinical Problem Acute Disease or Injury Related Malnutrition Etiology related to issues w/ nausea, diarrhea and not wanting to eat Signs/Symptoms as evidenced by 3.5% unintended wt loss and po intake meeting <75% of est nutritional needs ~ 2wks Status Active Problem Altered Nutrient-Related Laboratory Values Etiology related to diabetes Signs/Symptoms as evidenced by gluc 214 Status Active Problem Recommendation Dietitian Recommendations/Changes Will continue liberalized diet of CHO Control, No Added Salt Continue to provide 4 oz ensure clear tid w/ meals for increased nutrition if consumed Rec appetite stimulant Will order Raf bid w/ medpass for increased nutrition to help w/ skin healing if consumed. May need to consider more aggressive nutrition support if po intake fails/wt loss continues to help prevent further decline in res nutritional status if in accordance w/ res/family wishes. Lab / Micro Data 05/28/24 15:21 05/30/24 05:26 Labs: Laboratory Results - last 24 hr 05/28/24 04:18: Total Protein (PEP) 5.9 L, Globulin 3.6, IgG 455 L, IgA 65, IgM 14 L, Immunofixation Screen Comment H, Albumin (JUHI) 2.3 L, Albumin/Globulin (JUHI) 0.7, [id number] JUHI 0.3, Qbhgp-7-Frsowiduk JUHI 2.1 H, Beta- Globulins (JUHI) 0.8, Gamma Globulins (JUHI) 0.5, JUHI M-Charles Comment:, JUHI Comments Comment, Free [place] LC, Quant 59.4 H, Free Lambda LC, Quant 6276.2 H, F ree [place]/Lambda Ratio 0.01 L 06/01/24 18:44: POC Glucose 198 H 06/02/24 06:26: POC Glucose 215 H Micro: Microbiology 05/30/24 13:00 Stool Stool Occult Blood (JUAN R) - Final Occult Blood Positive 05/29/24 16:45 Mucosa - Nasopharyngeal Respiratory Panel (PCR) - Final 05/29/24 16:35 Nasal Secretion SARS-CoV-2 Antigen (Rapid) - Final 05/28/24 15:05 Stool Stool Occult Blood (JUAN R) - Final 05/23/24 10:35 Stool Enteric Bacteriology - Final 05/23/24 09:31 Mucosa - Nasopharyngeal Respiratory Panel (PCR) - Final 05/23/24 08:20 Nasal Secretion SARS-CoV-2 Antigen (Rapid) - Final Physical Exam Narrative Alert and oriented x 3, no acute distress S1, S2, RRR Lung sounds clear Abdomen soft, nontender No pitting edema Assessment & Plan Assessment/Plan (1) Acute kidney injury: (2) Chronic kidney disease, stage 3b: (3) Essential hypertension: (4) Anemia: (5) Heart failure with preserved ejection fraction: PLAN: Plan Assessment/Plan: The patient is a 79-year-old female with past history of CKD stage G3b, type 2 diabetes mellitus, hypertension, monoclonal gammopathy, iron deficiency anemia, hypothyroidism, peripheral neuropathy, and hyperlipidemia. The patient was recently admitted to [facility] between 05/11/2024 until 05/19/2024 with acute hypoxic respiratory failure attributed to decompensated heart failure with preserved ejection fraction. The patient was also treated for acute blood loss anemia which is due to angiodysplastic lesion of the duodenum, erosive esophagitis and nonbleeding gastric ulcer. Nephrology is asked to the patient because of CLAUDIA on CKD. Acute kidney injury on chronic kidney disease stage G3b. Baseline serum creatinine has been around 1.60 mg/dL. 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 Patient lives in [place]. Serum creatinine increased to 5.52 mg/dL on 05/27/2024. The patient has a history of questionable monoclonal gammopathy. She has never had a bone marrow or kidney biopsy. Renal ultrasound from 05/27/2024 is negative for obstruction. Urinalysis from 05/27/2024 showed high specific gravity with 3+ protein on dipstick. Urine protein to creatinine ratio is 2.1 g/g. Fractional secretion of sodium was less than 1%. Renal function improved with volume expansion, holding diuretic and ARB. Patient received blood transfusion on 05/27/2024. She also received IV fluids. Suspect the most likely explanation for CLAUDIA is volume depletion perhaps from prior diuresis. We will check SPEP, immunofixation and kappa/lambda light chains to make sure were not missing CLAUDIA from paraprotein disease. Agree with holding losartan, furosemide, potassium chloride, and metformin for now. Creatinine peaked to 5.52 on 05/27 and currently creatinine is at 1.57. Fortunately renal function has improved and patient did not need to receive any LAND RECLAMATION SPECIALIST. Patient does not need daily labs, we will monitor patient periodically. Labs ordered for am. Anemia. Hemoglobin was 7.6 g/dL on 05/27/2024. Patient was transfused with PRBC on 05/27/2024. Last hemoglobin 10.4 The patient has history of monoclonal gammopathy on review of record. She chose not to undergo bone marrow biopsy in the past. Given history of monoclonal gammopathy along with significant proteinuria on UPCR, I will check serologies for paraprotein disease. Heart failure with with preserved ejection fraction. Patient has been on furosemide which is currently on hold because of CLAUDIA. Patient does not appear to be overtly volume overloaded.
[2024-06-02] MEDS: Nystatin Powder 15gm Bottle 1 APPLIC TOPICAL ×2 (10:41→20:12)
[2024-06-02] MEDS: Menthol/Lanolin/Calamine/Znox 113 GM Tube 1 APPLIC TOPICAL ×2 (10:42→20:12)
[2024-06-02 13:47] VITALS: BP 132/52; PULSE 73
[2024-06-02] MEDS: hydrALAZINE 50 MG Tablet PO ×2 (13:47→20:16)
[2024-06-02 14:33] VITALS: BP 132/52; PULSE 70; RESP 20; TEMP 37.2; O2SAT 92
[2024-06-02 16:57] LABS: Bedside Glucose 177 mg/dL (74-106)
[2024-06-02] MEDS: Juven (unflavored) Packet 1 PACKET PO (17:37)
[2024-06-02] MEDS: Doxepin Hydrochloride 10 MG Capsule PO (20:13)
[2024-06-02] MEDS: Atorvastatin Calcium 10 MG Tablet PO (20:13)
[2024-06-02 20:16] VITALS: BP 142/49; PULSE 72
[2024-06-03] MEDS: Levothyroxine 112 MCG Tablet PO (05:08)
[2024-06-03 05:13] VITALS: BMI 31.1
[2024-06-03 05:16] VITALS: BP 140/46; PULSE 69
[2024-06-03] MEDS: hydrALAZINE 50 MG Tablet PO ×3 (05:16→19:23)
--- NOTE | 2024-06-03 05:30 | NURSING ---
Presents with lack of motivation AEB verbal cues to complete tasks such as hold a cup, does not want to get out of bed to toilet or walk. Ax1, accepts BSC only with encouragement, transfers well but presents with anxiety during transfers repeating I have to sit down, I have to sit down, I don't want to fall. Bears weight well. Self-limiting at times. Declines to assist with repositioning in bed, states can't you guys just do it for me?. Weak, A&Ox3. Encouragement needed to participate in ADLs and to stand. Educated on importance of T&R to promote and maintain skin integrity. Pillows to offload pressure, heels floating on pillows per preference. Written communication left for Dr. Perez. Endo belt post capsule procedure placed in bag at nurses station for return to Endo department.
[2024-06-03 05:56] VITALS: PULSE 69; RESP 18; O2SAT 96
[2024-06-03 05:57] LABS: Absolute Lymphocyte Count 1.11 X10^3/uL (0.83-4.51); Absolute Neutrophil Count 8.8 X10^3/uL (2.0-7.7); Basophil# 0.03 X10^3/uL; Basophil% 0.3 % (0-1); Eosinophil# 0.08 X10^3/uL; Eosinophils% 0.7 % (0-5); Hematocrit 30.2 % (37-47); Hemoglobin 10.1 g/dL (12.0-15.0); Lymphocyte # 1.11 X10^3/ul (0.83-4.51); Lymphocyte % 10.4 % (19-41); Mean Corp Hgb Conc 33.4 g/dL (32-36); Mean Corpuscular Hgb 29.6 pg (27.0-32.0); Mean Corpuscular Volume 88.6 fL (81-99); Monocyte# 0.57 X10^3/uL; Monocyte% 5.3 % (0-10); NRBC Flagged by Analyzer 0 % (0-5); Neutrophil # 8.78 X10^3/uL (2.7-7.7); Neutrophil % 82.1 % (47-70); Platelet Count 222 K/mm3 (150-450); RBC Distribution Width CV 14.2 % (11.6-14.6); RBC Distribution Width SD 45.7 fl (35.1-43.9); Red Blood Count 3.41 M/mm3 (4.2-5.4); White Blood Count 10.7 K/mm3 (4.4-11.0)
[2024-06-03 06:19] LABS: Anion Gap 10 (5-15); BUN 46 mg/dL (7-18); BUN/Creat Ratio 23.1 RATIO (10-20); Calcium,Total 9.2 mg/dL (8.5-10.1); Chloride 108 mmol/L (98-107); Creatinine, Serum 1.99 mg/dL (0.55-1.02); EST Glomerular Filtration Rate 26 mL/min (>60); Est Glom Filt Rate - Afr Amer 31 mL/min (>60); Estimated Creatinine Clearance 22.16 ml/min; Glucose 191 mg/dL (74-106); Potassium 3.7 mmol/L (3.5-5.1); Sodium Level 136 mmol/L (136-145)
[2024-06-03] MEDS: glipiZIDE 5 MG Tablet PO (08:09)
[2024-06-03] MEDS: Menthol/Lanolin/Calamine/Znox 113 GM Tube 1 APPLIC TOPICAL (08:09)
[2024-06-03] MEDS: Juven (unflavored) Packet 1 PACKET PO ×2 (08:09→17:21)
[2024-06-03] MEDS: Nystatin Powder 15gm Bottle 1 APPLIC TOPICAL ×2 (08:09→19:25)
[2024-06-03] MEDS: Multivitamins,Therapeutic Tablet 1 TABLET PO (08:09)
[2024-06-03] MEDS: Citalopram 10 MG Tablet PO (08:09)
[2024-06-03] MEDS: Carvedilol 25 MG Tablet PO ×2 (08:09→17:21)
[2024-06-03] MEDS: Cholecalciferol (VIT D3) 25 MCG TABLET (1,000 UNITS) 50 MCG PO (08:10)
[2024-06-03] MEDS: Pantoprazole Sodium 40 MG Tablet PO (08:10)
[2024-06-03] MEDS: Clopidogrel Bisulfate 75 MG Tablet PO (08:10)
[2024-06-03] MEDS: amLODIPine 10 MG Tablet PO (08:10)
[2024-06-03] MEDS: Acetaminophen 500 MG Tablet 1000 MG PO (08:23)
[2024-06-03 10:50] VITALS: BP 133/60; PULSE 75; RESP 18; TEMP 36.5; O2SAT 96
--- NOTE | 2024-06-03 14:22 | WOUNDNOTE ---
wound photo: francesca cleft/right buttock
[2024-06-03 14:31] VITALS: PULSE 75
--- NOTE | 2024-06-03 16:12 | CASEMGMT ---
Social Work Notified by nursing that palliative care consult entered, and IDT reporting pt's continuing lack of motivation and limiting therapy progress. - SW spoke with pt and at bedside. Explored pt's perspective on therapy progress and medical well-being. maintained control over the answers, kindly voicing concerns with pt's renal function, reportedly having multiple blood transfusions, and inquired about the outcome of the upper scope pt recently had. SW deferred to nursing and the Dr to get those answers, and offered for Dr Perez to speak with pt and during rounds this date. Both agreeable. SW engaged pt in direct conversation to learn her perspective. Pt explained feeling weak, tired, lack of appetite and energy, though, still wanting to progress in therapy with a goal to return home. Pt also noted complications with medical complexity. Pt inquired about Medicare coverage. SW educated to Medicare requirements to continue receiving coverage on TCU, such as making progress and participating fully in therapy. Pt expressed understanding. SW to follow for DC planning and support. - SYLWIA provided verbal hand-off to Dr. Perez. Dr. Perez canceled palliative consult, as that is not appropriate, and spoke with pt about increasing motivation in therapy. noted he did start pt on antidepressant toward the beginning of her stay. Sagrario Butler, [employer]AH[employer] POST OFFICE MANAGER
--- NOTE | 2024-06-03 16:17 | PN_ITS ---
Progress Note significantly elevated heavy chains. reviewed records from [facility]. she sees Dr Nathan. last visit was january. she was offered renal biopsy in view of proteinuria. declined at that time. I reached out to Dr nathan about increased heavy chains. He will arrange follow up after dc.
[2024-06-03 16:38] LABS: Bedside Glucose 273 mg/dL (74-106)
[2024-06-03] MEDS: LORazepam 0.5 MG Tablet 0.25 MG PO (19:19)
[2024-06-03 19:23] VITALS: BP 104/57; PULSE 78
[2024-06-03] MEDS: Doxepin Hydrochloride 10 MG Capsule PO (19:24)
[2024-06-03] MEDS: Atorvastatin Calcium 10 MG Tablet PO (19:25)
[2024-06-04 05:31] VITALS: BP 128/51; PULSE 67
[2024-06-04 05:32] VITALS: PULSE 67
[2024-06-04] MEDS: Levothyroxine 112 MCG Tablet PO (05:32)
[2024-06-04] MEDS: hydrALAZINE 50 MG Tablet PO ×3 (05:32→20:58)
[2024-06-04 05:44] VITALS: BMI 31.1
[2024-06-04 07:50] LABS: Bedside Glucose 189 mg/dL (74-106)
[2024-06-04] MEDS: Insulin Lispro 100 UNIT/ML INSULN.PEN SC ×3 (08:50→16:58)
[2024-06-04] MEDS: amLODIPine 10 MG Tablet PO (08:57)
[2024-06-04] MEDS: Multivitamins,Therapeutic Tablet 1 TABLET PO (08:57)
[2024-06-04] MEDS: Clopidogrel Bisulfate 75 MG Tablet PO (08:57)
[2024-06-04] MEDS: glipiZIDE 5 MG Tablet PO (08:57)
[2024-06-04] MEDS: Citalopram 10 MG Tablet PO (08:57)
[2024-06-04] MEDS: Pantoprazole Sodium 40 MG Tablet PO (08:57)
[2024-06-04] MEDS: Cholecalciferol (VIT D3) 25 MCG TABLET (1,000 UNITS) 50 MCG PO (08:58)
[2024-06-04] MEDS: Juven (unflavored) Packet 1 PACKET PO ×2 (08:58→17:54)
[2024-06-04] MEDS: Nystatin Powder 15gm Bottle 1 APPLIC TOPICAL ×2 (08:58→20:58)
[2024-06-04] MEDS: Carvedilol 25 MG Tablet PO ×2 (08:58→17:54)
--- NOTE | 2024-06-04 10:25 | NURSING ---
SUPERVISOR VARNISH came and let me know that the patient was not wanting to get cleaned up or ready for the day. I went in and discussed with the patient that she may be feeling better if she were to get cleaned up and ready for the day. She did allow me then to wash her face and underarms. But refused to brush teeth, move to chair, or get dressed. I discussed with her that this was part of the process of being prepared to get stronger and go home however, she still refused. She complained of dry skin but said she did not want me to look into getting any lotion or lip moisturizer for her.
[2024-06-04 12:54] VITALS: BP 120/81; PULSE 65
[2024-06-04 13:05] LABS: Bedside Glucose 179 mg/dL (74-106)
[2024-06-04 16:00] VITALS: BP 120/45; PULSE 64; RESP 16; TEMP 36.4; O2SAT 93
[2024-06-04 16:41] LABS: Bedside Glucose 146 mg/dL (74-106)
[2024-06-04 20:58] VITALS: PULSE 62
[2024-06-04] MEDS: Atorvastatin Calcium 10 MG Tablet PO (20:58)
[2024-06-04] MEDS: Doxepin Hydrochloride 10 MG Capsule PO (20:59)
[2024-06-04] MEDS: LORazepam 0.5 MG Tablet 0.25 MG PO (20:59)
[2024-06-04] MEDS: guaiFENesin Dm 10 ML UDC PO (20:59)
[2024-06-04 21:20] LABS: Bedside Glucose 118 mg/dL (74-106)
[2024-06-05] MEDS: Acetaminophen 500 MG Tablet 1000 MG PO (04:49)
[2024-06-05] MEDS: Levothyroxine 112 MCG Tablet PO (04:53)
[2024-06-05 04:55] VITALS: PULSE 65
[2024-06-05] MEDS: hydrALAZINE 50 MG Tablet PO ×3 (04:55→20:17)
[2024-06-05 05:52] VITALS: BMI 31.1
[2024-06-05 05:59] LABS: Bedside Glucose 156 mg/dL (74-106)
[2024-06-05] MEDS: Clopidogrel Bisulfate 75 MG Tablet PO (09:05)
[2024-06-05] MEDS: Pantoprazole Sodium 40 MG Tablet PO (09:05)
[2024-06-05] MEDS: Citalopram 10 MG Tablet PO (09:05)
[2024-06-05] MEDS: Carvedilol 25 MG Tablet PO ×2 (09:05→18:01)
[2024-06-05] MEDS: Cholecalciferol (VIT D3) 25 MCG TABLET (1,000 UNITS) 50 MCG PO (09:05)
[2024-06-05] MEDS: Juven (unflavored) Packet 1 PACKET PO (09:05)
[2024-06-05] MEDS: glipiZIDE 5 MG Tablet PO (09:05)
[2024-06-05] MEDS: Multivitamins,Therapeutic Tablet 1 TABLET PO (09:05)
[2024-06-05] MEDS: amLODIPine 10 MG Tablet PO (09:06)
[2024-06-05] MEDS: Insulin Lispro 100 UNIT/ML INSULN.PEN SC ×3 (09:06→18:01)
[2024-06-05] MEDS: Nystatin Powder 15gm Bottle 1 APPLIC TOPICAL ×2 (09:07→20:22)
[2024-06-05 11:54] VITALS: BP 128/51; PULSE 61; RESP 16; TEMP 36.5; O2SAT 96
[2024-06-05 12:01] LABS: Bedside Glucose 223 mg/dL (74-106)
[2024-06-05 13:35] VITALS: BP 123/46; PULSE 58
[2024-06-05 16:52] LABS: Bedside Glucose 194 mg/dL (74-106)
[2024-06-05 20:12] VITALS: BP 120/50; PULSE 59; O2SAT 92
[2024-06-05 20:17] VITALS: BP 120/50; PULSE 59
[2024-06-05] MEDS: Doxepin Hydrochloride 10 MG Capsule PO (20:17)
[2024-06-05] MEDS: Atorvastatin Calcium 10 MG Tablet PO (20:17)
[2024-06-05] MEDS: LORazepam 0.5 MG Tablet 0.25 MG PO (20:17)
[2024-06-05 22:34] LABS: Bedside Glucose 146 mg/dL (74-106)
[2024-06-06 05:33] VITALS: BP 139/50; PULSE 67
[2024-06-06] MEDS: hydrALAZINE 50 MG Tablet PO ×3 (05:33→20:05)
[2024-06-06] MEDS: Levothyroxine 112 MCG Tablet PO (05:34)
[2024-06-06 06:00] VITALS: BMI 31.1
[2024-06-06 06:59] LABS: Bedside Glucose 161 mg/dL (74-106)
[2024-06-06 07:56] VITALS: BP 135/42; PULSE 69; RESP 18; TEMP 36.8; O2SAT 94
[2024-06-06] MEDS: Insulin Lispro 100 UNIT/ML INSULN.PEN SC ×3 (08:08→18:36)
[2024-06-06] MEDS: Carvedilol 25 MG Tablet PO ×2 (08:13→18:37)
[2024-06-06] MEDS: glipiZIDE 5 MG Tablet PO (08:14)
[2024-06-06] MEDS: Juven (unflavored) Packet 1 PACKET PO ×2 (08:15→18:37)
[2024-06-06] MEDS: Multivitamins,Therapeutic Tablet 1 TABLET PO (08:15)
[2024-06-06 08:16] LABS: Anion Gap 10 (5-15); BUN 75 mg/dL (7-18); BUN/Creat Ratio 30.4 RATIO (10-20); Calcium,Total 9.2 mg/dL (8.5-10.1); Chloride 105 mmol/L (98-107); Creatinine, Serum 2.47 mg/dL (0.55-1.02); EST Glomerular Filtration Rate 20 mL/min (>60); Est Glom Filt Rate - Afr Amer 24 mL/min (>60); Estimated Creatinine Clearance 17.86 ml/min; Glucose 195 mg/dL (74-106); Sodium Level 131 mmol/L (136-145)
[2024-06-06] MEDS: Citalopram 10 MG Tablet PO (08:17)
[2024-06-06] MEDS: Nystatin Powder 15gm Bottle 1 APPLIC TOPICAL ×2 (08:18→20:06)
[2024-06-06] MEDS: amLODIPine 10 MG Tablet PO (08:19)
[2024-06-06] MEDS: Pantoprazole Sodium 40 MG Tablet PO (08:20)
[2024-06-06] MEDS: Clopidogrel Bisulfate 75 MG Tablet PO (08:20)
[2024-06-06] MEDS: Cholecalciferol (VIT D3) 25 MCG TABLET (1,000 UNITS) 50 MCG PO (08:21)
[2024-06-06 11:19] LABS: Bedside Glucose 202 mg/dL (74-106)
[2024-06-06 14:14] VITALS: BP 126/48; PULSE 65
[2024-06-06 16:00] VITALS: BP 132/47; PULSE 66; RESP 22; TEMP 36.6; O2SAT 94
[2024-06-06 16:28] LABS: Bedside Glucose 180 mg/dL (74-106)
--- NOTE | 2024-06-06 18:24 | PN.RENAL_ITS ---
Subjective Subjective no new complaints Objective Data Objective Data Vital Signs: Vital Signs Temp Pulse Resp BP Pulse Ox O2 Del Method 98.2 F 65 18 126/48 H 94 Room Air 06/06/24 07:56 06/06/24 14:14 06/06/24 07:56 06/06/24 14:14 06/06/24 07:56 06/06/24 07:56 Oxygen Delivery Method Room Air Weight: 79.742 kg Body Mass Index (BMI) 31.1 Intake & Output: Intake and Output for Last 24 Hours 06/04/24 06/05/24 06/06/24 23:59 23:59 23:59 Intake Total 342 / 342 222 / 222 240 / 240 Balance 342 / 342 222 / 222 240 / 240 Medical Nutrition Assessment Dietitian: Malnutrition Criteria Met Start: 05/25/24 14:55 Freq: Status: Active Protocol: Document 06/01/24 12:20 SLA (Rec: 06/01/24 12:20 SLA [id number]) Nutrition Malnutrition Evidence of Malnutrition Exists Yes Malnutrition (severe): Acute Illness/Injury Evidenced By Suboptimal Energy Intake ( Severe),Weight Loss (Severe) Intake Problem Increased Nutrient Needs (specify) Etiology protein related to skin status Signs/Symptoms as evidenced by worsening L buttock and cleft areas Status Active Problem Inadequate Oral Intake Status Inactive Problem Clinical Problem Acute Disease or Injury Related Malnutrition Etiology related to issues w/ nausea, diarrhea and not wanting to eat Signs/Symptoms as evidenced by 3.5% unintended wt loss and po intake meeting <75% of est nutritional needs ~ 2wks Status Active Problem Altered Nutrient-Related Laboratory Values Etiology related to diabetes Signs/Symptoms as evidenced by gluc 214 Status Active Problem Recommendation Dietitian Recommendations/Changes Will continue liberalized diet of CHO Control, No Added Salt Continue to provide 4 oz ensure clear tid w/ meals for increased nutrition if consumed Rec appetite stimulant Will order Raf bid w/ medpass for increased nutrition to help w/ skin healing if consumed. May need to consider more aggressive nutrition support if po intake fails/wt loss continues to help prevent further decline in res nutritional status if in accordance w/ res/family wishes. Lab / Micro Data 06/03/24 05:32 06/06/24 07:47 Labs: Laboratory Results - last 24 hr 06/05/24 22:16: POC Glucose 146 H 06/06/24 06:26: POC Glucose 161 H 06/06/24 07:47: Sodium 131 L, Potassium 4.0, Chloride 105, Carbon Dioxide 16.0 L , Anion Gap 10, BUN 75 H, Creatinine 2.47 H, Estim Creat Clear Calc 17.86, Est GFR (MDRD) Af Amer 24 L, Est GFR (MDRD) Non-Af 20 L, BUN/Creatinine Ratio 30.4 H , Glucose 195 H, Calcium 9.2 06/06/24 10:59: POC Glucose 202 H 06/06/24 16:08: POC Glucose 180 H Micro: Microbiology 05/30/24 13:00 Stool Stool Occult Blood (JUAN R) - Final Occult Blood Positive 05/29/24 16:45 Mucosa - Nasopharyngeal Respiratory Panel (PCR) - Final 05/29/24 16:35 Nasal Secretion SARS-CoV-2 Antigen (Rapid) - Final 05/28/24 15:05 Stool Stool Occult Blood (JUAN R) - Final 05/23/24 10:35 Stool Enteric Bacteriology - Final 05/23/24 09:31 Mucosa - Nasopharyngeal Respiratory Panel (PCR) - Final 05/23/24 08:20 Nasal Secretion SARS-CoV-2 Antigen (Rapid) - Final Physical Exam Narrative Alert and oriented x 3, no acute distress S1, S2, RRR Lung sounds clear Abdomen soft, nontender No pitting edema Assessment & Plan Assessment/Plan (1) Acute kidney injury: (2) Chronic kidney disease, stage 3b: (3) Essential hypertension: (4) Anemia: (5) Heart failure with preserved ejection fraction: PLAN: Plan Assessment/Plan: The patient is a 79-year-old female with past history of CKD stage G3b, type 2 diabetes mellitus, hypertension, monoclonal gammopathy, iron deficiency anemia, hypothyroidism, peripheral neuropathy, and hyperlipidemia. The patient was recently admitted to [facility] between 05/11/2024 until 05/19/2024 with acute hypoxic respiratory failure attributed to decompensated heart failure with preserved ejection fraction. The patient was also treated for acute blood loss anemia which is due to angiodysplastic lesion of the duodenum, erosive esophagitis and nonbleeding gastric ulcer. Nephrology is asked to the patient because of CLAUDIA on CKD. Acute kidney injury on chronic kidney disease stage G3b. Baseline serum creatinine has been around 1.60 mg/dL. Patient does not follow with a traffic incident management manager. Patient lives in [place]. Serum creatinine increased to 5.52 mg/dL on 05/27/2024. Renal ultrasound from 05/27/2024 is negative for obstruction. Urinalysis from 05/27/2024 showed high specific gravity with 3+ protein on dipstick. Urine protein to creatinine ratio 2.1 g/g. Fractional secretion of sodium was less than 1%. cr worse again will give 1 L of fluid significantly elevated lambda chains. I reached out to Dr Nathan. he has an appt with her next month. 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 discussed about kidney biopsy. she is agreeable if needed. will discuss with Dr Nathan about coordinating this.
[2024-06-06] MEDS: 0.9% Normal Saline (1000mL) 1,000 ML 100 ML IV (19:03)
[2024-06-06 20:05] VITALS: BP 126/57; PULSE 63
[2024-06-06] MEDS: Atorvastatin Calcium 10 MG Tablet PO (20:06)
[2024-06-06] MEDS: Doxepin Hydrochloride 10 MG Capsule PO (20:07)
[2024-06-06 21:45] LABS: Bedside Glucose 156 mg/dL (74-106)
[2024-06-07 05:29] VITALS: PULSE 70
[2024-06-07] MEDS: Levothyroxine 112 MCG Tablet PO (05:29)
[2024-06-07] MEDS: hydrALAZINE 50 MG Tablet PO ×3 (05:29→20:59)
[2024-06-07 06:00] VITALS: BMI 31.4
[2024-06-07 06:26] LABS: Bedside Glucose 144 mg/dL (74-106)
[2024-06-07] MEDS: Clopidogrel Bisulfate 75 MG Tablet PO (07:55)
[2024-06-07] MEDS: Multivitamins,Therapeutic Tablet 1 TABLET PO (07:55)
[2024-06-07] MEDS: amLODIPine 10 MG Tablet PO (07:55)
[2024-06-07] MEDS: Cholecalciferol (VIT D3) 25 MCG TABLET (1,000 UNITS) 50 MCG PO (07:55)
[2024-06-07] MEDS: Nystatin Powder 15gm Bottle 1 APPLIC TOPICAL ×2 (07:55→20:57)
[2024-06-07] MEDS: glipiZIDE 5 MG Tablet PO (07:55)
[2024-06-07] MEDS: Carvedilol 25 MG Tablet PO ×2 (07:55→17:40)
[2024-06-07] MEDS: Juven (unflavored) Packet 1 PACKET PO (07:55)
[2024-06-07] MEDS: Pantoprazole Sodium 40 MG Tablet PO (07:55)
[2024-06-07] MEDS: Insulin Lispro 100 UNIT/ML INSULN.PEN SC ×3 (08:02→17:41)
[2024-06-07 08:09] VITALS: BP 132/52; PULSE 68
[2024-06-07 09:17] LABS: Anion Gap 13 (5-15); BUN 80 mg/dL (7-18); BUN/Creat Ratio 35.2 RATIO (10-20); Calcium,Total 9.1 mg/dL (8.5-10.1); Chloride 107 mmol/L (98-107); Creatinine, Serum 2.27 mg/dL (0.55-1.02); EST Glomerular Filtration Rate 22 mL/min (>60); Est Glom Filt Rate - Afr Amer 27 mL/min (>60); Estimated Creatinine Clearance 19.52 ml/min; Glucose 181 mg/dL (74-106); Sodium Level 135 mmol/L (136-145)
[2024-06-07 11:35] LABS: Bedside Glucose 162 mg/dL (74-106)
[2024-06-07 13:08] VITALS: BP 131/51; PULSE 65
[2024-06-07 13:09] VITALS: BP 131/51; PULSE 65; RESP 20; TEMP 37.1; O2SAT 92
--- NOTE | 2024-06-07 15:15 | CASEMGMT ---
Addendum entered by Sagrario Butler 06/08/24 16:49: Notified by hospice that per request, meeting scheduled for 06/09 at 1530. Original Note: Social Work Nursing presented to this worker with ongoing concerns about pt's lack of participation in care and therapy and requesting further discussion about hospice services. - SW presented to pt's room. present and this worker requested to speak with pt 1:1. Pt and agreed. exited room. SW spoke with pt at bedside. Began conversation with exploration of pt's perspective of therapy care, nursing care, progress or limitations. SW explored pt's feelings in regards to motivation, energy, appetite, and goals for care. SW provided active listening while pt shared her experiences and feelings. Several times pt expressed being done with medical procedures, trying to find answers about her kidneys, and going through a lot over the last two years. SW used pt's words to summarize pt's feelings and confirm pt's wishes. SW acknowledged pt's exhaustion, disappointment, level of tiredness, and being done with the healthcare system. SW broached topic of hospice, repeating pt's wishes and the parallels with goals of hospice care. i.e. no hospitalizations, no procedures, no blood work/tests, with an emphasis on comfort care and pt resting. Pt and this worker discussed the myth behind signing a certificate when signing up for hospice. SW reiterated the goals of hospice care align with pt's goal of care moving forward. Pt became emotional. This worker and pt engaged in conversation about pt's adriano. Pt then said, I am tired. I am just done. I don't want anymore tests. My arms are beat up from all the blood work. I am not getting any rest here. I didn't want to admit that, but this is what I want. SW commended pt for being honest with her feelings and allowing herself to find peace in that admission. Pt also stated she wanted to be home. SW broached topic of a nursing facility as pt needs 24/7 care and works 3 days/wk. Pt became emotional again and pleaded to go home. SW offered to discuss logistics of homegoing with team and . SW explained hospice will be able to provide any DME needed, a nurse throughout the week, and an aide once a week to assist with showers, but it would not be 24/7 care. SW explained hiring a home health aide. Pt stated her neighbor girl is young and sweet, works in a fpc and already offered to help pt at home while is working. SW to discuss with as an option. Pt agreed to hospice services, but wants to talk to her first. SW agreed to include in conversation and confirmed pt is ready for to return to the room. pt agreed, then reached for this worker's hand and stated, thank you for caring. thank you for taking the time to talk to me. I feel much better about this. SW requested return to room. SW summarized conversation with pt and this worker. agreed to hospice services and to having pt at home. confirmed about the neighbor's offer to assist. SW requested and neighbor complete therapy training to ensure proper care for pt at home. is able to remain for PT session this date. SW provided this worker's contact information to give to the neighbor girl to call this worker to schedule training. Pending that outcome, a DC date can be set. SW referred to previously provided nonskilled [facility] resource list for to utilize. SW to refer to hospice to schedule a meeting. Pt/ agreeable. Both expressed great appreciation for time and compassion from this worker. SW updated Dr and IDT. - Secure email referral sent to [facility]. SW will continue to follow. Sagrario Butler CELL EFFICIENCY SUPERVISOR ASSESSMENT EXPERT
[2024-06-07 16:46] LABS: Bedside Glucose 178 mg/dL (74-106)
[2024-06-07 17:31] VITALS: BMI 31.4
[2024-06-07] MEDS: 0.9% Saline Lock 10 ML Syringe IV (17:43)
[2024-06-07 18:03] VITALS: BP 147/59; PULSE 70
[2024-06-07] MEDS: LORazepam 0.5 MG Tablet 0.25 MG PO (20:51)
[2024-06-07] MEDS: Atorvastatin Calcium 10 MG Tablet PO (20:57)
[2024-06-07 20:59] VITALS: BP 123/50; PULSE 63
[2024-06-07] MEDS: Doxepin Hydrochloride 10 MG Capsule PO (20:59)
[2024-06-07 21:25] LABS: Bedside Glucose 163 mg/dL (74-106)
[2024-06-08] VITALS (7 sets, daily range): BP systolic 131–148; BP diastolic 47–58; PULSE 58–68; RESP 22; TEMP 36.4; O2SAT 93–94; BMI 31.2
[2024-06-08] MEDS: Levothyroxine 112 MCG Tablet PO (05:10)
[2024-06-08] MEDS: hydrALAZINE 50 MG Tablet PO ×3 (05:10→20:33)
[2024-06-08 06:17] LABS: Bedside Glucose 164 mg/dL (74-106)
[2024-06-08] MEDS: Insulin Lispro 100 UNIT/ML INSULN.PEN SC ×3 (08:14→17:32)
[2024-06-08] MEDS: amLODIPine 10 MG Tablet PO (08:14)
[2024-06-08] MEDS: Multivitamins,Therapeutic Tablet 1 TABLET PO (08:14)
[2024-06-08] MEDS: Clopidogrel Bisulfate 75 MG Tablet PO (08:14)
[2024-06-08] MEDS: Carvedilol 25 MG Tablet PO ×2 (08:16→17:32)
[2024-06-08] MEDS: glipiZIDE 5 MG Tablet PO (08:16)
[2024-06-08] MEDS: Juven (unflavored) Packet 1 PACKET PO ×2 (08:16→17:32)
[2024-06-08] MEDS: Cholecalciferol (VIT D3) 25 MCG TABLET (1,000 UNITS) 50 MCG PO (08:16)
[2024-06-08] MEDS: Pantoprazole Sodium 40 MG Tablet PO (08:17)
[2024-06-08] MEDS: Nystatin Powder 15gm Bottle 1 APPLIC TOPICAL ×2 (08:17→20:34)
[2024-06-08 11:40] LABS: Bedside Glucose 200 mg/dL (74-106)
--- NOTE | 2024-06-08 14:33 | NURSING ---
Called Dr. Cee office to find out when results are usually expected from the Capsule Endoscopy. Awaiting return call.
[2024-06-08 16:25] LABS: Bedside Glucose 212 mg/dL (74-106)
[2024-06-08] MEDS: Atorvastatin Calcium 10 MG Tablet PO (20:34)
[2024-06-08] MEDS: Doxepin Hydrochloride 10 MG Capsule PO (20:35)
[2024-06-08] MEDS: 0.9% Saline Lock 10 ML Syringe IV (20:37)
[2024-06-08] MEDS: LORazepam 0.5 MG Tablet 0.25 MG PO (20:40)
[2024-06-08 21:24] LABS: Bedside Glucose 184 mg/dL (74-106)
[2024-06-09 03:58] VITALS: BMI 31.6
[2024-06-09 05:31] VITALS: BP 147/56; PULSE 60
[2024-06-09] MEDS: Levothyroxine 112 MCG Tablet PO (05:31)
[2024-06-09] MEDS: hydrALAZINE 50 MG Tablet PO ×3 (05:31→21:28)
[2024-06-09 06:32] LABS: Bedside Glucose 174 mg/dL (74-106)
[2024-06-09 08:46] VITALS: BP 150/55; PULSE 67; TEMP 36.6; O2SAT 94
[2024-06-09] MEDS: glipiZIDE 5 MG Tablet PO (08:51)
[2024-06-09] MEDS: Carvedilol 25 MG Tablet PO ×2 (08:51→16:46)
[2024-06-09] MEDS: Nystatin Powder 15gm Bottle 1 APPLIC TOPICAL ×2 (08:51→21:30)
[2024-06-09] MEDS: Juven (unflavored) Packet 1 PACKET PO ×2 (08:51→16:50)
[2024-06-09] MEDS: Multivitamins,Therapeutic Tablet 1 TABLET PO (08:51)
[2024-06-09] MEDS: amLODIPine 10 MG Tablet PO (08:52)
[2024-06-09] MEDS: Clopidogrel Bisulfate 75 MG Tablet PO (08:52)
[2024-06-09] MEDS: Cholecalciferol (VIT D3) 25 MCG TABLET (1,000 UNITS) 50 MCG PO (08:52)
[2024-06-09] MEDS: Pantoprazole Sodium 40 MG Tablet PO (08:52)
[2024-06-09] MEDS: 0.9% Saline Lock 10 ML Syringe IV ×2 (08:54→21:26)
[2024-06-09 11:28] LABS: Bedside Glucose 207 mg/dL (74-106)
[2024-06-09] MEDS: Acetaminophen 500 MG Tablet 1000 MG PO (15:02)
[2024-06-09 15:07] VITALS: BP 136/52; PULSE 64
[2024-06-09] MEDS: Insulin Lispro 100 UNIT/ML INSULN.PEN SC ×2 (15:13→16:45)
--- NOTE | 2024-06-09 15:13 | CASEMGMT ---
Social Work SW received call from Ysabel, pt's neighbor, and she can attend therapy training 06/10 at 1030. SW encouraged Ysabel to contact for days/times, but she would need to care for pt while is at work. Ysabel agreeable. SYLWIA updated therapy. Will continue to follow. Sagrario Butler SUPERVISOR [employer] ASSISTANT PROFESSOR OF CRIMINAL JUSTICE
[2024-06-09 16:26] LABS: Bedside Glucose 245 mg/dL (74-106)
--- NOTE | 2024-06-09 16:29 | CASEMGMT ---
Social Work Hospice nurse Umm presented to this worker's office. Pt signed for hospice and they can assist with SOC once there is a DC date. SW updated nurse on plan for caregiver training, etc. SW to notify hospice when there is a DC date set. Hospice will deliver DME to pt's house 06/10. Sagrario HAYESW
[2024-06-09 21:24] VITALS: BP 124/54; PULSE 58
[2024-06-09 21:28] VITALS: BP 124/54; PULSE 58
[2024-06-09] MEDS: Atorvastatin Calcium 10 MG Tablet PO (21:30)
[2024-06-09] MEDS: Doxepin Hydrochloride 10 MG Capsule PO (21:31)
[2024-06-09 22:05] LABS: Bedside Glucose 184 mg/dL (74-106)
[2024-06-10] VITALS (7 sets, daily range): BP systolic 126–149; BP diastolic 52–60; PULSE 61–67; RESP 20–22; TEMP 36.6–36.9; O2SAT 95; BMI 31.4
[2024-06-10] MEDS: Acetaminophen 500 MG Tablet 1000 MG PO (01:08)
[2024-06-10] MEDS: hydrALAZINE 50 MG Tablet PO ×3 (05:19→20:40)
[2024-06-10] MEDS: Levothyroxine 112 MCG Tablet PO (05:19)
[2024-06-10 06:03] LABS: Absolute Lymphocyte Count 1.05 X10^3/uL (0.83-4.51); Absolute Neutrophil Count 4.1 X10^3/uL (2.0-7.7); Basophil# 0.02 X10^3/uL; Basophil% 0.3 % (0-1); Eosinophil# 0.14 X10^3/uL; Eosinophils% 2.4 % (0-5); Hematocrit 26.5 % (37-47); Lymphocyte # 1.05 X10^3/ul (0.83-4.51); Mean Corpuscular Hgb 28.8 pg (27.0-32.0); Mean Corpuscular Volume 84.7 fL (81-99); Mean Platelet Vol. 10.9 fl (6.2-12.0); Monocyte# 0.38 X10^3/uL; Monocyte% 6.5 % (0-10); NRBC Flagged by Analyzer 0 % (0-5); Neutrophil # 4.14 X10^3/uL (2.7-7.7); Neutrophil % 71.1 % (47-70); Platelet Count 197 K/mm3 (150-450); RBC Distribution Width CV 14.3 % (11.6-14.6); RBC Distribution Width SD 44.1 fl (35.1-43.9); Red Blood Count 3.13 M/mm3 (4.2-5.4); White Blood Count 5.8 K/mm3 (4.4-11.0)
[2024-06-10 06:17] LABS: Bedside Glucose 184 mg/dL (74-106)
[2024-06-10 06:46] LABS: Anion Gap 11 (5-15); BUN 80 mg/dL (7-18); Calcium,Total 8.9 mg/dL (8.5-10.1); Chloride 106 mmol/L (98-107); EST Glomerular Filtration Rate 33 mL/min (>60); Est Glom Filt Rate - Afr Amer 40 mL/min (>60); Estimated Creatinine Clearance 27.69 ml/min; Glucose 200 mg/dL (74-106); Potassium 3.8 mmol/L (3.5-5.1); Sodium Level 134 mmol/L (136-145)
[2024-06-10] MEDS: Insulin Lispro 100 UNIT/ML INSULN.PEN SC ×3 (07:52→17:44)
[2024-06-10] MEDS: Carvedilol 25 MG Tablet PO ×2 (07:58→17:44)
[2024-06-10] MEDS: glipiZIDE 5 MG Tablet PO (07:59)
[2024-06-10] MEDS: Juven (unflavored) Packet 1 PACKET PO ×2 (08:00→17:44)
[2024-06-10] MEDS: Nystatin Powder 15gm Bottle 1 APPLIC TOPICAL ×2 (08:01→20:39)
[2024-06-10] MEDS: Multivitamins,Therapeutic Tablet 1 TABLET PO (08:01)
[2024-06-10] MEDS: amLODIPine 10 MG Tablet PO (08:07)
[2024-06-10] MEDS: Pantoprazole Sodium 40 MG Tablet PO (08:08)
[2024-06-10] MEDS: Clopidogrel Bisulfate 75 MG Tablet PO (08:08)
[2024-06-10] MEDS: Cholecalciferol (VIT D3) 25 MCG TABLET (1,000 UNITS) 50 MCG PO (08:09)
[2024-06-10 11:25] LABS: Bedside Glucose 236 mg/dL (74-106)
--- NOTE | 2024-06-10 11:57 | CASEMGMT ---
Addendum entered by Sagrario Butler 06/10/24 14:07: visited and spoke with this worker. Vargas has secured Ysabel, along with neighbors and assistance from islam members to provide pt care during his work hours. Pt and are agreeable to DC 06/11. SW to coordinate. IDT updated. Phoned and email [facility] to update on DC date. Phoned Physician's to schedule cot transport for 1100. Plan: DC home 06/11 with [facility] Original Note: Social Work Therapy updated this worker that caregiver training went well. - SW phoned to update. stated the DME is actively being delivered. SW requested speak with Ysabel to coordinate schedule and ensure Ysabel can care for pt while is at work, then follow up with this worker. If that is agreed upon, SW can have pt DC tomorrow. agreed and will notify this worker this afternoon. SW will continue to follow. Sagrario Butler CHILD WELFARE COUNSELOR STONE POLISHER
--- NOTE | 2024-06-10 14:10 | PCM.DC.SUM ---
Providers Date of Admission: 05/19/24 Primary Care Physician: Dr. Regi Liu MD Consultations 05/27/24 07:46 Consult: Nephrology Routine Consulting Provider: Dany Torres Reason for Consult: Acute kidney injury EMERGENT Consult: No Notified: Yes Date Notified: 05/27/24 Time Notified: 07:47 Method of Notification: Answering Service 05/30/24 16:29 Consult: Gastroenterology Routine Consulting Provider: [facility] Reason for Consult: Anemia, s/p 2unitPRBC, +hemoccult. EMERGENT Consult: No Notified: Yes Date Notified: 05/30/24 Time Notified: 16:29 Method of Notification: Text 06/01/24 09:30 Consult: Onc/Wound/casualty underwriter Routine Comment: Reason for Consult:: Moisture area in cleft. Comments:: Has gotten worse since being on TCU. 06/08/24 08:42 Consult: Hospice / Palliative Care Routine Consulting Provider: [facility] Reason for Consult: HOSPICE: DX: kidney failure, heart failure, respiratory failure EMERGENT Consult: No Notified: Yes Date Notified: 06/07/24 Time Notified: 17:42 Method of Notification: Text Reason For Visit: CHF Diagnosis Discharge Diagnosis (1) Acute kidney injury: Status: Acute Code(s): N17.9 - Acute kidney failure, unspecified (2) Chronic kidney disease, stage 3b: Status: Acute Code(s): N18.32 - Chronic kidney disease, stage 3b (3) Essential hypertension: Status: Chronic Code(s): I10 - Essential (primary) hypertension (4) Anemia: Status: Acute Code(s): D64.9 - Anemia, unspecified (5) Heart failure with preserved ejection fraction: Status: Acute Code(s): I50.30 - Unspecified diastolic (congestive) heart failure Plan 79 year old female with below past medical history hospitalized for acute respiratory failure with hypoxia 2/2 acute HFpEF, complicated by acute blood loss anemia, upper gastrointestinal bleeding 2/2 esophagitis, gastric ulcer, duodenal angiodysplasia; influenza A, acute kidney injury, admitted to TCU with debility, here for rehabilitation, strengthening, prior to discharge home with . Debility - PT/OT. Pain - Tylenol 1000mg q6 prn pain (1-10). Bowel - senna/colace 1 tablet bid, Magnesium citrate 300mL daily prn. Adult immunization - Administer pneumonia vaccine, covid vaccine, flu vaccine as appropriate. DVT prophylaxis - Lovenox 30mg sc daily. Hyperlipidemia - Atorvastatin 10mg qhs. Chronic HFpEF - Coreg 6.25mg bidcm, Losartan 100mg daily, Furosemide 40mg daily. Vitamin D deficiency - D3 50mcg daily. Coronary artery disease - Coreg 6.25mg bidcm, Losartan 100mg daily, Plavix 75mg daily. Diabetes Mellitus II - Metformin 500mg bidcm, Glipizide 5mg daily. Hypothyroidism - Levothyroxine 112mcg daily. Insomnia - Melatonin 3mg qhs. Macular degeneration - Healthy Eyes 1 cap bid. Nutrition - MVI 1 tablet daily. Esophagitis/gastric ulcer/duodenal angiodysplasia - Pantoprazole 40mg daily. Hypokalemia - KCL 20meq daily. Medications at Discharge Home Medications blood-glucose meter (FreeStyle Lite Meter kit) #1 ea 03/11/19 esomeprazole magnesium 40 mg capsule,delayed release (Nexium) 40 mg PO DAILY GERD 03/11/19 pen needle, diabetic 31 gauge x 5/16 (Lite Touch Insulin Pen [facility]) #30 ea 08/06/20 flash glucose scanning reader (FreeStyle [place] 14 Day [place]) #1 ea 08/20/20 flash glucose sensor (FreeStyle [place] 14 Day Sensor kit) #1 ea 08/20/20 blood sugar diagnostic (FreeStyle Lite Strips) #100 ea 10/08/21 lancets 28 gauge (FreeStyle Lancets) #100 ea 10/18/21 Handicap Placard #1 ea 06/08/23 glipizide 5 mg tablet 5 mg PO DAILY Diabetes #180 tabs 06/24/23 levothyroxine 112 mcg tablet 112 mcg PO DAILY Thyroid #90 tabs 07/27/23 clopidogrel 75 mg tablet 75 mg PO DAILY blood thinner 05/11/24 acetaminophen 500 mg tablet 1,000 mg (2 x 500 mg) PO Q6H PRN PRN Pain Score 1-10 #0 tabs 06/10/24 amlodipine 10 mg tablet 10 mg PO DAILY 30 days #30 tabs 06/10/24 carvedilol 25 mg tablet 25 mg PO BIDCM 30 days #60 tabs 06/10/24 hydralazine 50 mg tablet 50 mg PO TID 30 days #90 tabs 06/10/24 Hospital Course Operations None Procedures EGD and - (Capsule endoscopy.) Summary of Care Provided Minutes Spent on Discharge: 35 Hospital Course: 79 year old female with below past medical history hospitalized for acute respiratory failure with hypoxia 2/2 acute HFpEF, complicated by acute blood loss anemia, upper gastrointestinal bleeding 2/2 esophagitis, gastric ulcer, duodenal angiodysplasia; influenza A, acute kidney injury, admitted to TCU with debility, here for rehabilitation, strengthening, prior to discharge home with . 06/02/2024 Capsule endoscopy normal. 06/02/2024 Dr. Drake EGD: Impressions : - Normal esophagus. - Hiatal hernia. 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 Treated with a heater probe. - No specimens collected. 06/06/2024 Dr. Torres: significantly elevated lambda chains. I reached out to Dr Nathan. he has an appt with her next month. 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 discussed about kidney biopsy. she is agreeable if needed. will discuss with Dr Nathan about coordinating this. Resident declined kidney biopsy, she would like to go home. Discharge home with 06/11/2024, [facility]. Physical Exam Const alert General Appearance: cooperative HEENT normocephalic Eyes PERRL and EOMs intact bilaterally Neck supple, no JVD and no carotid bruits Resp normal respiratory effort, normal air movement and clear to auscultation bilaterally Cardio regular rate and regular rhythm GI normal to inspection, nondistended, normoactive bowel sounds, non-tender and non-distended Extremity normal capillary refill General Extremity: Negative for edema Skin no rashes or lesions noted General Skin Exam: no breakdown Psych affect normal Appearance: appropriate Medical Records Data Medical Nutrition Assessment Dietitian: Malnutrition Criteria Met Start: 05/25/24 14:55 Freq: Status: Active Protocol: Document 06/08/24 13:25 PAULINA (Rec: 06/08/24 13:26 PAULINA [id number]) Nutrition Malnutrition Evidence of Yes Malnutrition Exists Malnutrition (severe Acute Illness/Injury ): Evidenced By Suboptimal Energy Intake (Severe),Weight Loss (Severe) Intake Problem Increased Nutrient Needs (specify) Etiology protein related to skin status Signs/Symptoms as evidenced by worsening L buttock and cleft areas Status Active Problem Inadequate Oral Intake Status Inactive Problem Clinical Problem Acute Disease or Injury Related Malnutrition Etiology related to issues w/ nausea, diarrhea and not wanting to eat Signs/Symptoms as evidenced by 10% unintended wt loss and po intake meeting <75% of est nutritional needs ~ 3wks Status Active Problem Altered Nutrient-Related Laboratory Values Etiology related to diabetes Signs/Symptoms as evidenced by gluc 181 Status Active Problem Recommendation Dietitian Will change to liberal diet of CHO Control, No Added Recommendations/ Salt Changes Continue to provide 4 oz ensure clear tid w/ meals for increased nutrition if consumed Rec appetite stimulant Continue Raf bid w/ medpass for increased nutrition to help w/ skin healing if consumed. Rec consider more aggressive nutrition support if po intake fails/wt loss continues to help prevent further decline in res nutritional status if in accordance w/ res/family wishes. Weight / BMI Weight Weight: 80.422 kg Body Mass Index (BMI) 31.4 ABG / Lab / Microbiology Data 06/10/24 05:20 06/10/24 05:20 Laboratory: Laboratory Results - last 24 hr 06/09/24 16:08: POC Glucose 245 H 06/09/24 21:47: POC Glucose 184 H 06/10/24 05:20: WBC 5.8, RBC 3.13 L, Hgb 9.0 L, Hct 26.5 L, MCV 84.7, MCH 28.8, MCHC 34.0, RDW Std Deviation 44.1 H, RDW Coeff of Celia 14.3, Plt Count 197, MPV 10.9, Immature Gran % (Auto) 1.700 H, Neut % (Auto) 71.1 H, Lymph % (Auto) 18.0 L, [place] % (Auto) 6.5, Eos % (Auto) 2.4, Baso % (Auto) 0.3, Absolute Neuts (auto) 4.1, Absolute Lymphs (auto) 1.05, Nucleated RBC % 0, Sodium 134 L, Potassium 3.8, Chloride 106, Carbon Dioxide 17.0 L, Anion Gap 11, BUN 80 H, Creatinine 1.60 H, Estim Creat Clear Calc 27.69, Est GFR (MDRD) Af Amer 40 L, Est GFR (MDRD) Non-Af 33 L, BUN/Creatinine Ratio 50.0 H, Glucose 200 H, Calcium 8.9 06/10/24 05:59: POC Glucose 184 H 06/10/24 11:06: POC Glucose 236 H Microbiology: Microbiology 05/30/24 13:00 Stool Stool Occult Blood (JUAN R) - Final Occult Blood Positive 05/29/24 16:45 Mucosa - Nasopharyngeal Respiratory Panel (PCR) - Final 05/29/24 16:35 Nasal Secretion SARS-CoV-2 Antigen (Rapid) - Final 05/28/24 15:05 Stool Stool Occult Blood (JUAN R) - Final 05/23/24 10:35 Stool Enteric Bacteriology - Final 05/23/24 09:31 Mucosa - Nasopharyngeal Respiratory Panel (PCR) - Final 05/23/24 08:20 Nasal Secretion SARS-CoV-2 Antigen (Rapid) - Final D/C Instructions Discharge Diet: No restrictions Discharge Activity: Return to Normal Activity, May Shower and Use Walker Weight Bearing Status: Weight bearing as tolerated Call your doctor if you observe: Fever of 101 or Higher, Inability to urinate, Inability to have a bowel movement, Shortness of breath, Dizziness, Fainting spells, Swelling in the ankles, Chest pain and Uncontrolled pain DC O2, CPAP, BIPAP Needs Home O2 Discharge instructions: No Additional Instructions: Discharge home with 06/11/2024, [facility]. Meaningful Use Info Meaningful Use Meaningful Use Diagnoses (Choose all that apply): None applicable Ischemic Stroke Statin Dosing Therapy Reference: STATIN DOSE THERAPY REFERENCE: * Patients > 75 years receive moderate or high dose statin therapy. * Patients 75 years or YOUNGER should receive HIGH intensity statin dose unless contraindicated. You will be required to document reason for non-treatment if statin daily dose does not meet guidelines. HIGH DOSE STATIN THERAPY DAILY Atorvastatin > than or = to 40 mg Rosuvastatin > than or = to 20 mg Amlodipine + Atorvastatin > than or = to 2.5/40 mg Ezetimibe + Simvastatin 10/80 mg Simvastatin 80mg Discharge Plan Admission Admit Date/Time: 05/19/24 16:32 Primary Reason for Your Visit: Debility. Attending Provider: Christian Perez Chi Primary Care Provider: Regi Liu Consulting Providers: Dany Torres; Demarco Dickerson; Cathi Thurman; Jennifer Lion; Maria Gooden; Jasmin Olson CHIEF NURSING OFFICER; Lissette Nathan Instructions Additional Instructions / Restrictions: Discharge home with 06/11/2024, [facility]. Discharge Orders/Prescriptions Prescriptions: New acetaminophen 500 mg Tablet 1,000 mg PO Q6H PRN PRN (Reason: Pain Score 1-10) Qty: 0 0RF carvedilol 25 mg Tablet 25 mg PO BIDCM 30 Days Qty: 60 0RF amlodipine 10 mg Tablet 10 mg PO DAILY 30 Days Qty: 30 0RF hydralazine 50 mg Tablet 50 mg PO TID 30 Days Qty: 90 0RF Continued esomeprazole magnesium [Nexium] 40 mg capsule,delayed release(DR/EC) 40 mg PO DAILY clopidogrel 75 mg tablet 75 mg PO DAILY glipizide 5 mg tablet 5 mg PO DAILY Qty: 180 3RF levothyroxine 112 mcg tablet 112 mcg PO DAILY Qty: 90 3RF Discontinued multivitamin 1 EACH tablet 1 ea PO DAILY Patient Comments: supplement cholecalciferol (vitamin D3) 1,000 UNIT tablet 2,000 unit PO DAILY Patient Comments: supplement PreserVision Lutein 226-90-0.8-5 mg capsule 1 cap PO BID acetaminophen 325 mg Tablet 650 mg PO Q6H PRN PRN (Reason: Pain 1-10 Or Fever>100.7) Qty: 0 0RF losartan 50 mg Tablet 50 mg PO DAILY Qty: 0 0RF carvedilol 6.25 mg Tablet 6.25 mg PO BIDCM Qty: 0 0RF furosemide [Lasix] 40 mg tablet 40 mg PO DAILY Qty: 1 0RF potassium chloride 10 mEq tablet extended release 20 meq PO DAILY Qty: 1 0RF atorvastatin 10 mg tablet 10 mg PO QHS Qty: 90 3RF metformin 1,000 mg tablet 500 mg PO BID Qty: 180 3RF valsartan 160 mg tablet 160 mg PO DAILY Qty: 90 3RF No Action (DME) blood-glucose meter [FreeStyle Lite Meter] Kit See Rx Instructions .ROUTE .MEDSUPPLY Qty: 1 Rx Instructions: As directed (DME) pen needle, diabetic [Lite Touch Insulin Pen [facility]] 31 gauge x 5/16 needle See Rx Instructions .ROUTE .MEDSUPPLY Qty: 30 5RF Rx Instructions: use with victoza qd (DME) FreeStyle [place] 14 Day [place] [facility] [place] See Rx Instructions .ROUTE .MEDSUPPLY Qty: 1 0RF Rx Instructions: As directed (DME) FreeStyle [place] 14 Day Sensor Kit See Rx Instructions .ROUTE .MEDSUPPLY Qty: 1 0RF Rx Instructions: As directed (DME) FreeStyle Lite Strips Strip See Rx Instructions .ROUTE .MEDSUPPLY Qty: 100 3RF Rx Instructions: As directed (DME) lancets [FreeStyle Lancets] 28 gauge misc See Rx Instructions .ROUTE .MEDSUPPLY Qty: 100 3RF Rx Instructions: check glucose 2 x a day (DME) Handicap Placard See Rx Instructions .Route .MEDSUPPLY Qty: 1 0RF Rx Instructions: 5 year RX 06/08/23-06/08/28 DX.. R06.09 and G62.9 Referrals / Follow Up: Regi Liu MD [Primary Care Provider] - Disposition Disposition (needs filled in before D/C Order can be placed): Hospice in Home
--- NOTE | 2024-06-10 14:27 | CASEMGMT ---
Social Work SW completed BIMS () and PHQ-9 () for MDS assessment. Sagrario Butler CREDENTIALING COORDINATOR EDGE BRUSHER
[2024-06-10 16:31] LABS: Bedside Glucose 285 mg/dL (74-106)
[2024-06-10] MEDS: 0.9% Saline Lock 10 ML Syringe IV ×2 (17:42→20:35)
[2024-06-10] MEDS: Doxepin Hydrochloride 10 MG Capsule PO (20:40)
[2024-06-10] MEDS: Atorvastatin Calcium 10 MG Tablet PO (20:40)
[2024-06-10 21:57] LABS: Bedside Glucose 179 mg/dL (74-106)
[2024-06-11 06:00] VITALS: BMI 30.9
[2024-06-11 06:13] VITALS: BP 137/56; PULSE 69
[2024-06-11 06:15] VITALS: BP 137/56; PULSE 69
[2024-06-11] MEDS: Levothyroxine 112 MCG Tablet PO (06:15)
[2024-06-11] MEDS: hydrALAZINE 50 MG Tablet PO (06:15)
[2024-06-11 06:38] LABS: Bedside Glucose 214 mg/dL (74-106)
[2024-06-11 06:59] VITALS: PULSE 64; O2SAT 94
[2024-06-11] MEDS: Insulin Lispro 100 UNIT/ML INSULN.PEN SC ×2 (08:54→11:30)
[2024-06-11] MEDS: Cholecalciferol (VIT D3) 25 MCG TABLET (1,000 UNITS) 50 MCG PO (08:55)
[2024-06-11] MEDS: Clopidogrel Bisulfate 75 MG Tablet PO (08:55)
[2024-06-11] MEDS: Carvedilol 25 MG Tablet PO (08:55)
[2024-06-11] MEDS: glipiZIDE 5 MG Tablet PO (08:56)
[2024-06-11] MEDS: amLODIPine 10 MG Tablet PO (08:56)
[2024-06-11] MEDS: Pantoprazole Sodium 40 MG Tablet PO (08:57)
[2024-06-11] MEDS: Juven (unflavored) Packet 1 PACKET PO (08:57)
[2024-06-11] MEDS: Multivitamins,Therapeutic Tablet 1 TABLET PO (08:57)
[2024-06-11] MEDS: Nystatin Powder 15gm Bottle 1 APPLIC TOPICAL (09:01)
[2024-06-11 11:41] LABS: Bedside Glucose 259 mg/dL (74-106)
[2024-06-11 12:10] VITALS: BP 141/77; PULSE 77; RESP 16; TEMP 36.4; O2SAT 94
--- NOTE | 2024-06-11 12:22 | NURSING ---
Received call from [facility] ~1105 notifying that crew was running late, expected to arrive at facility ~1145. Updated pt, who requested I also notify her . thankful for update. No comments/concerns at this time. Pt leaves floor with ambulance @1230.
== END 2024-06-11 12:25 | disposition hospice, home (50) | DRG 291 ==
PROVIDERS: Internal Medicine Nephrology; Admitting Provider Family Medicine Geriatric Medicine; PCP Internal Medicine; Referring Provider Family Medicine Geriatric Medicine; Visit Provider Family Medicine Geriatric Medicine
DX: I13.0 Hypertensive heart and chronic kidney disease with heart failure and stage 1 through stage 4 chronic kidney disease, or unspecified chronic kidney disease (principal); K25.0 Acute gastric ulcer with hemorrhage; K26.4 Chronic or unspecified duodenal ulcer with hemorrhage; K31.811 Angiodysplasia of stomach and duodenum with bleeding; K20.91 Esophagitis, unspecified with bleeding; K21.01 Gastro-esophageal reflux disease with esophagitis, with bleeding; E44.0 Moderate protein-calorie malnutrition; I50.32 Chronic diastolic (congestive) heart failure; N17.9 Acute kidney failure, unspecified; E11.22 Type 2 diabetes mellitus with diabetic chronic kidney disease; N18.32 Chronic kidney disease, stage 3b; E03.9 Hypothyroidism, unspecified; Z68.31 Body mass index [BMI] 31.0-31.9, adult; K44.9 Diaphragmatic hernia without obstruction or gangrene; D47.2 Monoclonal gammopathy; J10.1 Influenza due to other identified influenza virus with other respiratory manifestations; E87.6 Hypokalemia; E55.9 Vitamin D deficiency, unspecified; E78.2 Mixed hyperlipidemia; E11.51 Type 2 diabetes mellitus with diabetic peripheral angiopathy without gangrene; I25.10 Atherosclerotic heart disease of native coronary artery without angina pectoris; E11.42 Type 2 diabetes mellitus with diabetic polyneuropathy; H35.30 Unspecified macular degeneration; F41.9 Anxiety disorder, unspecified; K52.9 Noninfective gastroenteritis and colitis, unspecified; Z79.84 Long term (current) use of oral hypoglycemic drugs; Z79.890 Hormone replacement therapy; Z79.02 Long term (current) use of antithrombotics/antiplatelets; Z87.891 Personal history of nicotine dependence; Z79.899 Other long term (current) drug therapy

== ENCOUNTER 2024-06-01 14:40 | Day surgery (SDC) | payer MEDICARE, OTHER, SELFPAY ==
[2024-06-01] VITALS (8 sets, daily range): BP systolic 98–130; BP diastolic 38–46; PULSE 65–73; RESP 16–20; TEMP 35.9–36.9; O2SAT 91–95; BMI 30.9
--- NOTE | 2024-06-01 15:10 | PCM.PRE.AN2 ---
ASA Classification* ASA Classification ASA Classification: 3 Assessment & Plan Anesthesia* Anesthesia Assessment Anesthesia Assessment: Discussed sedation and/or anesthesia options, risks, benefits, and alternatives with patient/parents/legal guardian/POA. Questions invited. The patient/parents/legal guardian/POA seems to understand and agrees to proceed with anesthesia plan. Reviewed the physical assessment, medical history, allergy history and patient home medications list prior to surgery/procedure/anesthetic and documented any changes. Performed airway and anesthesia risk assessments. Anesthesia Type Anesthesia Type: MAC History Source History Obtained from:: Patient, Chart and Significant Other Anesthesia Focused Assessment* Temperature: 98.5 F Pulse Rate: 69 Blood Pressure: 130/46 Respiratory Rate: 16 Pulse Ox: 95 Oxygen Delivery Method: Room Air Airway Assessment Mouth opens: >3 cm Mallampati Score: III Focused Labs Anesthesia Preop lab: CBC WBC 11.1 K/mm3 (4.4-11.0) H 05/27/24 06:12 RBC 2.65 M/mm3 (4.2-5.4) L 05/27/24 06:12 Hgb 10.4 g/dL (12.0-15.0) L 05/28/24 15:21 Hct 32.5 % (37-47) L 05/28/24 15:21 Plt Count 261 K/mm3 (150-450) 05/27/24 06:12 CHEMISTRY Potassium 4.1 mmol/L (3.5-5.1) 05/30/24 05:26 Sodium 139 mmol/L (136-145) 05/30/24 05:26 Magnesium 1.6 mg/dL (1.6-2.6) 05/14/24 06:26 BUN 43 mg/dL (7-18) H 05/30/24 05:26 Creatinine 1.57 mg/dL (0.55-1.02) H 05/30/24 05:26 Glucose 214 mg/dL (74-106) H 05/30/24 05:26 POC Glucose 177 mg/dL (74-106) H 06/01/24 05:42 TSH 1.250 uIU/mL (0.358-3.740) 05/12/24 06:25 COAG Pre-Assessment Diagnosis/Proposed Procedure Planned Operative Procedure(s): EGD Anesthesia History Anesthesia History - finisher fine diamond dies: Anesthesia History - finisher fine diamond dies Hx Hospitalization Yes 06/01/24 14:48 Any Problems With Anesthesia No 06/01/24 14:48 Cholinesterase deficiency No 06/01/24 14:48 You/Your Family Experience No 06/01/24 14:48 fever (hyperthermia) with Relationship Recent Exposure to Contagious No 06/01/24 14:48 Disease Does patient have nerve No 06/01/24 14:48 stimulator Patient instructed to have device shut off --Does patient have Pacemaker No 06/01/24 14:48 or ICD? When Was Last Pacemaker Check QUESTION #4 FULL TEXT: You/Your Family Experience fever (hyperthermia) with Anesthesia Last Oral Intake Last Oral intake: Last Oral Intake NPO since 08:18 06/01/24 14:48 Meds taken in AM with sips of Yes 06/01/24 14:48 water? Meds patient instructed to AMLODIPINE 06/01/24 14:48 take am of surgery COREG HYDRALAZINE SYNTHROID PONV PONV - finisher fine diamond dies: PONV - finisher fine diamond dies Female Yes 06/01/24 14:48 HX of Motion Sickness No 06/01/24 14:48 HX of N/V After Surgery No 06/01/24 14:48 Non-Smoker No 06/01/24 14:48 Duration of Surgery greater No 06/01/24 14:48 than 60 minutes Number of Risk Factors 1 06/01/24 14:48 PONV Score Low Risk 06/01/24 14:48 Height & Weight Height & Weight: Anesthesia: Height & Weight Height 5 ft 3 in 06/01/24 14:48 Weight: 79.379 kg 06/01/24 14:48 Body Mass Index (BMI) 30.9 06/01/24 14:48 Respiratory Assessment Respiratory Assessment - finisher fine diamond dies: Respiratory Tract Infection Hx - finisher fine diamond dies Hx Respiratory Tract Infection No 06/01/24 14:48 STOP Sleep Apnea STOP Sleep Apnea - finisher fine diamond dies: STOP Sleep Apnea - finisher fine diamond dies Hx Hypertension Yes 06/01/24 14:48 Hx Sleep Apnea No 06/01/24 14:48 CPAP No 05/13/24 12:16 BIPAP Do you snore loudly (louder No 06/01/24 14:48 than talking or can be heard Do you often feel tired/ No 06/01/24 14:48 fatigued/ sleepy during daytime? Has anyone observed you stop No 06/01/24 14:48 breathing during sleep? STOP Results Negative 06/01/24 14:48 QUESTION #5 FULL TEXT : Do you snore loudly (louder than talking or can be heard through closed doors)? 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 Specify any problems Hx of Preganancy in last 3 No 06/01/24 14:48 Months Nurse Filling Out Transfusion JES 06/01/24 14:48 & Questions: Date: 06/01/24 06/01/24 14:48 Time: 14:52 06/01/24 14:48 Patient unable to answer at this time (ie. confused, unrespo /Reproduction History /Reproductive History - finisher fine diamond dies: /Reproductive Hx- finisher fine diamond dies Hx Now Gestational Age (in weeks): EDC: Hx Hx Para Hx Section SAB PFSH Medical History Poor venous access Acute respiratory insufficiency Hypertensive urgency Acute CHF Acute maxillary sinusitis, unspecified Type 2 diabetes mellitus with both eyes affected by mild nonproliferative retinopathy without macular edema, with long-term current use of insulin Combined form of age-related cataract, both eyes Ptosis of left eyelid Hyperopia Regular astigmatism Presbyopia CKD (chronic kidney disease) stage 3, GFR 30-59 ml/min Peripheral neuropathy Obesity, Class II, BMI 35-39.9 Iron malabsorption Claudication Rosacea Iron deficiency anemia Lymphedema Malignant neoplasm of upper-outer quadrant of right female breast Albuminuria Hypertension, essential, benign Hypothyroidism (acquired) Hyperlipidemia, mixed Barretts esophagus GERD with esophagitis Uncontrolled type 2 diabetes mellitus without complication, without long-term current use of insulin Home Medications ?Medication ?Instructions ?Recorded ?Last Taken ?Type cholecalciferol (vitamin D3) 25 2,000 unit PO DAILY supplement 01/09/16 Unknown History mcg (1,000 unit) tablet multivitamin 1 ea PO DAILY supplement 01/09/16 Unknown History blood-glucose meter (FreeStyle #1 ea 03/11/19 Unknown History Lite Meter kit) esomeprazole magnesium 40 mg 40 mg PO DAILY GERD 03/11/19 05/19/24 09:10 History capsule,delayed release (Nexium) pen needle, diabetic 31 gauge x #30 ea 08/06/20 Unknown Rx 09/23 (Lite Touch Insulin Pen [place]) flash glucose scanning reader #1 ea 08/20/20 Unknown Rx (FreeStyle [place] 14 Day [place]) flash glucose sensor (FreeStyle #1 ea 08/20/20 Unknown Rx [place] 14 Day Sensor kit) blood sugar diagnostic (FreeStyle #100 ea 10/08/21 Unknown Rx Lite Strips) lancets 28 gauge (FreeStyle #100 ea 10/18/21 Unknown Rx Lancets) vit C 226 mg-vit E 90 mg-copper 1 cap PO BID supplement 04/21/23 Unknown History 0.8 mg-zinc oxide-lutein 5 mg capsule (PreserVision Lutein) Handicap Placard #1 ea 06/08/23 Unknown Rx atorvastatin 10 mg tablet 10 mg PO QHS cholesterol #90 tabs 06/24/23 05/18/24 23:15 Rx glipizide 5 mg tablet 5 mg PO DAILY Diabetes #180 tabs 06/24/23 05/19/24 09:10 Rx metformin 1,000 mg tablet 500 mg (1/2 x 1,000 mg) PO BID 06/24/23 05/15/24 Rx Diabetes #180 tabs valsartan 160 mg tablet 160 mg PO DAILY BP #90 tabs 06/24/23 Unknown Rx levothyroxine 112 mcg tablet 112 mcg PO DAILY Thyroid #90 tabs 07/27/23 05/19/24 06:35 Rx clopidogrel 75 mg tablet 75 mg PO DAILY blood thinner 05/11/24 05/19/24 09:10 History acetaminophen 325 mg tablet 650 mg (2 x 325 mg) PO Q6H PRN PRN 05/19/24 05/18/24 23:15 Rx Pain 1-10 Or Fever>100.7 #0 tabs carvedilol 6.25 mg tablet 6.25 mg PO BIDCM Heart #0 tabs 05/19/24 05/19/24 09:10 Rx furosemide 40 mg tablet (Lasix) 40 mg PO DAILY Water pill #1 TAB 05/19/24 Unknown Rx losartan 50 mg tablet 50 mg PO DAILY BP #0 tabs 05/19/24 05/15/24 09:10 Rx potassium chloride 10 mEq 20 meq (2 x 10 mEq) PO DAILY 05/19/24 Unknown Rx tablet,extended release supplement #1 TAB Allergy/AdvReac Type Severity Reaction Status Date / Time No Known Allergies Allergy Verified 06/01/24 14:48 Family History Aunt Breast cancer Sister Diabetes Surgical History History of cholecystectomy History of lumpectomy Social History household members: spouse Smoking Status: Former smoker quit date: 05/11/90 Tobacco: How many years used: 15 alcohol intake: never substance use type: does not use what type of physical activity do you participate in: walking and bicycling Review of Systems (Anesthesia) ROS Narrative System reviewed and no additional complaints, except as documented.
[2024-06-01 15:24] LABS: Bedside Glucose 218 mg/dL (74-106)
--- NOTE | 2024-06-01 15:54 | HP.PCM_ITS ---
[facility] - General General Date of Service: 06/01/24 Chief Complaint: Anemia HPI Narrative ANDRIY WEST, is a 79-year-old white female presented to the emergency room at [facility] with a chief complaint of shortness of breath. Patient had been discharged from [facility] in [facility] on 05/04/2024 after having a non-STEMI and undergoing a cardiac catheterization that showed nonobstructive coronary disease. Patient also underwent a cardiac MRI that showed akinesis of the apical inferior lateral wall. Patient was discharged home and subsequently was seen in the emergency room at [facility] May 10, 2024 and was noted to be anemic with a hemoglobin of 6 and was transfused and discharged home. Patient had not been feeling well and came to the emergency room here for evaluation, workup included a chest x-ray which showed bilateral effusions that were small, hemoglobin was 7.4, troponin was 182 and her blood pressure was elevated. Patient received 2 doses of hydralazine and IV Lasix, she was felt to be in congestive heart failure was admitted to PCU and placed on IV Lasix. Echocardiogram was obtained which showed a normal ejection fraction of 55% without any significant valvular heart disease. Patient's subsequent hemoglobin the next day was 6, she was transfused 2 units of packed red blood cells and a midline catheter was placed and she was seen in consultation by gastroenterology. 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 These areas were coagulated. I was asked to see her due to a decreasing hemoglobin. [facility] Medical History Poor venous access Acute respiratory insufficiency Hypertensive urgency Acute CHF Acute maxillary sinusitis, unspecified Type 2 diabetes mellitus with both eyes affected by mild nonproliferative retinopathy without macular edema, with long-term current use of insulin Combined form of age-related cataract, both eyes Ptosis of left eyelid Hyperopia Regular astigmatism Presbyopia CKD (chronic kidney disease) stage 3, GFR 30-59 ml/min Peripheral neuropathy Obesity, Class II, BMI 35-39.9 Iron malabsorption Claudication Rosacea Iron deficiency anemia Lymphedema Malignant neoplasm of upper-outer quadrant of right female breast Albuminuria Hypertension, essential, benign Hypothyroidism (acquired) Hyperlipidemia, mixed Barretts esophagus GERD with esophagitis Uncontrolled type 2 diabetes mellitus without complication, without long-term current use of insulin Home Medications ?Medication ?Instructions ?Recorded ?Last Taken ?Type cholecalciferol (vitamin D3) 25 2,000 unit PO DAILY supplement 01/09/16 Unknown History mcg (1,000 unit) tablet multivitamin 1 ea PO DAILY supplement 01/09/16 Unknown History blood-glucose meter (FreeStyle #1 ea 03/11/19 Unknown History Lite Meter kit) esomeprazole magnesium 40 mg 40 mg PO DAILY GERD 03/11/19 05/19/24 09:10 History capsule,delayed release (Nexium) pen needle, diabetic 31 gauge x #30 ea 08/06/20 Unknown Rx 09/23 (Lite Touch Insulin Pen [place]) flash glucose scanning reader #1 ea 08/20/20 Unknown Rx (FreeStyle [place] 14 Day [place]) flash glucose sensor (FreeStyle #1 ea 08/20/20 Unknown Rx N[place]um 14 Day Sensor kit) blood sugar diagnostic (FreeStyle #100 ea 10/08/21 Unknown Rx Lite Strips) lancets 28 gauge (FreeStyle #100 ea 10/18/21 Unknown Rx Lancets) vit C 226 mg-vit E 90 mg-copper 1 cap PO BID supplement 04/21/23 Unknown History 0.8 mg-zinc oxide-lutein 5 mg capsule (PreserVision Lutein) Handicap Placard #1 ea 06/08/23 Unknown Rx atorvastatin 10 mg tablet 10 mg PO QHS cholesterol #90 tabs 06/24/23 05/18/24 23:15 Rx glipizide 5 mg tablet 5 mg PO DAILY Diabetes #180 tabs 06/24/23 05/19/24 09:10 Rx metformin 1,000 mg tablet 500 mg (1/2 x 1,000 mg) PO BID 06/24/23 05/15/24 Rx Diabetes #180 tabs valsartan 160 mg tablet 160 mg PO DAILY BP #90 tabs 06/24/23 Unknown Rx levothyroxine 112 mcg tablet 112 mcg PO DAILY Thyroid #90 tabs 07/27/23 05/19/24 06:35 Rx clopidogrel 75 mg tablet 75 mg PO DAILY blood thinner 05/11/24 05/19/24 09:10 H istory acetaminophen 325 mg tablet 650 mg (2 x 325 mg) PO Q6H PRN PRN 05/19/24 05/18/24 23:15 Rx Pain 1-10 Or Fever>100.7 #0 tabs carvedilol 6.25 mg tablet 6.25 mg PO BIDCM Heart #0 tabs 05/19/24 05/19/24 09:10 Rx furosemide 40 mg tablet (Lasix) 40 mg PO DAILY Water pill #1 TAB 05/19/24 Unknown Rx losartan 50 mg tablet 50 mg PO DAILY BP #0 tabs 05/19/24 05/15/24 09:10 Rx potassium chloride 10 mEq 20 meq (2 x 10 mEq) PO DAILY 05/19/24 Unknown Rx tablet,extended release supplement #1 TAB Allergy/AdvReac Type Severity Reaction Status Date / Time No Known Allergies Allergy Verified 06/01/24 14:48 Family History Aunt Breast cancer Sister Diabetes Surgical History History of cholecystectomy History of lumpectomy Social History household members: spouse Smoking Status: Former smoker quit date: 05/11/90 Tobacco: How many years used: 15 alcohol intake: never substance use type: does not use what type of physical activity do you participate in: walking and bicycling ROS Constitutional Constitutional: Denies fatigue, fever(s), poor appetite, weight gain or weight loss Gastrointestinal Gastrointestinal: Denies belching, bloating, change in bowel habits, change in stool character, chewing difficulty, coffee ground emesis, constipation, cramping, diarrhea, dyspepsia, dysphagia, early satiety, excessive flatus, fecal incontinence, heartburn, hematemesis, hematochezia, hemorrhoids, loose stools, melena, nausea, odynophagia, rectal bleeding, tenesmus, vomiting or weight changes Vital Signs Vital Signs Vital Signs: 06/01/24 14:48 06/01/24 14:48 06/01/24 15:18 Temperature 98.5 F 98.5 F Temperature Source Temporal Pulse Rate 69 69 Respiratory Rate 16 16 Respiratory Pattern Normal Blood Pressure 130/46 H 130/46 H Blood Pressure Mean 74 Blood Pressure Source Monitor Blood Pressure Position Semi-Fowlers Blood Pressure Location Left Forearm Pulse Ox 95 95 Oxygen Delivery Method Room Air Room Air Weight Weight: 175 lb Body Mass Index (BMI) 30.9 Physical Exam Const alert, oriented x3, no apparent distress and healthy appearing General Appearance: cooperative GI normal to inspection, nondistended, normoactive bowel sounds, soft to palpation, non-tender and non-distended Percussion: normal to percussion Rectal Exam: deferred Results Lab / Micro Data Labs: Laboratory Results - last 24 hr 06/01/24 14:56: POC Glucose 218 H Assessment & Plan Assessment/Plan (1) Acute blood loss anemia: (2) Acute respiratory insufficiency: (3) Acute CHF: (4) Iron deficiency anemia: QUALIFIERS: Iron deficiency anemia type: unspecified iron deficiency Qualified Code(s): D50.9 - Iron deficiency anemia, unspecified PLAN: Plan Acute on chronic iron deficiency anemia secondary to GI blood loss * Patient says she does have a history of anemia requiring transfusions. She follows with Dr. Nathan. She had an EGD a few months back with Dr. Granados at [facility]. She says she declined colonoscopy at that time and is still not interested in a colonoscopy but is interested in any other modalities for investigation such as capsule endoscopy. She underwent upper endoscopy : * She had EGD which showed grade B erosive esophagitis with no bleeding and medium size hiatal hernia as well as multiple gastric polyps and nonbleeding gastric ulcer with no stigmata of bleeding. 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 * Hb today is down to 8.3. She has been transfused 2 units of blood during this admission * switch to PO pantoprazole. * If she continues to drop then she will need colonoscopy. Patient is currently refusing colonoscopy at this time. I had another talk with the patient and the patient's . She is still refusing colonoscopy. She is amenable to repeating the upper endoscopy to see if her previous lesions show any signs of bleeding.
--- NOTE | 2024-06-01 16:24 | PCM.POST.ANE ---
Anesthesia: Postop Eval I Current Vital Signs Temperature: 97.8 F Pulse Rate: 73 Blood Pressure: 113/45 Respiratory Rate: 20 Pulse Ox: 94 Assessment Airway patent: Yes Spontaneous unlabored respirations: Yes nausea: No Vomiting: No Anesthesia Complication: No Fluid Hydration Crystalloid volume administer (ml): 30 Total IV fluid infused: 30 Progress Note Anesthesia document: Postop Eval 1 completed: Yes
--- NOTE | 2024-06-01 16:57 | POSTOPAN2_ITS ---
Anesthesia Postop Eval I Sum Postop Eval Completion status Anesthesia document: Postop Eval 1 completed: Yes Anesthesia Postop Eval I Summary Anesthesia Postop Eval I Summary: Anesthesia Postop Eval I: Assessment Summary Airway patent Yes 06/01/24 16:24 [email or web address] Spontaneous unlabored Yes 06/01/24 16:24 [email or web address] [email or web address] respirations Mental status nausea No 06/01/24 16:24 [email or web address] Vomiting No 06/01/24 16:24 [email or web address] Anesthesia Postop Eval I: Fluid Summary Crystalloid volume administer 30 06/01/24 16:24 [email or web address] (ml) Colloids volume administered ( ml) Blood Product volume administered (ml) Total IV fluid infused 30 06/01/24 16:24 [email or web address] [email or web address] Anesthesia Postop Eval I: Summary Notes Anesthesia Complication No 06/01/24 16:24 [email or web address] Anesthesia Complication Comment: Post-operative progress note Anesthesia: Postop Eval II Evaluation Mental status: Awake and Calm Pain Level: 0 nausea: No Vomiting: No Complications Anesthesia Complication: No
--- NOTE | 2024-06-01 16:57 | PCM.POSTANE2 ---
Anesthesia Postop Eval I Sum Postop Eval Completion status Anesthesia document: Postop Eval 1 completed: Yes Anesthesia Postop Eval I Summary Anesthesia Postop Eval I Summary: Anesthesia Postop Eval I: Assessment Summary Airway patent Yes 06/01/24 16:24 [address] SUPERVISOR [email or web address] Spontaneous unlabored Yes 06/01/24 16:[address] SUPERVISOR OF [email or web address] respirations Mental status nausea No 06/01/24 16:[address] SUPERVISOR [email or web address] Vomiting No 06/01/24 16:[address] SUPERVISOR [email or web address] Anesthesia Postop Eval I: Fluid Summary Crystalloid volume administer 30 06/01/24 16:[address] SUPERVISOR [email or web address] (ml) Colloids volume administered ( ml) Blood Product volume administered (ml) Total IV fluid infused 30 06/01/24 16:[address] SUPERVISOR [email or web address] Anesthesia Postop Eval I: Summary Notes Anesthesia Complication No 06/01/24 16:[address] SUPERVISOR [email or web address] Anesthesia Complication Comment: Post-operative progress note Anesthesia: Postop Eval II Evaluation Mental status: Awake and Calm Pain Level: 0 nausea: No Vomiting: No Complications Anesthesia Complication: No
--- NOTE | 2024-06-01 17:17 | EX.PCM.PN.GI ---
Subjective Subjective Patient underwent an upper push endoscopy and was discovered to have 2 angiodysplastic lesions that were treated endoscopically. These were not bleeding at the time but these were treated to prevent bleeding in the future. We will set her up for a capsule endoscopy in AM. She will need to take a prep tonight in order to do the capsule endoscopy tomorrow morning. She can have clear liquids tonight. Objective Data Objective Data Vital Signs: Vital Signs Temp Pulse Resp BP Pulse Ox O2 Del Method 96.7 F L 68 16 117/46 L 91 Room Air 06/01/24 16:40 06/01/24 16:45 06/01/24 16:45 06/01/24 16:45 06/01/24 16:40 06/01/24 16:45 Oxygen Delivery Method Room Air Weight: 175 lb Body Mass Index (BMI) 30.9 Lab / Micro Data Labs: Laboratory Results - last 24 hr 06/01/24 14:56: POC Glucose 218 H Charges/Coding Visit Charges Inpatient E&M: 33719 Subs Hosp L2
--- NOTE | 2024-06-02 11:28 | OP.CCLET_ITS ---
06/02/2024 Regi Liu [facility] [address] [place] [address] Re : Upper GI endoscopy procedure for Yamile Wells Dear Dr. Liu This procedure was performed on Saturday, June 01, 2024. My impressions and recommendations are as follows: Impressions : - Normal esophagus. - Hiatal hernia. 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 Treated with a heater probe. - No specimens collected. Recommendations : - Return patient to [facility] for ongoing care. - Clear liquid diet. - Continue present medications. - Capsule endoscopy My findings are described in the full procedure note, which is enclosed. If I can be of further assistance, please feel free to contact me at . Sincerely, Roosevelt Friend, 06/02/2024 11:27:23 AM This report has been signed electronically.
--- NOTE | 2024-06-02 11:28 | OP.EGD_ITS ---
Patient Name: Yamile Wells Procedure Date: 06/01/2024 4:30 PM Date of : 1945 Age: 79 Procedure: Upper GI endoscopy Indications: Recent gastrointestinal bleeding Providers: Roosevelt Drake DO Medicines: Monitored Anesthesia Care Patient Profile: This is an 79 year old female. Refer to note in patient chart for documentation of history and physical. Patient has symptoms. Complications: No immediate complications. Procedure: Pre-Anesthesia Assessment: - Prior to the procedure, a History and Physical was performed, and patient medications and allergies were reviewed. The patient is competent. The risks and benefits of the procedure and the sedation options and risks were discussed with the patient. All questions were answered and informed consent was obtained. Patient identification and proposed procedure were verified by the physician in the pre-procedure area. Mental Status Examination: alert and oriented. Airway Examination: normal oropharyngeal airway and neck mobility. Respiratory Examination: clear to auscultation. CV Examination: normal. Prophylactic Antibiotics: The patient does not require prophylactic antibiotics. Prior Anticoagulants: The patient has taken no anticoagulant or antiplatelet agents. ASA Grade Assessment: III - A patient with severe systemic disease. After reviewing the risks and benefits, the patient was deemed in satisfactory condition to undergo the procedure. The anesthesia plan was to use monitored anesthesia care (MAC). Immediately prior to administration of medications, the patient was re-assessed for adequacy to receive sedatives. The heart rate, respiratory rate, oxygen saturations, blood pressure, adequacy of pulmonary ventilation, and response to care were monitored throughout the procedure. The physical status of the patient was re-assessed after the procedure. After obtaining informed consent, the endoscope was passed under direct vision. Throughout the procedure, the patient's blood pressure, pulse, and oxygen saturations were monitored continuously.The upper GI endoscopy was accomplished without difficulty. The patient tolerated the procedure well. The colonoscope was introduced through the mouth, and advanced to the fourth part of the duodenum. Small bowel enteroscopy was deemed necessary. Scope In: 4:10:33 AM Scope Out: 4:18:53 AM Total Procedure Duration Time 0 hours 8 minutes 20 seconds Findings: The examined esophagus was normal. A hiatal hernia was present. No other significant abnormalities were identified in a careful examination of the stomach. Three 5 mm angiodysplastic lesions without bleeding were found in the third portion of the duodenum. Coagulation for bleeding prevention using heater probe was successful. Estimated blood loss was minimal. Impression: - Normal esophagus. - Hiatal hernia. 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 Treated with a heater probe. - No specimens collected. Recommendation: - Return patient to [facility] for ongoing care. - Clear liquid diet. - Continue present medications. - Capsule endoscopy Procedure Code(s): --- Professional --- 31729, Small intestinal endoscopy, enteroscopy beyond second portion of duodenum, not including ileum; with control of bleeding (eg, injection, bipolar cautery, unipolar cautery, laser, heater probe, stapler, plasma appraisal specialist) CPT copyright 2021 [employer]. All rights reserved. The codes documented in this report are preliminary and upon lining brusher review may be revised to meet current compliance requirements. Roosevelt Drake DO 06/02/2024 11:27:23 AM This report has been signed electronically. Number of Addenda: 0 Note Initiated On: 06/01/2024 4:30 PM
[2024-06-03 17:00] LABS: Bedside Glucose 175 mg/dL (74-106)
[2024-06-06 18:08] LABS: Bedside Glucose 183 mg/dL (74-106)
== END 2024-06-01 16:15 | disposition home or self-care (01) ==
LOC: EN 14:40 → AC 14:44
PROVIDERS: PCP Internal Medicine; Referring Provider Internal Medicine; Visit Provider Internal Medicine Gastroenterology
PROC: 0DJ08ZZ Inspection of Upper Intestinal Tract, Via Natural or Artificial Opening Endoscopic (ICD-10-PCS; CPT 43235; principal; 2024-06-01 15:55)
DX: K31.9 Disease of stomach and duodenum, unspecified (principal); E11.42 Type 2 diabetes mellitus with diabetic polyneuropathy; E11.22 Type 2 diabetes mellitus with diabetic chronic kidney disease; N18.30 Chronic kidney disease, stage 3 unspecified; D62 Acute posthemorrhagic anemia; I12.9 Hypertensive chronic kidney disease with stage 1 through stage 4 chronic kidney disease, or unspecified chronic kidney disease; D50.9 Iron deficiency anemia, unspecified; K44.9 Diaphragmatic hernia without obstruction or gangrene; I25.10 Atherosclerotic heart disease of native coronary artery without angina pectoris; I25.2 Old myocardial infarction; Z87.891 Personal history of nicotine dependence
CPT/HCPCS: 44366; 82962; A4216

== ENCOUNTER 2024-09-25 09:41 | Observation (INO) | payer MEDICARE, OTHER, SELFPAY ==
[2024-09-25] VITALS (15 sets, daily range): BP systolic 120–147; BP diastolic 34–86; PULSE 73–86; RESP 14–20; TEMP 36.3–37; O2SAT 94–99; BMI 28.9; BMI 28.2
--- NOTE | 2024-09-25 10:04 | EKG12_ITS ---
Test Reason : AMS Blood Pressure : */* mmHG Vent. Rate : 82 BPM Atrial Rate : 82 BPM P-R Int : 140 ms QRS Dur : 96 ms QT Int : 404 ms P-R-T Axes : -13 -66 84 degrees QTcB Int : 472 ms Normal sinus rhythm Left axis deviation Abnormal ECG Confirmed by ALCIDES FLOYD, VANESSA ([id number]), international editorial producer MANNY CARTER ([id number]) on 09/26/2024 9:23:42 AM Referred By: Confirmed By: VANESSA MCGRATH MD
--- NOTE | 2024-09-25 10:04 | CT_ITS ---
EXAM: CT Head Without Intravenous Contrast CLINICAL INDICATION: AMS TECHNIQUE: Axial computed tomography images of the head/brain without intravenous contrast. This CT exam was performed using one or more of the following dose reduction techniques: automated exposure control, adjustment of the mA and/or kV according to patient size, and/or use of iterative reconstruction technique. COMPARISON: No relevant prior studies available. FINDINGS: BRAIN AND EXTRA-AXIAL SPACES: Apparent hypodense lesion of the right thalamus could be infarction of indeterminate age. Further evaluation with MRI is recommended. Areas of decreased attenuation in the deep cerebral white matter are consistent with small vessel ischemic/degenerative changes. The cerebral and cerebellar sulci are prominent consistent with brain atrophy. No acute intracranial hemorrhage. BONES/JOINTS: Unremarkable. No acute fracture. SOFT TISSUES: Unremarkable. SINUSES: Unremarkable as visualized. No acute sinusitis. MASTOID AIR CELLS: Unremarkable as visualized. No mastoid effusion. CT/Brain/Head without Contrast IMPRESSION: 1. No acute intracranial hemorrhage. 2. Apparent hypodense lesion of the right thalamus could be infarction of inde terminate age. Further evaluation with MRI is recommended. 3. Small vessel ischemic/degenerative changes. 4. Generalized brain atrophy. Reading Location: [id number]
--- NOTE | 2024-09-25 10:22 | EX.ED.DYSGE1 ---
HPI History of Present Illness Chief Complaint: Confusion Narrative Narrative: History of present illness is unobtainable from the patient secondary to her underlying altered mental status therefore acute care caveat applies. According to nursing staff the patient has been yelling help me for 4 days now. According to them she is alert and oriented to self only at her baseline. Per nursing the wanted her to be brought here for further evaluation and management from the nursing facility. [facility] Medical History Poor venous access Acute respiratory insufficiency Hypertensive urgency Acute CHF Acute maxillary sinusitis, unspecified Type 2 diabetes mellitus with both eyes affected by mild nonproliferative retinopathy without macular edema, with long-term current use of insulin Combined form of age-related cataract, both eyes Ptosis of left eyelid Hyperopia Regular astigmatism Presbyopia CKD (chronic kidney disease) stage 3, GFR 30-59 ml/min Peripheral neuropathy Obesity, Class II, BMI 35-39.9 Iron malabsorption Claudication Rosacea Iron deficiency anemia Lymphedema Malignant neoplasm of upper-outer quadrant of right female breast Albuminuria Hypertension, essential, benign Hypothyroidism (acquired) Hyperlipidemia, mixed Barretts esophagus GERD with esophagitis Uncontrolled type 2 diabetes mellitus without complication, without long-term current use of insulin Home Medications ?Medication ?Instructions ?Recorded ?Last Taken ?Type blood-glucose meter (FreeStyle #1 ea 03/11/19 Unknown History Lite Meter kit) pen needle, diabetic 31 gauge x #30 ea 08/06/20 Unknown Rx 5/16 (Lite Touch Insulin Pen Ulysses) flash glucose scanning reader #1 ea 08/20/20 Unknown Rx (FreeStyle Nahum 14 Day [place]) flash glucose sensor (FreeStyle #1 ea 08/20/20 Unknown Rx Nahum 14 Day Sensor kit) blood sugar diagnostic (FreeStyle #100 ea 10/08/21 Unknown Rx Lite Strips) lancets 28 gauge (FreeStyle #100 ea 10/18/21 Unknown Rx Lancets) Handicap Placard #1 ea 06/08/23 Unknown Rx acetaminophen 325 mg tablet 650 mg feeding tube Q4H PRN fever 09/25/24 09/24/24 History or pain acetaminophen 650 mg rectal 650 mg IL Q4H PRN fever or pain 09/25/24 Unknown History suppository aluminum-mag hydroxide-simethicone 30 ml feeding tube Q4H PRN GI 09/25/24 Unknown History 200 mg-200 mg-20 mg/5 mL oral susp DISTRESS bisacodyl 10 mg rectal suppository 10 mg IL DAILY PRN constipation 09/25/24 Unknown History buspirone 7.5 mg tablet 7.5 mg feeding tube TID 09/25/24 09/24/24 History chlorhexidine gluconate 0.12 % 15 ml PO BID 09/25/24 Unknown History mouthwash cholecalciferol (vitamin D3) 50 150 mcg feeding tube DAILY 09/25/24 Unknown History mcg (2,000 unit) capsule famotidine 20 mg tablet (Acid 20 mg feeding tube DAILY 09/25/24 09/24/24 History Controller) gabapentin 300 mg capsule 300 mg feeding tube BID 09/25/24 09/24/24 History neuropathic pain guaifenesin 100 mg/5 mL oral 200 mg feeding tube Q4H PRN cough 09/25/24 Unknown History liquid (Adult Tussin Chest Congestion) heparin (porcine) 5,000 unit/mL (1 5,000 unit subcut Q12H 09/25/24 09/25/24 History mL) injection cartridge hydralazine 50 mg tablet 50 mg feeding tube TID 09/25/24 Unknown History hydrocodone-acetaminophen 5-325mg 1 tab feeding tube Q8H PRN pain 09/25/24 09/25/24 History 5mg-325mg insulin NPH isoph U-100 human 100 10 unit subcut BID 09/25/24 09/25/24 History unit/mL (3 mL) subcutaneous pen (Humulin N NPH U-100 Insulin KwikPen) insulin lispro 100 unit/mL 1 sliding scale dose subcut ACHS 09/25/24 09/25/24 History subcutaneous pen (Humalog KwikPen (U-100) Insulin) ipratropium 0.5 mg-albuterol 3 mg 3 ml inhalation Q6H PRN wheezing 09/25/24 Unknown History (2.5 mg base)/3 mL nebulization soln levothyroxine 112 mcg tablet 112 mcg feeding tube DAILY Thyroid 09/25/24 09/24/24 History lorazepam 0.5 mg tablet (Ativan) 0.5 mg feeding tube Q6H PRN anxiety 09/25/24 09/25/24 History magnesium hydroxide 400 mg/5 mL 30 ml feeding tube DAILY PRN 09/25/24 Unknown History oral suspension (Milk of Magnesia) constipation metoprolol tartrate 50 mg tablet 50 mg feeding tube BID 09/25/24 09/24/24 History multivitamin with minerals (One 1 tab PO DAILY 09/25/24 09/15/24 History Daily Complete tablet) quetiapine 25 mg tablet 12.5 mg feeding tube BID 09/25/24 09/24/24 History sodium phosphates 19 gram-7 118 ml IL DAILY PRN constipation 09/25/24 Unknown History gram/118 mL enema (Enema) Allergy/AdvReac Type Severity Reaction Status Date / Time No Known Allergies Allergy Verified 06/01/24 14:48 Family History Aunt Breast cancer Sister Diabetes Surgical History History of cholecystectomy History of lumpectomy Social History household members: spouse Smoking Status: Former smoker quit date: 05/11/90 Tobacco: How many years used: 15 alcohol intake: never substance use type: does not use what type of physical activity do you participate in: walking and bicycling ROS ROS ED ROS Narrative Review of systems unobtainable from patient secondary to underlying health mental status or for acute care It applies EXAM Physical Exam Narrative Exam Narrative: General: Patient lying in bed rest comfortably did not appear to be in acute distress Head: Atraumatic, normocephalic Eyes: PERRL bilaterally, EOMI bilateral, no conjunctival injection noted, mucous membranes dry Neck: Soft, supple, trachea midline Cardiovascular: Regular rate and rhythm Respiratory: Clear to auscultation bilaterally Abdomen: Soft, nondistended, bowel sounds present x 4 Extremities: Patient moving all extremities, radial pulses +2/4 in the bilateral extremities Neurological: Patient following commands knew that she was at [facility] years 2024 Skin: Warm, dry contact no rashes or lesions noted Const Vital Signs: 09/25/24 09:43 09/25/24 10:46 09/25/24 11:00 Temperature 98.1 F 98.3 F 98.6 F Temperature Source Oral Oral Oral Pulse Rate 85 80 80 Respiratory Rate 16 20 H 20 H Blood Pressure 147/56 H 123/63 H 120/86 H Blood Pressure Mean 86 83 97 Pulse Ox 99 98 98 Oxygen Delivery Method Room Air Room Air Room Air 09/25/24 12:00 09/25/24 12:32 Temperature 97.9 F 97.9 F Temperature Source Temporal Pulse Rate 78 78 Respiratory Rate 20 H 20 H Blood Pressure 122/48 H 122/48 H Blood Pressure Mean 72 72 Pulse Ox 98 98 Oxygen Delivery Method Room Air MDM MDM MDM Narrative Medical decision making narrative: Patient is a 79-year-old female who presented to the emergency department chief complaint of altered mental status and yelling help me. On the differential diagnosis includes but limited to intracranial hemorrhage, electrode abnormality, pneumothorax, pneumonia, UTI. Once workup is obtained reviewed she will be reevaluated. Patient to get IV fluids for hydration. Patient CBC reviewed showed no evidence leukocytosis white blood count normal 11.2, hemoglobin 9.1, platelet count of 281. Patient sodium was 135, potassium normal at 5, creatinine was elevated 2.48. Patient's calcium was noted be 11.3, AST and ALT are 41 and 17 respectively. Patient lipase normal 34. Patient's urinalysis showed 500 leukocyte esterase negative nitrates 0-5 red cells with 10-25 white cells and no bacteria noted. Patient CT head and brain without contrast was reviewed which showed no acute or cranial hemorrhage and apparent hypodense lesion in the right thalamus could be infarction or indeterminate age further evaluation with MRI is recommended. Small vessel ischemia versus degenerative changes. Generalized brain atrophy noted. Patient's x-ray of her abdomen reviewed by myself by radiology which showed fecal retention in the colon consistent with constipation. Patient's EKG reviewed showed sinus rhythm with a rate of 82 bpm. Patient's arrived at bedside as well as her other family members and after discussion with them they state on this is when this all started her screaming and yelling. Per family members that normally she is alert and oriented to self self people and this is not her normal self. One of her family members stated that his son is a neurosurgeon and had discussion with him and there was concerned that she may be had an infarct causing the symptoms and he stated that there could be other reasons for this. states that they also recently increased her tube feeds as well. At this point time will discuss case with hospitalist for admission for further workup of the infarct that was noted on her head CT. Spoke with hospitalist Dr. Young who accept patient for admission. Patient family members at bedside were notified they are agreeable spinal cord concerns answered. Lab Data Labs: Laboratory Results - last 24 hr 09/25/24 09/25/24 10:25 10:30 WBC 11.2 H RBC 3.06 L Hgb 9.1 L Hct 28.5 L MCV 93.1 MCH 29.7 MCHC 31.9 L RDW Std Deviation 54.4 H RDW Coeff of Celia 15.8 H Plt Count 281 MPV 10.5 Immature Gran % (Auto) 0.500 Neut % (Auto) 37.5 L Lymph % (Auto) 51.3 H Thayer % (Auto) 9.6 Eos % (Auto) 0.8 Baso % (Auto) 0.3 Absolute Neuts (auto) 4.2 Absolute Lymphs (auto) 5.76 H Nucleated RBC % 0 Sodium 135 Potassium 5.0 Chloride 97 L Carbon Dioxide 27.2 Anion Gap 11 BUN 74 H Creatinine 2.48 H Estim Creat Clear Calc 17.14 L Est GFR (MDRD) Non-Af 19 L BUN/Creatinine Ratio 29.8 H Glucose 61 L Calcium 11.3 H Total Bilirubin 0.22 AST 41 H ALT 17 Alkaline Phosphatase 121 H Total Protein 7.2 Albumin 3.6 Globulin 3.6 Albumin/Globulin Ratio 1.0 Lipase 34 Urine Color Yellow Urine Clarity Clear Urine pH 8.0 Ur Specific [place] 1.015 Urine Protein 100 H Urine Glucose (UA) Normal Urine Ketones Negative Urine Occult Blood 50 H Urine Nitrite Negative Urine Bilirubin Negative Urine Urobilinogen Normal Ur Leukocyte Esterase 500 H Urine RBC 0-5 SEEN Urine WBC 10-25 SEEN Ur Squamous Epith Cells 0 SEEN Urine Bacteria 0 SEEN Urine Mucus 0 SEEN Radiography Diagnostic Testing: Clinical Impression(s) from Imaging Studies Brain CT 09/25/24 10:04 IMPRESSION: 1. No acute intracranial hemorrhage. 2. Apparent hypodense lesion of the right thalamus could be infarction of indeterminate age. Further evaluation with MRI is recommended. 3. Small vessel ischemic/degenerative changes. 4. Generalized brain atrophy. Reading Location: [id number] X-Ray 09/25/24 11:20 IMPRESSION: Fecal retention in the colon consistent with constipation. Reading Location: [facility] Discharge Plan Triage Chief Complaint: Confusion ED Provider: Chance Nuno Dx/Rx/DC Orders Clinical Impression: Encephalopathy Prescriptions: No Action (DME) blood-glucose meter [FreeStyle Lite Meter] Kit See Rx Instructions .ROUTE .MEDSUPPLY Qty: 1 Rx Instructions: As directed gabapentin 300 mg capsule 300 mg feeding tube BID famotidine [Acid Controller] 20 mg tablet 20 mg feeding tube DAILY One Daily Complete Tablet 1 tab PO DAILY Rx Instructions: GIVE VIA PEG TUBE cholecalciferol (vitamin D3) 50 mcg (2,000 unit) capsule 150 mcg feeding tube DAILY Patient Comments: MAR STATES 6,000IU QD buspirone 7.5 mg tablet 7.5 mg feeding tube TID Patient Comments: MAR SHOWS MED HAS BEEN INCREASED EVERY COUPLE DAYS SINCE 09/13/24 chlorhexidine gluconate 0.12 % mouthwash 15 ml PO BID Rx Instructions: DO NOT SWALLOW heparin (porcine) 5,000 unit/mL (1 mL) cartridge 5,000 unit subcut Q12H Humulin N NPH Insulin KwikPen 100 unit/mL (3 mL) insulin pen 10 unit subcut BID metoprolol tartrate 50 mg tablet 50 mg feeding tube BID quetiapine 25 mg tablet 12.5 mg feeding tube BID insulin lispro [Humalog KwikPen Insulin] 100 unit/mL insulin pen 1 sliding scale dose subcut ACHS Protocol: 6. Sliding Scale Insulin Custom Condition: mg/dl range Dose/Route: Number of Units Condition: 70-150 Dose/Route: 0 Condition: 151-200 Dose/Route: 4 Condition: 201-250 Dose/Route: 8 Condition: 251-300 Dose/Route: 10 Condition: 301-350 Dose/Route: 12 Condition: 351-400 Dose/Route: 16 Condition: <400 Dose/Route: GIVE 16 UNITS AND CALL Protocol Text: Custom Sliding Scale 6 UNITS + SLIDING SCALE Patient Comments: 6 UNITS + SLIDING SCALE acetaminophen 650 mg suppository 650 mg IL Q4H PRN (Reason: fever or pain) acetaminophen 325 mg tablet 650 mg feeding tube Q4H PRN (Reason: fever or pain) alum-mag hydroxide-simeth 200-200-20 mg/5 mL suspension 30 ml feeding tube Q4H PRN (Reason: GI DISTRESS) lorazepam [Ativan] 0.5 mg tablet 0.5 mg feeding tube Q6H PRN (Reason: anxiety) bisacodyl 10 mg suppository 10 mg IL DAILY PRN (Reason: constipation) Enema 19-7 gram/118 mL enema 118 ml IL DAILY PRN (Reason: constipation) guaifenesin [Adult Tussin Chest Congestion] 100 mg/5 mL liquid 200 mg feeding tube Q4H PRN (Reason: cough) hydrocodone-acetaminophen 5-325 mg tablet 1 tab feeding tube Q8H PRN (Reason: pain) ipratropium-albuterol 0.5 mg-3 mg(2.5 mg base)/3 mL solution for nebulization 3 ml inhalation Q6H PRN (Reason: wheezing) magnesium hydroxide [Milk of Magnesia] 400 mg/5 mL suspension 30 ml feeding tube DAILY PRN (Reason: constipation) hydralazine 50 mg Tablet 50 mg feeding tube TID levothyroxine 112 mcg tablet 112 mcg feeding tube DAILY (DME) pen needle, diabetic [Lite Touch Insulin Pen Ulysses] 31 gauge x 5/16 needle See Rx Instructions .ROUTE .MEDSUPPLY Qty: 30 5RF Rx Instructions: use with victoza qd (DME) FreeStyle Nahum 14 Day [place] Misc See Rx Instructions .ROUTE .MEDSUPPLY Qty: 1 0RF Rx Instructions: As directed (DME) FreeStyle Nahum 14 Day Sensor Kit See Rx Instructions .ROUTE .MEDSUPPLY Qty: 1 0RF Rx Instructions: As directed (DME) FreeStyle Lite Strips Strip See Rx Instructions .ROUTE .MEDSUPPLY Qty: 100 3RF Rx Instructions: As directed (DME) lancets [FreeStyle Lancets] 28 gauge misc See Rx Instructions .ROUTE .MEDSUPPLY Qty: 100 3RF Rx Instructions: check glucose 2 x a day (DME) Handicap Placard See Rx Instructions .Route .MEDSUPPLY Qty: 1 0RF Rx Instructions: 5 year RX 06/08/23-06/08/28 DX.. R06.09 and G62.9 Primary Care Provider: Joceline Herman Referrals: Joceline Herman MD [Primary Care Provider] - Print Language: Iraqi Disposition Disposition: Acute Care Hospital [facility]
[2024-09-25] MEDS: Haloperidol Lactate 5 MG/ML Vial 2.5 MG IV ×2 (10:24→12:28)
[2024-09-25] MEDS: 0.9% Normal Saline (1000mL) 1,000 ML 999 ML IV (10:25)
[2024-09-25 10:37] LABS: Bacteria 0 SEEN /hpf (None Seen); Mucous, Urine 0 SEEN /hpf (<or=2+); Squamous Epithelial Cells - UA 0 SEEN /hpf (5-10)
[2024-09-25 10:41] LABS: Absolute Lymphocyte Count 5.76 X10^3/uL (0.83-4.51); Absolute Neutrophil Count 4.2 X10^3/uL (2.0-7.7); Basophil# 0.03 X10^3/uL; Basophil% 0.3 % (0-1); Eosinophil# 0.09 X10^3/uL; Eosinophils% 0.8 % (0-5); Hematocrit 28.5 % (37-47); Hemoglobin 9.1 g/dL (12.0-15.0); Lymphocyte # 5.76 X10^3/ul (0.83-4.51); Lymphocyte % 51.3 % (19-41); Mean Corp Hgb Conc 31.9 g/dL (32-36); Mean Corpuscular Hgb 29.7 pg (27.0-32.0); Mean Corpuscular Volume 93.1 fL (81-99); Mean Platelet Vol. 10.5 fl (6.2-12.0); Monocyte# 1.08 X10^3/uL; Monocyte% 9.6 % (0-10); NRBC Flagged by Analyzer 0 % (0-5); Neutrophil % 37.5 % (47-70); POSITIVE DIFFERENTIAL YES; Platelet Count 281 K/mm3 (150-450); RBC Distribution Width CV 15.8 % (11.6-14.6); RBC Distribution Width SD 54.4 fl (35.1-43.9); Red Blood Count 3.06 M/mm3 (4.2-5.4); White Blood Count 11.2 K/mm3 (4.4-11.0)
[2024-09-25 10:42] LABS: Color, Urine Yellow (Yellow); Glucose, Dipstick Normal (Normal); Ketone-Dipstick Negative (Negative); Leukocyte Esterase-Dipstick 500 /ul (Negative); Nitrite-Dipstick Negative (Negative); Occult Blood-Urine 50 /ul (Negative); Protein-Dipstick 100 mg/dl (Negative); Specific Gravity, Urine 1.015 (1.002-1.030); Urine Bilirubin Dipstick Negative (Negative); Urine Clarity Clear (Clear); Urine Urobilinogen Normal (Normal)
[2024-09-25 11:06] LABS: White Blood Cells 10-25 SEEN /hpf (0-5)
[2024-09-25 11:07] LABS: Red Blood Cells-Urine 0-5 SEEN /hpf (0-5)
[2024-09-25 11:09] LABS: AST(SGOT) 41 U/L (<=31); Alanine Aminotransfer ALT/SGPT 17 U/L (<=34); Albumin, Serum 3.6 g/dL (3.4-4.8); Alkaline Phosphatase 121 U/L (35-104); Anion Gap 11 (5-15); BUN 74 mg/dL (4-19); BUN/Creat Ratio 29.8 RATIO (10-20); Calcium,Total 11.3 mg/dL (7.6-11.0); Carbon Dioxide 27.2 mmol/L (21.0-32.0); Chloride 97 mmol/L (98-108); Creatinine, Serum 2.48 mg/dL (0.70-1.20); EST Glomerular Filtration Rate 19 (>60); Estimated Creatinine Clearance 17.14 ml/min (50-250); Globulin 3.6 g/dL (2.2-4.2); Glucose 61 mg/dL (70-99); Lipase 34 U/L (13-75); Protein, Total 7.2 g/dL (5.9-8.4); Sodium Level 135 mmol/L (133-145); Total Bilirubin 0.22 mg/dL (0.00-1.30)
--- NOTE | 2024-09-25 11:20 | RAD_ITS ---
EXAM: XR Abdomen, 1 View CLINICAL INDICATION: AMS TECHNIQUE: Frontal supine view of the abdomen/pelvis. COMPARISON: No relevant prior studies available. FINDINGS: GASTROINTESTINAL TRACT: Fecal retention in the colon consistent with constipation. No dilation. BONES/JOINTS: Unremarkable. No acute fracture. RAD/Abdomen Single View IMPRESSION: Fecal retention in the colon consistent with constipation. Reading Location: [id number]
--- NOTE | 2024-09-25 14:29 | HP.PCM.HOS_ITS ---
HPI - General General Date of Admission: 09/25/24 Date of Service: 09/25/24 Chief Complaint: Confusion, agitation HPI Narrative ANDRIY WEST, is a 79 F who presents to the emergency room at [facility] at the request of her from a local extended care facility due to confusion and agitation. Patient has been in the [facility] approximately a month for skilled services, since she has been admitted she has been intermittently confused and agitated, it appears that she was then a [facility]-just prior to her admission at [facility] in [place] which is an LTAC. It appears that the patient was admitted to [facility] on 07/17/2024 as a transfer from [facility] where she was seen in the emergency room for sepsis and respiratory failure. Some of the medical information was obtained from the who is not a good historian. According to the usp, she was hospitalized for sepsis and was on a ventilator. It appears from the medical records according to the [facility] that [facility]. Patient's demanded that the patient be brought to the hospital for further workup, usp states that the has been unrealistic about the patient's medical condition and ability to improve. He feels that the patient will ultimately improve enough to take care of her self and return home. Workup in the ER included a CBC which showed normal white blood cell count, hemoglobin was 9.1, creatinine was 2.48 and BUN was 74. Urinalysis showed 10-25 WBCs 500 leukocyte esterase but no bacteria. CT of the brain showed no acute intracranial hemorrhage, there is a hypodense lesion of the right thalamus which could be an infarction of intermediate age. Generalized brain atrophy was noted. KUB of the abdomen showed constipation. I told my it was my opinion that the patient would not improve further, he did not seem to accept this, I told him that I would work her up for causes of encephalopathy. I also told him that it could be that she had anoxic brain injury from her past event of respiratory failure. Patient will be placed in observation status on MedSurg 3, MRI will be performed and she will be seen by teleneurology and have an EEG. I may be able to contact [facility] tomorrow to get further information on the patient. [facility] Medical History Poor venous access Acute respiratory insufficiency Hypertensive urgency Acute CHF Acute maxillary sinusitis, unspecified Type 2 diabetes mellitus with both eyes affected by mild nonproliferative retinopathy without macular edema, with long-term current use of insulin Combined form of age-related cataract, both eyes Ptosis of left eyelid Hyperopia Regular astigmatism Presbyopia CKD (chronic kidney disease) stage 3, GFR 30-59 ml/min Peripheral neuropathy Obesity, Class II, BMI 35-39.9 Iron malabsorption Claudication Rosacea Iron deficiency anemia Lymphedema Malignant neoplasm of upper-outer quadrant of right female breast Albuminuria Hypertension, essential, benign Hypothyroidism (acquired) Hyperlipidemia, mixed Barretts esophagus GERD with esophagitis Uncontrolled type 2 diabetes mellitus without complication, without long-term current use of insulin Home Medications ?Medication ?Instructions ?Recorded ?Last Taken ?Type blood-glucose meter (FreeStyle #1 ea 03/11/19 Unknown History Lite Meter kit) pen needle, diabetic 31 gauge x #30 ea 08/06/20 Unknow n Rx 09/23 (Lite Touch Insulin Pen [place]) flash glucose scanning reader #1 ea 08/20/20 Unknown R x (FreeStyle [place] 14 Day [place]) flash glucose sensor (FreeStyle #1 ea 08/20/20 Unknown Rx [place] 14 Day Sensor kit) blood sugar diagnostic (FreeStyle #100 ea 10/08/21 Unk nown Rx Lite Strips) lancets 28 gauge (FreeStyle #100 ea 10/18/21 Unknown R x Lancets) Handicap Placard #1 ea 06/08/23 Unknown Rx acetaminophen 325 mg tablet 650 mg feeding tube Q4H AL N fever 09/25/24 09/24/24 History or pain acetaminophen 650 mg rectal 650 mg AL Q4H PRN fever or pain 09/25/24 Unknown History suppository aluminum-mag hydroxide-simethicone 30 ml feeding tube Q4H PRN GI 09/25/24 Unknown History 200 mg-200 mg-20 mg/5 mL oral susp DISTRESS bisacodyl 10 mg rectal suppository 10 mg AL DAILY PRN constipation 09/25/24 Unknown History buspirone 7.5 mg tablet 7.5 mg feeding tube TID 09/0809/24/24 History chlorhexidine gluconate 0.12 % 15 ml PO BID 09/25/24 U nknown History mouthwash cholecalciferol (vitamin D3) 50 150 mcg feeding tube D AILY 09/25/24 Unknown History mcg (2,000 unit) capsule famotidine 20 mg tablet (Acid 20 mg feeding tube DAILY 09/25/24 09/24/24 History Controller) gabapentin 300 mg capsule 300 mg feeding tube BID 09/0809/24/24 History neuropathic pain guaifenesin 100 mg/5 mL oral 200 mg feeding tube Q4H P RN cough 09/25/24 Unknown History liquid (Adult Tussin Chest Congestion) heparin (porcine) 5,000 unit/mL (1 5,000 unit subcut Q 12H 09/25/24 09/25/24 History mL) injection cartridge hydralazine 50 mg tablet 50 mg feeding tube TID 09/25 Unknown History hydrocodone-acetaminophen 5-325mg 1 tab feeding tube Q 8H PRN pain 09/25/24 09/25/24 History 5mg-325mg insulin NPH isoph U-100 human 100 10 unit subcut BID 0 09/25/24 09/25/24 History unit/mL (3 mL) subcutaneous pen (Humulin N NPH U-100 Insulin KwikPen) insulin lispro 100 unit/mL 1 sliding scale dose subcut ACHS 09/25/24 09/25/24 History subcutaneous pen (Humalog KwikPen (U-100) Insulin) ipratropium 0.5 mg-albuterol 3 mg 3 ml inhalation Q6H PRN wheezing 09/25/24 Unknown History (2.5 mg base)/3 mL nebulization soln levothyroxine 112 mcg tablet 112 mcg feeding tube LOUANN Y Thyroid 09/25/24 09/24/24 History lorazepam 0.5 mg tablet (Ativan) 0.5 mg feeding tube Q 6H PRN anxiety 09/25/24 09/25/24 History magnesium hydroxide 400 mg/5 mL 30 ml feeding tube SUSSY LY PRN 09/25/24 Unknown History oral suspension (Milk of Magnesia) constipation metoprolol tartrate 50 mg tablet 50 mg feeding tube BI D 09/25/24 09/24/24 History multivitamin with minerals (One 1 tab PO DAILY 5 09/15/24 History Daily Complete tablet) quetiapine 25 mg tablet 12.5 mg feeding tube BID 09/24/24 History sodium phosphates 19 gram-7 118 ml AL DAILY PRN consti pation 09/25/24 Unknown History gram/118 mL enema (Enema) Allergy/AdvReac Type Severity Reaction Status Date / Time No Known Allergies Allergy Verified 06/01/24 14:48 Family History Aunt Breast cancer Sister Diabetes Surgical History History of cholecystectomy History of lumpectomy Social History household members: spouse Smoking Status: Former smoker quit date: 05/11/90 Tobacco: How many years used: 15 alcohol intake: never substance use type: does not use what type of physical activity do you participate in: walking and bicycling ROS Review of Systems ROS Unobtainable: due to mental condition and due to mental status Vital Signs Vital Signs Vital Signs: 09/25/24 09:43 09/25/24 10:46 09/25/24 11:00 Temperature 98.1 F 98.3 F 98.6 F Temperature Source Oral Oral Oral Pulse Rate 85 80 80 Respiratory Rate 16 20 H 20 H Blood Pressure 147/56 H 123/63 H 120/86 H Blood Pressure Mean 86 83 97 Pulse Ox 99 98 98 Oxygen Delivery Method Room Air Room Air Room Air 09/25/24 12:00 09/25/24 12:32 09/25/24 13:00 Temperature 97.9 F 97.9 F Temperature Source Temporal Pulse Rate 78 78 81 Respiratory Rate 20 H 20 H 14 Blood Pressure 122/48 H 122/48 H 124/44 H Blood Pressure Mean 72 72 70 Pulse Ox 98 98 97 Oxygen Delivery Method Room Air Weight Weight: 74 kg Body Mass Index (BMI) 28.9 Physical Exam Const alert and no apparent distress Constitutional Narrative: Patient appears elderly and frail, she is lethargic and cries out at times in an attempt to sing. General Appearance: well developed Orientation / Consciousness: awake HEENT normocephalic, head/scalp atraumatic and moist oral mucous membranes Eyes PERRL, EOMs intact bilaterally and conjunctivae normal Neck no JVD and thyroid normal General: trachea midline Resp normal respiratory effort, no retractions, no use of accessory muscles and clear to auscultation bilaterally Auscultation: Negative for rales, rhonchi or wheezes Cardio regular rate, regular rhythm, S1 normal heart sound, S2 normal heart sound, no murmurs, no rub and no gallops GI normal to inspection, nondistended, normoactive bowel sounds, soft to palpation, non-tender and non-distended GI Narrative: PEG tube is in place Extremity no clubbing, cyanosis or edema Skin no rashes or lesions noted General Skin Exam: no breakdown Neuro CN's II-XII intact bilaterally Neuro Narrative: Patient is nonambulatory, she does not answer questions, she says a few words and attempts to say Sensorium / Orientation: awake and alert Psych Psych Narrative: Patient is confused and lethargic Results Lab / Micro Data 09/25/24 10:25 09/25/24 10:25 Labs: Laboratory Results - last 24 hr 09/25/24 10:25: WBC 11.2 H, RBC 3.06 L, Hgb 9.1 L, Hct 28.5 L, MCV 93.1, MCH 29.7, MCHC 31.9 L, RDW Std Deviation 54.4 H, RDW Coeff of Celia 15.8 H, Plt Count 281, MPV 10.5, Immature Gran % (Auto) 0.500, Neut % (Auto) 37.5 L, Lymph % (Auto) 51.3 H, [place] % (Auto) 9.6, Eos % (Auto) 0.8, Baso % (Auto) 0.3, Absolute Neuts (auto) 4.2, Absolute Lymphs (auto) 5.76 H, Nucleated RBC % 0, Sodium 135, Potassium 5.0, Chloride 97 L, Carbon Dioxide 27.2, Anion Gap 11, BUN 74 H, C reatinine 2.48 H, Estim Creat Clear Calc 17.14 L, Est GFR (MDRD) Non-Af 19 L, B UN/Creatinine Ratio 29.8 H, Glucose 61 L, Calcium 11.3 H, Total Bilirubin 0.22, AST 41 H, ALT 17, Alkaline Phosphatase 121 H, Total Protein 7.2, Albumin 3.6, Globulin 3.6, Albumin/Globulin Ratio 1.0, Lipase 34 09/25/24 10:30: Urine Color Yellow, Urine Clarity Clear, Urine pH 8.0, Ur Specific [place] 1.015, Urine Protein 100 H, Urine Glucose (UA) Normal, Urine Ketones Negative, Urine Occult Blood 50 H, Urine Nitrite Negative, Urine Bilirubin Negative, Urine Urobilinogen Normal, Ur Leukocyte Esterase 500 H, Urine RBC 0-5 SEEN, Urine WBC 10-25 SEEN, Ur Squamous Epith Cells 0 SEEN, Urine Bacteria 0 SEEN, Urine Mucus 0 SEEN Imaging Radiology Impression Brain CT 09/25/24 10:04 IMPRESSION: 1. No acute intracranial hemorrhage. 2. Apparent hypodense lesion of the right thalamus could be infarction of indeterminate age. Further evaluation with MRI is recommended. 3. Small vessel ischemic/degenerative changes. 4. Generalized brain atrophy. Reading Location: [facility] KUB X-Ray 09/25/24 11:20 IMPRESSION: Fecal retention in the colon consistent with constipation. Reading Location: [facility] Assessment & Plan Assessment/Plan (1) Encephalopathy: PLAN: Plan 1. Longstanding encephalopathy-etiology unclear, patient will be placed in observation status on [facility] 3, she will undergo an MRI tomorrow and an EEG, she will be seen in consultation by teleneurology. #2 chronic kidney disease stage IIIb-labs will be monitored as indicated #3 oropharyngeal dysphagia-patient has a PEG tube and is n.p.o. #4 type 2 diabetes-blood sugars will be monitored every 6 hours severe fingerstick blood sugar, sliding scale insulin will be administered as needed #5 hypothyroidism-patient is on Synthroid-I will obtain a T3, T4, and TSH #6 anemia-this is probably anemia of chronic kidney disease, I will order ferritin studies, iron, and TIBC Patient's is unrealistic about the patient's chances for recovery-he feels the patient will recover from this. Total clinical time spent by myself addressing the patient's medical issues, reviewing all of her data, and collaborating with patient's care team: 70 minutes Charges/Coding Visit Charges Inpatient E&M: 64466 Init Hosp L3
[2024-09-25] MEDS: Lactated Ringers 1,000 ML 100 ML IV (15:30)
[2024-09-25] MEDS: 0.9% Saline Lock 10 ML Syringe IV ×2 (15:30→21:59)
[2024-09-25] MEDS: hydrALAZINE 50 MG Tablet GT ×2 (15:30→21:42)
[2024-09-25] MEDS: LORazepam 0.5 MG Tablet GT ×2 (15:30→21:42)
[2024-09-25 17:11] LABS: Ferritin 608 ng/mL (22-378); Free T3 2.3 pg/mL (2.18-3.98); T4 Total, Thyroxin 8.4 ug/dL (4.8-13.9)
[2024-09-25 21:37] LABS: Iron Binding Capacity,Total 344 ug/dL (250-450)
[2024-09-25] MEDS: Acetaminophen 325 MG Tablet 650 MG GT (21:41)
[2024-09-25] MEDS: Metoprolol Tartrate 50 MG Tablet GT (21:41)
[2024-09-25] MEDS: QUEtiapine 25 MG Tablet 12.5 MG GT (21:42)
[2024-09-25] MEDS: Magnesium Citrate 300 ML GT (21:43)
[2024-09-25 21:51] LABS: Iron 66 ug/dL (50-170); Iron Binding Capacity,Unsat 278 ug/dL (228-428); PERCENT IRON SATURATION 19.2 % (13-59)
[2024-09-25] MEDS: Haloperidol Lactate 5 MG/ML Vial 2 MG IV (21:59)
[2024-09-25] MEDS: Nystatin Powder 15gm Bottle 1 APPLIC TOPICAL (21:59)
[2024-09-25] MEDS: Menthol/Lanolin/Calamine/Znox 113 GM Tube 1 APPLIC TOPICAL (22:00)
[2024-09-25] MEDS: Heparin Injection (Vial) 5,000 UNIT/ML VIAL 5000 UNIT SC (22:06)
[2024-09-25] MEDS: Insulin NPH Human 100 UNITS/ML PEN 10 UNITS SC (22:14)
[2024-09-25 23:11] LABS: Bedside Glucose 132 mg/dL (74-106)
[2024-09-26] VITALS (16 sets, daily range): BP systolic 116–161; BP diastolic 44–78; PULSE 68–98; RESP 16–18; TEMP 36.8–37.1; O2SAT 94–100
[2024-09-26 01:38] LABS: Bedside Glucose 140 mg/dL (74-106)
[2024-09-26] MEDS: Lactated Ringers 1,000 ML 100 ML IV (01:44)
[2024-09-26] MEDS: 0.9% Saline Lock 10 ML Syringe IV ×2 (01:52→09:58)
[2024-09-26] MEDS: Haloperidol Lactate 5 MG/ML Vial 2 MG IV ×2 (01:52→11:01)
[2024-09-26] MEDS: Levothyroxine 112 MCG Tablet GT (05:55)
[2024-09-26] MEDS: LORazepam 0.5 MG Tablet GT (05:56)
[2024-09-26 06:01] LABS: Absolute Lymphocyte Count 2.67 X10^3/uL (0.83-4.51); Absolute Neutrophil Count 4.3 X10^3/uL (2.0-7.7); Basophil# 0.03 X10^3/uL; Basophil% 0.4 % (0-1); Eosinophil# 0.07 X10^3/uL; Eosinophils% 0.9 % (0-5); Hematocrit 29.6 % (37-47); Lymphocyte # 2.67 X10^3/ul (0.83-4.51); Lymphocyte % 33.8 % (19-41); Mean Corp Hgb Conc 30.4 g/dL (32-36); Mean Corpuscular Hgb 29.8 pg (27.0-32.0); Mean Platelet Vol. 10.4 fl (6.2-12.0); Monocyte# 0.77 X10^3/uL; Monocyte% 9.8 % (0-10); NRBC Flagged by Analyzer 0.3 % (0-5); Neutrophil # 4.31 X10^3/uL (2.7-7.7); Neutrophil % 54.6 % (47-70); Platelet Count 244 K/mm3 (150-450); RBC Distribution Width CV 15.6 % (11.6-14.6); RBC Distribution Width SD 55.5 fl (35.1-43.9); Red Blood Count 3.02 M/mm3 (4.2-5.4); White Blood Count 7.9 K/mm3 (4.4-11.0)
[2024-09-26] MEDS: oxyCODONE 5 MG Tablet GT (06:22)
[2024-09-26] MEDS: Acetaminophen 325 MG Tablet 650 MG GT (06:22)
[2024-09-26 06:45] LABS: Bedside Glucose 119 mg/dL (74-106)
[2024-09-26 07:50] LABS: AST(SGOT) 29 U/L (<=31); Alanine Aminotransfer ALT/SGPT 16 U/L (<=34); Albumin, Serum 3.4 g/dL (3.4-4.8); Alkaline Phosphatase 115 U/L (35-104); Anion Gap 12 (5-15); BUN 57 mg/dL (4-19); BUN/Creat Ratio 26.8 RATIO (10-20); Calcium,Total 10.6 mg/dL (7.6-11.0); Carbon Dioxide 21.9 mmol/L (21.0-32.0); Chloride 104 mmol/L (98-108); Creatinine, Serum 2.12 mg/dL (0.70-1.20); EST Glomerular Filtration Rate 23 (>60); Estimated Creatinine Clearance 19.83 ml/min (50-250); Globulin 3.4 g/dL (2.2-4.2); Glucose 143 mg/dL (70-99); Potassium 4.3 mmol/L (3.3-5.1); Protein, Total 6.8 g/dL (5.9-8.4); Sodium Level 137 mmol/L (133-145); Total Bilirubin 0.22 mg/dL (0.00-1.30)
--- NOTE | 2024-09-26 09:45 | MRI_ITS ---
PROCEDURE: BRAIN WITHOUT CONTRAST 09/26/2024 REASON FOR EXAM: ENCEPHALOPATHY In TECHNIQUE: Noncontrast brain MRI. Multiplanar and multisequence images were obtained. COMPARISON: CT head September 25, 2024 FINDINGS: Diffusion sequence demonstrates no evidence of acute ischemia. FLAIR and T2 sequences demonstrate mild multifocal increased signal in the periventricular and subcortical white matter, nonspecific most likely chronic small-vessel ischemic change. [id number] generalized atrophy. No evidence of intracranial hemorrhage. No mass effect. No midline shift. No evidence of acute or chronic intraparenchymal hemorrhage. Mild left sphenoid sinus mucosal thickening with majority of the paranasal sinuses appearing clear. No air-fluid levels. Motion artifact limits detail. MRI/Brain without Contrast IMPRESSION: 1. [id number] generalized atrophy. 2. Mild suspected chronic small-vessel ischemic change. 3. No acute ischemia 4. No acute intracranial findings [facility]
[2024-09-26] MEDS: Lorazepam 2 MG/ML WCH Syringe IV (09:57)
[2024-09-26] MEDS: Menthol/Lanolin/Calamine/Znox 113 GM Tube 1 APPLIC TOPICAL ×2 (09:58→21:22)
--- NOTE | 2024-09-26 11:02 | NURSING ---
haldol 2mg IV removed from [facility] (3mg wasted) and walked down to [facility] for administration as requested.
[2024-09-26 12:05] LABS: Bedside Glucose 152 mg/dL (74-106)
--- NOTE | 2024-09-26 12:23 | NEURO.CONS ---
Assessment and Plan: Neuro Assessment/Plan This is an 79-year-old female who presented to [facility] on 09/25/2024 due to husbands concern. Husbands primary concern is that she is not getting the rehab and care she needs to continue to improve. She was admitted to [facility] on 07/17/2024 for pneumonia with subsequent respiratory failure requiring intubation and ICU stay. She was eventually able to be extubated, but PEG tube was placed due to dysphagia. She was transferred to LTAC ([facility] in [place]) for continued care. Overall examination appears most consistent with hyperactive delirium or metabolic encephalopathy from prolonged prior hospitalization. Could consider psychiatry involvement for consideration for low dose mood stabilizer (seroquel or Depakote). EEG without epileptiform discharge. MRI brain is motion degraded but does not appear to have any acute findings. Awaiting radiology read. 1. Would recommend outpatient neurology follow up HPI Consult Data Date of Consult: 09/26/24 HPI Narrative HPI Narrative: This is an 79-year-old female with a past medical history of diabetes, CKD who presented to [facility] on 09/25/2024 due to 's concern for mismanagement at facility. He reports she was admitted (admitted to [facility] 07/17/2024 per HPI) for pneumonia requiring intubation and ICU stay. She required PEG placement due to failed swallowing evaluation in the hospital. He reports she has not been getting consistent rehab at the facility and his main goal is to get the patient to swallow food safely so that PEG can be removed. She has been at [facility] in [place] which is a [facility] care facility. He was concerned after patient suffered a fall at her facility and hit her head. He wanted her evaluated her at [facility] due to this fall. Labs on arrival show WBC 11.2, low hemoglobin (9.1), normal sodium, creatinine 2.48 with BUN 74, AST 41 with normal ALT. TSH, T3 and T4 normal. UA non-infectious. 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 No officially radiology read overall appears non-acute. [facility] Medical History (Updated 09/25/24 @ 15:59 by Gabbie Carroll) Wears hearing aid in both ears Cancer Former smoker Poor venous access Acute respiratory insufficiency Hypertensive urgency Acute CHF Acute maxillary sinusitis, unspecified Type 2 diabetes mellitus with both eyes affected by mild nonproliferative retinopathy without macular edema, with long-term current use of insulin Combined form of age-related cataract, both eyes Ptosis of left eyelid Hyperopia Regular astigmatism Presbyopia CKD (chronic kidney disease) stage 3, GFR 30-59 ml/min Peripheral neuropathy Obesity, Class II, BMI 35-39.9 Iron malabsorption Claudication Rosacea Iron deficiency anemia Lymphedema Malignant neoplasm of upper-outer quadrant of right female breast Albuminuria Hypertension, essential, benign Hypothyroidism (acquired) Hyperlipidemia, mixed Barretts esophagus GERD with esophagitis Uncontrolled type 2 diabetes mellitus without complication, without long-term current use of insulin Home Medications ?Medication ?Instructions ?Recorded ?Last Taken ?Type blood-glucose meter (FreeStyle #1 ea 03/11/19 Unknown History Lite Meter kit) pen needle, diabetic 31 gauge x #30 ea 08/06/20 Unknown Rx /16 (Lite Touch Insulin Pen [place]) flash glucose scanning reader #1 ea 08/20/20 Unknown Rx (FreeStyle [place] 14 Day [place]) flash glucose sensor (FreeStyle #1 ea 08/20/20 Unknown Rx N[place]um 14 Day Sensor kit) blood sugar diagnostic (FreeStyle #100 ea 10/08/21 Unknown Rx Lite Strips) lancets 28 gauge (FreeStyle #100 ea 10/18/21 Unknown Rx Lancets) Handicap Placard #1 ea 06/08/23 Unknown Rx acetaminophen 325 mg tablet 650 mg feeding tube Q4H PRN fever 09/25/24 09/24/24 History or pain acetaminophen 650 mg rectal 650 mg CO Q4H PRN fever or pain 09/25/24 Unknown History suppository aluminum-mag hydroxide-simethicone 30 ml feeding tube Q4H PRN GI 09/25/24 Unknown History 200 mg-200 mg-20 mg/5 mL oral susp DISTRESS bisacodyl 10 mg rectal suppository 10 mg CO DAILY PRN constipation 09/25/24 Unknown History buspirone 7.5 mg tablet 7.5 mg feeding tube TID 09/25/24 09/24/24 History chlorhexidine gluconate 0.12 % 15 ml PO BID 09/25/24 Unknown History mouthwash cholecalciferol (vitamin D3) 50 150 mcg feeding tube DAILY 09/25/24 Unknown History mcg (2,000 unit) capsule famotidine 20 mg tablet (Acid 20 mg feeding tube DAILY 09/25/24 09/24/24 History Controller) gabapentin 300 mg capsule 300 mg feeding tube BID 09/25/24 09/24/24 History neuropathic pain guaifenesin 100 mg/5 mL oral 200 mg feeding tube Q4H PRN cough 09/25/24 Unknown History liquid (Adult Tussin Chest Congestion) heparin (porcine) 5,000 unit/mL (1 5,000 unit subcut Q12H 09/25/24 09/25/24 History mL) injection cartridge hydralazine 50 mg tablet 50 mg feeding tube TID 09/25/24 Unknown History hydrocodone-acetaminophen 5-325mg 1 tab feeding tube Q8H PRN pain 09/25/24 09/25/24 History 5mg-325mg insulin NPH isoph U-100 human 100 10 unit subcut BID 09/25/24 09/25/24 History unit/mL (3 mL) subcutaneous pen (Humulin N NPH U-100 Insulin KwikPen) insulin lispro 100 unit/mL 1 sliding scale dose subcut ACHS 09/25/24 09/25/24 History subcutaneous pen (Humalog KwikPen (U-100) Insulin) ipratropium 0.5 mg-albuterol 3 mg 3 ml inhalation Q6H PRN wheezing 09/25/24 Unknown History (2.5 mg base)/3 mL nebulization soln levothyroxine 112 mcg tablet 112 mcg feeding tube DAILY Thyroid 09/25/24 09/24/24 History lorazepam 0.5 mg tablet (Ativan) 0.5 mg feeding tube Q6H PRN anxiety 09/25/24 09/25/24 History magnesium hydroxide 400 mg/5 mL 30 ml feeding tube DAILY PRN 09/25/24 Unknown History oral suspension (Milk of Magnesia) constipation metoprolol tartrate 50 mg tablet 50 mg feeding tube BID 09/25/24 09/24/24 History multivitamin with minerals (One 1 tab PO DAILY 09/25/24 09/15/24 History Daily Complete tablet) quetiapine 25 mg tablet 12.5 mg feeding tube BID 09/25/24 09/24/24 History sodium phosphates 19 gram-7 118 ml CO DAILY PRN constipation 09/25/24 Unknown History gram/118 mL enema (Enema) Allergy/AdvReac Type Severity Reaction Status Date / Time No Known Allergies Allergy Verified 06/01/24 14:48 Family History Aunt Breast cancer Sister Diabetes Surgical History History of cholecystectomy History of lumpectomy Social History household members: spouse Smoking Status: Former smoker quit date: 05/11/90 Tobacco: How many years used: 15 alcohol intake: never substance use type: does not use what type of physical activity do you participate in: walking and bicycling Vital Signs Vital Signs Vital Signs: 09/25/24 12:32 09/25/24 13:00 09/25/24 15:00 Temperature 97.9 F Temperature Source Pulse Rate 78 81 85 Pulse Strength Respiratory Rate 20 H 14 Respiratory Effort Respiratory Depth Respiratory Pattern Blood Pressure 122/48 H 124/44 H Blood Pressure Mean 72 70 Blood Pressure Source Blood Pressure Position Blood Pressure Location Pulse Ox 98 97 Oxygen Delivery Method 09/25/24 15:15 09/25/24 15:18 09/25/24 15:30 Temperature 97.4 F L Temperature Source Oral Pulse Rate 86 86 Pulse Strength Respiratory Rate 17 Respiratory Effort Normal Respiratory Depth Normal Respiratory Pattern Normal Blood Pressure 139/57 H Blood Pressure Mean 84 Blood Pressure Source Monitor Blood Pressure Position Supine Blood Pressure Location Left Arm Pulse Ox 99 Oxygen Delivery Method Room Air Room Air 09/25/24 17:17 09/25/24 21:40 09/25/24 21:40 Temperature 97.7 F L Temperature Source Oral Pulse Rate 81 Pulse Strength Respiratory Rate 17 Respiratory Effort Normal Non-Labored Respiratory Depth Respiratory Pattern Blood Pressure 139/34 H Blood Pressure Mean 69 Blood Pressure Source Monitor Blood Pressure Position Semi-Fowlers Blood Pressure Location Left Arm Pulse Ox 94 97 Oxygen Delivery Method Room Air Room Air Room Air 09/25/24 21:41 09/25/24 21:42 09/25/24 22:00 Temperature Temperature Source Pulse Rate 81 81 Pulse Strength Normal (2+) Respiratory Rate Respiratory Effort Respiratory Depth Respiratory Pattern Blood Pressure 139/34 H 139/34 H Blood Pressure Mean Blood Pressure Source Blood Pressure Position Blood Pressure Location Pulse Ox Oxygen Delivery Method 09/25/24 22:20 09/25/24 22:36 09/26/24 02:00 Temperature 98.2 F Temperature Source Temporal Pulse Rate 73 68 Pulse Strength Respiratory Rate 16 Respiratory Effort Respiratory Depth Respiratory Pattern Blood Pressure 146/40 H 116/44 L Blood Pressure Mean 75 68 Blood Pressure Source Monitor Monitor Blood Pressure Position Semi-Fowlers Semi-Fowlers Blood Pressure Location Left Arm Left Arm Pulse Ox 98 Oxygen Delivery Method Room Air 09/26/24 02:00 09/26/24 05:31 09/26/24 05:56 Temperature Temperature Source Pulse Rate 83 68 Pulse Strength Respiratory Rate Respiratory Effort Normal Non-Labored Respiratory Depth Respiratory Pattern Blood Pressure 116/44 L Blood Pressure Mean Blood Pressure Source Blood Pressure Position Blood Pressure Location Pulse Ox Oxygen Delivery Method Room Air 09/26/24 09:00 09/26/24 09:48 09/26/24 10:00 Temperature 98.6 F Temperature Source Oral Pulse Rate 83 Pulse Strength Normal (2+) Respiratory Rate 18 16 Respiratory Effort Normal Non-Labored Respiratory Depth Respiratory Pattern Blood Pressure 161/45 H Blood Pressure Mean 83 Blood Pressure Source Monitor Blood Pressure Position Semi-Fowlers Blood Pressure Location Left Arm Pulse Ox 98 Oxygen Delivery Method Room Air Room Air 09/26/24 11:17 Temperature Temperature Source Pulse Rate 98 Pulse Strength Respiratory Rate 18 Respiratory Effort Respiratory Depth Respiratory Pattern Blood Pressure 155/65 H Blood Pressure Mean 95 Blood Pressure Source Monitor Blood Pressure Position Supine Blood Pressure Location Left Arm Pulse Ox 98 Oxygen Delivery Method Room Air Weight Weight: 72.32 kg Body Mass Index (BMI) 28.2 EEG Results Procedure Details EEG Procedure Details: EEG DESCRIPTION ? Background: This recording was obtained during awake and drowsy state. PDR of 8 Hz was seen and was asymmetric and better modulated over the R hemisphere.? During drowsiness, there was attenuation of the waking background. ? ? Activation Procedures: Photic stimulation was performed. No abnormal or epileptic activity was triggered by this procedure. ? Sporadic Epileptiform Discharges: none ? Focal slow activity: L hemispheric focal slowing of theta frequencies over riding low amplitude delta activity. ? Rhythmic or Periodic activity: ?none ? Seizures: none ? Patient Events: none ? EEG DIAGNOSIS: ??Abnormal ? ? ? CLINICAL INTERPRETATION This EEG is consistent with a structural lesion over the L hemisphere. No epileptiform discharges or seizures were seen. Physical Exam Neuro Neuro Narrative: Mental Status: The patient was alert and interactive with both family at bedside and examining physician. She is oriented to person and place (states allan). She states I don't know to month and year. She is able to follow all simple commands including sticking out tongue, closing eyes without prompting or mimicking. Language: speech is limited but fluent. Cranial Nerves: horizontal extraocular eye movements are intact without appreciable nystagmus, face is symmetric at rest and with activation, hearing is intact to conversational tone, tongue protrudes midline. Motor: ?All extremities are antigravity. No pronator drift noted in upper or lower extremities. Sensation- Intact to light touch bilaterally Coordination: No clear ataxia of arm or leg movements Gait: Not assessed Lab / Micro Data 09/26/24 05:40 09/26/24 07:01 Labs: Laboratory Results - last 24 hr 09/25/24 10:25: Iron 66, TIBC 344, Iron Saturation 19.2, Unsaturated IBC 278, Ferritin 608 H, TSH 2.060, Thyroxine (T4) 8.4, Free T3 pg/dL 2.3 09/25/24 22:11: POC Glucose 132 H 09/26/24 01:16: POC Glucose 140 H 09/26/24 05:40: WBC 7.9, RBC 3.02 L, Hgb 9.0 L, Hct 29.6 L, MCV 98.0 D, MCH 29.8, MCHC 30.4 L, RDW Std Deviation 55.5 H, RDW Coeff of Celia 15.6 H, Plt Count 244, MPV 10.4, Immature Gran % (Auto) 0.500, Neut % (Auto) 54.6, Lymph % (Auto) 33.8, [place] % (Auto) 9.8, Eos % (Auto) 0.9, Baso % (Auto) 0.4, Absolute Neuts (auto) 4.3, Absolute Lymphs (auto) 2.67, Nucleated RBC % 0.3, Sodium Cancelled, Potassium Cancelled, Chloride Cancelled, Carbon Dioxide Cancelled, Anion Gap Cancelled, BUN Cancelled, Creatinine Cancelled, Estim Creat Clear Calc Cancelled, Est GFR (MDRD) Non-Af Cancelled, BUN/Creatinine Ratio Cancelled, Glucose Cancelled, Calcium Cancelled, Total Bilirubin Cancelled, AST Cancelled, ALT Cancelled, Alkaline Phosphatase Cancelled, Total Protein Cancelled, Albumin Cancelled, Globulin Cancelled, Albumin/Globulin Ratio Cancelled 09/26/24 06:05: POC Glucose 119 H 09/26/24 07:01: Sodium 137, Potassium 4.3, Chloride 104, Carbon Dioxide 21.9, Anion Gap 12, BUN 57 H, Creatinine 2.12 H, Estim Creat Clear Calc 19.83 L, Est GFR (MDRD) Non-Af 23 L, BUN/Creatinine Ratio 26.8 H, Glucose 143 H, Calcium 10.6, Total Bilirubin 0.22, AST 29, ALT 16, Alkaline Phosphatase 115 H, Total Protein 6.8, Albumin 3.4, Globulin 3.4, Albumin/Globulin Ratio 1.0 09/26/24 11:41: POC Glucose 152 H Active Medications Active Medications Active Medications: Current Medications Generic Name Dose Route Start Last Admin Trade Name Freq PRN Reason Stop Dose Admin Acetaminophen 650 mg 09/25/24 14:57 09/26/24 06:22 Acetaminophen 325 Mg Tablet GT 650 mg Q4H PRN Administration fever or pain 1-10 Albuterol/Ipratropium 3 ml 09/25/24 14:57 Ipratropium/Albuterol Sulfate 3 Ml Ampul.Neb INHALATION Q6H PRN wheezing Calamine/Phenol 1 applic 09/25/24 22:00 09/26/24 09:58 Menthol/Lanolin/Calamine/Znox 113 Gm Tube TOPICAL 1 applic BID NINA Administration Protocol Cholecalciferol 125 mcg 09/26/24 10:00 Cholecalciferol (Vit D3) 125 Mcg Capsule (5,000 Units) GT DAILY NINA Cholecalciferol 25 mcg 09/26/24 10:00 Cholecalciferol (Vit D3) 25 Mcg Tablet (1,000 Units) GT DAILY NINA Famotidine 20 mg 09/26/24 10:00 Famotidine 20 Mg Tablet GT DAILY NINA Glucagon 1 mg 09/25/24 14:57 Glucagon 1 Mg/Ml Syringe IM X1 PRN Hypoglycemia Protocol Haloperidol Lactate 2 mg 09/25/24 14:57 09/26/24 01:52 Haloperidol Lactate 5 Mg/Ml Vial IV 2 mg Q4H PRN PRN Administration AGITATION Protocol Heparin Sodium (Porcine) 5,000 unit 09/25/24 22:00 09/25/24 22:06 Heparin Injection (Vial) 5,000 Unit/Ml Vial SC 5,000 unit Q12H NINA Administration Hydralazine HCl 50 mg 05/18/25 14:57 09/26/24 05:56 Hydralazine 50 Mg Tablet GT Not Given TID [facility] Protocol Lactated Ringer's 1,000 mls @ 100 mls/hr 09/25/24 14:57 09/26/24 11:45 IV 100 mls/hr .Q10H NINA Infusion Dextrose 250 mls @ 0 mls/hr 09/25/24 14:57 Dextrose 10%-Water IV .Q0M PRN HYPOGLYCEMIA Protocol As Directed Sodium Chloride 250 mls @ 15 mls/hr 09/25/24 15:16 IV .[id number] PRN Saline Flush Sodium Chloride 250 mls @ 15 mls/hr 09/25/24 15:16 IV .[id number] PRN Additional IVPB Infusion Enteral Nutritional Formula 1,000 mls @ 50 mls/hr 09/26/24 12:20 Jevity 1.5 GT .Q20H NINA Insulin Human Lispro 0 unit 09/25/24 18:00 09/26/24 06:31 Insulin Lispro 100 Unit/Ml Insuln.Pen SC Not Given Q6 [facility] Protocol Insulin Human NPH 10 units 09/25/24 22:00 09/25/24 22:14 Insulin Nph Human 100 Units/Ml Pen SC 10 u BID [facility] Administration Levothyroxine Sodium 112 mcg 09/26/24 06:00 09/26/24 05:55 Levothyroxine 112 Mcg Tablet GT 112 mcg DAILY@0600 NINA Administration Lorazepam 0.5 mg 09/25/24 14:57 09/26/24 05:56 Lorazepam 0.5 Mg Tablet GT 0.5 mg Q6H PRN Administration anxiety Metoprolol Tartrate 50 mg 09/25/24 22:00 09/25/24 21:41 Metoprolol Tartrate 50 Mg Tablet GT 50 mg BID [facility] Administration Protocol Morphine Sulfate 2 - 4 mg 09/25/24 14:57 Morphine 2 Mg/Ml Syringe IV Q3H PRN PRN Pain Score 6-10 Morphine Sulfate 2 - 4 mg 09/25/24 15:09 Morphine 4 Mg/Ml Syringe IV Q3H PRN PRN Pain Score 6-10 Nystatin 1 applic 09/25/24 22:00 09/25/24 21:59 Nystatin Powder 15gm Bottle TOPICAL 1 applic BID NINA Administration Protocol Ondansetron HCl 4 mg 09/25/24 14:57 Ondansetron 4 Mg/2 Ml Vial IV Q8H PRN PRN NAUSEA/VOMITING Oxycodone HCl 5 mg 09/25/24 15:16 09/26/24 06:22 Oxycodone 5 Mg Tablet GT 5 mg Q4H PRN PRN Administration Pain Score 4-10 Quetiapine Fumarate 12.5 mg 09/25/24 22:00 09/25/24 21:42 Quetiapine 25 Mg Tablet GT 12.5 mg BID NINA Administration Protocol Sodium Chloride 10 - 40 ml 09/25/24 15:16 09/26/24 09:58 0.9% Saline Lock 10 Ml Syringe IV 10 ml UD PRN Administration SALINE FLUSH
--- NOTE | 2024-09-26 12:23 | CASEMGMT ---
Met with patient to complete YAÑEZ form. YAÑEZ form explained to patient who voiced understanding and signed form. Original form placed in pt?s chart and copy provided to patient. Nilsa Alexander, Discharge Planning Asst
--- NOTE | 2024-09-26 12:30 | CASEMGMT ---
Social Work- SW met with pt spouse and pt to discuss discharge planning. Pt spouse reports that he would like to consider other facilities at discharge. Pt spouse selects [facility] as [facility]. [facility] and [facility] are alternates. Pt spouse would like to look at [facility] if they have bed availability. SW provided admissions contact for pt to coordinate visit with. SYLWIA verified with pt spouse that pt was skilled at [facility]. Pt reports that they had started the process of application for [facility] for in the event that insurance does not approve additional stay. SYLWIA collaborated with [facility] [employer] rep [place]. PANCHO notified of referral request. AMADOR Cedillo
--- NOTE | 2024-09-26 12:57 | CASEMGMT ---
Discharge Planning Referral sent to [facility]. Nilsa Alexander DC Planning Asst.
--- NOTE | 2024-09-26 12:58 | CASEMGMT ---
Discharge Planning Per [facility], pt was being skilled. Her [facility] qualifying stay was 07/29-08/22 and she was at [facility] from 08/23-09/25/24. Nilsa Alexander DC Planning Asst.
[2024-09-26] MEDS: Jevity 1.5 1,000 ML 50 ML GT (14:58)
[2024-09-26] MEDS: Nystatin Powder 15gm Bottle 1 APPLIC TOPICAL ×2 (15:07→21:21)
[2024-09-26] MEDS: Metoprolol Tartrate 50 MG Tablet GT ×2 (15:09→21:25)
[2024-09-26] MEDS: Famotidine 20 MG Tablet GT (15:10)
[2024-09-26] MEDS: Heparin Injection (Vial) 5,000 UNIT/ML VIAL 5000 UNIT SC ×2 (15:10→21:23)
--- NOTE | 2024-09-26 15:59 | CHAPLAIN ---
Type of Pastoral Visit ___ Initial Visit ___ Follow-up Visit ___ On-call Visit ___ General Patient Visit ___ Spiritual Assessment ___ Family Conference ___ Bereavement ___ Rapid Response ___ Code Blue ___ Other (describe below) Pastoral Care Referral From ___ Patient ___ Family ___ Nurse ___ Physician ___ Biofuels Manager ___ Pathology Transcriptionist ___ Other (describe below) Sacrament/Intervention ___ Active listening ___ Anointing ___ Latter Day ___ Bereavement ___ Communion ___ Emily exploration ___ ___ Life review ___ Prayer ___ Reconciliation ___ Sacrament of Sick ___ Supportive presence ___ Wedding ___ Other (describe below) Pastoral Comments first attempt to visit and the patient was sound asleep; second attempt to visit and patient was receiving care from the staff
[2024-09-26] MEDS: Insulin Lispro 100 UNIT/ML INSULN.PEN SC ×2 (18:02→23:21)
[2024-09-26] MEDS: Divalproex Sodium 125 MG SPRINKLE 250 MG GT (18:03)
[2024-09-26 18:29] LABS: Bedside Glucose 234 mg/dL (74-106)
--- NOTE | 2024-09-26 19:29 | PCM.PN.HOSP ---
Reason for Visit Reason for Visit: Diagnoses Encephalopathy, unspecified (09/25/24) Subjective Subjective Patient was seen and examined today. I have correspondence from neurology stating that the patient has hyperactive delirium and they recommend placing her on Seroquel or Depakote, I have ordered Depakote 250 mg twice daily for the patient. Patient's stated today that he would like the patient to go to a different care home-he is concerned they are not taking good care of her at [facility]. Objective Data Objective Data Vital Signs: Vital Signs Temp Pulse Resp BP Pulse Ox O2 Del Method 98.7 F 86 16 129/47 H 94 Room Air 09/26/24 15:11 09/26/24 15:11 09/26/24 15:11 09/26/24 15:11 09/26/24 16:53 09/26/24 16:53 Oxygen Delivery Method Room Air Weight: 72.32 kg Body Mass Index (BMI) 28.2 Intake & Output: Intake and Output for Last 24 Hours 09/24/24 09/25/24 09/26/24 23:59 23:59 23:59 Intake Total 1000 / 1000 1551.67 / 1551.67 Balance 1000 / 1000 1551.67 / 1551.67 Lab / Micro Data 09/26/24 05:40 09/26/24 07:01 Labs: Laboratory Results - last 24 hr 09/25/24 10:25: Iron 66, TIBC 344, Iron Saturation 19.2, Unsaturated IBC 278 09/25/24 22:11: POC Glucose 132 H 09/26/24 01:16: POC Glucose 140 H 09/26/24 05:40: WBC 7.9, RBC 3.02 L, Hgb 9.0 L, Hct 29.6 L, MCV 98.0 D, MCH 29.8, MCHC 30.4 L, RDW Std Deviation 55.5 H, RDW Coeff of Celia 15.6 H, Plt Count 244, MPV 10.4, Immature Gran % (Auto) 0.500, Neut % (Auto) 54.6, Lymph % (Auto) 33.8, Otero % (Auto) 9.8, Eos % (Auto) 0.9, Baso % (Auto) 0.4, Absolute Neuts (auto) 4.3, Absolute Lymphs (auto) 2.67, Nucleated RBC % 0.3, Sodium Cancelled, Potassium Cancelled, Chloride Cancelled, Carbon Dioxide Cancelled, Anion Gap Cancelled, BUN Cancelled, Creatinine Cancelled, Estim Creat Clear Calc Cancelled, Est GFR (MDRD) Non-Af Cancelled, BUN/Creatinine Ratio Cancelled, Glucose Cancelled, Calcium Cancelled, Total Bilirubin Cancelled, AST Cancelled, ALT Cancelled, Alkaline Phosphatase Cancelled, Total Protein Cancelled, Albumin Cancelled, Globulin Cancelled, Albumin/Globulin Ratio Cancelled 09/26/24 06:05: POC Glucose 119 H 09/26/24 07:01: Sodium 137, Potassium 4.3, Chloride 104, Carbon Dioxide 21.9, Anion Gap 12, BUN 57 H, Creatinine 2.12 H, Estim Creat Clear Calc 19.83 L, Est GFR (MDRD) Non-Af 23 L, BUN/Creatinine Ratio 26.8 H, Glucose 143 H, Calcium 10.6, Total Bilirubin 0.22, AST 29, ALT 16, Alkaline Phosphatase 115 H, Total Protein 6.8, Albumin 3.4, Globulin 3.4, Albumin/Globulin Ratio 1.0 09/26/24 11:41: POC Glucose 152 H 09/26/24 17:55: POC Glucose 234 H Radiography Diagnostic Testing: Radiology Impression Brain MRI 09/26/24 09:45 IMPRESSION: 1. Fids-rq-[id number] generalized atrophy. 2. Mild suspected chronic small-vessel ischemic change. 3. No acute ischemia 4. No acute intracranial findings Reading Location: [facility] Physical Exam Narrative alert and no apparent distress Constitutional Narrative: Patient appears elderly and frail, she is lethargic and cries out at times in an attempt to sing. General Appearance: well developed Orientation / Consciousness: awake HEENT normocephalic, head/scalp atraumatic and moist oral mucous membranes Eyes PERRL, EOMs intact bilaterally and conjunctivae normal Neck no JVD and thyroid normal General: trachea midline Resp normal respiratory effort, no retractions, no use of accessory muscles and clear to auscultation bilaterally Auscultation: Negative for rales, rhonchi or wheezes Cardio regular rate, regular rhythm, S1 normal heart sound, S2 normal heart sound, no murmurs, no rub and no gallops GI normal to inspection, nondistended, normoactive bowel sounds, soft to palpation, non-tender and non-distended GI Narrative: PEG tube is in place Extremity no clubbing, cyanosis or edema Skin no rashes or lesions noted General Skin Exam: no breakdown Neuro CN's II-XII intact bilaterally Neuro Narrative: Patient is nonambulatory, she does not answer questions, she says a few words and attempts to say Sensorium / Orientation: awake and alert Psych Psych Narrative: Patient is confused and lethargic Assessment & Plan Assessment/Plan (1) Encephalopathy: PLAN: Plan 1. Longstanding encephalopathy-etiology unclear, again I placed the patient on Depakote 250 mg twice daily, we will need to find another skilled facility for the patient to be transferred to per her 's wishes. #2 chronic kidney disease stage IIIb-labs will be monitored as indicated #3 oropharyngeal dysphagia-patient has a PEG tube and is n.p.o., tube feeds will be written for the patient #4 type 2 diabetes-blood sugars will be monitored every 6 hours severe fingerstick blood sugar, sliding scale insulin will be administered as needed #5 hypothyroidism-patient is on Synthroid-patient's thyroid studies are within normal limits #6 anemia-this is probably anemia of chronic kidney disease, patient's iron studies were within normal limits Patient's is unrealistic about the patient's chances for recovery-he feels the patient will recover from this. Total clinical time spent by myself addressing the patient's medical issues, reviewing all of her data, and collaborating with patient's care team: 35 minutes Charges/Coding Visit Charges Inpatient E&M: 72534 Subs Hosp L2
[2024-09-26] MEDS: hydrALAZINE 50 MG Tablet GT (21:24)
[2024-09-26] MEDS: QUEtiapine 25 MG Tablet 12.5 MG GT (21:24)
[2024-09-26] MEDS: Insulin NPH Human 100 UNITS/ML PEN 10 UNITS SC (23:20)
[2024-09-26 23:45] LABS: Bedside Glucose 250 mg/dL (74-106)
[2024-09-27] VITALS (16 sets, daily range): BP systolic 132–156; BP diastolic 54–98; PULSE 63–107; RESP 16–20; TEMP 36–37.2; O2SAT 93–99
[2024-09-27] MEDS: LORazepam 0.5 MG Tablet GT ×2 (00:21→23:23)
[2024-09-27] MEDS: Haloperidol Lactate 5 MG/ML Vial 2 MG IV (02:04)
[2024-09-27] MEDS: Insulin Lispro 100 UNIT/ML INSULN.PEN SC ×4 (06:24→23:09)
[2024-09-27] MEDS: Levothyroxine 112 MCG Tablet GT (06:26)
[2024-09-27] MEDS: hydrALAZINE 50 MG Tablet GT ×3 (06:26→23:22)
[2024-09-27 06:51] LABS: Bedside Glucose 252 mg/dL (74-106)
--- NOTE | 2024-09-27 10:09 | CASEMGMT ---
Discharge Planning Updates sent to [facility]. Pending acceptance. Nilsa Alexander DC Planning Asst.
[2024-09-27] MEDS: Insulin NPH Human 100 UNITS/ML PEN 10 UNITS SC ×2 (10:38→23:08)
[2024-09-27] MEDS: Metoprolol Tartrate 50 MG Tablet GT ×2 (10:39→23:22)
[2024-09-27] MEDS: Divalproex Sodium 125 MG SPRINKLE 250 MG GT (10:39)
[2024-09-27] MEDS: Heparin Injection (Vial) 5,000 UNIT/ML VIAL 5000 UNIT SC ×2 (10:39→23:05)
[2024-09-27] MEDS: Cholecalciferol (VIT D3) 25 MCG TABLET (1,000 UNITS) GT (10:39)
[2024-09-27] MEDS: Famotidine 20 MG Tablet GT (10:39)
[2024-09-27] MEDS: Cholecalciferol (Vit D3) 125 MCG CAPSULE (5,000 UNITS) GT (10:39)
[2024-09-27] MEDS: QUEtiapine 25 MG Tablet 12.5 MG GT ×2 (10:39→23:23)
[2024-09-27] MEDS: Nystatin Powder 15gm Bottle 1 APPLIC TOPICAL ×2 (10:40→23:23)
[2024-09-27] MEDS: Jevity 1.5 1,000 ML 50 ML GT (10:40)
[2024-09-27] MEDS: Menthol/Lanolin/Calamine/Znox 113 GM Tube 1 APPLIC TOPICAL ×2 (10:40→23:23)
--- NOTE | 2024-09-27 13:04 | PCM.PN.HOSP ---
Reason for Visit Reason for Visit: Diagnoses Encephalopathy, unspecified (09/25/24) Subjective Subjective Patient was seen and examined today, she still is crying out and becomes agitated at times during my exam today. We are currently awaiting approval for her to go to a different skilled care facility at the 's request. Objective Data Objective Data Vital Signs: Vital Signs Temp Pulse Resp BP Pulse Ox O2 Del Method 98.3 F 103 H 18 133/58 H 98 Room Air 09/27/24 08:38 09/27/24 10:39 09/27/24 08:38 09/27/24 08:38 09/27/24 10:01 09/27/24 08:38 Oxygen Delivery Method Room Air Weight: 72.32 kg Body Mass Index (BMI) 28.2 Intake & Output: Intake and Output for Last 24 Hours 09/25/24 09/26/24 09/27/24 23:59 23:59 23:59 Intake Total 1000 / 1000 2200.00 / 2200.00 1085 / 1085 Balance 1000 / 1000 2200.00 / 2200.00 1085 / 1085 Lab / Micro Data 09/26/24 05:40 09/26/24 07:01 Labs: Laboratory Results - last 24 hr 09/26/24 17:55: POC Glucose 234 H 09/26/24 23:17: POC Glucose 250 H 09/27/24 06:23: POC Glucose 252 H Micro: Microbiology 09/25/24 10:30 Urine, Clean Catch Urine Culture - Final Mixed Gram Pos & Gram Neg Org Radiography Diagnostic Testing: Radiology Impression Brain MRI 09/26/24 09:45 IMPRESSION: 1. Hrmc-vj-xkcrdbuk generalized atrophy. 2. Mild suspected chronic small-vessel ischemic change. 3. No acute ischemia 4. No acute intracranial findings Reading [facility] Physical Exam Narrative alert and no apparent distress Constitutional Narrative: Patient appears elderly and frail, she is lethargic and cries out at times in an attempt to sing. General Appearance: well developed Orientation / Consciousness: awake HEENT normocephalic, head/scalp atraumatic and moist oral mucous membranes Eyes PERRL, EOMs intact bilaterally and conjunctivae normal Neck no JVD and thyroid normal General: trachea midline Resp normal respiratory effort, no retractions, no use of accessory muscles and clear to auscultation bilaterally Auscultation: Negative for rales, rhonchi or wheezes Cardio regular rate, regular rhythm, S1 normal heart sound, S2 normal heart sound, no murmurs, no rub and no gallops GI normal to inspection, nondistended, normoactive bowel sounds, soft to palpation, non-tender and non-distended GI Narrative: PEG tube is in place Extremity no clubbing, cyanosis or edema Skin no rashes or lesions noted General Skin Exam: no breakdown Neuro CN's II-XII intact bilaterally Neuro Narrative: Patient is nonambulatory, she does not answer questions, she says a few words and attempts to say Sensorium / Orientation: awake and alert Psych Psych Narrative: Patient is confused and lethargic Assessment & Plan Assessment/Plan (1) Encephalopathy: PLAN: Plan 1. Longstanding encephalopathy-etiology unclear, patient's Depakote was increased to 500 mg twice daily, I stopped her IV Haldol-I do not think the patient needs this medication #2 chronic kidney disease stage IIIb-labs will be monitored as indicated #3 oropharyngeal dysphagia-patient has a PEG tube and is n.p.o., tube feeds will be written for the patient #4 type 2 diabetes-blood sugars will be monitored every 6 hours severe fingerstick blood sugar, sliding scale insulin will be administered as needed #5 hypothyroidism-patient is on Synthroid-patient's thyroid studies are within normal limits #6 anemia-this is probably anemia of chronic kidney disease, patient's iron studies were within normal limits Patient's is unrealistic about the patient's chances for recovery-he feels the patient will recover from this. Total clinical time spent by myself addressing the patient's medical issues, reviewing all of her data, and collaborating with patient's care team: 35 minutes Charges/Coding Visit Charges Inpatient E&M: 02256 Subs Hosp L2
[2024-09-27 13:31] LABS: Bedside Glucose 248 mg/dL (74-106)
--- NOTE | 2024-09-27 14:16 | CHAPLAIN ---
Type of Pastoral Visit _x__ Initial Visit ___ Follow-up Visit ___ On-call Visit ___ General Patient Visit ___ Spiritual Assessment ___ Family Conference ___ Bereavement ___ Rapid Response ___ Code Blue ___ Other (describe below) Pastoral Care Referral From _x__ Patient ___ Family ___ Nurse ___ Physician ___ Electro Mechanical Engineer ___ Education Teacher ___ Other (describe below) Sacrament/Intervention _x__ Active listening ___ Anointing ___ Jewish ___ Bereavement ___ Communion ___ Emily exploration ___ ___ Life review _x__ Prayer ___ Reconciliation ___ Sacrament of Sick _x__ Supportive presence ___ Wedding ___ Other (describe below) Pastoral Comments patient is able to respond to this press operator but does have confusion; pt denies that she is in the hospital; pt cannot give clear answers although she makes attempt to answer questions; pt states that she is fine; pt cannot name anything that she needs or has concerns about; prayer given by agreement by the patient
--- NOTE | 2024-09-27 14:16 | CASEMGMT ---
Discharge Planning Call placed to [facility] to check on status of referral. Per Melissa, DON had requested nursing notes from [facility] and they had not been received (they rec'd some notes but not what they were looking for). MARGY left for [facility] @ [facility] requesting more detailed nursing notes be sent to [facility]. Melissa at [facility] states she hoped to have an answer today if notes from [facility] are obtain. Pt is medically ready for discharge. notified of the above. Nilsa Alexander DC Planning Asst.
--- NOTE | 2024-09-27 15:09 | CASEMGMT ---
Social Work- SW received a call from [facility] regarding referral. SW collaborated with [facility] for discharge planning and requests for nursing notes from prior facility per [facility]. Pt has been calling out often and is not able to converse in meaningful conversation at this time. Pt spouse toured [facility] yesterday and at this time we are awaiting a decision on pt referral. SW will continue to follow for discharge planning needs. AMADOR Cedillo
[2024-09-27] MEDS: Divalproex Sodium 125 MG SPRINKLE 500 MG GT (15:34)
[2024-09-27 18:05] LABS: Bedside Glucose 197 mg/dL (74-106)
[2024-09-28] VITALS (9 sets, daily range): BP systolic 107–139; BP diastolic 38–62; PULSE 60–80; RESP 16–18; TEMP 36.4–36.9; O2SAT 96–98
[2024-09-28 04:32] LABS: Bedside Glucose 238 mg/dL (74-106)
[2024-09-28 06:30] LABS: Anion Gap 14 (5-15); BUN 38 mg/dL (4-19); BUN/Creat Ratio 21.2 RATIO (10-20); Calcium,Total 10.4 mg/dL (7.6-11.0); Chloride 104 mmol/L (98-108); EST Glomerular Filtration Rate 28 (>60); Estimated Creatinine Clearance 23.36 ml/min (50-250); Glucose 208 mg/dL (70-99); Potassium 4.7 mmol/L (3.3-5.1); Sodium Level 136 mmol/L (133-145)
[2024-09-28] MEDS: Levothyroxine 112 MCG Tablet GT (06:43)
[2024-09-28] MEDS: hydrALAZINE 50 MG Tablet GT ×3 (06:43→23:54)
[2024-09-28] MEDS: 0.9% Saline Lock 10 ML Syringe IV ×2 (06:43→23:33)
[2024-09-28] MEDS: LORazepam 0.5 MG Tablet GT (06:44)
[2024-09-28] MEDS: Jevity 1.5 1,000 ML 50 ML GT (06:58)
[2024-09-28] MEDS: Insulin Lispro 100 UNIT/ML INSULN.PEN SC ×4 (07:37→23:23)
[2024-09-28] MEDS: Famotidine 20 MG Tablet GT (07:53)
[2024-09-28] MEDS: Cholecalciferol (Vit D3) 125 MCG CAPSULE (5,000 UNITS) GT (07:54)
[2024-09-28] MEDS: QUEtiapine 25 MG Tablet 12.5 MG GT (07:54)
[2024-09-28] MEDS: Metoprolol Tartrate 50 MG Tablet GT ×2 (07:54→23:55)
[2024-09-28] MEDS: Insulin NPH Human 100 UNITS/ML PEN 10 UNITS SC ×2 (07:55→23:25)
[2024-09-28] MEDS: Divalproex Sodium 125 MG SPRINKLE 500 MG GT ×2 (07:55→16:19)
[2024-09-28] MEDS: Cholecalciferol (VIT D3) 25 MCG TABLET (1,000 UNITS) GT (07:55)
[2024-09-28 07:56] LABS: Bedside Glucose 216 mg/dL (74-106)
[2024-09-28] MEDS: Menthol/Lanolin/Calamine/Znox 113 GM Tube 1 APPLIC TOPICAL ×2 (07:56→23:22)
[2024-09-28] MEDS: Nystatin Powder 15gm Bottle 1 APPLIC TOPICAL ×2 (07:56→23:23)
[2024-09-28] MEDS: Heparin Injection (Vial) 5,000 UNIT/ML VIAL 5000 UNIT SC ×2 (09:25→23:22)
[2024-09-28 11:30] LABS: Bedside Glucose 223 mg/dL (74-106)
--- NOTE | 2024-09-28 11:51 | CASEMGMT ---
Social Work SYLWIA spoke with admissions at [facility] who are concerned with pt swallowig and diet order. Speech Therapy notes sent to [facility]. SYLWIA spoke with ST who feels pt would benefit from MBS and may be able to advance diet, but is not awake enough today to complete this. [facility] would like a MBS prior to accepting pt. SYLWIA spoke with physician, who is agreeable to MBS tomorrow. SYLWIA updated ST. SYLWIA spoke with pt spouse and informed him that MBS would be completed and this would determine diet at [facility] and [facility] would follow MBS recommendations [place]. Spouse agreeable to this. VM left with Melissa at [facility] to discuss the above as [facility] has not yet agreed to accept pt. SYLWIA will continue to follow for dc planning. AMADOR Berumen
--- NOTE | 2024-09-28 12:05 | CASEMGMT ---
Social Work SW spoke with Melissa from [facility] and explained plan for pt and MBS. SW inquiring if pt can be accepted and Melissa is still uncertain. SYLWIA requested that [facility] make a decision today, as if they cannot accept, SW needs to find another facility. Melissa agreeable to make decision today on accepting pt. AMADOR Berumen
--- NOTE | 2024-09-28 14:04 | PCM.PN.HOSP ---
Reason for Visit Reason for Visit: Diagnoses Encephalopathy, unspecified (09/25/24) Subjective Subjective Patient was seen and examined today, she is alert but remains confused. I talked with speech therapy today and they are going to perform a modified barium swallow on her today to see if she is safe for oral intake. We are waiting for a nursing facility to accept the patient. Objective Data Objective Data Vital Signs: Vital Signs Temp Pulse Resp BP Pulse Ox O2 Del Method 98.4 F 73 18 129/62 H 98 Room Air 09/28/24 14:00 09/28/24 14:00 09/28/24 14:00 09/28/24 14:00 09/28/24 14:00 09/28/24 14:00 Oxygen Delivery Method Room Air Weight: 72.32 kg Body Mass Index (BMI) 28.2 Intake & Output: Intake and Output for Last 24 Hours 09/26/24 09/27/24 09/28/24 23:59 23:59 23:59 Intake Total 2200.00 / 2200.00 1185 / 1185 1000 / 1000 Balance 2200.00 / 2200.00 1185 / 1185 1000 / 1000 Lab / Micro Data 09/26/24 05:40 09/28/24 03:53 Labs: Laboratory Results - last 24 hr 09/27/24 17:47: POC Glucose 197 H 09/27/24 23:07: POC Glucose 238 H 09/28/24 03:53: Sodium 136, Potassium 4.7, Chloride 104, Carbon Dioxide 18.0 L, Anion Gap 14, BUN 38 H, Creatinine 1.80 H, Estim Creat Clear Calc 23.36 L, Est GFR (MDRD) Non-Af 28 L, BUN/Creatinine Ratio 21.2 H, Glucose 208 H, Calcium 10.4 09/28/24 07:35: POC Glucose 216 H 09/28/24 11:08: POC Glucose 223 H Micro: Microbiology 09/25/24 10:30 Urine, Clean Catch Urine Culture - Final Mixed Gram Pos & Gram Neg Org Physical Exam Narrative alert and no apparent distress Constitutional Narrative: Patient appears elderly and frail, she is lethargic and cries out at times in an attempt to sing. General Appearance: well developed Orientation / Consciousness: awake HEENT normocephalic, head/scalp atraumatic and moist oral mucous membranes Eyes PERRL, EOMs intact bilaterally and conjunctivae normal Neck no JVD and thyroid normal General: trachea midline Resp normal respiratory effort, no retractions, no use of accessory muscles and clear to auscultation bilaterally Auscultation: Negative for rales, rhonchi or wheezes Cardio regular rate, regular rhythm, S1 normal heart sound, S2 normal heart sound, no murmurs, no rub and no gallops GI normal to inspection, nondistended, normoactive bowel sounds, soft to palpation, non-tender and non-distended GI Narrative: PEG tube is in place Extremity no clubbing, cyanosis or edema Skin no rashes or lesions noted General Skin Exam: no breakdown Neuro CN's II-XII intact bilaterally Neuro Narrative: Patient is nonambulatory, she does not answer questions, she says a few words and attempts to say Sensorium / Orientation: awake and alert Psych Psych Narrative: Patient is confused and lethargic Assessment & Plan Assessment/Plan (1) Encephalopathy: PLAN: Plan 1. Longstanding encephalopathy-etiology unclear, patient's Depakote was increased to 500 mg twice daily, I stopped her IV Haldol-I do not think the patient needs this medication #2 chronic kidney disease stage IIIb-labs will be monitored as indicated #3 oropharyngeal dysphagia-patient has a PEG tube and is n.p.o., tube feeds will be written for the patient, speech therapy is performing a modified barium swallow on the patient's today #4 type 2 diabetes-blood sugars will be monitored every 6 hours severe fingerstick blood sugar, sliding scale insulin will be administered as needed #5 hypothyroidism-patient is on Synthroid-patient's thyroid studies are within normal limits #6 anemia-this is probably anemia of chronic kidney disease, patient's iron studies were within normal limits Patient's is unrealistic about the patient's chances for recovery-he feels the patient will recover from this. Total clinical time spent by myself addressing the patient's medical issues, reviewing all of her data, and collaborating with patient's care team: 35 minutes Charges/Coding Visit Charges Inpatient E&M: 73424 Subs Hosp L2
--- NOTE | 2024-09-28 14:33 | ST.MBS ---
Modified Barium Swallow Patient Information Study Date: 09/28/24 Study Time: 14:30 Direct Billable Minutes: 115 Total Minutes procedure & reportin Diagnosis: GERD K21.9; Cough R05.9 Referring Physician: Roldan Young Reason for Referral: Assess swallow function, assess risk for aspiration, and determine recommendations for least restrictive diet textures and compensatory strategies to improve safety of swallow. Medical History: Yamile Wells is a 79 F who presents to the emergency room at [facility] at the request of her from a local extended care facility due to confusion and agitation. Patient has been in the long term approximately a month for skilled services, since she has been admitted she has been intermittently confused and agitated, it appears that she was then a [facility]-just prior to her admission at [facility] which is an LTAC. It appears that the patient was admitted to [facility] on 07/17/2024 as a transfer from [facility] where she was seen in the emergency room for sepsis and respiratory failure. Some of the medical information was obtained from the who is not a good historian. According to the long term, she was hospitalized for sepsis and was on a ventilator. It appears from the medical records according to the long term that the patient had confusion at [facility]. CT of the brain showed no acute intracranial hemorrhage, there is a hypodense lesion of the right thalamus which could be an infarction of intermediate age. Generalized brain atrophy was noted. ST was consulted due to concern for swallowing difficulty. BSE 09/27/2024 recommended pt continue NPO w/ sips/chips w/ potential MBSS vs. FEES in upcoming sessions to further assess aspiration risk and consider the patient for diet advancement. PMH: Acute respiratory insufficiency, Hypertensive urgency, Acute CHF, DM type 2 w/ subsequent vision issues, Hyperopia, CKD stage 3, Iron deficiency anemia, Lymphedema, HTN, HLD, Barretts esophagus, GERD w/ esophagitis - See EMR for full PMH. Current Diet Ordered: NPO - sips of water by cup after oral care, feed Dentition: Natural Teeth Mental Status: Impaired Respiratory Status: Oxygenating on Room Air Penetration-Aspiration Scale Penetration-Aspiration Scale: OBJECTIVE ASSESSMENT OF SWALLOW FUNCTION (QUANTITATIVE ? PER TRIAL): PENETRATION / ASPIRATION SCALE (PONCE): 1 = does not enter airway 2 = enters airway/above vocal folds/ejected 3 = enters airway/above vocal folds/not ejected 4 = enters airway/contacts vocal folds/ejected 5 = enters airway/contacts vocal folds/not ejected 6 = enters airway/below vocal folds/ejected 7 = enters airway/below vocal folds/not ejected despite effort 8 = enters airway/below vocal folds/no effort VIDEOFLOROSCOPIC SCALE SCORE (PONCE): Grade I = aspiration of material that has penetrated into the laryngeal vestibule, intact cough reflex Grade II = aspiration < 10 % of the bolus, intact cough reflex Grade III = aspiration of < 10 % of the bolus, reduced cough reflex or aspiration of > 10 % of the bolus, intact cough reflex Grade IV = aspiration of > 10 % of the bolus, reduced cough reflex Penetration-Aspiration Scale Score Thin Liquid via teaspoon: Result: 1= does not enter airway Thin Liquid via teaspoon Trial 2: Result: 1= does not enter airway Thin Liquid via small single sip: cup: Result: 1= does not enter airway [place] Thick Liquid via small single sip: cup: Result: 1= does not enter airway Pudding via teaspoon: Result: 1= does not enter airway Comment: Increased pharyngeal residue prior to swallowing this trial, likely oral residues of previous trials that spilled to the laryngeal vestibule after the swallow; however, cannot definitively rule out retrograde flow of barium through UES between trials. Esophageal screen - Complete clearance. 05/14 Cookie: Result: 1= does not enter airway Thin Liquid via single sip: straw: Result: 1= does not enter airway Thin Liquid via sequential sips:straw: Result: 3= enters airways/above vocal folds/not ejected Oral Phase Labial Seal: Interlabial escape, no progression to anterior lip Tongue Control During Bolus Hold: Posterior escape of greater than half of bolus Bolus Preparation/Mastication: Disorganized chewing/mashing with solid pieces of bolus unchewed Bolus Transport/Lingual Motion: Slowed tongue motion Oral Residue: Residue collection on oral structures Pharyngeal Phase Initiation of Pharyngeal Swallow: Bolus head in pyriforms Soft Palate Elevation: Trace column of contrast/air between soft palate and pharyngeal wall Laryngeal Elevation: Partial superior movement thyroid cart/partial apprx aryt-epig petiole Anterior Hyoid Excursion: Partial anterior movement Epiglottic Movement: Complete inversion Laryngeal Vestibule Closure at Height of Swallow: Incomplete; narrow column of air/contrast in laryngeal vestibule Pharyngeal Stripping Wave: Present - diminished Pharyngoesophageal Segment Opening: Complete distension and complete duration; no obstruction of flow Tongue Base Retraction: Narrow column of contrast between tongue base & post. pharyngeal wall Pharyngeal Residue: Collection of residue within or on pharyngeal structures Esophageal Phase Esophageal Clearance: Complete clearance Diagnosis/Impression Diagnosis: Mild-moderate oropharyngeal dysphagia R13.12 Impression: The oral phase is primarily marked by... -Decreased bolus control w/ posterior loss of >1/2 the bolus to the pyriforms prior to swallow onset w/ thin liquids. -Slowed A-P transport. -Slowed mastication w/ some small pieces of cookie un-chewed. -Mild oral residue. The pharyngeal phase is primarily marked by... -Overall, mild deficits in pharyngeal motility w/ mildly decreased TB retraction and pharyngeal stripping wave. On one trial (pudding) there were mild-moderate pharyngeal residues present prior to the swallow, which were likely spillage of oral residues from the previous trial. Possibly retrograde flow from the esophagus; however, the [employer] feels this is unlikely as the esophageal screen of pudding showed complete clearance. -Laryngeal penetration of sequential sips of thin liquids that did not fully eject after the swallow, placing the patient at increased risk for post prandial aspiration. Otherwise, no laryngeal penetration and no aspiration observed during the study. Recommendations Diet: NPO (Ok for sips/chips after oral care w/ direct supervision) Comment: PLAN FOR SKILLED MEAL ANALYSIS OF SOFT AND BITE SIZE TEXTURES / THIN LIQUIDS WITH [employer]ER TOMORROW, 09/29/2024, TO CONSIDER DIET ADVANCEMENT. RECOMMENDED ASPIRATION PRECAUTIONS INCLUDE: SMALL BITES/SIPS, SLOW RATE, SIPS ONE AT A TIME, SITTING UPRIGHT DURING AND 30 MIN AFTER MEAL. Recommend Repeat Modified Barium Swallow: TBD Need for Skilled Speech Therapy Services: Yes Comment: -Skilled meal analysis w/ [employer]ER described above to consider diet advancement. -Train the patient/staff in use of strategies to decrease risk for aspiration. Would consider the patient for a bolus control cup to control rate of intake with liquids. -Train the patient in oropharyngeal exercise program if pt is able to follow commands to execute. Would consider implementing lingual resistance, effortful swallows,and EMST. Education Completed: 1. Described result of evaluation. and 7. Pt requires further education on strategies & risks. Status Active ST Patient: Active Contact Information [facility] Speech Therapy:: Irma Kelly M.A. CCC-TURKISH RUBBER? Speech-Language Pathologist?? [facility] [address] [place] [address]? [email or web address]?? [phone]
--- NOTE | 2024-09-28 14:48 | CASEMGMT ---
Social Work SW received message from [facility] that they are unable to accept pt. SW notified pt spouse and spouse agreeable to referrals to be sent to [facility] and [facility]. Referrals sent via [facility]. SW will await determination of acceptance. AMADOR Berumen
[2024-09-28 17:55] LABS: Bedside Glucose 191 mg/dL (74-106)
[2024-09-29] VITALS (7 sets, daily range): BP systolic 103–135; BP diastolic 37–65; PULSE 63–73; RESP 16–18; TEMP 36.4–36.7; O2SAT 97–98
[2024-09-29 00:20] LABS: Bedside Glucose 234 mg/dL (74-106)
[2024-09-29] MEDS: LORazepam 0.5 MG Tablet GT (02:11)
[2024-09-29] MEDS: Ondansetron 4 MG/2 ML Vial IV (02:21)
[2024-09-29] MEDS: 0.9% Saline Lock 10 ML Syringe IV (02:21)
[2024-09-29] MEDS: Levothyroxine 112 MCG Tablet GT (05:31)
[2024-09-29] MEDS: hydrALAZINE 50 MG Tablet GT (05:31)
[2024-09-29] MEDS: Insulin Lispro 100 UNIT/ML INSULN.PEN SC ×2 (05:32→11:26)
[2024-09-29] MEDS: Jevity 1.5 1,000 ML 50 ML GT (05:33)
[2024-09-29 06:10] LABS: Bedside Glucose 228 mg/dL (74-106)
--- NOTE | 2024-09-29 09:12 | CASEMGMT ---
[facility] has accepted. SW updated. Nilsa Alexander DC Planning Asst.
[2024-09-29] MEDS: Heparin Injection (Vial) 5,000 UNIT/ML VIAL 5000 UNIT SC (09:40)
--- NOTE | 2024-09-29 10:19 | CASEMGMT ---
Social Work [facility] has accepted pt. Physician notified and plan is for discharge today after pt works with speech therapy. SW obtained PASRR from [facility] and forwarded to [facility]. SW updated pt's spouse. Plan: [facility], when medically ready S AMADOR Aguirre
[2024-09-29] MEDS: Cholecalciferol (Vit D3) 125 MCG CAPSULE (5,000 UNITS) GT (10:23)
[2024-09-29] MEDS: Menthol/Lanolin/Calamine/Znox 113 GM Tube 1 APPLIC TOPICAL (10:24)
[2024-09-29] MEDS: Metoprolol Tartrate 50 MG Tablet GT (10:24)
[2024-09-29] MEDS: Nystatin Powder 15gm Bottle 1 APPLIC TOPICAL (10:24)
[2024-09-29] MEDS: Famotidine 20 MG Tablet GT (10:24)
[2024-09-29] MEDS: Divalproex Sodium 125 MG SPRINKLE 500 MG GT (10:24)
[2024-09-29] MEDS: Insulin NPH Human 100 UNITS/ML PEN 10 UNITS SC (10:25)
[2024-09-29 11:47] LABS: Bedside Glucose 284 mg/dL (74-106)
[2024-09-29] MEDS: Mag Hydrox/Al Hydrox/Simeth 30 ML UDC PO (12:20)
--- NOTE | 2024-09-29 14:27 | PCM.TXEXTCAR ---
Diet Diet Order/Speech Therapy: INPATIENT Hospital Diet / Speech Therapy Order(s) 09/29/24 10:49 Diet: Carbohydrate Controlled Food consistency:: Soft & Bite Sized Liquid Consistency:: Regular/Thin Diet Comments: 1:1 SUP ALL FOOD/DRINK,PEG to supplement to meet nutrition/hydration needs Routine Orders/Code Status Code Status: Full Code DC O2, CPAP, BIPAP needs Home O2 Discharge instructions: No Wound(s) francesca cleft: Wound Type: Pressure Injury Therapies Weight Bearing: Full weight bearing (With walker) Physical Therapy: Eval and Treat Occupational Therapy: Eval and Treat Speech Therapy: Eval and Treat Problem/Diagnosis (1) Encephalopathy: Status: Acute Code(s): G93.40 - Encephalopathy, unspecified Plan 1. Longstanding encephalopathy-etiology unclear, patient's Depakote was increased to 500 mg twice daily, I stopped her IV Haldol-I do not think the patient needs this medication #2 chronic kidney disease stage IIIb-labs will be monitored as indicated #3 oropharyngeal dysphagia-patient has a PEG tube and is n.p.o., tube feeds will be written for the patient, speech therapy is performing a modified barium swallow on the patient's today #4 type 2 diabetes-blood sugars will be monitored every 6 hours severe fingerstick blood sugar, sliding scale insulin will be administered as needed #5 hypothyroidism-patient is on Synthroid-patient's thyroid studies are within normal limits #6 anemia-this is probably anemia of chronic kidney disease, patient's iron studies were within normal limits Patient's is unrealistic about the patient's chances for recovery-he feels the patient will recover from this. Total clinical time spent by myself addressing the patient's medical issues, reviewing all of her data, and collaborating with patient's care team: 35 minutes Allergies/Procedures Done in Hospital Allergies No Known Allergies Allergy (Verified 06/01/24 14:48) Procedures: None Type of Care/Length of Stay Estimated LOS: Convalescent Care Less Than 30 days Type of Care Needed: Skilled Rehab Potential: Good Prognosis: Good Additional Orders/Day of Discharge H&P will serve as current which was dated: 09/25/24 Day of Discharge: 09/29/24 Dietary and Speech Recommendations Dietitian Recommendations/Changes: Continue Jevity 1.5 at 50 ml/hr w/ 150 ml water flush every 4 hours to provide 1800kcal, 76 grams protein, and 1812 ml free water/day. Increased water flushes from 100mL q4 hours to 150mL q4 hours to meet estimated needs. Monitor for changes in pt nutritional status and make additional adjustments as indicated. Discharge Plan Admission Admit Date/Time: 09/25/24 13:35 Primary Reason for Your Visit: Chronic encephalopathy Attending Provider: Roldan Young Primary Care Provider: Joceline Herman Consulting Providers: Crow Gonzalez; Ashley Connelly; Nemo Snow; Reuben Elmore; Parminder Eduardo; Martínez Ornelas; PING CHA; Angelica Dos Santos; Kimberly Davis; Fede Montez; Raven Rajan; Marco Antonio Still; Shandra Howell; Yuridia Smith; Randy Rosales; Maday Hassan; Bhavin Ferrer; Loiue Oconnor; David Dickey; Pineda Samuel; Rashid Samayoa; Ashok Ramesh; Ricardo Hameed; Tye Ho; Belinda Narvaez; Sultana Escalera Discharge Orders/Prescriptions Prescriptions: New acetaminophen 325 mg Tablet 650 mg PO Q4H PRN (Reason: fever or pain 1-10) Qty: 0 0RF cholecalciferol (vitamin D3) 125 mcg (5,000 unit) Capsule 125 mcg PO DAILY Qty: 0 0RF cholecalciferol (vitamin D3) 25 mcg (1,000 unit) Tablet 25 mcg PO DAILY Qty: 0 0RF divalproex 125 mg Capsule, Delayed Rel Sprinkle 500 mg PO BIDCM Qty: 0 0RF pantoprazole [Protonix] 40 mg tablet,delayed release (DR/EC) 40 mg PO DAILY Qty: 1 0RF lorazepam 0.5 mg Tablet 0.5 mg PO Q6H PRN (Reason: anxiety) 3 Days Qty: 5 0RF hydralazine 50 mg Tablet 50 mg PO TID Qty: 0 0RF insulin lispro [Humalog KwikPen Insulin] 100 unit/mL Insulin Pen See Protocol subcut ACHS Qty: 1 0RF Protocol: 4. Sliding Scale Insulin High-Med Dosing Condition: 150-199 mg/dl = 2 units Condition: 200-259 mg/dl = 4 units Condition: 260-324 mg/dl = 6 units Condition: 325-374 mg/dl = 8 units Condition: 375-409 mg/dl = 10 units Condition: 410-449 mg/dl = 11 units Condition: Greater than 449 call physician Protocol Text: Suggested for: - Patients on Total Daily Insulin Dose of 56-80 units - Patient who are known to be insulin resistant or septic HIGH MEDIUM DOSING ALGORITHM IV with Additives Jevity 1.5 1000 ML 50 mls/hr GT Ordered By: Roldan Young DO Last Taken: 09/29/24 05:33 50 mls/hr alum-mag hydroxide-simeth [Mag-Al Plus Extra Strength] 400-400-40 mg/5 mL Suspension 30 ml PO Q6H PRN PRN (Reason: Heartburn Or Indigestion) Qty: 0 0RF menthol-zinc oxide [Calmoseptine] 0.44-20.6 % Ointment 1 applic topical BID Qty: 0 0RF Protocol: *Topical Application Instructions APPLICATION INSTRUCTIONS: bilat buttocks metoprolol tartrate 50 mg Tablet 50 mg PO BID Qty: 0 0RF nystatin [Nyamyc] 100,000 unit/gram Powder 1 applic topical BID Qty: 0 0RF Protocol: *Topical Application Instructions APPLICATION INSTRUCTIONS: abd and groin folds Continued (DME) blood-glucose meter [FreeStyle Lite Meter] Kit See Rx Instructions .ROUTE .MEDSUPPLY Qty: 1 Rx Instructions: As directed Humulin N NPH Insulin KwikPen 100 unit/mL (3 mL) insulin pen 10 unit subcut BID ipratropium-albuterol 0.5 mg-3 mg(2.5 mg base)/3 mL solution for nebulization 3 ml inhalation Q6H PRN (Reason: wheezing) levothyroxine 112 mcg tablet 112 mcg feeding tube DAILY (DME) FreeStyle [place] 14 Day [place] Misc See Rx Instructions .ROUTE .MEDSUPPLY Qty: 1 0RF Rx Instructions: As directed (DME) FreeStyle [place] 14 Day Sensor Kit See Rx Instructions .ROUTE .MEDSUPPLY Qty: 1 0RF Rx Instructions: As directed Discontinued famotidine [Acid Controller] 20 mg tablet 20 mg feeding tube DAILY One Daily Complete Tablet 1 tab PO DAILY Rx Instructions: GIVE VIA PEG TUBE buspirone 7.5 mg tablet 7.5 mg feeding tube TID Patient Comments: MAR SHOWS MED HAS BEEN INCREASED EVERY COUPLE DAYS SINCE 09/13/24 metoprolol tartrate 50 mg tablet 50 mg feeding tube BID quetiapine 25 mg tablet 12.5 mg feeding tube BID acetaminophen 650 mg suppository 650 mg MT Q4H PRN (Reason: fever or pain) acetaminophen 325 mg tablet 650 mg feeding tube Q4H PRN (Reason: fever or pain) alum-mag hydroxide-simeth 200-200-20 mg/5 mL suspension 30 ml feeding tube Q4H PRN (Reason: GI DISTRESS) lorazepam [Ativan] 0.5 mg tablet 0.5 mg feeding tube Q6H PRN (Reason: anxiety) bisacodyl 10 mg suppository 10 mg MT DAILY PRN (Reason: constipation) Enema 19-7 gram/118 mL enema 118 ml MT DAILY PRN (Reason: constipation) magnesium hydroxide [Milk of Magnesia] 400 mg/5 mL suspension 30 ml feeding tube DAILY PRN (Reason: constipation) hydralazine 50 mg Tablet 50 mg feeding tube TID (DME) pen needle, diabetic [Lite Touch Insulin Pen [place]] 31 gauge x 5/16 needle See Rx Instructions .ROUTE .MEDSUPPLY Qty: 30 5RF Rx Instructions: use with victoza qd (DME) FreeStyle Lite Strips Strip See Rx Instructions .ROUTE .MEDSUPPLY Qty: 100 3RF Rx Instructions: As directed (DME) lancets [FreeStyle Lancets] 28 gauge misc See Rx Instructions .ROUTE .MEDSUPPLY Qty: 100 3RF Rx Instructions: check glucose 2 x a day (DME) Handicap Placard See Rx Instructions .Route .MEDSUPPLY Qty: 1 0RF Rx Instructions: 5 year RX 06/08/23-06/08/28 DX.. R06.09 and G62.9 No Action gabapentin 300 mg capsule 300 mg feeding tube BID cholecalciferol (vitamin D3) 50 mcg (2,000 unit) capsule 150 mcg feeding tube DAILY Patient Comments: [place] 6,000IU QD chlorhexidine gluconate 0.12 % mouthwash 15 ml PO BID Rx Instructions: DO NOT SWALLOW heparin (porcine) 5,000 unit/mL (1 mL) cartridge 5,000 unit subcut Q12H insulin lispro [Humalog KwikPen Insulin] 100 unit/mL insulin pen 1 sliding scale dose subcut [facility] Protocol: 6. Sliding Scale Insulin Custom Condition: mg/dl range Dose/Route: Number of Units Condition: 70-150 Dose/Route: 0 Condition: 151-200 Dose/Route: 4 Condition: 201-250 Dose/Route: 8 Condition: 251-300 Dose/Route: 10 Condition: 301-350 Dose/Route: 12 Condition: 351-400 Dose/Route: 16 Condition: <400 Dose/Route: GIVE 16 UNITS AND CALL MD Protocol Text: Custom Sliding Scale 6 UNITS + SLIDING SCALE Patient Comments: 6 UNITS + SLIDING SCALE guaifenesin [Adult Tussin Chest Congestion] 100 mg/5 mL liquid 200 mg feeding tube Q4H PRN (Reason: cough) hydrocodone-acetaminophen 5-325 mg tablet 1 tab feeding tube Q8H PRN (Reason: pain) Referrals / Follow Up: Joceline Herman MD [Primary Care Provider] - Disposition Disposition (needs filled in before D/C Order can be placed): [facility]
--- NOTE | 2024-09-29 14:51 | PCM.DC.SUM ---
Providers Date of Admission: 09/25/24 Date of Discharge: 09/29/24 Primary Care Physician: Dr. Joceline Herman MD Consultations 09/25/24 14:57 Tele [Consult: Tele-Neurology] Routine Consulting Provider: [facility] Reason for Consult: encephalopathy times 6 weeks-post extubation, sepsis, respiratory failure EMERGENT Consult: No MD Notified: Yes Date Notified: 09/26/24 Time Notified: 08:44 Method of Notification: Answering Service Comments:: . Nursing Unit Staff Notify [facility] of Tele-Neurology Consult: Yes Reason For Visit: ENCEPHALOPATHY Diagnosis Discharge Diagnosis (1) Encephalopathy: Status: Acute Code(s): G93.40 - Encephalopathy, unspecified Plan 1. Longstanding encephalopathy-etiology unclear, patient's Depakote was increased to 500 mg twice daily, I stopped her IV Haldol-I do not think the patient needs this medication #2 chronic kidney disease stage IIIb-labs will be monitored as indicated #3 oropharyngeal dysphagia-patient has a PEG tube and is n.p.o., tube feeds will be written for the patient, speech therapy is performing a modified barium swallow on the patient's today #4 type 2 diabetes-blood sugars will be monitored every 6 hours severe fingerstick blood sugar, sliding scale insulin will be administered as needed #5 hypothyroidism-patient is on Synthroid-patient's thyroid studies are within normal limits #6 anemia-this is probably anemia of chronic kidney disease, patient's iron studies were within normal limits Patient's is unrealistic about the patient's chances for recovery-he feels the patient will recover from this. Total clinical time spent by myself addressing the patient's medical issues, reviewing all of her data, and collaborating with patient's care team: 35 minutes Medications at Discharge Home Medications blood-glucose meter (FreeStyle Lite Meter kit) #1 ea 03/11/19 flash glucose scanning reader (FreeStyle N[place]um 14 Day [place]) #1 ea 08/20/20 flash glucose sensor (FreeStyle [place]um 14 Day Sensor kit) #1 ea 08/20/20 chlorhexidine gluconate 0.12 % mouthwash 15 ml PO BID 09/25/24 cholecalciferol (vitamin D3) 50 mcg (2,000 unit) capsule 150 mcg feeding tube DAILY 09/25/24 gabapentin 300 mg capsule 300 mg feeding tube BID neuropathic pain 09/25/24 guaifenesin 100 mg/5 mL oral liquid (Adult Tussin Chest Congestion) 200 mg feeding tube Q4H PRN cough 09/25/24 heparin (porcine) 5,000 unit/mL (1 mL) injection cartridge 5,000 unit subcut Q12H 09/25/24 hydrocodone-acetaminophen 5-325mg 5mg-325mg 1 tab feeding tube Q8H PRN pain 09/25/24 insulin NPH isoph U-100 human 100 unit/mL (3 mL) subcutaneous pen (Humulin N NPH U-100 Insulin KwikPen) 10 unit subcut BID 09/25/24 insulin lispro 100 unit/mL subcutaneous pen (Humalog KwikPen (U-100) Insulin) 1 sliding scale dose subcut ACHS 09/25/24 ipratropium 0.5 mg-albuterol 3 mg (2.5 mg base)/3 mL nebulization soln 3 ml inhalation Q6H PRN wheezing 09/25/24 levothyroxine 112 mcg tablet 112 mcg feeding tube DAILY Thyroid 09/25/24 IV with Additives 50 mls/hr GT 09/29/24 acetaminophen 325 mg tablet 650 mg (2 x 325 mg) PO Q4H PRN fever or pain 1-10 #0 tabs 09/29/24 aluminum-mag hydroxide-simethicone 400 mg-400 mg-40 mg/5 mL oral susp (Mag-Al Plus Extra Strength) 30 ml PO Q6H PRN PRN Heartburn Or Indigestion #0 mL 09/29/24 cholecalciferol (vitamin D3) 125 mcg (5,000 unit) capsule 125 mcg PO DAILY #0 caps 09/29/24 cholecalciferol (vitamin D3) 25 mcg (1,000 unit) tablet 25 mcg PO DAILY #0 tabs 09/29/24 divalproex 125 mg capsule,delayed release sprinkle 500 mg (4 x 125 mg) PO BIDCM #0 caps 09/29/24 hydralazine 50 mg tablet 50 mg PO TID #0 tabs 09/29/24 insulin lispro 100 unit/mL subcutaneous pen (Humalog KwikPen (U-100) Insulin) See Protocol subcut ACHS #1 mL 09/29/24 lorazepam 0.5 mg tablet 0.5 mg PO Q6H PRN anxiety 3 days #5 tabs 09/29/24 menthol 0.44 %-zinc oxide 20.6 % topical ointment (Calmoseptine) 1 applic topical BID #0 grams 09/29/24 metoprolol tartrate 50 mg tablet 50 mg PO BID #0 tabs 09/29/24 nystatin 100,000 unit/gram topical powder (Nyamyc) 1 applic topical BID #0 grams 09/29/24 pantoprazole 40 mg tablet,delayed release (Protonix) 40 mg PO DAILY #1 TAB 09/29/24 Hospital Course Operations None Procedures None Summary of Care Provided Minutes Spent on Discharge: 32 Hospital Course: This 79-year-old white female was brought into the emergency room at [facility] from [facility] due to the insistence of her that she be checked out patient has been at the retirement approximately a month after being hospitalized for sepsis and respiratory failure, her mental status has not been good and she is lost the ability to walk. Patient is confused and cries out frequently, she calms down when her comes in the room. Labs obtained on the patient showed a slightly elevated white blood cell count at 11.2, hemoglobin was 9.1, creatinine was 2.12 and BUN was 57. Brain CT showed no acute intracranial hemorrhage, there is a hypodense lesion of the right thalamus-etiology unclear, patient's KUB showed fecal retention in the colon consistent with constipation. Patient was placed in observation status on MedSurg 3, requested that she be transferred to another skilled care facility at the time of discharge from the hospital. I had teleneurology see the patient and their diagnosis was hyperactive delirium or metabolic encephalopathy from prior hospitalization. EEG showed cerebral dysfunction of the left hemisphere there were no epileptiform discharges or seizures seen. MRI of the brain was performed which did not show any acute process or old infarctions. Patient was taken off her Seroquel and Depakote was started for behavioral control. Patient was seen by speech therapy and was cleared for oral intake. On 09/29/2024, patient was seen and examined:alert and no apparent distress Constitutional Narrative: Patient appears elderly and frail, she is lethargic and cries out at times in an attempt to sing. General Appearance: well developed Orientation / Consciousness: awake HEENT normocephalic, head/scalp atraumatic and moist oral mucous membranes Eyes PERRL, EOMs intact bilaterally and conjunctivae normal Neck no JVD and thyroid normal General: trachea midline Resp normal respiratory effort, no retractions, no use of accessory muscles and clear to auscultation bilaterally Auscultation: Negative for rales, rhonchi or wheezes Cardio regular rate, regular rhythm, S1 normal heart sound, S2 normal heart sound, no murmurs, no rub and no gallops GI normal to inspection, nondistended, normoactive bowel sounds, soft to palpation, non-tender and non-distended GI Narrative: PEG tube is in place Extremity no clubbing, cyanosis or edema Skin no rashes or lesions noted General Skin Exam: no breakdown Neuro CN's II-XII intact bilaterally Neuro Narrative: Patient is nonambulatory, she does not answer questions, she says a few words and attempts to say Sensorium / Orientation: awake and alert Psych Psych Narrative: Patient is confused and lethargic Patient was discharged to an extended care facility for further skilled services on 09/29/2024 Weight / BMI Weight Weight: 72.32 kg Body Mass Index (BMI) 28.2 ABG / Lab / Microbiology Data 09/26/24 05:40 09/28/24 03:53 Laboratory: Laboratory Results - last 24 hr 09/28/24 17:33: POC Glucose 191 H 09/28/24 23:21: POC Glucose 234 H 09/29/24 05:30: POC Glucose 228 H 09/29/24 11:25: POC Glucose 284 H Microbiology: Microbiology 09/25/24 10:30 Urine, Clean Catch Urine Culture - Final Mixed Gram Pos & Gram Neg Org D/C Instructions DC O2, CPAP, BIPAP Needs Home O2 Discharge instructions: No Meaningful Use Info Meaningful Use Meaningful Use Diagnoses (Choose all that apply): None applicable Ischemic Stroke Statin Dosing Therapy Reference: STATIN DOSE THERAPY REFERENCE: * Patients > 75 years receive moderate or high dose statin therapy. * Patients 75 years or YOUNGER should receive HIGH intensity statin dose unless contraindicated. You will be required to document reason for non-treatment if statin daily dose does not meet guidelines. HIGH DOSE STATIN THERAPY DAILY Atorvastatin > than or = to 40 mg Rosuvastatin > than or = to 20 mg Amlodipine + Atorvastatin > than or = to 2.5/40 mg Ezetimibe + Simvastatin 10/80 mg Simvastatin 80mg Discharge Plan Admission Admit Date/Time: 09/25/24 13:35 Primary Reason for Your Visit: Chronic encephalopathy Attending Provider: Roldan Young Primary Care Provider: Joceline Herman Consulting Providers: Crow Gonzalez; Ashley Connelly; Nemo Snow; Reuben Elmore; Parminder Eduardo; Martínez Ornelas; PING CHA; Angelica Dos Santos; Kimberly Davis; Fede Montez; Raven Rajan; Marco Antonio Still; Shandra Howell; Yuridia Smith; Randy Rosales; Maday Hassan; Bhavin Ferrer; Louie Oconnor; David Dickey; Pineda Samuel; Rashid Samayoa; Ashok Ramesh; Ricardo Hameed; Tye Ho; Belinda Narvaez; Sultana Escalera Discharge Orders/Prescriptions Prescriptions: New acetaminophen 325 mg Tablet 650 mg PO Q4H PRN (Reason: fever or pain 1-10) Qty: 0 0RF cholecalciferol (vitamin D3) 125 mcg (5,000 unit) Capsule 125 mcg PO DAILY Qty: 0 0RF cholecalciferol (vitamin D3) 25 mcg (1,000 unit) Tablet 25 mcg PO DAILY Qty: 0 0RF divalproex 125 mg Capsule, Delayed Rel Sprinkle 500 mg PO BIDCM Qty: 0 0RF pantoprazole [Protonix] 40 mg tablet,delayed release (DR/EC) 40 mg PO DAILY Qty: 1 0RF lorazepam 0.5 mg Tablet 0.5 mg PO Q6H PRN (Reason: anxiety) 3 Days Qty: 5 0RF hydralazine 50 mg Tablet 50 mg PO TID Qty: 0 0RF insulin lispro [Humalog KwikPen Insulin] 100 unit/mL Insulin Pen See Protocol subcut ACHS Qty: 1 0RF Protocol: 4. Sliding Scale Insulin High-Med Dosing Condition: 150-199 mg/dl = 2 units Condition: 200-259 mg/dl = 4 units Condition: 260-324 mg/dl = 6 units Condition: 325-374 mg/dl = 8 units Condition: 375-409 mg/dl = 10 units Condition: 410-449 mg/dl = 11 units Condition: Greater than 449 call physician Protocol Text: Suggested for: - Patients on Total Daily Insulin Dose of 56-80 units - Patient who are known to be insulin resistant or septic HIGH MEDIUM DOSING ALGORITHM IV with Additives Jevity 1.5 1000 ML 50 mls/hr GT Ordered By: Roldan Young DO Last Taken: 09/29/24 05:33 50 mls/hr alum-mag hydroxide-simeth [Mag-Al Plus Extra Strength] 400-400-40 mg/5 mL Suspension 30 ml PO Q6H PRN PRN (Reason: Heartburn Or Indigestion) Qty: 0 0RF menthol-zinc oxide [Calmoseptine] 0.44-20.6 % Ointment 1 applic topical BID Qty: 0 0RF Protocol: *Topical Application Instructions APPLICATION INSTRUCTIONS: bilat buttocks metoprolol tartrate 50 mg Tablet 50 mg PO BID Qty: 0 0RF nystatin [Nyamyc] 100,000 unit/gram Powder 1 applic topical BID Qty: 0 0RF Protocol: *Topical Application Instructions APPLICATION INSTRUCTIONS: abd and groin folds Continued (DME) blood-glucose meter [FreeStyle Lite Meter] Kit See Rx Instructions .ROUTE .MEDSUPPLY Qty: 1 Rx Instructions: As directed Humulin N NPH Insulin KwikPen 100 unit/mL (3 mL) insulin pen 10 unit subcut BID ipratropium-albuterol 0.5 mg-3 mg(2.5 mg base)/3 mL solution for nebulization 3 ml inhalation Q6H PRN (Reason: wheezing) levothyroxine 112 mcg tablet 112 mcg feeding tube DAILY (DME) FreeStyle Nahum 14 Day [place] Misc See Rx Instructions .ROUTE .MEDSUPPLY Qty: 1 0RF Rx Instructions: As directed (DME) FreeStyle N[place]um 14 Day Sensor Kit See Rx Instructions .ROUTE .MEDSUPPLY Qty: 1 0RF Rx Instructions: As directed Discontinued famotidine [Acid Controller] 20 mg tablet 20 mg feeding tube DAILY One Daily Complete Tablet 1 tab PO DAILY Rx Instructions: GIVE VIA PEG TUBE buspirone 7.5 mg tablet 7.5 mg feeding tube TID Patient Comments: MAR SHOWS MED HAS BEEN INCREASED EVERY COUPLE DAYS SINCE 09/13/24 metoprolol tartrate 50 mg tablet 50 mg feeding tube BID quetiapine 25 mg tablet 12.5 mg feeding tube BID acetaminophen 650 mg suppository 650 mg [place] Q4H PRN (Reason: fever or pain) acetaminophen 325 mg tablet 650 mg feeding tube Q4H PRN (Reason: fever or pain) alum-mag hydroxide-simeth 200-200-20 mg/5 mL suspension 30 ml feeding tube Q4H PRN (Reason: GI DISTRESS) lorazepam [Ativan] 0.5 mg tablet 0.5 mg feeding tube Q6H PRN (Reason: anxiety) bisacodyl 10 mg suppository 10 mg [place] DAILY PRN (Reason: constipation) Enema 19-7 gram/118 mL enema 118 ml [place] DAILY PRN (Reason: constipation) magnesium hydroxide [Milk of Magnesia] 400 mg/5 mL suspension 30 ml feeding tube DAILY PRN (Reason: constipation) hydralazine 50 mg Tablet 50 mg feeding tube TID (DME) pen needle, diabetic [Lite Touch Insulin Pen [place]] 31 gauge x 5/16 needle See Rx Instructions .ROUTE .MEDSUPPLY Qty: 30 5RF Rx Instructions: use with victoza qd (DME) FreeStyle Lite Strips Strip See Rx Instructions .ROUTE .MEDSUPPLY Qty: 100 3RF Rx Instructions: As directed (DME) lancets [FreeStyle Lancets] 28 gauge misc See Rx Instructions .ROUTE .MEDSUPPLY Qty: 100 3RF Rx Instructions: check glucose 2 x a day (DME) Handicap Placard See Rx Instructions .Route .MEDSUPPLY Qty: 1 0RF Rx Instructions: 5 year RX 06/08/23-06/08/28 DX.. R06.09 and G62.9 No Action gabapentin 300 mg capsule 300 mg feeding tube BID cholecalciferol (vitamin D3) 50 mcg (2,000 unit) capsule 150 mcg feeding tube DAILY Patient Comments: [place] 6,000IU QD chlorhexidine gluconate 0.12 % mouthwash 15 ml PO BID Rx Instructions: DO NOT SWALLOW heparin (porcine) 5,000 unit/mL (1 mL) cartridge 5,000 unit subcut Q12H insulin lispro [Humalog KwikPen Insulin] 100 unit/mL insulin pen 1 sliding scale dose subcut ACHS Protocol: 6. Sliding Scale Insulin Custom Condition: mg/dl range Dose/Route: Number of Units Condition: 70-150 Dose/Route: 0 Condition: 151-200 Dose/Route: 4 Condition: 201-250 Dose/Route: 8 Condition: 251-300 Dose/Route: 10 Condition: 301-350 Dose/Route: 12 Condition: 351-400 Dose/Route: 16 Condition: <400 Dose/Route: GIVE 16 UNITS AND CALL MD Protocol Text: Custom Sliding Scale 6 UNITS + SLIDING SCALE Patient Comments: 6 UNITS + SLIDING SCALE guaifenesin [Adult Tussin Chest Congestion] 100 mg/5 mL liquid 200 mg feeding tube Q4H PRN (Reason: cough) hydrocodone-acetaminophen 5-325 mg tablet 1 tab feeding tube Q8H PRN (Reason: pain) Referrals / Follow Up: Joceline Herman MD [Primary Care Provider] - Disposition Disposition (needs filled in before D/C Order can be placed): Residential Facility Charges/Coding Visit Charges Inpatient E&M: 88361 Disch Hosp >30min
[2024-09-29] MEDS: hydrALAZINE 50 MG Tablet PO (14:52)
--- NOTE | 2024-09-29 15:53 | CASEMGMT ---
Discharge Planning Discharge orders, signed med list, and transport time sent to [facility]. Physicians will transport pt by cot at 6:30p. Nursing, SW, and pts updated. Nilsa Alexander DC Planning Asst.
== END 2024-09-29 16:53 | disposition skilled nursing facility (03) ==
LOC: ED 13:01 → MS3 14:07
PROVIDERS: Admitting Provider Internal Medicine; Emergency Provider Emergency Medicine; PCP Internal Medicine; Visit Provider Internal Medicine
DX: G93.40 Encephalopathy, unspecified (principal); Z93.1 Gastrostomy status; E11.22 Type 2 diabetes mellitus with diabetic chronic kidney disease; Z79.4 Long term (current) use of insulin; E11.42 Type 2 diabetes mellitus with diabetic polyneuropathy; E11.3293 Type 2 diabetes mellitus with mild nonproliferative diabetic retinopathy without macular edema, bilateral; N18.32 Chronic kidney disease, stage 3b; Z85.3 Personal history of malignant neoplasm of breast; I12.9 Hypertensive chronic kidney disease with stage 1 through stage 4 chronic kidney disease, or unspecified chronic kidney disease; R13.12 Dysphagia, oropharyngeal phase; E78.2 Mixed hyperlipidemia; Z79.890 Hormone replacement therapy; Z87.891 Personal history of nicotine dependence; K21.00 Gastro-esophageal reflux disease with esophagitis, without bleeding; E03.9 Hypothyroidism, unspecified; D64.9 Anemia, unspecified; Z79.899 Other long term (current) drug therapy
CPT/HCPCS: 36415; 70450; 70551; 74018; 74230; 80048; 80053; 81001; 82728; 82962; 83540; 83550; 83690; 84436; 84443; 84481; 85025; 87086; 87088; 92526; 92610; 92611; 93005; 95819; 96361; 96372; 96374; 96375; 96376; 97162; 97166; 97530; 97535; 97802; 99221; 99285; A4216; G0378; J2405